=== PATIENT | male | born 1965 | race Caucasian/White ===

== ENCOUNTER 2021-09-28 15:57 | Inpatient (IN) ==
[2021-09-28] MEDS ORDERED: SODIUM CHLORIDE 0.9% 1000ML 1,000 ML IV ONE (16:10)
[2021-09-28] MEDS ORDERED: PIPERACILLIN/TAZOBACTAM 4.5 GM/120 ML BAG IV STA (16:29)
[2021-09-28] MEDS ORDERED: Patient's HEIGHT &/or WEIGHT Needed SCH ×2 (16:30)
--- NOTE | 2021-09-28 16:36 | Emergency Department Note ---
History of Present Illness General Chief complaint: Altered Mental Status Stated complaint: CLOUDY URINE, AMS, FLANK PAIN, HX OF UTI/SEPSIS Time Seen by Provider: 09/28/21 16:07 Source: patient and family ( who is at the bedside) Mode of arrival: ambulatory Limitations: no limitations History of Present Illness Maximum Pain Intensity: 6 This patient is a 56-year-old male who has a very complex medical history including metastatic colon cancer, end-stage renal disease with dialysis and nephrostomy tube on the left, comes in after having increased tiredness, his thinks has been a little more confused than normal. He does receive dialysis on Wednesday and Wednesday and has not missed any. His did not think his nephrostomy tube was draining last night so she flushed it is now draining and they gave us a sample and it looks purulent. He does not eat but he only drinks small fluids he does have a G-tube for drainage and he has a a port in his left chest where he receives TPN he has a dialysis catheter in the right chest. Denies shortness of breath or chest pain his says he has ch ronic lower extremity edema which does seem worse lately. No known fever he may have felt warm earlier. No blood in stool no recent fall. He may have had some flank pain earlier he does tend to get pain in his abdomen and and back and is on chronic fentanyl patches. He has received all of his care at [facility] he did go to [facility] briefly as well. He has not received chemotherapy for about a month. He tends to get sepsis from his urine. We did review his previous urine cultures although there were no sensitivities he does tend to get Pseudomonas and Enterococcus. Home Medications Medication Instructions Recorded Confirmed Type TPN Electrolytes See Rx Instructions .ROUTE .COMPLEX 09/28/21 09/28/21 History buspirone 15 mg tablet 15 mg PO BID 09/28/21 09/28/21 History fentanyl 100 mcg/hr transdermal 1 patch TRANSDERMAL Q72H 09/28/21 09/28/21 History patch fentanyl 25 mcg/hr transdermal 1 patch TRANSDERMAL Q72H 09/28/21 09/28/21 History patch melatonin 3 mg tablet 3 mg PO HS PRN 09/28/21 09/28/21 History menthol 0.44 %-zinc oxide 20.6 % 1 applic TOPICAL TID PRN 09/28/21 09/28/21 History topical ointment (Calmoseptine) midodrine 10 mg tablet 10 mg PO TID 09/28/21 09/28/21 History nystatin 100,000 unit/gram topical 1 applic TOPICAL BID 09/28/21 09/28/21 History powder olanzapine 5 mg tablet (Zyprexa) 5 mg PO TID PRN 09/28/21 09/28/21 History ondansetron HCl 8 mg tablet 8 mg PO TID PRN 09/28/21 09/28/21 History oxycodone 15 mg tablet 15 mg PO 6XD PRN 09/28/21 09/28/21 History pantoprazole 40 mg tablet,delayed 40 mg PO DAILYBB 09/28/21 09/28/21 History release (Protonix) rifaximin 550 mg tablet (Xifaxan) 550 mg PO BID 09/28/21 09/28/21 History silodosin 8 mg capsule 8 mg PO DAILY 09/28/21 09/28/21 History Allergies Allergy/AdvReac Type Severity Reaction Status Date / Time melon Allergy Intermediate throat and Verified 09/28/21 18:08 mouth is itchy Sulfa (Sulfonamide Allergy Intermediate Hives Verified 09/28/21 18:08 Antibiotics) Past Med/Surg History Social History Smoking Status: Never smoker Preferred Language: Argentine Feels Safe at Home: Yes Immunizations: Past medical historycolon cancer, sepsis, renal failure, dialysis denies cardiac disease. Does have diabetes Allergies - Sulfa Social history does not smoke or drink he lives near [facility] with his . 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 Review of Systems A total of 10 systems reviewed and were otherwise negative Physical Exam Vital Signs Vital Signs - 24 hr 09/28/21 15:59 09/28/21 16:38 09/28/21 16:47 Temperature 36.8 C Temperature Source Temporal Artery Scan Pulse Rate 108 H 104 H Respiratory Rate 20 25 H Blood Pressure 108/73 Blood Pressure Mean 84 Blood Pressure Position Sitting Pulse Oximetry 98 98 Oxygen Delivery Method Room Air Room Air Room Air Sepsis Recent Fever Within 48 Hours No Sepsis New/Unexplained Change in Mental Status Yes Sepsis Action Taken by Nursing No Action Required 09/28/21 17:03 09/28/21 17:42 09/28/21 18:00 Temperature Temperature Source Pulse Rate 98 H 94 H 90 Respiratory Rate 15 12 16 Blood Pressure 97/54 L 101/49 L Blood Pressure Mean 68 66 Blood Pressure Position Pulse Oximetry 94 94 Oxygen Delivery Method Room Air Sepsis Recent Fever Within 48 Hours Sepsis New/Unexplained Change in Mental Status Sepsis Action Taken by Nursing General: Chronically ill-appearing middle-age male who appears pale but in no acute distress, breathing comfortably on room air. Normal speech HEENT: Normal cephalic atraumatic. Pupils are equal round and reactive to light. Extraocular movements are intact. Oropharynx is pink with moist mucous membranes. No swelling of the mouth lips or tongue. Neck: Supple with a midline trachea. No meningeal signs or stiffness, no JVD or bruits. No Stridor. Chest: Clear to auscultation bilaterally. No wheezes or rhonchi. No increased work of breathing. He has a dialysis catheter in the right chest and a a port in the left chest which is already accessed. The skin around these insertions are not red or warm. Heart: Regular rate and rhythm without murmurs or gallops. Abdomen: Soft nontender, nondistended without rebound guarding or rigidity. Abdomen is nondistended he has a large surgical scar centrally without redness or warmth. He has a G-tube in place which has some green drainage in a bag but the incision site looks good. He has a nephrostomy tube in the left flank which has some purulent drainage but the site itself looks okay Extremities: No cyanosis clubbing. Bilateral lower extremity 1+ edema No calf tenderness or assymetry Spine/Back. Non tender to palpation. No CVA tenderness Skin: Good turgor without rashes. Neurologic exam: Cranial nerves two through 12 are intact. Motor and sensation are intact and symmetrical throughout. Course Administered Medications Buspirone HCl (Buspirone 15 Mg Tab) 15 mg PO BID GATITO Stop: 10/28/21 20:59 Last Admin: 09/28/21 22:10 Dose: 15 mg Documented by: [id number] Oxycodone HCl (Oxycodone Hcl Ir 5 Mg Tab (Immediate Release)) 15 mg PO Q4H PRN PRN Reason: Pain Stop: 10/12/21 20:21 Last Admin: 09/28/21 22:10 Dose: 15 mg Documented by: [id number] Rifaximin (Rifaximin 550 Mg Tablet) 550 mg PO BID GATITO Stop: 10/28/21 20:59 Last Admin: 09/28/21 22:10 Dose: 550 mg Documented by: [id number] Discontinued Medications Sodium Chloride (Nss 1000ml) 1,000 mls @ 999 mls/hr IV .Q1H1M ONE Stop: 09/28/21 17:10 Last Admin: 09/28/21 16:46 Dose: Not Given Documented by: [id number] Piperacillin Sod/Tazobactam Sod (Zosyn) 4.5 gm in 120 mls @ 240 mls/hr IV NOW STA Stop: 09/28/21 16:58 Last Infusion: 09/28/21 17:49 Dose: 0 mls/hr Documented by: [id number] Admin: 09/28/21 17:18 Dose: 240 mls/hr Documented by: [id number] Sodium Chloride (Nss) 250 mls @ 999 mls/hr IV .Q16M ONE Stop: 09/28/21 16:55 Last Infusion: 09/28/21 17:19 Dose: 0 mls/hr Documented by: [id number] Admin: 09/28/21 16:50 Dose: 999 mls/hr Documented by: [id number] Vancomycin HCl 2,000 mg/ (Sodium Chloride) 540 mls @ 200 mls/hr IV NOW STA Stop: 09/28/21 19:35 Last Infusion: 09/28/21 20:37 Dose: 0 mls/hr Documented by: [id number] Admin: 09/28/21 17:36 Dose: 200 mls/hr Documented by: [id number] Critical Care Time Critical Care Time: Yes Total Critical Care Time: 40 I have personally spent greater than 40 minutes of critical care time in the direct management of this patient. This includes bedside care, interpretation of diagnostic studies, and testing, discussion with consultants, patient, and family members, and other required patient management activities. This 40 minutes is in excess of all separately billable procedures. Medical Decision Making Differential Diagnosis Sepsis, pyelonephritis, cancer related complication, dialysis complication, bowel obstruction, pneumonia, COVID, electrolyte or metabolic abnormality, dehydration, fluid overload, cardiac disease Medical Records Attestation: I reviewed the patient's medical records. Home Medications Current Medication List: was personally reviewed by me Laboratory Data Result diagrams: 09/28/21 16:45 09/28/21 16:45 Lab Results 09/28/21 09/28/21 09/28/21 Range/Units 16:33 16:33 16:45 WBC 5.60 (4.8-10.8) K/uL RBC 2.81 L (4.7-6.1) M/uL Hgb 8.9 L (14.0-18.0) g/dL Hct 26.8 L (42-52) % MCV 95.4 (80-100) fL MCH 31.7 (25-34) pg MCHC 33.2 (32-36) g/dL RDW Std Deviation 55.4 H (36.4-46.3) fL RDW Coeff of Deandra 16.0 H (11.5-14.5) % Plt Count (130-400) K/uL MPV 11.4 H (7.4-10.4) fL Immature Gran % (Auto) 0.4 % Neut % (Auto) 75.3 % Lymph % (Auto) 5.2 % Charles % (Auto) 18.9 % Eos % (Auto) 0.0 % Baso % (Auto) 0.2 % Neut # (Auto) 4.22 (1.4-6.5) K/uL Lymph # (Auto) 0.29 L (1.2-3.4) K/uL Charles # (Auto) 1.06 H (0.11-0.59) K/uL Eos # (Auto) 0.00 (0-0.5) K/uL Baso # (Auto) 0.01 (0-0.2) K/uL Immature Gran # (Auto) 0.02 (0.00-0.02) K/uL Platelet Estimate Decreased L (Normal) Plt Count ,Citrate (130-400) K/uL Polychromasia 1+ PT (9.0-12.0) Seconds INR (0.9-1.1) APTT (21.0-31.0) Seconds PTT Ratio Sodium (136-145) mmol/L Potassium (3.5-5.1) mmol/L Chloride (98-107) mmol/L Carbon Dioxide (21-32) mmol/L Anion Gap (3-11) BUN (6-23) mg/dl Creatinine (0.6-1.4) mg/dl Est Cr Clr Drug Dosing ml/min Est GFR ( Amer) ml/min Est GFR (Non-Af Amer) ml/min BUN/Creatinine Ratio (10-20) Glucose (70-99(Fasting)) mg/dl Lactate (0.4-2.0) mmol/L Calcium (8.5-10.1) mg/dl Magnesium (1.7-2.4) mg/dl Total Bilirubin (0.2-1.0) mg/dl AST (13-39) U/L ALT (7-52) U/L Alkaline Phosphatase (34-104) U/L Troponin I High Sens (0-20) pg/ml Total Protein (6.0-8.3) gm/dl Albumin (3.4-5.0) gm/dl Globulin (2.5-4.0) gm/dl Albumin/Globulin Ratio (0.9-2) Procalcitonin (0-0.5) ng/ml Urine Color [place] Urine Appearance Cloudy A (Clear) Urine pH 7.0 (4.5-7.5) Ur Specific [place] 1.020 (1.000-1.030) Urine Protein 3+ H (Negative) Urine Glucose (UA) Negative (Negative) Urine Ketones Negative (Negative) Urine Blood 3+ H (Negative) Urine Nitrite Negative (Negative) Urine Bilirubin Negative (Negative) Urine Urobilinogen Negative (Negative) Ur Leukocyte Esterase 3+ H (Negative) Urine RBC >30 H (0-4) /hpf Urine WBC >30 H (0-5) /hpf Ur Epithelial Cells 5-10 H (0-5) /lpf Urine Bacteria Negative (Negative) SARS-CoV-2, RNA, NAAT NEGATIVE (NEGATIVE) 09/28/21 09/28/21 09/28/21 Range/Units 16:45 16:45 16:45 WBC (4.8-10.8) K/uL RBC (4.7-6.1) M/uL Hgb (14.0-18.0) g/dL Hct (42-52) % MCV (80-100) fL MCH (25-34) pg MCHC (32-36) g/dL RDW Std Deviation (36.4-46.3) fL RDW Coeff of Deandra (11.5-14.5) % Plt Count (130-400) K/uL MPV (7.4-10.4) fL Immature Gran % (Auto) % Neut % (Auto) % Lymph % (Auto) % Charles % (Auto) % Eos % (Auto) % Baso % (Auto) % Neut # (Auto) (1.4-6.5) K/uL Lymph # (Auto) (1.2-3.4) K/uL Charles # (Auto) (0.11-0.59) K/uL Eos # (Auto) (0-0.5) K/uL Baso # (Auto) (0-0.2) K/uL Immature Gran # (Auto) (0.00-0.02) K/uL Platelet Estimate (Normal) Plt Count ,Citrate (130-400) K/uL Polychromasia PT 15.2 H (9.0-12.0) Seconds INR 1.5 H (0.9-1.1) APTT 38.9 H (21.0-31.0) Seconds PTT Ratio 1.4 Sodium 132 L (136-145) mmol/L Potassium 4.2 (3.5-5.1) mmol/L Chloride 98 (98-107) mmol/L Carbon Dioxide 26 (21-32) mmol/L Anion Gap 8 (3-11) BUN 66 H (6-23) mg/dl Creatinine 4.97 H* (0.6-1.4) mg/dl Est Cr Clr Drug Dosing 21.8 ml/min Est GFR ( Amer) 13.8 ml/min Est GFR (Non-Af Amer) 11.9 ml/min BUN/Creatinine Ratio 13.3 (10-20) Glucose 111 H (70-99(Fasting)) mg/dl Lactate 1.4 (0.4-2.0) mmol/L Calcium 8.8 (8.5-10.1) mg/dl Magnesium 1.7 (1.7-2.4) mg/dl Total Bilirubin 2.4 H (0.2-1.0) mg/dl AST 15 (13-39) U/L ALT 13 (7-52) U/L Alkaline Phosphatase 195 H (34-104) U/L Troponin I High Sens 11.0 (0-20) pg/ml Total Protein 6.4 (6.0-8.3) gm/dl Albumin 3.0 L (3.4-5.0) gm/dl Globulin 3.4 (2.5-4.0) gm/dl Albumin/Globulin Ratio 0.9 (0.9-2) Procalcitonin (0-0.5) ng/ml Urine Color Urine Appearance (Clear) Urine pH (4.5-7.5) Ur Specific [place] (1.000-1.030) Urine Protein (Negative) Urine Glucose (UA) (Negative) Urine Ketones (Negative) Urine Blood (Negative) Urine Nitrite (Negative) Urine Bilirubin (Negative) Urine Urobilinogen (Negative) Ur Leukocyte Esterase (Negative) Urine RBC (0-4) /hpf Urine WBC (0-5) /hpf Ur Epithelial Cells (0-5) /lpf Urine Bacteria (Negative) SARS-CoV-2, RNA, NAAT (NEGATIVE) 09/28/21 09/28/21 Range/Units 16:45 18:36 WBC (4.8-10.8) K/uL RBC (4.7-6.1) M/uL Hgb (14.0-18.0) g/dL Hct (42-52) % MCV (80-100) fL MCH (25-34) pg MCHC (32-36) g/dL RDW Std Deviation (36.4-46.3) fL RDW Coeff of Deandra (11.5-14.5) % Plt Count (130-400) K/uL MPV (7.4-10.4) fL Immature Gran % (Auto) % Neut % (Auto) % Lymph % (Auto) % Charles % (Auto) % Eos % (Auto) % Baso % (Auto) % Neut # (Auto) (1.4-6.5) K/uL Lymph # (Auto) (1.2-3.4) K/uL Charles # (Auto) (0.11-0.59) K/uL Eos # (Auto) (0-0.5) K/uL Baso # (Auto) (0-0.2) K/uL Immature Gran # (Auto) (0.00-0.02) K/uL Platelet Estimate (Normal) Plt Count ,Citrate 29 L* (130-400) K/uL Polychromasia PT (9.0-12.0) Seconds INR (0.9-1.1) APTT (21.0-31.0) Seconds PTT Ratio Sodium (136-145) mmol/L Potassium (3.5-5.1) mmol/L Chloride (98-107) mmol/L Carbon Dioxide (21-32) mmol/L Anion Gap (3-11) BUN (6-23) mg/dl Creatinine (0.6-1.4) mg/dl Est Cr Clr Drug Dosing ml/min Est GFR ( Amer) ml/min Est GFR (Non-Af Amer) ml/min BUN/Creatinine Ratio (10-20) Glucose (70-99(Fasting)) mg/dl Lactate (0.4-2.0) mmol/L Calcium (8.5-10.1) mg/dl Magnesium (1.7-2.4) mg/dl Total Bilirubin (0.2-1.0) mg/dl AST (13-39) U/L ALT (7-52) U/L Alkaline Phosphatase (34-104) U/L Troponin I High Sens (0-20) pg/ml Total Protein (6.0-8.3) gm/dl Albumin (3.4-5.0) gm/dl Globulin (2.5-4.0) gm/dl Albumin/Globulin Ratio (0.9-2) Procalcitonin 2.19 H (0-0.5) ng/ml Urine Color Urine Appearance (Clear) Urine pH (4.5-7.5) Ur Specific [place] (1.000-1.030) Urine Protein (Negative) Urine Glucose (UA) (Negative) Urine Ketones (Negative) Urine Blood (Negative) Urine Nitrite (Negative) Urine Bilirubin (Negative) Urine Urobilinogen (Negative) Ur Leukocyte Esterase (Negative) Urine RBC (0-4) /hpf Urine WBC (0-5) /hpf Ur Epithelial Cells (0-5) /lpf Urine Bacteria (Negative) SARS-CoV-2, RNA, NAAT (NEGATIVE) Imaging Data Attestation: I personally reviewed and interpreted this imaging study as follows: My Impression: Chest x-rayno acute infiltrate, failure, pneumothorax seen. CT of the headno acute hemorrhage or mass-effect Radiologist's Impression: Chest X-Ray 09/28/21 16:09 XR chest 1V portable CLINICAL HISTORY: SEPSIS. COMPARISON STUDY: No previous studies for comparison. TECHNIQUE: 1 view of the chest FINDINGS: Single frontal view of the chest demonstrates the cardiomediastinal silhouette to be within normal limits. There is a decreased inspiratory effort with elevation of the hemidiaphragms and crowding of the bronchovascular markings at the lung bases and centrally. There is linear atelectasis at the right lung ba se. The lungs are clear of alveolar opacities. There is a large central for catheter in place. There is no evidence for pleural effusion. There is no evidence for vascular congestion. There is no acute osseous pathology. IMPRESSION: 1. There is a decreased inspiratory effort with right basilar atelectasis. Otherwise no acute chest disease. ACT 112: Negative or not required by law. Electronically signed by: Leon Winkler M.D. 09/28/2021 5:05 PM Abdomen/Pelvis CT 09/28/21 16:36 CT abd pelvis wo con CLINICAL HISTORY: sepsis, nephro tube, colon ca COMPARISON STUDY: No previous studies for comparison. CT DOSE: 1305.15 mGy.cm TECHNIQUE: Standard CT of the Abdomen and Pelvis was performed without IV contrast. The patient did not receive oral contrast. A dose lowering technique was utilized adhering to the principles of ALARA. FINDINGS: Lung base: There is a 1 cm noncalcified pulmonary nodule the right lung base suspicious for metastatic disease. The lung bases are otherwise clear. Abdominal cavity: There is no evidence for abdominal mass, adenopathy or ascites. Liver: The liver has a cirrhotic appearance. There is no gross liver mass.. Spleen: The spleen is homogeneous in attenuation on these limited noncontrast images. There is marked splenomegaly with evidence for splenic hilar varices. Pancreas: The pancreas is homogeneous in attenuation on these limited noncontrast images. Gall Bladder: Surgical clips are present. Adrenal glands: The adrenal glands are normal in size and attenuation on these limited noncontrast images. Kidneys: The kidneys are homogeneous in attenuation on these limited noncontrast images. There is bilateral hydronephrosis. A nephrostomy tube is present on the left. Bowel: A PEG tube is present within the stomach. There is evidence for partial colonic resection. There is moderate to marked dilatation of the small bowel loops with decompression of the colon. There is no focal transition zone and the findings most likely related to adhesions from previous surgery. There is no evidence for mass lesion. There are no inflammatory changes present. There is no evidence for free air. Bladder: There is mild distention of the bladder with no evidence for focal bladder wall thickening, calculus or diverticulum. : There is no evidence for pelvic mass or adenopathy. Vasculature: There is no evidence for focal aneurysmal dilatation of the abdominal aorta. Atherosclerotic calcification is present. Osseous structures: There is no acute osseous pathology. Degenerative changes are seen within the spine. IMPRESSION: 1. Partial colonic resection with moderate to marked dilatation of the small bowel representing bowel obstruction. This most likely related to adhesions. 2. CT findings characteristic of cirrhosis of the liver with marked splenomegaly and splenic hilar varices. 3. 1 cm nodule at the right lung base suspicious for metastatic disease. 4. Bilateral hydronephrosis with nephrostomy tube in place on the left. 5. Additional nonacute findings are delineated above. ACT 112: Negative or not required by law. Electronically signed by: Leon Winkler M.D. 09/28/2021 5:20 PM Stat radCT headno intracranial hemorrhage. No significant mass-effect or midline shift. No evidence for cortical infarct or definite intracranial mass ECG Data Attestation: I personally reviewed and interpreted this ECG as follows: Indication: + tachycardia Rate (beats per minute): 103 Rhythm: + sinus tachycardia ECG Intervals/blocks: + Normal QRS, + Normal QT and + Normal RI ECG [place]: + Normal ECG ST segments: + Normal ST segments ECG Findings: no PACs or no PVCs Comparison ECG Date: no prior available Change: the following changes noted MDM Narrative This patient comes in as described above. He has very complex medical history I talked to at length. He has never been here before so I do not have old records to easily go on. I did talk to her ED pharmacist who was able to look at some of his old cultures however they do not have sensitivity. We will start on broad-spectrum antibiotics with Zosyn and vancomycin I think his source is urine as it does look purulent. He does not have a fever here. He also has multiple tubes and lines that could potentially be infected as well or source of infection he has not missed any dialysis and is on a Wednesday schedule. His lungs are clear and do not sound fluid overloaded. His O2 sat is 98%. A full sepsis type work-up was obtained I also did a CAT scan of his abdomen without contrast he was reassessed frequently. Because of his dialysis and concern for fluid overload he was not given the 30/kg normal saline bolus initially. His blood pressure was in the 90s at 1 point so I did give him a 250 cc bolus which he tolerated well. Urinalysis does appear very consistent with infection. White count and lactic were not elevated however procalcitonin was. Chest x-ray was clear. EKG shows no ischemic changes or ectopy. Platelets were low he has no signs of active bleeding. Did order a CT of his head and it was unremarkable as well. He has no headache. He is a dialysis as patient has not missed any dialysis. His abdominal CT shows some small bowel obstruction but I think that is chronic I talked to the about this he has a G-tube in for this. I do think he needs to be admitted for IV antibiotics and further treatment and evaluation I am concerned that he is getting septic. I did consult Dr. Collazo who saw the patient in ER for these measures. The Continuous cardiac monitoring: Orders placed in EMR for continuous cardiac monitoring. Petersen interpretation the patient noted to be in normal sinus rhythm with a rate of 90 Impression & Plan Sepsis, Abdominal pain, Altered mental status, Urinary tract infection, Lab test negative for COVID-19 virus, Thrombocytopenia Discharge Plan Visit Data Chief Complaint: Altered Mental Status Stated Complaint: CLOUDY URINE, AMS, FLANK PAIN, HX OF UTI/SEPSIS ED Provider: Bg Richardson Discharge Problem: Sepsis, Abdominal pain, Altered mental status, Urinary tract infection, Lab test negative for COVID-19 virus, Thrombocytopenia Discharge Instructions Interventions: ED Discharge Assessment Last Done: 09/28/21 22:30
[2021-09-28] MEDS ORDERED: SODIUM CHLORIDE 0.9% 250 ML IV ONE (16:40)
[2021-09-28] MEDS ORDERED: VANCOMYCIN HCL 2,000 MG in SODIUM CHLORIDE 0.9% 500 ML IV STA (16:54)
[2021-09-28 17:08] LABS: Appearance Urine Cloudy (Clear); Bilirubin Urine Negative (Negative); Blood Urine 3+ (Negative); Color Urine Orange; Glucose Urine UA Negative (Negative); Ketones Urine Negative (Negative); Leukocyte Esterase Urine 3+ (Negative); Nitrite Urine Negative (Negative); Protein Urine 3+ (Negative); Urobilinogen Urine Negative (Negative)
--- NOTE | 2021-09-28 17:08 | XRay Report ---
XR chest 1V portable CLINICAL HISTORY: SEPSIS. COMPARISON STUDY: No previous studies for comparison. TECHNIQUE: 1 view of the chest FINDINGS: Single frontal view of the chest demonstrates the cardiomediastinal silhouette to be within normal li mits. There is a decreased inspiratory effort with elevation of the hemidiaphragms and crowding of th e bronchovascular markings at the lung bases and centrally. There is linear atelectasis at the right lung base. The lungs are clear of alveolar opacities. There is a large central for catheter in place. There is no evidence for pleural effusion. There is no evidence for vascular congestion. There is no acute osseous pathology. IMPRESSION: 1. There is a decreased inspiratory effort with right basilar atelectasis. Otherwise no acute chest d isease. ACT 112: Negative or not required by law. Electronically signed by: Leon Winkler M.D. 09/28/2021 5:05 PM
[2021-09-28 17:19] LABS: INR 1.5 (0.9-1.1); Partial Thromboplastin Ratio 1.4; Partial Thromboplastin Time 38.9 Seconds (21.0-31.0); Prothrombin Time 15.2 Seconds (9.0-12.0)
--- NOTE | 2021-09-28 17:22 | CT Scan Report ---
CT abd pelvis wo con CLINICAL HISTORY: sepsis, nephro tube, colon ca COMPARISON STUDY: No previous studies for comparison. CT DOSE: 1305.15 mGy.cm TECHNIQUE: Standard CT of the Abdomen and Pelvis was performed without IV contrast. The patient did not receive oral contrast. A dose lowering technique was utilized adhering to the principles of JC Rizzo. FINDINGS: Lung base: There is a 1 cm noncalcified pulmonary nodule the right lung base suspicious for metastati c disease. The lung bases are otherwise clear. Abdominal cavity: There is no evidence for abdominal mass, adenopathy or ascites. Liver: The liver has a cirrhotic appearance. There is no gross liver mass.. Spleen: The spleen is homogeneous in attenuation on these limited noncontrast images. There is marked splenomegaly with evidence for splenic hilar varices. Pancreas: The pancreas is homogeneous in attenuation on these limited noncontrast images. Gall Bladder: Surgical clips are present. Adrenal glands: The adrenal glands are normal in size and attenuation on these limited noncontrast im ages. Kidneys: The kidneys are homogeneous in attenuation on these limited noncontrast images. There is evangelina ateral hydronephrosis. A nephrostomy tube is present on the left. Bowel: A PEG tube is present within the stomach. There is evidence for partial colonic resection. The re is moderate to marked dilatation of the small bowel loops with decompression of the colon. There i s no focal transition zone and the findings most likely related to adhesions from previous surgery. T here is no evidence for mass lesion. There are no inflammatory changes present. There is no evidence for free air. Bladder: There is mild distention of the bladder with no evidence for focal bladder wall thickening, calculus or diverticulum. : There is no evidence for pelvic mass or adenopathy. Vasculature: There is no evidence for focal aneurysmal dilatation of the abdominal aorta. Atheroscler otic calcification is present. Osseous structures: There is no acute osseous pathology. Degenerative changes are seen within the spi ne. IMPRESSION: 1. Partial colonic resection with moderate to marked dilatation of the small bowel representing bowel obstruction. This most likely related to adhesions. 2. CT findings characteristic of cirrhosis of the liver with marked splenomegaly and splenic hilar va rices. 3. 1 cm nodule at the right lung base suspicious for metastatic disease. 4. Bilateral hydronephrosis with nephrostomy tube in place on the left. 5. Additional nonacute findings are delineated above. ACT 112: Negative or not required by law. Electronically signed by: Leon Winkler M.D. 09/28/2021 5:20 PM
[2021-09-28 17:25] LABS: WBC Urine >30 /hpf (0-5)
[2021-09-28 17:26] LABS: Bacteria Urine Negative (Negative); RBC Urine >30 /hpf (0-4)
[2021-09-28 17:30] LABS: Albumin Globulin Ratio 0.9 (0.9-2); BUN Creatinine Ratio 13.3 (10-20); Bilirubin,Total 2.4 mg/dl (0.2-1.0); Calcium 8.8 mg/dl (8.5-10.1); Creatinine Clr Calc Pharmacy 21.8 ml/min; Est GFR (African American) 13.8 ml/min; Est GFR (Non-African American) 11.9 ml/min; Globulin 3.4 gm/dl (2.5-4.0); Magnesium 1.7 mg/dl (1.7-2.4); Potassium 4.2 mmol/L (3.5-5.1); Total Protein 6.4 gm/dl (6.0-8.3)
[2021-09-28 17:44] LABS: Hematocrit (blood only) 26.8 % (42-52); Hemoglobin 8.9 g/dL (14.0-18.0); Mean Corpuscular Hemoglobin 31.7 pg (25-34); Mean Corpuscular Hgb Conc 33.2 g/dL (32-36); Mean Corpuscular Volume 95.4 fL (80-100); Mean Platelet Volume 11.4 fL (7.4-10.4); RDW Standard Deviation 55.4 fL (36.4-46.3); Red Blood Count 2.81 M/uL (4.7-6.1)
[2021-09-28 17:45] LABS: Basophils # (auto) 0.01 K/uL (0-0.2); Basophils % (auto) 0.2 %; Immature Granulocytes # (auto) 0.02 K/uL (0.00-0.02); Immature Granulocytes % (auto) 0.4 %; Lymphocytes # (auto) 0.29 K/uL (1.2-3.4); Lymphocytes % (auto) 5.2 %; Monocytes # (auto) 1.06 K/uL (0.11-0.59); Monocytes % (auto) 18.9 %; Neutrophils # (auto) 4.22 K/uL (1.4-6.5); Neutrophils % (auto) 75.3 %; Platelet Estimate Decreased (Normal); Polychromasia 1+
[2021-09-28] MEDS ORDERED: PHARMACY GLYCEMIC MGMT CONSULT PRN (19:44)
--- NOTE | 2021-09-28 20:01 | History & Physical Report ---
Date of Service September 28, 2021 Assessment & Plan (1) Altered mental status: (2) Urinary tract infection: (3) Sepsis: (4) Pyelonephritis: Plan: Patient presents with pain in left flank, left lower abdomen, where his nephrostomy tube is placed, however was clogged earlier today Patient was able to flush nephrostomy tube, and purulent urine was drained Patient started on IV antibiotics, vancomycin and Zosyn, will continue Urology, Dr. Frey consulted, Schmitt catheter also placed Blood cultures, urine culture obtained and pending Per patient's , patient was hospitalized at [facility] beds [facility] the [facility] from September 10, to September 16 due to same. She reports he was on IV antibiotics, and discharged on Levaquin for 7 days. We will obtain medical records. End-stage renal disease on dialysis On dialysis Wednesday, renal in [place], Dr. Lo -We will consult [facility] nephrology for dialysis while inpatient Metastatic colon cancer to bladder and likely lung Currently undergoing palliative chemotherapy at [facility] Per , surgery was planned in [place], however patient was not a candidate anymore (elevated ammonia, GI bleed) Records are not available for me to review, will ask HIM for medical records Chronic bowel obstruction -Due to above -G-tube placed -Continue TPN Thrombocytopenia Seems to be chronic, due to above Continue to monitor, and continue to monitor for any bleed Try to obtain medical records, for review as above CODE STATUS: Patient's reports that they go back and forth on it, she is inclined for DNR/DNI, patient himself is not able to answer my questions appropriately. History of Present Illness Chief Complaint: altered mental status Primary Care Provider: Bel Patterson 56-year-old male, with a complex medical history, significant for 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 (seems to be on Palliative chemotherapy, every 2 weeks, at [facility]) end-stage renal disease on dialysis, Wednesday, and Wednesday. ( renal in [place], Dr. Lo), history of left nephrostomy tube, ? Diabetes mellitus, chronic bowel obstruction with G-tube placement (placed in December in [place]) and on TPN, who presents with left lower abdominal/left flank pain and altered mental status. Patient usually follows with providers in [place], and was also evaluated in [place] (and at this time I do not have any medical records to review). Suyapa little's is present at the bedside and is able to provide more history. Patient was recently hospitalized at [facility] at the [facility] for the same. Admission was from September 10 to September 16. Per , patient had more pain in his left flank, and his left nephrostomy tube was clogged. She was able to eventually flush it and drained purulent urine. She says that similar things happened prior to his admission in [place] as well. Reports that also prior to that admission his mental status was altered due to infection. She says that he was on IV antibiotics there, believes he was on vancomycin and cefepime, and discharged home on Levaquin for 7 days, finished treatment on September 23. CT abdomen pelvis was performed in ED here, shows bowel obstruction, which is chronic per patient and . Patient's also reports that patient was considered for surgery in [place] in December, however that was then canceled as he was not a candidate anymore. Here in ED, pt was started on antibiotics, vancomycin and Zosyn. ED provider was able to review previous cultures with pharmacist, seems like patient was previously infected with Pseudomonas and Enterococcus. I was able to discuss with Dr. Frey, urology, who believes patient may have pyelonephritis, and recommends for now to place Schmitt catheter. Recommends IV antibiotics, and nephro tube exchange at some point, likely as previously scheduled. Patient's says that he usually gets his nephrostomy tube exchanged at [facility] hospital in [place], and it usually stays for 6 to 8 weeks. Patient reports that he may have felt some fever today, however he is not sure. He denies any difficulty with breathing, or chest pain. He is not able to answer all my questions, and he refers to his . Allergies Allergy/AdvReac Type Severity Reaction Status Date / Time melon Allergy Intermediate throat and Verified 09/28/21 18:08 mouth is itchy Sulfa (Sulfonamide Allergy Intermediate Hives Verified 09/28/21 18:08 Antibiotics) Home Medications Medication Instructions Recorded Confirmed Type TPN Electrolytes See Rx Instructions .ROUTE .COMPLEX 09/28/21 09/28/21 History buspirone 15 mg tablet 15 mg PO BID 09/28/21 09/28/21 History fentanyl 100 mcg/hr transdermal 1 patch TRANSDERMAL Q72H 09/28/21 09/28/21 History patch fentanyl 25 mcg/hr transdermal 1 patch TRANSDERMAL Q72H 09/28/21 09/28/21 History patch melatonin 3 mg tablet 3 mg PO HS PRN 09/28/21 09/28/21 History menthol 0.44 %-zinc oxide 20.6 % 1 applic TOPICAL TID PRN 09/28/21 09/28/21 History topical ointment (Calmoseptine) midodrine 10 mg tablet 10 mg PO TID 09/28/21 09/28/21 History nystatin 100,000 unit/gram topical 1 applic TOPICAL BID 09/28/21 09/28/21 History powder olanzapine 5 mg tablet (Zyprexa) 5 mg PO TID PRN 09/28/21 09/28/21 History ondansetron HCl 8 mg tablet 8 mg PO TID PRN 09/28/21 09/28/21 History oxycodone 15 mg tablet 15 mg PO 6XD PRN 09/28/21 09/28/21 History pantoprazole 40 mg tablet,delayed 40 mg PO DAILYBB 09/28/21 09/28/21 History release (Protonix) rifaximin 550 mg tablet (Xifaxan) 550 mg PO BID 09/28/21 09/28/21 History silodosin 8 mg capsule 8 mg PO DAILY 09/28/21 09/28/21 History Past Med/Surg History Social History Smoking Status: Never smoker Preferred Language: Sammarinese Feels Safe at Home: Yes Review of Systems Review of Systems: Unobtainable due to cognitive status Physical Exam Constitutional: WD/WN, vitals as above Eyes: PERRL, conjunctivae normal, anicteric sclerae ENMT: external ear and nose normal, oropharynx normal Neck: trachea midline, no thyromegaly Respiratory: normal respiratory effort, lungs clear to auscultation Cardiovascular: Rate/Rhythm: regular rate (1 + LE edema) Chest (Breasts): Chest: + vascular access device or port (Port for TPN on the left, and Waters for dialysis on the right) Gastrointestinal (Abdomen): Inspection/Auscultation: + abdomen distended (Tender to palpation at left lower abdomen, minimal bowel sounds) Musculoskeletal: Moves extremities Skin: no rashes, warm and dry Neurologic: PERRL, EOMI, accommodation nl, no face palsy, no dysarthria (Patient is slow to answer, and not able to answer all my questions) Results & Data Results & Data ([facility]) Vital Signs (Past 12 Hours) Vital Signs Temp Pulse Resp BP Pulse Ox 09/28/21 18:00 90 16 101/49 L 94 09/28/21 17:42 94 H 12 97/54 L 94 09/28/21 17:03 98 H 15 09/28/21 16:47 104 H 25 H 98 09/28/21 15:59 36.8 C 108 H 20 108/73 98 Laboratory Results 09/28/21 09/28/21 09/28/21 Range/Units 18:36 16:45 16:45 WBC (4.8-10.8) K/uL RBC (4.7-6.1) M/uL Hgb (14.0-18.0) g/dL Hct (42-52) % MCV (80-100) fL MCH (25-34) pg MCHC (32-36) g/dL RDW Std Deviation (36.4-46.3) fL RDW Coeff of Deandra (11.5-14.5) % Plt Count (130-400) K/uL MPV (7.4-10.4) fL Immature Gran % (Auto) % Neut % (Auto) % Lymph % (Auto) % [place] % (Auto) % Eos % (Auto) % Baso % (Auto) % Neut # (Auto) (1.4-6.5) K/uL Lymph # (Auto) (1.2-3.4) K/uL [place] # (Auto) (0.11-0.59) K/uL Eos # (Auto) (0-0.5) K/uL Baso # (Auto) (0-0.2) K/uL Immature Gran # (Auto) (0.00-0.02) K/uL Platelet Estimate (Normal) Plt Count ,Citrate 29 L* (130-400) K/uL Polychromasia PT (9.0-12.0) Seconds INR (0.9-1.1) APTT (21.0-31.0) Seconds PTT Ratio Sodium (136-145) mmol/L Potassium (3.5-5.1) mmol/L Chloride (98-107) mmol/L Carbon Dioxide (21-32) mmol/L Anion Gap (3-11) BUN (6-23) mg/dl Creatinine (0.6-1.4) mg/dl Est Cr Clr Drug Dosing ml/min Est GFR ( Amer) ml/min Est GFR (Non-Af Amer) ml/min BUN/Creatinine Ratio (10-20) Glucose (70-99(Fasting)) mg/dl Lactate 1.4 (0.4-2.0) mmol/L Calcium (8.5-10.1) mg/dl Magnesium (1.7-2.4) mg/dl Total Bilirubin (0.2-1.0) mg/dl AST (13-39) U/L ALT (7-52) U/L Alkaline Phosphatase (34-104) U/L Troponin I High Sens (0-20) pg/ml Total Protein (6.0-8.3) gm/dl Albumin (3.4-5.0) gm/dl Globulin (2.5-4.0) gm/dl Albumin/Globulin Ratio (0.9-2) Procalcitonin 2.19 H (0-0.5) ng/ml Urine Color Urine Appearance (Clear) Urine pH (4.5-7.5) Ur Specific Doss (1.000-1.030) Urine Protein (Negative) Urine Glucose (UA) (Negative) Urine Ketones (Negative) Urine Blood (Negative) Urine Nitrite (Negative) Urine Bilirubin (Negative) Urine Urobilinogen (Negative) Ur Leukocyte Esterase (Negative) Urine RBC (0-4) /hpf Urine WBC (0-5) /hpf Ur Epithelial Cells (0-5) /lpf Urine Bacteria (Negative) SARS-CoV-2, RNA, NAAT (NEGATIVE) 09/28/21 09/28/21 09/28/21 Range/Units 16:45 16:45 16:45 WBC 5.60 (4.8-10.8) K/uL RBC 2.81 L (4.7-6.1) M/uL Hgb 8.9 L (14.0-18.0) g/dL Hct 26.8 L (42-52) % MCV 95.4 (80-100) fL MCH 31.7 (25-34) pg MCHC 33.2 (32-36) g/dL RDW Std Deviation 55.4 H (36.4-46.3) fL RDW Coeff of Deandra 16.0 H (11.5-14.5) % Plt Count (130-400) K/uL MPV 11.4 H (7.4-10.4) fL Immature Gran % (Auto) 0.4 % Neut % (Auto) 75.3 % Lymph % (Auto) 5.2 % [place] % (Auto) 18.9 % Eos % (Auto) 0.0 % Baso % (Auto) 0.2 % Neut # (Auto) 4.22 (1.4-6.5) K/uL Lymph # (Auto) 0.29 L (1.2-3.4) K/uL [place] # (Auto) 1.06 H (0.11-0.59) K/uL Eos # (Auto) 0.00 (0-0.5) K/uL Baso # (Auto) 0.01 (0-0.2) K/uL Immature Gran # (Auto) 0.02 (0.00-0.02) K/uL Platelet Estimate Decreased L (Normal) Plt Count ,Citrate (130-400) K/uL Polychromasia 1+ PT 15.2 H (9.0-12.0) Seconds INR 1.5 H (0.9-1.1) APTT 38.9 H (21.0-31.0) Seconds PTT Ratio 1.4 Sodium 132 L (136-145) mmol/L Potassium 4.2 (3.5-5.1) mmol/L Chloride 98 (98-107) mmol/L Carbon Dioxide 26 (21-32) mmol/L Anion Gap 8 (3-11) BUN 66 H (6-23) mg/dl Creatinine 4.97 H* (0.6-1.4) mg/dl Est Cr Clr Drug Dosing 21.8 ml/min Est GFR ( Amer) 13.8 ml/min Est GFR (Non-Af Amer) 11.9 ml/min BUN/Creatinine Ratio 13.3 (10-20) Glucose 111 H (70-99(Fasting)) mg/dl Lactate (0.4-2.0) mmol/L Calcium 8.8 (8.5-10.1) mg/dl Magnesium 1.7 (1.7-2.4) mg/dl Total Bilirubin 2.4 H (0.2-1.0) mg/dl AST 15 (13-39) U/L ALT 13 (7-52) U/L Alkaline Phosphatase 195 H (34-104) U/L Troponin I High Sens 11.0 (0-20) pg/ml Total Protein 6.4 (6.0-8.3) gm/dl Albumin 3.0 L (3.4-5.0) gm/dl Globulin 3.4 (2.5-4.0) gm/dl Albumin/Globulin Ratio 0.9 (0.9-2) Procalcitonin (0-0.5) ng/ml Urine Color Urine Appearance (Clear) Urine pH (4.5-7.5) Ur Specific Doss (1.000-1.030) Urine Protein (Negative) Urine Glucose (UA) (Negative) Urine Ketones (Negative) Urine Blood (Negative) Urine Nitrite (Negative) Urine Bilirubin (Negative) Urine Urobilinogen (Negative) Ur Leukocyte Esterase (Negative) Urine RBC (0-4) /hpf Urine WBC (0-5) /hpf Ur Epithelial Cells (0-5) /lpf Urine Bacteria (Negative) SARS-CoV-2, RNA, NAAT (NEGATIVE) 09/28/21 09/28/21 Range/Units 16:33 16:33 WBC (4.8-10.8) K/uL RBC (4.7-6.1) M/uL Hgb (14.0-18.0) g/dL Hct (42-52) % MCV (80-100) fL MCH (25-34) pg MCHC (32-36) g/dL RDW Std Deviation (36.4-46.3) fL RDW Coeff of Deandra (11.5-14.5) % Plt Count (130-400) K/uL MPV (7.4-10.4) fL Immature Gran % (Auto) % Neut % (Auto) % Lymph % (Auto) % [place] % (Auto) % Eos % (Auto) % Baso % (Auto) % Neut # (Auto) (1.4-6.5) K/uL Lymph # (Auto) (1.2-3.4) K/uL [place] # (Auto) (0.11-0.59) K/uL Eos # (Auto) (0-0.5) K/uL Baso # (Auto) (0-0.2) K/uL Immature Gran # (Auto) (0.00-0.02) K/uL Platelet Estimate (Normal) Plt Count ,Citrate (130-400) K/uL Polychromasia PT (9.0-12.0) Seconds INR (0.9-1.1) APTT (21.0-31.0) Seconds PTT Ratio Sodium (136-145) mmol/L Potassium (3.5-5.1) mmol/L Chloride (98-107) mmol/L Carbon Dioxide (21-32) mmol/L Anion Gap (3-11) BUN (6-23) mg/dl Creatinine (0.6-1.4) mg/dl Est Cr Clr Drug Dosing ml/min Est GFR ( Amer) ml/min Est GFR (Non-Af Amer) ml/min BUN/Creatinine Ratio (10-20) Glucose (70-99(Fasting)) mg/dl Lactate (0.4-2.0) mmol/L Calcium (8.5-10.1) mg/dl Magnesium (1.7-2.4) mg/dl Total Bilirubin (0.2-1.0) mg/dl AST (13-39) U/L ALT (7-52) U/L Alkaline Phosphatase (34-104) U/L Troponin I High Sens (0-20) pg/ml Total Protein (6.0-8.3) gm/dl Albumin (3.4-5.0) gm/dl Globulin (2.5-4.0) gm/dl Albumin/Globulin Ratio (0.9-2) Procalcitonin (0-0.5) ng/ml Urine Color Grand Urine Appearance Cloudy A (Clear) Urine pH 7.0 (4.5-7.5) Ur Specific Doss 1.020 (1.000-1.030) Urine Protein 3+ H (Negative) Urine Glucose (UA) Negative (Negative) Urine Ketones Negative (Negative) Urine Blood 3+ H (Negative) Urine Nitrite Negative (Negative) Urine Bilirubin Negative (Negative) Urine Urobilinogen Negative (Negative) Ur Leukocyte Esterase 3+ H (Negative) Urine RBC >30 H (0-4) /hpf Urine WBC >30 H (0-5) /hpf Ur Epithelial Cells 5-10 H (0-5) /lpf Urine Bacteria Negative (Negative) SARS-CoV-2, RNA, NAAT NEGATIVE (NEGATIVE) Diagnostic Findings CT abdomen pelvis FINDINGS: Lung base: There is a 1 cm noncalcified pulmonary nodule the right lung base suspicious for metastatic disease. The lung bases are otherwise clear. Abdominal cavity: There is no evidence for abdominal mass, adenopathy or ascites. Liver: The liver has a cirrhotic appearance. There is no gross liver mass.. Spleen: The spleen is homogeneous in attenuation on these limited noncontrast images. There is marked splenomegaly with evidence for splenic hilar varices. Pancreas: The pancreas is homogeneous in attenuation on these limited noncontrast images. Gall Bladder: Surgical clips are present. Adrenal glands: The adrenal glands are normal in size and attenuation on these limited noncontrast images. Kidneys: The kidneys are homogeneous in attenuation on these limited noncontrast images. There is bilateral hydronephrosis. A nephrostomy tube is present on the left. Bowel: A PEG tube is present within the stomach. There is evidence for partial colonic resection. There is moderate to marked dilatation of the small bowel loops with decompression of the colon. There is no focal transition zone and the findings most likely related to adhesions from previous surgery. There is no evidence for mass lesion. There are no inflammatory changes present. There is no evidence for free air. Bladder: There is mild distention of the bladder with no evidence for focal bladder wall thickening, calculus or diverticulum. : There is no evidence for pelvic mass or adenopathy. Vasculature: There is no evidence for focal aneurysmal dilatation of the abdominal aorta. Atherosclerotic calcification is present. Osseous structures: There is no acute osseous pathology. Degenerative changes are seen within the spine. IMPRESSION: 1. Partial colonic resection with moderate to marked dilatation of the small bowel representing bowel obstruction. This most likely related to adhesions. 2. CT findings characteristic of cirrhosis of the liver with marked splenomegaly and splenic hilar varices. 3. 1 cm nodule at the right lung base suspicious for metastatic disease. 4. Bilateral hydronephrosis with nephrostomy tube in place on the left. 5. Additional nonacute findings are delineated above. Code Status & VTE Plan VTE Prophylaxis Plan VTE Prophylaxis will be ordered: Yes (1) Altered mental status Altered mental status type: unspecified Qualified Code(s): R41.82 - Altered mental status, unspecified (2) Urinary tract infection Hematuria presence: without hematuria Urinary tract infection type: site unspecified Qualified Code(s): N39.0 - Urinary tract infection, site not specified (3) Sepsis Sepsis acute organ dysfunction status: without acute organ dysfunction Sepsis type: sepsis due to unspecified organism Qualified Code(s): A41.9 - Sepsis, unspecified organism
[2021-09-28] MEDS ORDERED: MENTHOL-ZINC OXIDE 360 APPLN/120 GM TUBE EXT PRN (20:22)
[2021-09-28] MEDS ORDERED: MELATONIN 3 MG TAB PO PRN (20:22)
[2021-09-28] MEDS ORDERED: TPN/PPN CONSULT PHARMACY PRN (21:07)
--- NOTE | 2021-09-28 21:26 | Urology Consultation ---
Date of Consultation September 28, 2021 Assessment & Plan (1) Altered mental status: (2) Urinary tract infection: (3) Sepsis: (4) Pyelonephritis: Patient has extremely complicated history very complicated medical and surgical history was reviewed and summarized above. Limited due to the extreme complexity of his advanced malignancy. Patient's was able to fill in a number of the questions however still some further documentation may be helpful in finalizing long-term plan. At this point would recommend utilizing some sort of drainage of the bladder. Patient is extremely hesitant due to issues with previous biopsies and resections of bladder and need for continuous bladder irrigation to tolerate a Schmitt catheter. After some discussion patient was amendable to trying a straight catheter. Did discuss that the distended bladder with likely stagnant urine could contribute significantly to the infection risk and may be causing the hydronephrosis that is now noted on the right. Patient's nephrostomy tube is currently functioning well. It is set to be changed towards the end of this month. We will likely be able to maintain that. Patient will be undergoing broad-spectrum antibiotics. We will need to monitor the right ureter as this may also be obstructed due to the malignancy. Would need to consider possible bilateral nephrostomy tube placement if that obstruction does start to occur. We will for start with drainage of the bladder to see if this will improve. Patient will be likely to monitor closely with possibly critical management due to sepsis with hypotension. Will plan to continue to monitor as well. May need intermittent catheters for drainage of bladder however difficult to determine how much urine the patient does produce a day. Is likely going to continue with hemodialysis while here and patient and family think that it is going to be comp leted tomorrow. We will continue to observe. We will hold off on major intervention at this time and allow adequate drainage of the bladder to see if this will help with improvement and continue drainage with the nephrostomy tube on the left side. All imaging was reviewed interpreted by myself. Did discuss extensively with family. Had discussed earlier in the day extensively with the hospitalist team in order to coordinate care and ensure that available resources will be able to handle the patient's issues especially with the nephrostomy tube. If the nephrostomy tube does start to fail or become obstructed or is unable to be flushed or develops any major issue or displacement may need to consider transfer for interventional radiology management. At this point however it does appear to be functioning well with drainage of a cloudy urine and on imaging appears to be in good position. History of Present Illness History of Present Illness New consultation for patient with UTI/Pyelo, discomfort, and ill feelings. Patient has extremely complicated history. 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 Patient has had obstruction of bowel. Has nephrostomy tube on the left side due to obstruction due to local invasion within the bladder. Has had multiple interventions in the [place] area with [place] [facility] out of [facility]. Has had to have bladder irrigations. Patient had obstruction of the neph tube in the last day. With some gentle flushing by his this was able open and a large amount of purulent appearing material drained. Subsequently this has been draining considerably better. Patient had developed significant altered mental status. Has chronic pain related issues due to malignancy history. Patient has not noticed a major change in his chronic pain related issues and has chronic abdominal and flank pain at baseline. Has some discomfort with the nephrostomy tube with flank pain and radiating into groin and back in waves comes and goes. Can be severe at times. Discussed and reviewed patient's family history for any history of issues, infections, and disease. Also, discussed patient's medical/surgery history especially related to any history of urinary issues or stone disease. Reviewed extensively with patient and . Patient is a somewhat poor historian due to the acute illness. Patient had CT scan which was reviewed interpreted by myself. Patient has massive dilation of the small bowel. Has a gastric tube in place which is per the used for drainage as patient does like to drink water still but is mainly getting nutrition through TPN. Neither patient nor family were aware of the small bowel distention. He does not have bowel movements and neither democrat are completely aware of exactly how his GI system is currently configured due to the significant complexity around his malignancy. On imaging patient has a dilated bladder with mass appearing on the left side of bladder likely the local invasion from the GI cancer. Patient has bilateral hydronephrosis with obstruction of the left and possible reflux into the right due to distention of bladder. Per since he has been on dialysis he only create scant urine daily but frequently feels that he needs to void but only small amounts through the day. Patient was seen in the ER and is undergoing admission with the medicine team for observation with broad spectrum IV antibiotics. Allergies Allergy/AdvReac Type Severity Reaction Status Date / Time melon Allergy Intermediate throat and Verified 09/28/21 18:08 mouth is itchy Sulfa (Sulfonamide Allergy Intermediate Hives Verified 09/28/21 18:08 Antibiotics) Home Medications Medication Instructions Recorded Confirmed Type TPN Electrolytes See Rx Instructions .ROUTE .COMPLEX 09/28/21 09/28/21 History buspirone 15 mg tablet 15 mg PO BID 09/28/21 09/28/21 History fentanyl 100 mcg/hr transdermal 1 patch TRANSDERMAL Q72H 09/28/21 09/28/21 History patch fentanyl 25 mcg/hr transdermal 1 patch TRANSDERMAL Q72H 09/28/21 09/28/21 History patch melatonin 3 mg tablet 3 mg PO HS PRN 09/28/21 09/28/21 History menthol 0.44 %-zinc oxide 20.6 % 1 applic TOPICAL TID PRN 09/28/21 09/28/21 History topical ointment (Calmoseptine) midodrine 10 mg tablet 10 mg PO TID 09/28/21 09/28/21 History nystatin 100,000 unit/gram topical 1 applic TOPICAL BID 09/28/21 09/28/21 History powder olanzapine 5 mg tablet (Zyprexa) 5 mg PO TID PRN 09/28/21 09/28/21 History ondansetron HCl 8 mg tablet 8 mg PO TID PRN 09/28/21 09/28/21 History oxycodone 15 mg tablet 15 mg PO 6XD PRN 09/28/21 09/28/21 History pantoprazole 40 mg tablet,delayed 40 mg PO DAILYBB 09/28/21 09/28/21 History release (Protonix) rifaximin 550 mg tablet (Xifaxan) 550 mg PO BID 09/28/21 09/28/21 History silodosin 8 mg capsule 8 mg PO DAILY 09/28/21 09/28/21 History Patient History Social History Smoking Status: Never smoker Preferred Language: Japanese Feels Safe at Home: Yes Review of Systems Review of Systems: All systems reviewed & are unremarkable except as noted in HPI & below Physical Exam Physical Exam: General: Alert and oriented x 3 in no acute distress. Patient is well nourished and well kept. HEENT: Normocephalic Atraumatic. Inspection normal. Cranial Nerves 2-12 Grossly intact. Nares are clear. Neck is supple. Normal inspection of face. Normal inspection of neck. Neurologic: No deficits on inspection. Baseline for motor function and sensory. Psychologic: Normal affect. Respiratory: Nonlabored. No use of accessory muscles. No tachypnea or dyspnea. Cardiovascular: No tachycardia Skin: [place] and Dry. No rashes or visible lesions. Extremities: Moving without issues. No motor deficits on inspection Lymphatics: No edema Abdomen: Soft Non-distended. No acites. No rebound or guarding. Results & Data ([facility]) Vital Signs (Past 12 Hours) Vital Signs Temp Pulse Pulse Resp BP BP Pulse Ox 09/28/21 21:00 90 12 113/56 L 96 09/28/21 18:00 90 16 101/49 L 94 09/28/21 17:42 94 H 12 97/54 L 94 09/28/21 17:03 98 H 15 09/28/21 16:47 104 H 25 H 98 09/28/21 15:59 36.8 C 108 H 20 108/73 98 PG Care Time/CCT Total # of Minutes Spent Total Time Spent with Patient: Total time spent is greater than 50% in coordination of care (as documented) at patient's floor/unit and/or counseling patient: Coding Level of Care Code 14257 Inpt Consult Level 5 Diagnoses Altered mental status R41.82 Altered mental status type: unspecified Urinary tract infection N39.0 Hematuria presence: without hematuria Urinary tract infection type: site unspecified Sepsis A41.9 Sepsis acute organ dysfunction status: without acute organ dysfunction Sepsis type: sepsis due to unspecified organism Pyelonephritis N12 (1) Altered mental status Altered mental status type: unspecified Qualified Code(s): R41.82 - Altered mental status, unspecified (2) Urinary tract infection Hematuria presence: without hematuria Urinary tract infection type: site unspecified Qualified Code(s): N39.0 - Urinary tract infection, site not specified (3) Sepsis Sepsis acute organ dysfunction status: without acute organ dysfunction Sepsis type: sepsis due to unspecified organism Qualified Code(s): A41.9 - Sepsis, unspecified organism
[2021-09-28] MEDS ORDERED: CARBOHYDRATES FOR HYPOGLYCEMIA PO PRN (21:45)
[2021-09-28] MEDS ORDERED: GLUCOSE 10 TABS/TUBE PO PRN (21:45)
[2021-09-28] MEDS ORDERED: DEXTROSE 50% 50 ML SYRINGE IV PRN (21:45)
[2021-09-28] MEDS ORDERED: GLUCAGON FOR INJ 1 MG VIAL IM PRN (21:45)
[2021-09-28] MEDS ORDERED: GLUCOSE 40% GEL 15 GM TUBE PO PRN (21:45)
[2021-09-28] MEDS: rifAXIMin 550 MG TABLET PO SCH (22:10)
[2021-09-28] MEDS: busPIRone 15 MG TAB PO SCH (22:10)
[2021-09-28] MEDS: oxyCODONE HCL IR 5 MG TAB (IMMEDIATE RELEASE) PO PRN (22:10)
[2021-09-28] MEDS ORDERED: VANCOMYCIN CONSULT ACTIVE PRN (22:48)
[2021-09-28] MEDS: NYSTATIN POWDER 15GM BTL EXT SCH (23:51)
[2021-09-29] MEDS: INSULIN ASPART PER UNIT SC SCH ×4 (00:05→17:41)
[2021-09-29] MEDS: PIPERACILLIN/TAZOBACTAM 3.375 GM in DEXTROSE 5% 100 ML IV SCH ×2 (02:11→14:57)
[2021-09-29 05:30] LABS: Hematocrit (blood only) 21.9 % (42-52); Hemoglobin 7.2 g/dL (14.0-18.0); Mean Corpuscular Hgb Conc 32.9 g/dL (32-36); Mean Corpuscular Volume 94.4 fL (80-100); RDW Coefficient of Variation 16.2 % (11.5-14.5); RDW Standard Deviation 55.8 fL (36.4-46.3); Red Blood Count 2.32 M/uL (4.7-6.1); White Blood Count 2.59 K/uL (4.8-10.8)
[2021-09-29 05:32] LABS: Mean Platelet Volume 10.2 fL (7.4-10.4); Platelet Count 36 K/uL (130-400)
[2021-09-29 05:54] LABS: BUN Creatinine Ratio 12.9 (10-20); Creatinine Clr Calc Pharmacy 17.5 ml/min; Est GFR (African American) 12.2 ml/min; Est GFR (Non-African American) 10.5 ml/min; Magnesium 1.6 mg/dl (1.7-2.4); Phosphorus 1.9 mg/dl (2.5-4.9); Potassium 4.2 mmol/L (3.5-5.1)
[2021-09-29] MEDS: MIDODRINE HCL 10 MG TAB PO SCH ×3 (06:07→16:47)
[2021-09-29] MEDS: PANTOprazole 40 MG TAB PO SCH (06:07)
[2021-09-29] MEDS ORDERED: MAGNESIUM SULFATE / D5W 1 GM/100 ML BAG IV ONE (07:15)
--- NOTE | 2021-09-29 07:26 | CT Scan Report ---
CT head/brain wo con CLINICAL HISTORY: altered loc Technique: Contiguous axial CT images of the head were acquired from the base of the skull to the sydni calixto without intravenous contrast administration. Images were viewed in brain, subdural and bone [facility] . Automated dose lowering techniques and/or adjustment according to patient size were utilized for this exam. Comparison: None available at the time of this dictation. Findings: The ventricles, basal cisterns, and cerebral sulci are normal. There is no acute intracranial hemorrh age or evidence of acute territorial infarction. Neither mass effect, shift of the midline structures , nor abnormal extra-axial fluid collections are shown. Imaged portions of the paranasal sinuses and mastoid air cells are clear. The orbits appear normal. There are no acute fractures of the calvaria or scalp swelling. Impression: No acute intracranial hemorrhage, no evidence of acute territorial infarction or other acute intracra nial disease process. ACT 112: Negative or not required by law. Electronically signed by: Lev White M.D. 09/29/2021 7:24 AM
[2021-09-29] MEDS ORDERED: SODIUM CHLORIDE 0.9% 1000ML 1,000 ML IV PRN (07:40)
[2021-09-29 07:42] LABS: Estimated Average Glucose 111 mg/dl; Hemoglobin A1C 5.5 % (4.5-5.6)
--- NOTE | 2021-09-29 11:35 | Hospitalist Progress Note ---
Date of Service September 29, 2021 Assessment & Plan (1) Altered mental status: (2) Urinary tract infection: (3) Sepsis: (4) Pyelonephritis: Plan: Patient presents with pain in left flank, left lower abdomen, where his nephrostomy tube is placed, however was clogged just prior to admission Patient was able to flush nephrostomy tube, and purulent urine was drained Patient started on IV antibiotics, vancomycin and Zosyn, will continue Urology, Dr. Frey consulted, Recommend Schmitt catheter, which Was not done and instead patient agreed to straight cath Blood cultures, urine culture obtained and pending Per patient's , patient was hospitalized at [facility] from September 10, to September 16 due to same. She reports he was on IV antibiotics, and discharged on Levaquin for 7 days. We will obtain medical records. End-stage renal disease on dialysis On dialysis Wednesday, [facility] in [place], Dr. Wally Silver nephrology consulted for dialysis while inpatient Metastatic colon cancer to bladder and likely lung Currently undergoing palliative chemotherapy at [facility] Per , surgery was planned in [place], however patient was not a candidate anymore (elevated ammonia, GI bleed) Records are not available for me to review, will ask HIM for medical records Chronic bowel obstruction -Due to above -G-tube placed -Continue TPN Thrombocytopenia Seems to be chronic, due to above Continue to monitor, and continue to monitor for any bleed Try to obtain medical records, for review as above CODE STATUS: Patient's reports that they go back and forth on it, she is inclined for DNR/DNI, patient himself is not able to answer my questions appropriately. Reviewed records from palliative medicine from [place], which st ated that patient was made DNR/DNI after discussion with , will confirm this further. Admission and Anticipated Discharge Date Admission Date: September 28, 2021 Subjective Patient seen in follow-up of sepsis, UTI/pyonephritis, in the setting of metastatic colon cancer, ESRD on dialysis Patient seems to be doing better today, he is much more awake, and answering more questions Patient's is at the bedside Patient feels very weak, however doing better since last night Afebrile, no chest pain, continues to have abdominal discomfort Review of Systems Review of Systems: All systems reviewed & are unremarkable except as noted in Subjective Physical Exam Physical Exam: Constitutional:L Chronically ill-ap pearing male, slig htly jaundiced, in no acute distress Eyes: PERRL, EOMI, ENMT: external ear and n ose normal, oropha rynx normal Neck: supple Respiratory: normal respiratory effort, lungs mayda ar to auscultation Cardiovascular:L Rate/Rhythm: regul ar rate (1 + LE ed meghann) Chest (Breasts): Chest: + vascular access device or p ort (Port for TPN on the left, and H ickman for dialysi s on the right) Gastrointestinal ( Abdomen): Inspection/Auscult ation: + abdomen d istended (Tender t o palpation at lef t lower abdomen, m inimal bowel sound s) + G tube, L fla nk + L nephrostomy tube Musculoskeletal: Moves extremities Skin: no rashes, warm an d dry Neurologic: PERRL, EOMI, no fa ce palsy, no dysar thria (Patient is slow to answer, an d not able to answ er all my question s appropriately) Results & Data Results & Data ([facility]) Vital Signs (Past 12 Hours) Vital Signs Temp Pulse Pulse Pulse Resp BP BP 09/29/21 11:15 86 95/55 L 09/29/21 11:00 78 93/44 L 09/29/21 10:54 84 09/29/21 10:45 80 95/54 L 09/29/21 10:30 76 89/42 L 09/29/21 10:15 75 87/49 L 09/29/21 10:00 77 89/46 L 09/29/21 09:45 36.7 C 78 09/29/21 07:52 36.6 C 85 19 96/55 L 09/29/21 04:12 37.5 C 88 18 126/74 Pulse Ox 09/29/21 11:15 09/29/21 11:00 09/29/21 10:54 09/29/21 10:45 09/29/21 10:30 09/29/21 10:15 09/29/21 10:00 09/29/21 09:45 09/29/21 07:52 95 09/29/21 04:12 95 Laboratory Results 09/29/21 09/29/21 09/29/21 Range/Units 05:44 05:15 05:15 WBC (4.8-10.8) K/uL RBC (4.7-6.1) M/uL Hgb (14.0-18.0) g/dL Hct (42-52) % MCV (80-100) fL MCH (25-34) pg MCHC (32-36) g/dL RDW Std Deviation (36.4-46.3) fL RDW Coeff of De[place] (11.5-14.5) % Plt Count (130-400) K/uL MPV (7.4-10.4) fL Immature Gran % (Auto) % Neut % (Auto) % Lymph % (Auto) % [place] % (Auto) % Eos % (Auto) % Baso % (Auto) % Neut # (Auto) (1.4-6.5) K/uL Lymph # (Auto) (1.2-3.4) K/uL [place] # (Auto) (0.11-0.59) K/uL Eos # (Auto) (0-0.5) K/uL Baso # (Auto) (0-0.2) K/uL Immature Gran # (Auto) (0.00-0.02) K/uL Platelet Estimate (Normal) Plt Count ,Citrate (130-400) K/uL Polychromasia PT (9.0-12.0) Seconds INR (0.9-1.1) APTT (21.0-31.0) Seconds PTT Ratio Sodium (136-145) mmol/L Potassium (3.5-5.1) mmol/L Chloride (98-107) mmol/L Carbon Dioxide (21-32) mmol/L Anion Gap (3-11) BUN (6-23) mg/dl Creatinine (0.6-1.4) mg/dl Est Cr Clr Drug Dosing ml/min Est GFR ( Amer) ml/min Est GFR (Non-Af Amer) ml/min BUN/Creatinine Ratio (10-20) Glucose (70-99(Fasting)) mg/dl POC Glucose 87 (70-99) mg/dl Estimat Average Glucose mg/dl Hemoglobin A1c (4.5-5.6) % Lactate (0.4-2.0) mmol/L Calcium (8.5-10.1) mg/dl Phosphorus (2.5-4.9) mg/dl Magnesium (1.7-2.4) mg/dl Total Bilirubin (0.2-1.0) mg/dl AST (13-39) U/L ALT (7-52) U/L Alkaline Phosphatase (34-104) U/L Troponin I High Sens (0-20) pg/ml Total Protein (6.0-8.3) gm/dl Albumin (3.4-5.0) gm/dl Globulin (2.5-4.0) gm/dl Albumin/Globulin Ratio (0.9-2) Procalcitonin (0-0.5) ng/ml Urine Color Urine Appearance (Clear) Urine pH (4.5-7.5) Ur Specific [place] (1.000-1.030) Urine Protein (Negative) Urine Glucose (UA) (Negative) Urine Ketones (Negative) Urine Blood (Negative) Urine Nitrite (Negative) Urine Bilirubin (Negative) Urine Urobilinogen (Negative) Ur Leukocyte Esterase (Negative) Urine RBC (0-4) /hpf Urine WBC (0-5) /hpf Ur Epithelial Cells (0-5) /lpf Urine Bacteria (Negative) Random Vancomycin 19.0 (10-20) mcg/ml SARS-CoV-2, RNA, NAAT (NEGATIVE) Blood Type A Positive Antibody Screen NEGATIVE 09/29/21 09/29/21 09/29/21 Range/Units 05:15 05:15 05:15 WBC 2.59 L (4.8-10.8) K/uL RBC 2.32 L (4.7-6.1) M/uL Hgb 7.2 L (14.0-18.0) g/dL Hct 21.9 L (42-52) % MCV 94.4 (80-100) fL MCH 31.0 (25-34) pg MCHC 32.9 (32-36) g/dL RDW Std Deviation 55.8 H (36.4-46.3) fL RDW Coeff of [place] 16.2 H (11.5-14.5) % Plt Count 36 L (130-400) K/uL MPV 10.2 (7.4-10.4) fL Immature Gran % (Auto) % Neut % (Auto) % Lymph % (Auto) % [place] % (Auto) % Eos % (Auto) % Baso % (Auto) % Neut # (Auto) (1.4-6.5) K/uL Lymph # (Auto) (1.2-3.4) K/uL [place] # (Auto) (0.11-0.59) K/uL Eos # (Auto) (0-0.5) K/uL Baso # (Auto) (0-0.2) K/uL Immature Gran # (Auto) (0.00-0.02) K/uL Platelet Estimate (Normal) Plt Count ,Citrate (130-400) K/uL Polychromasia PT (9.0-12.0) Seconds INR (0.9-1.1) APTT (21.0-31.0) Seconds PTT Ratio Sodium 131 L (136-145) mmol/L Potassium 4.2 (3.5-5.1) mmol/L Chloride 99 (98-107) mmol/L Carbon Dioxide 26 (21-32) mmol/L Anion Gap 6 (3-11) BUN 71 H (6-23) mg/dl Creatinine 5.51 H* D (0.6-1.4) mg/dl Est Cr Clr Drug Dosing 17.5 ml/min Est GFR ( Amer) 12.2 ml/min Est GFR (Non-Af Amer) 10.5 ml/min BUN/Creatinine Ratio 12.9 (10-20) Glucose 81 (70-99(Fasting)) mg/dl POC Glucose (70-99) mg/dl Estimat Average Glucose 111 mg/dl Hemoglobin A1c 5.5 (4.5-5.6) % Lactate (0.4-2.0) mmol/L Calcium 8.0 L (8.5-10.1) mg/dl Phosphorus 1.9 L (2.5-4.9) mg/dl Magnesium 1.6 L (1.7-2.4) mg/dl Total Bilirubin (0.2-1.0) mg/dl AST (13-39) U/L ALT (7-52) U/L Alkaline Phosphatase (34-104) U/L Troponin I High Sens (0-20) pg/ml Total Protein (6.0-8.3) gm/dl Albumin (3.4-5.0) gm/dl Globulin (2.5-4.0) gm/dl Albumin/Globulin Ratio (0.9-2) Procalcitonin (0-0.5) ng/ml Urine Color Urine Appearance (Clear) Urine pH (4.5-7.5) Ur Specific [place] (1.000-1.030) Urine Protein (Negative) Urine Glucose (UA) (Negative) Urine Ketones (Negative) Urine Blood (Negative) Urine Nitrite (Negative) Urine Bilirubin (Negative) Urine Urobilinogen (Negative) Ur Leukocyte Esterase (Negative) Urine RBC (0-4) /hpf Urine WBC (0-5) /hpf Ur Epithelial Cells (0-5) /lpf Urine Bacteria (Negative) Random Vancomycin (10-20) mcg/ml SARS-CoV-2, RNA, NAAT (NEGATIVE) Blood Type Antibody Screen 09/28/21 09/28/21 09/28/21 Range/Units 23:26 21:40 18:36 WBC (4.8-10.8) K/uL RBC (4.7-6.1) M/uL Hgb (14.0-18.0) g/dL Hct (42-52) % MCV (80-100) fL MCH (25-34) pg MCHC (32-36) g/dL RDW Std Deviation (36.4-46.3) fL RDW Coeff of Deandra (11.5-14.5) % Plt Count (130-400) K/uL MPV (7.4-10.4) fL Immature Gran % (Auto) % Neut % (Auto) % Lymph % (Auto) % [place] % (Auto) % Eos % (Auto) % Baso % (Auto) % Neut # (Auto) (1.4-6.5) K/uL Lymph # (Auto) (1.2-3.4) K/uL [place] # (Auto) (0.11-0.59) K/uL Eos # (Auto) (0-0.5) K/uL Baso # (Auto) (0-0.2) K/uL Immature Gran # (Auto) (0.00-0.02) K/uL Platelet Estimate (Normal) Plt Count ,Citrate 29 L* (130-400) K/uL Polychromasia PT (9.0-12.0) Seconds INR (0.9-1.1) APTT (21.0-31.0) Seconds PTT Ratio Sodium (136-145) mmol/L Potassium (3.5-5.1) mmol/L Chloride (98-107) mmol/L Carbon Dioxide (21-32) mmol/L Anion Gap (3-11) BUN (6-23) mg/dl Creatinine (0.6-1.4) mg/dl Est Cr Clr Drug Dosing ml/min Est GFR ( Amer) ml/min Est GFR (Non-Af Amer) ml/min BUN/Creatinine Ratio (10-20) Glucose (70-99(Fasting)) mg/dl POC Glucose 84 89 (70-99) mg/dl Estimat Average Glucose mg/dl Hemoglobin A1c (4.5-5.6) % Lactate (0.4-2.0) mmol/L Calcium (8.5-10.1) mg/dl Phosphorus (2.5-4.9) mg/dl Magnesium (1.7-2.4) mg/dl Total Bilirubin (0.2-1.0) mg/dl AST (13-39) U/L ALT (7-52) U/L Alkaline Phosphatase (34-104) U/L Troponin I High Sens (0-20) pg/ml Total Protein (6.0-8.3) gm/dl Albumin (3.4-5.0) gm/dl Globulin (2.5-4.0) gm/dl Albumin/Globulin Ratio (0.9-2) Procalcitonin (0-0.5) ng/ml Urine Color Urine Appearance (Clear) Urine pH (4.5-7.5) Ur Specific [place] (1.000-1.030) Urine Protein (Negative) Urine Glucose (UA) (Negative) Urine Ketones (Negative) Urine Blood (Negative) Urine Nitrite (Negative) Urine Bilirubin (Negative) Urine Urobilinogen (Negative) Ur Leukocyte Esterase (Negative) Urine RBC (0-4) /hpf Urine WBC (0-5) /hpf Ur Epithelial Cells (0-5) /lpf Urine Bacteria (Negative) Random Vancomycin (10-20) mcg/ml SARS-CoV-2, RNA, NAAT (NEGATIVE) Blood Type Antibody Screen 09/28/21 09/28/21 09/28/21 Range/Units 16:45 16:45 16:45 WBC (4.8-10.8) K/uL RBC (4.7-6.1) M/uL Hgb (14.0-18.0) g/dL Hct (42-52) % MCV (80-100) fL MCH (25-34) pg MCHC (32-36) g/dL RDW Std Deviation (36.4-46.3) fL RDW Coeff of Deandra (11.5-14.5) % Plt Count (130-400) K/uL MPV (7.4-10.4) fL Immature Gran % (Auto) % Neut % (Auto) % Lymph % (Auto) % [place] % (Auto) % Eos % (Auto) % Baso % (Auto) % Neut # (Auto) (1.4-6.5) K/uL Lymph # (Auto) (1.2-3.4) K/uL [place] # (Auto) (0.11-0.59) K/uL Eos # (Auto) (0-0.5) K/uL Baso # (Auto) (0-0.2) K/uL Immature Gran # (Auto) (0.00-0.02) K/uL Platelet Estimate (Normal) Plt Count ,Citrate (130-400) K/uL Polychromasia PT (9.0-12.0) Seconds INR (0.9-1.1) APTT (21.0-31.0) Seconds PTT Ratio Sodium 132 L (136-145) mmol/L Potassium 4.2 (3.5-5.1) mmol/L Chloride 98 (98-107) mmol/L Carbon Dioxide 26 (21-32) mmol/L Anion Gap 8 (3-11) BUN 66 H (6-23) mg/dl Creatinine 4.97 H* (0.6-1.4) mg/dl Est Cr Clr Drug Dosing 21.8 ml/min Est GFR ( Amer) 13.8 ml/min Est GFR (Non-Af Amer) 11.9 ml/min BUN/Creatinine Ratio 13.3 (10-20) Glucose 111 H (70-99(Fasting)) mg/dl POC Glucose (70-99) mg/dl Estimat Average Glucose mg/dl Hemoglobin A1c (4.5-5.6) % Lactate 1.4 (0.4-2.0) mmol/L Calcium 8.8 (8.5-10.1) mg/dl Phosphorus (2.5-4.9) mg/dl Magnesium 1.7 (1.7-2.4) mg/dl Total Bilirubin 2.4 H (0.2-1.0) mg/dl AST 15 (13-39) U/L ALT 13 (7-52) U/L Alkaline Phosphatase 195 H (34-104) U/L Troponin I High Sens 11.0 (0-20) pg/ml Total Protein 6.4 (6.0-8.3) gm/dl Albumin 3.0 L (3.4-5.0) gm/dl Globulin 3.4 (2.5-4.0) gm/dl Albumin/Globulin Ratio 0.9 (0.9-2) Procalcitonin 2.19 H (0-0.5) ng/ml Urine Color Urine Appearance (Clear) Urine pH (4.5-7.5) Ur Specific [place] (1.000-1.030) Urine Protein (Negative) Urine Glucose (UA) (Negative) Urine Ketones (Negative) Urine Blood (Negative) Urine Nitrite (Negative) Urine Bilirubin (Negative) Urine Urobilinogen (Negative) Ur Leukocyte Esterase (Negative) Urine RBC (0-4) /hpf Urine WBC (0-5) /hpf Ur Epithelial Cells (0-5) /lpf Urine Bacteria (Negative) Random Vancomycin (10-20) mcg/ml SARS-CoV-2, RNA, NAAT (NEGATIVE) Blood Type Antibody Screen 09/28/21 09/28/21 09/28/21 Range/Units 16:45 16:45 16:33 WBC 5.60 (4.8-10.8) K/uL RBC 2.81 L (4.7-6.1) M/uL Hgb 8.9 L (14.0-18.0) g/dL Hct 26.8 L (42-52) % MCV 95.4 (80-100) fL MCH 31.7 (25-34) pg MCHC 33.2 (32-36) g/dL RDW Std Deviation 55.4 H (36.4-46.3) fL RDW Coeff of Deandra 16.0 H (11.5-14.5) % Plt Count (130-400) K/uL MPV 11.4 H (7.4-10.4) fL Immature Gran % (Auto) 0.4 % Neut % (Auto) 75.3 % Lymph % (Auto) 5.2 % [place] % (Auto) 18.9 % Eos % (Auto) 0.0 % Baso % (Auto) 0.2 % Neut # (Auto) 4.22 (1.4-6.5) K/uL Lymph # (Auto) 0.29 L (1.2-3.4) K/uL [place] # (Auto) 1.06 H (0.11-0.59) K/uL Eos # (Auto) 0.00 (0-0.5) K/uL Baso # (Auto) 0.01 (0-0.2) K/uL Immature Gran # (Auto) 0.02 (0.00-0.02) K/uL Platelet Estimate Decreased L (Normal) Plt Count ,Citrate (130-400) K/uL Polychromasia 1+ PT 15.2 H (9.0-12.0) Seconds INR 1.5 H (0.9-1.1) APTT 38.9 H (21.0-31.0) Seconds PTT Ratio 1.4 Sodium (136-145) mmol/L Potassium (3.5-5.1) mmol/L Chloride (98-107) mmol/L Carbon Dioxide (21-32) mmol/L Anion Gap (3-11) BUN (6-23) mg/dl Creatinine (0.6-1.4) mg/dl Est Cr Clr Drug Dosing ml/min Est GFR ( Amer) ml/min Est GFR (Non-Af Amer) ml/min BUN/Creatinine Ratio (10-20) Glucose (70-99(Fasting)) mg/dl POC Glucose (70-99) mg/dl Estimat Average Glucose mg/dl Hemoglobin A1c (4.5-5.6) % Lactate (0.4-2.0) mmol/L Calcium (8.5-10.1) mg/dl Phosphorus (2.5-4.9) mg/dl Magnesium (1.7-2.4) mg/dl Total Bilirubin (0.2-1.0) mg/dl AST (13-39) U/L ALT (7-52) U/L Alkaline Phosphatase (34-104) U/L Troponin I High Sens (0-20) pg/ml Total Protein (6.0-8.3) gm/dl Albumin (3.4-5.0) gm/dl Globulin (2.5-4.0) gm/dl Albumin/Globulin Ratio (0.9-2) Procalcitonin (0-0.5) ng/ml Urine Color Urine Appearance (Clear) Urine pH (4.5-7.5) Ur Specific [place] (1.000-1.030) Urine Protein (Negative) Urine Glucose (UA) (Negative) Urine Ketones (Negative) Urine Blood (Negative) Urine Nitrite (Negative) Urine Bilirubin (Negative) Urine Urobilinogen (Negative) Ur Leukocyte Esterase (Negative) Urine RBC (0-4) /hpf Urine WBC (0-5) /hpf Ur Epithelial Cells (0-5) /lpf Urine Bacteria (Negative) Random Vancomycin (10-20) mcg/ml SARS-CoV-2, RNA, NAAT NEGATIVE (NEGATIVE) Blood Type Antibody Screen 09/28/21 Range/Units 16:33 WBC (4.8-10.8) K/uL RBC (4.7-6.1) M/uL Hgb (14.0-18.0) g/dL Hct (42-52) % MCV (80-100) fL MCH (25-34) pg MCHC (32-36) g/dL RDW Std Deviation (36.4-46.3) fL RDW Coeff of [place]andra (11.5-14.5) % Plt Count (130-400) K/uL MPV (7.4-10.4) fL Immature Gran % (Auto) % Neut % (Auto) % Lymph % (Auto) % [place] % (Auto) % Eos % (Auto) % Baso % (Auto) % Neut # (Auto) (1.4-6.5) K/uL Lymph # (Auto) (1.2-3.4) K/uL [place] # (Auto) (0.11-0.59) K/uL Eos # (Auto) (0-0.5) K/uL Baso # (Auto) (0-0.2) K/uL Immature Gran # (Auto) (0.00-0.02) K/uL Platelet Estimate (Normal) Plt Count ,Citrate (130-400) K/uL Polychromasia PT (9.0-12.0) Seconds INR (0.9-1.1) APTT (21.0-31.0) Seconds PTT Ratio Sodium (136-145) mmol/L Potassium (3.5-5.1) mmol/L Chloride (98-107) mmol/L Carbon Dioxide (21-32) mmol/L Anion Gap (3-11) BUN (6-23) mg/dl Creatinine (0.6-1.4) mg/dl Est Cr Clr Drug Dosing ml/min Est GFR ( Amer) ml/min Est GFR (Non-Af Amer) ml/min BUN/Creatinine Ratio (10-20) Glucose (70-99(Fasting)) mg/dl POC Glucose (70-99) mg/dl Estimat Average Glucose mg/dl Hemoglobin A1c (4.5-5.6) % Lactate (0.4-2.0) mmol/L Calcium (8.5-10.1) mg/dl Phosphorus (2.5-4.9) mg/dl Magnesium (1.7-2.4) mg/dl Total Bilirubin (0.2-1.0) mg/dl AST (13-39) U/L ALT (7-52) U/L Alkaline Phosphatase (34-104) U/L Troponin I High Sens (0-20) pg/ml Total Protein (6.0-8.3) gm/dl Albumin (3.4-5.0) gm/dl Globulin (2.5-4.0) gm/dl Albumin/Globulin Ratio (0.9-2) Procalcitonin (0-0.5) ng/ml Urine Color [place] Urine Appearance Cloudy A (Clear) Urine pH 7.0 (4.5-7.5) Ur Specific [place] 1.020 (1.000-1.030) Urine Protein 3+ H (Negative) Urine Glucose (UA) Negative (Negative) Urine Ketones Negative (Negative) Urine Blood 3+ H (Negative) Urine Nitrite Negative (Negative) Urine Bilirubin Negative (Negative) Urine Urobilinogen Negative (Negative) Ur Leukocyte Esterase 3+ H (Negative) Urine RBC >30 H (0-4) /hpf Urine WBC >30 H (0-5) /hpf Ur Epithelial Cells 5-10 H (0-5) /lpf Urine Bacteria Negative (Negative) Random Vancomycin (10-20) mcg/ml SARS-CoV-2, RNA, NAAT (NEGATIVE) Blood Type Antibody Screen Medications Administered Current Inpatient Medications Buspirone HCl (Buspirone 15 Mg Tab) 15 mg PO BID [facility] Stop: 10/28/21 20:59 Last Admin: 09/28/21 22:10 Dose: 15 mg Documented by: Calamine/Phenol (Menthol-Zinc Oxide 360 Appln/120 Gm Tube) 1 appln EXT TID PRN PRN Reason: skin breakdown Stop: 10/28/21 20:21 Dextrose (Dextrose 50% 50 Ml Syringe) 25 - 50 ml IV UD PRN; Protocol PRN Reason: Hypoglycemia Protocol Stop: 10/28/21 21:44 Fentanyl (Fentanyl 100 Mcg/Hr Tdsy) 100 mcg TD Q72H [facility] Stop: 10/13/21 08:59 Glucagon (Glucagon For Inj 1 Mg Vial) 1 mg IM UD PRN; Protocol PRN Reason: Hypoglycemia Protocol Stop: 10/28/21 21:44 Glucose (Glucose 40% Gel 15 Gm Tube) 15 - 30 gm PO UD PRN; Protocol PRN Reason: Hypoglycemia Protocol Stop: 10/28/21 21:44 Glucose (Glucose 10 Tabs/Tube) 4 - 8 tabs PO UD PRN; Protocol PRN Reason: Hypoglycemia Protocol Stop: 10/28/21 21:44 Dextrose (D10w) 1,000 mls @ 0 mls/hr IV .Q0M PRN PRN Reason: protocol (see label comments) Stop: 10/29/21 15:59 Piperacillin Sod/Tazobactam (Sod 3.375 gm/ Dextrose) 115 mls @ 28.75 mls/hr IV Q12H [facility]; Protocol Stop: 10/01/21 01:59 Last Infusion: 09/29/21 05:35 Dose: Infused Documented by: Sodium Chloride (Nss 1000ml) 1,000 mls @ 0 mls/hr IV .Q0M PRN PRN Reason: For Hemodialysis Use ONLY Stop: 09/29/21 13:39 Insulin Aspart (Insulin Aspart Per Unit) 0 units SC Q6 [facility] Stop: 10/29/21 00:00 Last Admin: 09/29/21 05:45 Dose: Not Given Documented by: Melatonin (Melatonin 3 Mg Tab) 3 mg PO HS PRN PRN Reason: Sleep Stop: 10/28/21 20:21 Midodrine (Midodrine Hcl 10 Mg Tab) 10 mg PO TID@0700,1200,1700 [facility] Stop: 10/29/21 06:59 Last Admin: 09/29/21 06:07 Dose: 10 mg Documented by: Miscellaneous (Fentanyl Patch Remove & Waste) 1 ea N/A Q72H [facility] Stop: 10/29/21 08:58 Miscellaneous (Check Fentanyl Patch Placement) 1 ea N/A QS [facility] Stop: 10/29/21 15:59 Miscellaneous (Carbohydrates For Hypoglycemia ) 15 - 30 gm PO UD PRN PRN Reason: Hypoglycemia Treatment Stop: 10/28/21 21:44 Miscellaneous (No Heparin In Dialysis) 1 ea N/A TODAY@0800 [facility] Stop: 09/29/21 23:59 Miscellaneous Information (Tpn/Ppn Consult Pharmacy) 1 ea N/A UD PRN PRN Reason: Consult Stop: 10/28/21 21:06 Miscellaneous Information (Pharmacy Glycemic Mgmt Consult) 1 ea N/A UD PRN PRN Reason: Consult Stop: 10/28/21 19:43 Miscellaneous Information (Vancomycin Consult Active) 0 ea N/A UD PRN PRN Reason: Consult Stop: 10/28/21 22:47 Nystatin (Nystatin Powder 15gm Btl) 1 appln EXT BID [facility] Stop: 10/28/21 20:59 Last Admin: 09/28/21 23:51 Dose: 1 appln Documented by: Ondansetron HCl (Ondansetron 4 Mg Od Tab) 8 mg PO TID PRN PRN Reason: Nausea Stop: 10/28/21 21:05 Oxycodone HCl (Oxycodone Hcl Ir 5 Mg Tab (Immediate Release)) 15 mg PO Q4H PRN PRN Reason: Pain Stop: 10/12/21 20:21 Last Admin: 09/28/21 22:10 Dose: 15 mg Documented by: Pantoprazole Sodium (Pantoprazole 40 Mg Tab) 40 mg PO DAILYBB [facility] Stop: 10/29/21 06:29 Last Admin: 09/29/21 06:07 Dose: 40 mg Documented by: Rifaximin (Rifaximin 550 Mg Tablet) 550 mg PO BID [facility] Stop: 10/28/21 20:59 Last Admin: 09/28/21 22:10 Dose: 550 mg Documented by: (1) Urinary tract infection Hematuria presence: without hematuria Urinary tract infection type: site unspecified Qualified Code(s): N39.0 - Urinary tract infection, site not specified (2) Sepsis Sepsis acute organ dysfunction status: without acute organ dysfunction Sepsis type: sepsis due to unspecified organism Qualified Code(s): A41.9 - Sepsis, unspecified organism (3) Altered mental status Altered mental status type: unspecified Qualified Code(s): R41.82 - Altered mental status, unspecified
--- NOTE | 2021-09-29 11:37 | Electrocardiogram Report ---
Test Reason : Blood Pressure : / mmHG Vent. Rate : 103 BPM Atrial Rate : 103 BPM P-R Int : 158 ms QRS Dur : 088 ms QT Int : 310 ms P-R-T Axes : 026 -16 033 degrees QTc Int : 406 ms Sinus tachycardia Incomplete right bundle branch block Abnormal ECG No previous ECGs available Confirmed by Ethan Wilson ([id number]) on 09/29/2021 11:37:31 AM Referred By: REFERRED SELF Confirmed By:Raimundo Wilson
[2021-09-29] MEDS ORDERED: SODIUM PHOSPHATE 15 MMOL in SODIUM CHLORIDE 0.9% 250 ML IV ONE (13:00)
[2021-09-29] MEDS ORDERED: THIAMINE HCL 100 MG in SYRINGE 9 ML IV ONE (14:00)
--- NOTE | 2021-09-29 14:13 | Pharmacy Report ---
Pharmacy [facility] Short Note - Date of Service September 29, 2021 - Assessment & Plan Assessment 56 year old M receiving vancomycin/Zosyn for treatment of pyelonephritis. Pertinent microbiologic data includes: urine culture growing pin-point growth. Day # 2 of antimicrobial therapy. Plan Vancomycin * Random level of 19 mcg/mL is therapeutic. * Patient is dialysis patient. He received dialysis today. * Will give vancomycin 500 mg IV x 1 after dialysis (5 mg/kg) * Goal trough level: 15 to 20 mcg/mL * Random level ordered for: 09/30/21 Pharmacy will continue to follow and will adjust dose/frequency as necessary. Thank you.
--- NOTE | 2021-09-29 14:18 | Pharmacy Report ---
Pharmacy Glycemic Short Note 2 - Date of Service September 29, 2021 - Glycemic Short BSG Results (Last 24 hours): 09/28/21 09/28/21 09/28/21 16:45 21:40 23:26 Glucose 111 H POC Glucose 89 84 09/29/21 09/29/21 05:15 05:44 Glucose 81 POC Glucose 87 OUTPATIENT ANTIDIABETIC REGIMEN: * N/A * HbA1C = 5.5% (patient is dialysis so this may not be accurate) ASSESSMENT: * Mr Hull is a 56 y/o M with a PMH of metastatic cancer on home TPN and dialysis who presents with pyelonephritis. * Currently patient's TPN is on hold due to critical phos value of 1.9. * Patient is NPO. * BSGs today are 84-87 mg/dL. Patient is receiving dialysis. * Will have correction factor of weight-based stress of 1-2. Hold Lantus due to BSGs < 140 mg/dL. PLAN FOR INPATIENT GLYCEMIC CONTROL * Basal insulin * HOLD * Bolus insulin * NovoLog per scale ACHS or Q6hrs while NPO * Goal Range: Low 120 mg/dL - High 150 mg/dL * Correction Factor: 30 mg/dL/unit * Nutritional / Prandial insulin per carb ratio of 1 unit per --- grams CHO consumed
[2021-09-29] MEDS: ONDANSETRON 4 MG OD TAB PO PRN ×2 (14:41→19:45)
[2021-09-29] MEDS: oxyCODONE HCL IR 5 MG TAB (IMMEDIATE RELEASE) PO PRN ×2 (14:44→19:45)
[2021-09-29] MEDS: NYSTATIN POWDER 15GM BTL EXT SCH ×2 (14:46→19:50)
[2021-09-29] MEDS: busPIRone 15 MG TAB PO SCH ×2 (14:46→19:49)
[2021-09-29] MEDS: rifAXIMin 550 MG TABLET PO SCH ×2 (14:46→19:49)
[2021-09-29] MEDS: fentaNYL 100 MCG/HR TDSY TD SCH (14:48)
--- NOTE | 2021-09-29 15:02 | Urology Progress Note ---
Date of Service September 29, 2021 Assessment & Plan (1) Urinary tract infection: (2) Hydronephrosis: Plan: 56yo M with metastatic colon cancer and ESRD on dialysis admitted with sepsis, UTI/pyonephritis. - Afebrile. - Labs reviewed - Wbc 2.59, Creatinine 5.51 - Had dialysis today. - Urine and blood cultures pending, on IV Zosyn and Vanco. - Left nephrostomy tube intact and draining, continue to monitor. - No acute intervention indicated at this time. - Recommend continuing bladder scan Q6H and straight cath as needed for source control given concern for infection. - Continue supportive care and antibiotics, tailor as culture data becomes available. - Continue to monitor closely. If patient fails to progress clinically or any acute changes in patient status, will need to consider transfer to tertiary center for nephrostomy tube placement/management. - Will continue to follow. Admission and Anticipated Discharge Date Admission Date: September 28, 2021 Supervising Physician Co-Signing Physician Notes I have discussed Mr. Hull's case with DARIO Garcia and agree with the above documentation. Left nephrostomy tube appears to be in good position and draining well. Bladder managed with [facility]IC Subjective Pt examined at bedside this afternoon. Awake, resting in bed on arrival. He just returned from dialysis. No fevers or chills. Denies nausea/vomiting. Denies abdominal and flank pain. Left neph tube draining with cloudy yellow urine. Review of Systems Constitutional: as per Subjective / HPI Cardiovascular: no chest pain and no dyspnea Gastrointestinal: as per Subjective / HPI Genitourinary: + as per Subjective / HPI Physical Exam Constitutional: cooperative; no acute distress Respiratory: no respiratory distress and no labored breathing Musculoskeletal: Head/Neck/Chest: normocephalic Neurologic: awake Psychiatric: Orientation: alert and oriented x 3 Genitourinary: left nephrostomy tube Results & Data ([facility]) Vital Signs (Past 12 Hours) Vital Signs Temp Pulse Pulse Pulse Resp BP BP 09/29/21 13:59 80 84/55 L 09/29/21 13:30 36.6 C 78 97/52 L 09/29/21 13:00 78 86/46 L 09/29/21 12:45 78 85/50 L 09/29/21 12:30 79 85/44 L 09/29/21 12:15 82 93/51 L 09/29/21 12:00 81 89/48 L 09/29/21 11:45 48 L 121/106 H 09/29/21 11:30 78 93/45 L 09/29/21 11:15 86 95/55 L 09/29/21 11:00 78 93/44 L 09/29/21 10:54 84 09/29/21 10:45 80 95/54 L 09/29/21 10:30 76 89/42 L 09/29/21 10:15 75 87/49 L 09/29/21 10:00 77 89/46 L 09/29/21 09:45 36.7 C 78 09/29/21 07:52 36.6 C 85 19 96/55 L 09/29/21 04:12 37.5 C 88 18 126/74 Pulse Ox 09/29/21 13:59 09/29/21 13:30 09/29/21 13:00 09/29/21 12:45 09/29/21 12:30 09/29/21 12:15 09/29/21 12:00 09/29/21 11:45 09/29/21 11:30 09/29/21 11:15 09/29/21 11:00 09/29/21 10:54 09/29/21 10:45 09/29/21 10:30 09/29/21 10:15 09/29/21 10:00 09/29/21 09:45 09/29/21 07:52 95 09/29/21 04:12 95 PG Care Time/CCT Total # of Minutes Spent Total Time Spent with Patient: Total time spent is greater than 50% in coordination of care (as documented) at patient's floor/unit and/or counseling patient: Coding Level of Care Code 59257 Subseq Hosp Care Lvl 2 Diagnoses Urinary tract infection N39.0 Hematuria presence: without hematuria Urinary tract infection type: site unspecified Hydronephrosis N13.30 (1) Urinary tract infection Hematuria presence: without hematuria Urinary tract infection type: site unspecified Qualified Code(s): N39.0 - Urinary tract infection, site not specified
[2021-09-29] MEDS: CHECK fentaNYL PATCH PLACEMENT SCH (15:31)
[2021-09-29] MEDS ORDERED: DEXTROSE 10% 1,000 ML IV PRN (16:00)
[2021-09-29] MEDS ORDERED: VANCOMYCIN HCL 500 MG in DEXTROSE 5% 100 ML IV ONE (17:00)
[2021-09-29] MEDS: fentaNYL 25 MCG/HR TDSY TD SCH (18:11)
--- NOTE | 2021-09-29 18:59 | Nephrology Consultation ---
Date of Consultation September 29, 2021 Assessment & Plan (1) ESRD (end stage renal disease) on dialysis: gentle HD today for clearance only; no fluid removed d/t relative hypotension tolerated tx w/o issue; next tx on 10/01 or as clinical needs dictate >time antibiotics w/ HD as indicated (2) Recurrent urinary tract infection: on vanco, zosyn; L nephrostomy tube now functional (3) Altered mental status: monitor for reversible processes History of Present Illness Reason for Consultation: esrd on HD Requesting Physician: Dr Collazo Attending Physician: Coy Collazo MD History of Present Illness 56 y/o M whom I'm asked to see for dialysis needs was admitted yesterday from home w/ altered mental status in the setting of ESRD and L pyelonephritis with colon cancer metastatic reportedly to bladder on palliative CTX. Patient's care based mostly in [place] and some in [place]. PMH as above and also includes ESRD on MWF HD (Dr Lo [facility]), L nephrostomy tube, chronic bowel obstruction s/p G tube placement but also on TPN. He was recently admitted to [facility] 09/10- for L pyelonephritis and confusion; he completed abtx for that infection on 09/23/21 per H&P. When I saw and evaluated the pt this AM he was difficult to arouse though appeared comfortable and could not give any history. Urology is following; no acute intervention indicated currently; will need q6h bladder scan and prn str cath to continue; for now L nephrostomy tube is functional. Allergies Allergy/AdvReac Type Severity Reaction Status Date / Time melon Allergy Intermediate throat and Verified 09/28/21 18:08 mouth is itchy Sulfa (Sulfonamide Allergy Intermediate Hives Verified 09/28/21 18:08 Antibiotics) Home Medications Medication Instructions Recorded Confirmed Type TPN Electrolytes See Rx Instructions .ROUTE .COMPLEX 09/28/21 09/28/21 History buspirone 15 mg tablet 15 mg PO BID 09/28/21 09/28/21 History fentanyl 100 mcg/hr transdermal 1 patch TRANSDERMAL Q72H 09/28/21 09/28/21 History patch fentanyl 25 mcg/hr transdermal 1 patch TRANSDERMAL Q72H 09/28/21 09/28/21 History patch melatonin 3 mg tablet 3 mg PO HS PRN 09/28/21 09/28/21 History menthol 0.44 %-zinc oxide 20.6 % 1 applic TOPICAL TID PRN 09/28/21 09/28/21 History topical ointment (Calmoseptine) midodrine 10 mg tablet 10 mg PO TID 09/28/21 09/28/21 History nystatin 100,000 unit/gram topical 1 applic TOPICAL BID 09/28/21 09/28/21 History powder olanzapine 5 mg tablet (Zyprexa) 5 mg PO TID PRN 09/28/21 09/28/21 History ondansetron HCl 8 mg tablet 8 mg PO TID PRN 09/28/21 09/28/21 History oxycodone 15 mg tablet 15 mg PO 6XD PRN 09/28/21 09/28/21 History pantoprazole 40 mg tablet,delayed 40 mg PO DAILYBB 09/28/21 09/28/21 History release (Protonix) rifaximin 550 mg tablet (Xifaxan) 550 mg PO BID 09/28/21 09/28/21 History silodosin 8 mg capsule 8 mg PO DAILY 09/28/21 09/28/21 History Patient History Medical History ESRD (end stage renal disease) on dialysis Recurrent urinary tract infection Social History Smoking Status: Never smoker Hx Alcohol Use: No Hx Substance Use: No Preferred Language: Thai Communication Ability: Effective Beliefs That Will Affect Care: None Current Living Situation: Family Feels Safe at Home: Yes Assistive Devices: Walker Review of Systems Review of Systems: Unobtainable due to reduced consciousness Physical Exam Constitutional: well developed and well nourished lying on L side in - position Eyes: eyes tightly shut ENMT: Ears: no external ear abnormality Nose: no external nose abnormality Mouth: + dry oral mucous membranes Neck: no nuchal rigidity Respiratory: normal respiratory effort Auscultation: + diminished lung sounds Cardiovascular: Rate/Rhythm: regular rate and regular rhythm Extremities: no edema Gastrointestinal (Abdomen): Inspection/Auscultation: normal bowel sounds Percussion/Palpation: abdomen soft; abdomen nontender Musculoskeletal: Extremities: strength 5/5 throughout Skin: no rashes, warm and dry Neurologic: cruz, no tremor; aphasic; some myoclonic jerks occastionally Genitourinary: L nephorostomy tube Results & Data ([facility]) Vital Signs (Past 12 Hours) Vital Signs Temp Pulse Pulse Pulse Resp BP BP 09/29/21 15:51 83 09/29/21 15:44 37.1 C 92 H 18 90/57 L 09/29/21 13:59 80 84/55 L 09/29/21 13:30 36.6 C 78 97/52 L 09/29/21 13:00 78 86/46 L 09/29/21 12:45 78 85/50 L 09/29/21 12:30 79 85/44 L 09/29/21 12:15 82 93/51 L 09/29/21 12:00 81 89/48 L 09/29/21 11:45 48 L 121/106 H 09/29/21 11:30 78 93/45 L 09/29/21 11:15 86 95/55 L 09/29/21 11:00 78 93/44 L 09/29/21 10:54 84 09/29/21 10:45 80 95/54 L 09/29/21 10:30 76 89/42 L 09/29/21 10:15 75 87/49 L 09/29/21 10:00 77 89/46 L 09/29/21 09:45 36.7 C 78 09/29/21 07:52 36.6 C 85 19 96/55 L Pulse Ox 09/29/21 15:51 09/29/21 15:44 98 09/29/21 13:59 09/29/21 13:30 09/29/21 13:00 09/29/21 12:45 09/29/21 12:30 09/29/21 12:15 09/29/21 12:00 09/29/21 11:45 09/29/21 11:30 09/29/21 11:15 09/29/21 11:00 09/29/21 10:54 09/29/21 10:45 09/29/21 10:30 09/29/21 10:15 09/29/21 10:00 09/29/21 09:45 09/29/21 07:52 95 Laboratory Results 09/29/21 05:15 06/13/22 05:15 (1) Altered mental status Altered mental status type: unspecified Qualified Code(s): R41.82 - Altered mental status, unspecified
[2021-09-30] MEDS: CHECK fentaNYL PATCH PLACEMENT SCH ×6 (00:14→16:46)
[2021-09-30] MEDS: INSULIN ASPART PER UNIT SC SCH ×4 (00:15→18:32)
[2021-09-30] MEDS ORDERED: SODIUM CHLORIDE 0.9% 250 ML IV SCH (00:30)
[2021-09-30] MEDS: PIPERACILLIN/TAZOBACTAM 3.375 GM in DEXTROSE 5% 100 ML IV SCH ×2 (01:42→13:05)
[2021-09-30] MEDS: ONDANSETRON 4 MG OD TAB PO PRN ×2 (04:05→14:57)
[2021-09-30] MEDS: oxyCODONE HCL IR 5 MG TAB (IMMEDIATE RELEASE) PO PRN ×2 (04:06→14:56)
[2021-09-30] MEDS: PANTOprazole 40 MG TAB PO SCH (06:00)
[2021-09-30] MEDS: MIDODRINE HCL 10 MG TAB PO SCH ×3 (06:01→17:10)
[2021-09-30 06:21] LABS: Hemoglobin 6.2 g/dL (14.0-18.0); Mean Corpuscular Hemoglobin 30.4 pg (25-34); Mean Corpuscular Hgb Conc 32.6 g/dL (32-36); Mean Corpuscular Volume 93.1 fL (80-100); Mean Platelet Volume 10.4 fL (7.4-10.4); Platelet Count 35 K/uL (130-400); RDW Coefficient of Variation 16.2 % (11.5-14.5); RDW Standard Deviation 55.8 fL (36.4-46.3); Red Blood Count 2.04 M/uL (4.7-6.1); White Blood Count 1.03 K/uL (4.8-10.8)
[2021-09-30 06:44] LABS: Calcium 7.5 mg/dl (8.5-10.1); Creatinine Clr Calc Pharmacy 26.5 ml/min; Est GFR (African American) 20.1 ml/min; Est GFR (Non-African American) 17.4 ml/min; Magnesium 1.7 mg/dl (1.7-2.4); Phosphorus 2.7 mg/dl (2.5-4.9); Potassium 3.4 mmol/L (3.5-5.1)
[2021-09-30] MEDS: busPIRone 15 MG TAB PO SCH ×2 (07:50→20:24)
[2021-09-30] MEDS: rifAXIMin 550 MG TABLET PO SCH ×2 (07:50→20:25)
[2021-09-30] MEDS ORDERED: SODIUM CHLORIDE 0.9% 250 ML IV PRN (07:51)
[2021-09-30] MEDS: NYSTATIN POWDER 15GM BTL EXT SCH ×2 (07:51→20:26)
--- NOTE | 2021-09-30 08:37 | Urology Progress Note ---
Date of Service September 30, 2021 Assessment & Plan (1) Recurrent urinary tract infection: (2) ESRD (end stage renal disease) on dialysis: Plan: ESRDHD, left nephrostomy tube Initially with question of pyelonephritis Currently hemodynamically stable Cultures failed to identify pathogen Subjectively improved No intervention from a Please call if changes during the remainder of his hospitalization Admission and Anticipated Discharge Date Admission Date: September 28, 2021 Subjective Subjectively doing okay Denies left or right flank pain Urine output from the nephrostomy tube is stable Low urine output overallafebrile Blood pressures remain slightly low, but relatively stable He does not have any subjective complaints today Physical Exam Physical Exam: Scant, clear urine in the nephrostomy Results & Data ([facility]) Vital Signs (Past 12 Hours) Vital Signs Temp Pulse Pulse Resp BP BP Pulse Ox 09/30/21 07:33 36.8 C 70 18 89/48 L 97 09/30/21 07:15 68 09/30/21 05:22 77 09/30/21 03:31 36.7 C 75 14 94/56 L 98 09/29/21 22:35 36.5 C 74 20 77/38 L 88/47 L 97 PG Care Time/CCT Total # of Minutes Spent Total Time Spent with Patient: Total time spent is greater than 50% in coordination of care (as documented) at patient's floor/unit and/or counseling patient: Coding Level of Care Code 31498 Subseq Hosp Care Lvl 2 Diagnoses Recurrent urinary tract infection N39.0 ESRD (end stage renal disease) on dialysis N18.6; Z99.2
--- NOTE | 2021-09-30 10:45 | Nephrology Progress Note ---
Date of Service September 30, 2021 Assessment & Plan (1) ESRD (end stage renal disease) on dialysis: Plan: had HD yesterday for clearance only; no fluid removed d/t relative hypotension which appears today to be worse tolerated tx w/o issue; next tx on 10/01 or as clinical needs dictate >time antibiotics w/ HD as indicated -consider low rate of IVF given large amount of losses via gastric drainage such as NS at 50 ml/hr (2) Recurrent urinary tract infection: Plan: on vanco, zosyn; L nephrostomy tube now functional > to far no evidence of active UTI at this time (3) Altered mental status: Plan: monitor for reversible processes; improved today (4) Acute on chronic anemia: Plan: getting 1 unit pRBC; not a candidate for erythropoietin stim agents d/t his cancer dxs -daily hgb and transfuse prn Admission and Anticipated Discharge Date Admission Date: September 28, 2021 Subjective hgb dropping today; all cxs remain negative; urology signed off, more alert today; his cc is fatigue Review of Systems Review of Systems: All systems reviewed & are unremarkable except as noted in Subjective Physical Exam Constitutional: well developed and + frail appearing; no acute distress Eyes: eomi ENMT: Ears: no external ear abnormality Nose: no external nose abnormality Mouth: + dry oral mucous membranes Neck: no nuchal rigidity Respiratory: normal respiratory effort Auscultation: + diminished lung sounds Cardiovascular: Rate/Rhythm: regular rate and regular rhythm Extremities: no edema Gastrointestinal (Abdomen): Inspection/Auscultation: normal bowel sounds Percussion/Palpation: abdomen soft; abdomen nontender GI drain w/ brown liquid output Musculoskeletal: Extremities: + abnormal strength Skin: no rashes, warm and dry Neurologic: cruz, fluent speech Results & Data ([facility]) Vital Signs (Past 12 Hours) Vital Signs Temp Pulse Pulse Resp BP BP Pulse Ox 09/30/21 09:35 36.6 C 68 16 87/43 L 100 09/30/21 09:34 36.6 C 66 87/47 L 96 09/30/21 09:19 36.6 C 94 H 16 89/51 L 94 09/30/21 07:33 36.8 C 70 18 89/48 L 97 09/30/21 07:15 68 09/30/21 05:22 77 09/30/21 03:31 36.7 C 75 14 94/56 L 98 Laboratory Results 09/30/21 05:50 09/30/21 05:50 (1) Altered mental status Altered mental status type: unspecified Qualified Code(s): R41.82 - Altered mental status, unspecified
--- NOTE | 2021-09-30 11:29 | Pharmacy Report ---
Pharmacy [facility] Short Note - Date of Service September 30, 2021 - Assessment & Plan Assessment 56 year old M receiving vancomycin for treatment of UTI. Pertinent microbiologic data includes: N/A. Day # 3 of antimicrobial therapy. Plan Vancomycin * Random level today was 14.4 mcg/mL this morning. Patient received dialysis today. * Vancomycin 500 mg IV x 1 * Random level ordered for: 10/01/21 Pharmacy will continue to follow and will adjust dose/frequency as necessary. Thank you.
--- NOTE | 2021-09-30 11:33 | Pharmacy Report ---
Pharmacy PN Initial Consult - Date of Service September 30, 2021 - Scope Pharmacy has been consulted to manage parenteral nutrition orders and order appropriate labs. As part of the Nutrition Support Team guidelines, pharmacy will work in conjunction with dietary when determining the patients caloric needs. - Subjective The patient is a 56 year old M admitted on 09/28/21 19:31 for SEPSIS, URINARY INFECTION. Patient is to receive parenteral nutrition for CHRONIC indication. Pertinent PMH: dialysis- MWF - Objective Height: 6 ft 3 in Weight: 98.2 kg Diet: NPO Intake & Output (Last 24Hrs): Intake & Output 09/28/21 09/29/21 09/30/21 10/01/21 06:59 06:59 06:59 06:59 Intake Total 1025 / 1025 1185 / 1185 0 / 0 Output Total 2250 / 2250 3920 / 3920 Balance -1225 / -1225 -2735 / -2735 0 / 0 Weight 98.1 kg 98.2 kg Laboratory Data (Last 24 Hrs):: 09/30/21 05:50 Sodium 136 Potassium 3.4 L Chloride 101 Carbon Dioxide 28 BUN 40 H D Creatinine 3.63 H D Glucose 74 Calcium 7.5 L Phosphorus 2.7 Magnesium 1.7 Nutrition Assessment:: Please refer to the Notes section of the EMR for the most recent director of hotel operations note. - Plan For day 1 of PN administration, the following will be ordered: Macronutrients Amino acids 120 grams/day Dextrose 210 grams/day Lipids 60 grams/day Micronutrients Combined electrolytes -- mL - contains 35 mEq Na, 20 meq K, 4.5 mEq Ca, 5 mEq Mg, 35 mEq Cl, 29.5 mEq acetate per 20 mL Sodium phosphate 12 MMol Sodium chloride -- mEq Sodium acetate 200 mEq Potassium phosphate -- mMol Potassium chloride 60 mEq Potassium acetate -- mEq Magnesium sulfate 8.12 mEq Calcium gluconate 10 mEq Multivitamins 10 mL Trace Elements 10 mL Additional additives: Total volume 1670 mL to be infused over 12 hrs will provide 1670 kcal/day Labs to be ordered per PN order protocol Pharmacy will follow and adjust parenteral nutrition orders on a daily basis. Thank you.
[2021-09-30] MEDS ORDERED: VANCOMYCIN HCL 500 MG in DEXTROSE 5% 100 ML IV ONE (12:00)
[2021-09-30] MEDS: ALBUMIN 25% 100 mL 25 GM/100 ML VIAL IV SCH (17:10)
--- NOTE | 2021-09-30 19:43 | Hospitalist Progress Note ---
Date of Service September 30, 2021 Assessment & Plan (1) Altered mental status: (2) Urinary tract infection: (3) Sepsis: (4) Pyelonephritis: Plan: Patient presents with pain in left flank, left lower abdomen, where his nephrostomy tube is placed, however was clogged just prior to admission Patient's was able to flush nephrostomy tube, and purulent urine was drained Patient started on IV antibiotics, vancomycin and Zosyn, will continue Urology, Dr. Frey consulted, Recommend Schmitt catheter, which Was not done and instead patient agreed to straight cath Blood cultures, urine culture obtained and pending Per patient's , patient was hospitalized at [facility] from September 10, to September 16 due to same. She reports he was on IV antibiotics, Reviewed records - Patient was treated with vancomycin and cefepime,and discharged on Levaquin for 7 days. End-stage renal disease on dialysis On dialysis Wednesday, [facility] [place] Metastatic colon cancer to bladder and likely lung Status post right hemicolectomy in 2017 Currently undergoing palliative chemotherapy at [facility], w/ Dr. Feliciano Reviewed records, last chemotherapy On 09/04/21 - w/ Irinotectan/Leucovirin - September 04, 2021 - any further treatment is on hold for now (Until medically stable, cleared from infection) Per , surgery was planned in [place], however patient was not a candidate anymore (elevated ammonia, GI bleed) Chronic bowel obstruction -Due to above -G-tube placed for venting -Continue TPN Pancytopenia -Likely secondary to chemotherapy, current cancer, cirrhosis, sepsis Neutropenic precautions ordered Thrombocytopenia Seems to be chronic, due to above Continue to monitor, and continue to monitor for any bleed Hgb 6.2 - Blood consent obtained, 1 unit of PRBC ordered CODE STATUS: Patient's reports that they go back and forth on it, she is inclined for DNR/DNI, patient himself is not able to answer my questions appropriately. Reviewed records from palliative medicine from [place] (Dr. Tad Valentin), which stated that patient was made DNR/DNI after discussion with , will confirm this further. Admission and Anticipated Discharge Date Admission Date: September 28, 2021 Subjective Patient seen in follow-up of sepsis, UTI/pyonephritis, in the setting of metastatic colon cancer, ESRD on dialysis Hemoglobin 6.2 today, blood consent obtained from the patient, 1 unit of PRBC ordered Patient Looks more tired today. He is able to answer simple questions appropriately. Afebrile, no chest pain, continues to have abdominal discomfort, However seems improved from pain standpoint. Obtained medical records from [facility], and reviewed. Review of Systems Review of Systems: All systems reviewed & are unremarkable except as noted in Subjective Physical Exam Physical Exam: Constitutional:L Chronically ill-ap pearing male, slig htly jaundiced, in no acute distress Eyes: PERRL, EOMI, ENMT: external ear and n ose normal, oropha rynx normal Neck: supple Respiratory: normal respiratory effort, lungs mayda ar to auscultation Cardiovascular:L Rate/Rhythm: regul ar rate (1 + LE ed meghann) Chest (Breasts): Chest: + vascular access device or p ort (Port for TPN on the left, and H ickman for dialysi s on the right) Gastrointestinal ( Abdomen): Inspection/Auscult ation: + abdomen d istended (Tender t o palpation at lef t lower abdomen, m inimal bowel sound s) + G tube, L fla nk + L nephrostomy tube Musculoskeletal: Moves extremities Skin: no rashes, warm an d dry Neurologic: PERRL, EOMI, no fa ce palsy, no dysar thria (Patient is slow to answer, an d not able to answ er all my question s appropriately) Results & Data Results & Data ([facility]) Vital Signs (Past 12 Hours) Vital Signs Temp Pulse Pulse Resp BP BP Pulse Ox 09/30/21 18:45 36.5 C 71 17 93/56 L 100 09/30/21 16:44 58 L 09/30/21 15:41 36.5 C 65 18 93/55 L 99 09/30/21 11:17 36.7 C 64 19 95/53 L 99 09/30/21 09:50 36.8 C 66 16 98/52 L 99 09/30/21 09:35 36.6 C 68 16 87/43 L 100 09/30/21 09:34 36.6 C 66 87/47 L 96 09/30/21 09:19 36.6 C 94 H 16 89/51 L 94 Laboratory Results 09/30/21 09/30/21 09/30/21 Range/Units 18:43 18:17 18:16 WBC (4.8-10.8) K/uL RBC (4.7-6.1) M/uL Hgb (14.0-18.0) g/dL Hct (42-52) % MCV (80-100) fL MCH (25-34) pg MCHC (32-36) g/dL RDW Std Deviation (36.4-46.3) fL RDW Coeff of Deandra (11.5-14.5) % Plt Count (130-400) K/uL MPV (7.4-10.4) fL Sodium (136-145) mmol/L Potassium (3.5-5.1) mmol/L Chloride (98-107) mmol/L Carbon Dioxide (21-32) mmol/L Anion Gap (3-11) BUN (6-23) mg/dl Creatinine (0.6-1.4) mg/dl Est Cr Clr Drug Dosing ml/min Est GFR ( Amer) ml/min Est GFR (Non-Af Amer) ml/min BUN/Creatinine Ratio (10-20) Glucose (70-99(Fasting)) mg/dl POC Glucose 96 64 L* 62 L* (70-99) mg/dl Calcium (8.5-10.1) mg/dl Phosphorus (2.5-4.9) mg/dl Magnesium (1.7-2.4) mg/dl Random Vancomycin (10-20) mcg/ml Blood Type Blood Type Recheck Antibody Screen Crossmatch 09/30/21 09/30/21 09/30/21 Range/Units 11:35 05:56 05:50 WBC (4.8-10.8) K/uL RBC (4.7-6.1) M/uL Hgb (14.0-18.0) g/dL Hct (42-52) % MCV (80-100) fL MCH (25-34) pg MCHC (32-36) g/dL RDW Std Deviation (36.4-46.3) fL RDW Coeff of Deandra (11.5-14.5) % Plt Count (130-400) K/uL MPV (7.4-10.4) fL Sodium (136-145) mmol/L Potassium (3.5-5.1) mmol/L Chloride (98-107) mmol/L Carbon Dioxide (21-32) mmol/L Anion Gap (3-11) BUN (6-23) mg/dl Creatinine (0.6-1.4) mg/dl Est Cr Clr Drug Dosing ml/min Est GFR ( Amer) ml/min Est GFR (Non-Af Amer) ml/min BUN/Creatinine Ratio (10-20) Glucose (70-99(Fasting)) mg/dl POC Glucose 80 77 (70-99) mg/dl Calcium (8.5-10.1) mg/dl Phosphorus (2.5-4.9) mg/dl Magnesium (1.7-2.4) mg/dl Random Vancomycin (10-20) mcg/ml Blood Type Blood Type Recheck A Positive Antibody Screen Crossmatch 09/30/21 09/30/21 09/30/21 Range/Units 05:50 05:50 05:50 WBC 1.03 L (4.8-10.8) K/uL RBC 2.04 L (4.7-6.1) M/uL Hgb 6.2 L* (14.0-18.0) g/dL Hct 19.0 L* (42-52) % MCV 93.1 (80-100) fL MCH 30.4 (25-34) pg MCHC 32.6 (32-36) g/dL RDW Std Deviation 55.8 H (36.4-46.3) fL RDW Coeff of Deandra 16.2 H (11.5-14.5) % Plt Count 35 L (130-400) K/uL MPV 10.4 (7.4-10.4) fL Sodium 136 (136-145) mmol/L Potassium 3.4 L (3.5-5.1) mmol/L Chloride 101 (98-107) mmol/L Carbon Dioxide 28 (21-32) mmol/L Anion Gap 7 (3-11) BUN 40 H D (6-23) mg/dl Creatinine 3.63 H D (0.6-1.4) mg/dl Est Cr Clr Drug Dosing 26.5 ml/min Est GFR ( Amer) 20.1 ml/min Est GFR (Non-Af Amer) 17.4 ml/min BUN/Creatinine Ratio 11.0 (10-20) Glucose 74 (70-99(Fasting)) mg/dl POC Glucose (70-99) mg/dl Calcium 7.5 L (8.5-10.1) mg/dl Phosphorus 2.7 (2.5-4.9) mg/dl Magnesium 1.7 (1.7-2.4) mg/dl Random Vancomycin 14.4 (10-20) mcg/ml Blood Type Blood Type Recheck Antibody Screen Crossmatch 09/30/21 09/29/21 Range/Units 00:10 05:15 WBC (4.8-10.8) K/uL RBC (4.7-6.1) M/uL Hgb (14.0-18.0) g/dL Hct (42-52) % MCV (80-100) fL MCH (25-34) pg MCHC (32-36) g/dL RDW Std Deviation (36.4-46.3) fL RDW Coeff of Deandra (11.5-14.5) % Plt Count (130-400) K/uL MPV (7.4-10.4) fL Sodium (136-145) mmol/L Potassium (3.5-5.1) mmol/L Chloride (98-107) mmol/L Carbon Dioxide (21-32) mmol/L Anion Gap (3-11) BUN (6-23) mg/dl Creatinine (0.6-1.4) mg/dl Est Cr Clr Drug Dosing ml/min Est GFR ( Amer) ml/min Est GFR (Non-Af Amer) ml/min BUN/Creatinine Ratio (10-20) Glucose (70-99(Fasting)) mg/dl POC Glucose 76 (70-99) mg/dl Calcium (8.5-10.1) mg/dl Phosphorus (2.5-4.9) mg/dl Magnesium (1.7-2.4) mg/dl Random Vancomycin (10-20) mcg/ml Blood Type A Positive Blood Type Recheck Antibody Screen NEGATIVE Crossmatch See Detail Medications Administered Current Inpatient Medications Buspirone HCl (Buspirone 15 Mg Tab) 15 mg PO BID [facility] Stop: 10/28/21 20:59 Last Admin: 09/30/21 07:50 Dose: 15 mg Documented by: Calamine/Phenol (Menthol-Zinc Oxide 360 Appln/120 Gm Tube) 1 appln EXT TID PRN PRN Reason: skin breakdown Stop: 10/28/21 20:21 Dextrose (Dextrose 50% 50 Ml Syringe) 25 - 50 ml IV UD PRN; Protocol PRN Reason: Hypoglycemia Protocol Stop: 10/28/21 21:44 Last Admin: 09/30/21 18:24 Dose: 25 ml Documented by: Fentanyl (Fentanyl 100 Mcg/Hr Tdsy) 100 mcg TD Q72H [place] Stop: 10/13/21 08:59 Last Admin: 09/29/21 14:48 Dose: 100 mcg Documented by: Fentanyl (Fentanyl 25 Mcg/Hr Tdsy) 25 mcg TD Q72H [facility] Stop: 10/13/21 17:29 Last Admin: 09/29/21 18:11 Dose: 25 mcg Documented by: Glucagon (Glucagon For Inj 1 Mg Vial) 1 mg IM UD PRN; Protocol PRN Reason: Hypoglycemia Protocol Stop: 10/28/21 21:44 Glucose (Glucose 40% Gel 15 Gm Tube) 15 - 30 gm PO UD PRN; Protocol PRN Reason: Hypoglycemia Protocol Stop: 10/28/21 21:44 Glucose (Glucose 10 Tabs/Tube) 4 - 8 tabs PO UD PRN; Protocol PRN Reason: Hypoglycemia Protocol Stop: 10/28/21 21:44 Dextrose (D10w) 1,000 mls @ 0 mls/hr IV .Q0M PRN PRN Reason: protocol (see label comments) Stop: 10/29/21 15:59 Piperacillin Sod/Tazobactam (Sod 3.375 gm/ Dextrose) 115 mls @ 28.75 mls/hr IV Q12H [facility]; Protocol Stop: 10/01/21 01:59 Last Infusion: 09/30/21 17:15 Dose: Infused Documented by: Amino Acids/Dextrose 1,670 ml/ (Nutrition (Parenteral)) 1,670 mls @ 85 mls/hr IV TODAY@2000 [facility]; Protocol Stop: 10/01/21 15:39 Fat Emulsion-[place] Oil/Soybean Oil (Clinolipid 20% Iv Fat Emulsion) 100 mls @ 40 mls/hr IV .Q2H30M [place] Stop: 10/01/21 04:29 Albumin Human (Albumin 25% 100 Ml) 25 gm in 100 mls @ 50 mls/hr IV Q24H [facility] Stop: 10/03/21 15:44 Last Admin: 09/30/21 17:10 Dose: 50 mls/hr Documented by: Insulin Aspart (Insulin Aspart Per Unit) 0 units SC Q6 [facility] Stop: 10/29/21 00:00 Last Admin: 09/30/21 18:32 Dose: Not Given Documented by: Melatonin (Melatonin 3 Mg Tab) 3 mg PO HS PRN PRN Reason: Sleep Stop: 10/28/21 20:21 Midodrine (Midodrine Hcl 10 Mg Tab) 10 mg PO TID@0700,1200,1700 [facility] Stop: 10/29/21 06:59 Last Admin: 09/30/21 17:10 Dose: 10 mg Documented by: Miscellaneous (Fentanyl Patch Remove & Waste) 1 ea N/A Q72H [facility] Stop: 10/29/21 08:58 Last Admin: 09/29/21 15:30 Dose: 1 ea Documented by: Miscellaneous (Check Fentanyl Patch Placement) 1 ea N/A QS [facility] Stop: 10/29/21 15:59 Last Admin: 09/30/21 16:46 Dose: 1 ea Documented by: Miscellaneous (Carbohydrates For Hypoglycemia ) 15 - 30 gm PO UD PRN PRN Reason: Hypoglycemia Treatment Stop: 10/28/21 21:44 Miscellaneous (Fentanyl Patch Remove & Waste) 1 ea N/A Q3D [facility] Stop: 10/29/21 17:29 Last Admin: 09/29/21 17:41 Dose: Not Given Documented by: Miscellaneous (Check Fentanyl Patch Placement) 1 ea N/A QS [facility] Stop: 10/30/21 00:00 Last Admin: 09/30/21 16:46 Dose: 1 ea Documented by: Miscellaneous (Pending Order) 1 ea N/A DAILY@2100 [facility] Stop: 10/30/21 20:59 Miscellaneous (Pending Order) 1 ea N/A DAILY@0700 [facility] Stop: 10/31/21 06:59 Miscellaneous Information (Tpn/Ppn Consult Pharmacy) 1 ea N/A UD PRN PRN Reason: Consult Stop: 10/28/21 21:06 Miscellaneous Information (Pharmacy Glycemic Mgmt Consult) 1 ea N/A UD PRN PRN Reason: Consult Stop: 10/28/21 19:43 Miscellaneous Information (Vancomycin Consult Active) 0 ea N/A UD PRN PRN Reason: Consult Stop: 10/28/21 22:47 Nystatin (Nystatin Powder 15gm Btl) 1 appln EXT BID [facility] Stop: 10/28/21 20:59 Last Admin: 09/30/21 07:51 Dose: 1 appln Documented by: Ondansetron HCl (Ondansetron 4 Mg Od Tab) 8 mg PO TID PRN PRN Reason: Nausea Stop: 10/28/21 21:05 Last Admin: 09/30/21 14:57 Dose: 8 mg Documented by: Oxycodone HCl (Oxycodone Hcl Ir 5 Mg Tab (Immediate Release)) 15 mg PO Q4H PRN PRN Reason: Pain Stop: 10/12/21 20:21 Last Admin: 09/30/21 14:56 Dose: 15 mg Documented by: Pantoprazole Sodium (Pantoprazole 40 Mg Tab) 40 mg PO DAILYBB [facility] Stop: 10/29/21 06:29 Last Admin: 09/30/21 06:00 Dose: 40 mg Documented by: Rifaximin (Rifaximin 550 Mg Tablet) 550 mg PO BID [facility] Stop: 10/28/21 20:59 Last Admin: 09/30/21 07:50 Dose: 550 mg Documented by: (1) Urinary tract infection Hematuria presence: without hematuria Urinary tract infection type: site unspecified Qualified Code(s): N39.0 - Urinary tract infection, site not specified (2) Sepsis Sepsis acute organ dysfunction status: without acute organ dysfunction Sepsis type: sepsis due to unspecified organism Qualified Code(s): A41.9 - Sepsis, unspecified organism (3) Altered mental status Altered mental status type: unspecified Qualified Code(s): R41.82 - Altered mental status, unspecified
[2021-09-30] MEDS ORDERED: CENTRAL TPN IV SCH (20:00)
[2021-09-30] MEDS ORDERED: AMINO ACID 8% IV SCH (20:00)
[2021-09-30] MEDS ORDERED: [UNRECOGNIZED DRUG - OTHER] IV SCH (20:00)
[2021-09-30] MEDS: CLINOLIPID 20% IV FAT EMULSION 100 ML IV SCH ×2 (20:00→22:52)
[2021-10-01] MEDS: CHECK fentaNYL PATCH PLACEMENT SCH ×6 (00:35→16:58)
[2021-10-01] MEDS: INSULIN ASPART PER UNIT SC SCH ×4 (00:36→18:38)
[2021-10-01] MEDS: CLINOLIPID 20% IV FAT EMULSION 100 ML IV SCH ×2 (01:29→21:50)
[2021-10-01] MEDS: ONDANSETRON 4 MG OD TAB PO PRN ×2 (01:46→10:48)
[2021-10-01] MEDS: oxyCODONE HCL IR 5 MG TAB (IMMEDIATE RELEASE) PO PRN ×2 (01:47→10:48)
[2021-10-01] MEDS: MIDODRINE HCL 10 MG TAB PO SCH ×3 (06:11→16:59)
[2021-10-01] MEDS: PANTOprazole 40 MG TAB PO SCH (06:11)
[2021-10-01] MEDS: busPIRone 15 MG TAB PO SCH ×2 (08:09→21:56)
[2021-10-01] MEDS: NYSTATIN POWDER 15GM BTL EXT SCH ×2 (08:09→20:55)
[2021-10-01] MEDS: rifAXIMin 550 MG TABLET PO SCH ×2 (08:09→21:57)
[2021-10-01 08:47] LABS: Calcium 8.2 mg/dl (8.5-10.1); Creatinine Clr Calc Pharmacy 21.6 ml/min; Est GFR (African American) 15.7 ml/min; Est GFR (Non-African American) 13.6 ml/min; Magnesium 1.8 mg/dl (1.7-2.4); Phosphorus 2.3 mg/dl (2.5-4.9); Potassium 3.6 mmol/L (3.5-5.1)
[2021-10-01] MEDS ORDERED: PIPERACILLIN/TAZOBACTAM 3.375 GM in DEXTROSE 5% 100 ML IV ONE (10:00)
--- NOTE | 2021-10-01 12:09 | Pharmacy Report ---
Pharmacy Glycemic Short Note 2 - Date of Service October 01, 2021 - Glycemic Short BSG Results (Last 24 hours): 09/30/21 09/30/21 09/30/21 18:16 18:17 18:43 Glucose POC Glucose 62 L* 64 L* 96 09/30/21 10/01/21 10/01/21 23:38 05:32 08:04 Glucose 143 H POC Glucose 123 H 154 H 10/01/21 11:39 Glucose POC Glucose 162 H OUTPATIENT ANTIDIABETIC REGIMEN: * N/A * HbA1C = 5.5% (patient is dialysis so this may not be accurate) ASSESSMENT: 10/01/21 * Patient's BSGs yesterday were 77-80-64/62-123 mg/dL. Patient received NO INSULIN since admission. Hypoglycemic event likely due to missed TPN the prior day. * BSGs since TPN resumed yesterday evening are 154-162 mg/dL which are appropriate. * Continue current CF. No basal until BSGs consistently > 180 mg/dL BACKGROUND * Mr Hull is a 56 y/o M with a PMH of metastatic cancer on home TPN and dialysis who presents with pyelonephritis. * Currently patient's TPN is on hold due to critical phos value of 1.9. * Patient is NPO. * BSGs today are 84-87 mg/dL. Patient is receiving dialysis. * Will have correction factor of weight-based stress of 1-2. Hold Lantus due to BSGs < 140 mg/dL. PLAN FOR INPATIENT GLYCEMIC CONTROL * Basal insulin * HOLD * Bolus insulin * NovoLog per scale ACHS or Q6hrs while NPO * Goal Range: Low 120 mg/dL - High 150 mg/dL * Correction Factor: 30 mg/dL/unit * Nutritional / Prandial insulin per carb ratio of 1 unit per --- grams CHO consumed
[2021-10-01 13:33] LABS: Hematocrit (blood only) 22.6 % (42-52); Hemoglobin 7.6 g/dL (14.0-18.0); Mean Corpuscular Hemoglobin 31.1 pg (25-34); Mean Corpuscular Hgb Conc 33.6 g/dL (32-36); Mean Corpuscular Volume 92.6 fL (80-100); RDW Coefficient of Variation 16.3 % (11.5-14.5); RDW Standard Deviation 55.7 fL (36.4-46.3); Red Blood Count 2.44 M/uL (4.7-6.1); White Blood Count 1.68 K/uL (4.8-10.8)
[2021-10-01 13:48] LABS: Platelet Count 43 K/uL (130-400)
--- NOTE | 2021-10-01 15:43 | Hospitalist Progress Note ---
Date of Service October 01, 2021 Assessment & Plan (1) Altered mental status: Plan: Metabolic/septic encephalopathy (2) Urinary tract infection: (3) Sepsis: (4) Pyelonephritis: Plan: Patient presents with pain in left flank, left lower abdomen, where his nephrostomy tube is placed, however was clogged just prior to admission Patient's was able to flush nephrostomy tube, and purulent urine was drained Patient started on IV antibiotics, vancomycin and Zosyn, will continue Urology, Dr. Frey consulted, Recommend Schmitt catheter, which Was not done and instead patient agreed to straight cath Blood cultures, urine culture obtained Per patient's , patient was hospitalized at [facility] from September 10, to September 16 due to same. She reports he was on IV antibiotics, Reviewed records - Patient was treated with vancomycin and cefepime,and discharged on Levaquin for 7 days. Current urine culture positive for Pseudomonas aeruginosa, Resistant to Levaquin Reviewed medical records from previous admission at [facility],Seems that urine culture there was also positive for Pseudomonas resistant to Levaquin (pt was also treated there w/ cefepime, as above) We will switch current antibiotics to cefepime Continue to closely monitor, and make sure that patient also uses straight cath for infection drainage Discussed with , that patient may need to be discharged on IV cefepime, as there is currently no p.o. option available (Pseudomonas Resistant to Levaquin and ciprofloxacin. Also given his recurrent bowel obstruction,G-tube placement,P.o. antibiotic absorption questionable) End-stage renal disease on dialysis On dialysis Wednesday, [facility] in [place], Dr. Lo -Suzy nephrology consulted for dialysis while inpatient Metastatic colon cancer to bladder and likely lung Status post right hemicolectomy in 2017 Currently undergoing palliative chemotherapy at [facility], w/ Dr. Feliciano Reviewed records, last chemotherapy On 09/04/21 - w/ Irinotectan/Leucovirin - September 04, 2021 - any further treatment is on hold for now (Until medically stable, cleared from infection) Per , surgery was planned in [place], however patient was not a candidate anymore (elevated ammonia, GI bleed) Chronic bowel obstruction -Due to above -G-tube placed for venting -Continue TPN Pancytopenia -Likely secondary to chemotherapy, current cancer, cirrhosis, sepsis Neutropenic precautions ordered Thrombocytopenia Seems to be chronic, due to above Continue to monitor, and continue to monitor for any bleed Hgb 6.2 - Blood consent obtained, s/p 1 unit of PRBC (09/30) Transfuse PRBC, for goal hemoglobin above 7 CODE STATUS: Reviewed records from palliative medicine from [place] (Dr. Tad Valentin), which stated that patient was made DNR/DNI. Discussed this with patient's , and confirmed the status. Admission and Anticipated Discharge Date Admission Date: September 28, 2021 Subjective Patient seen in follow-up of sepsis, UTI/pyonephritis, in the setting of metastatic colon cancer, ESRD on dialysis Obtained medical records from [facility], and reviewed. Hemoglobin 6.2 yesterday, blood consent obtained from the patient, 1 unit of PRBC ordered Urine culture positive for Pseudomonas aeruginosa - antibiotic switched to cefepime Afebrile, no chest pain, continues to have abdominal discomfort, However seems improved from pain standpoint. Discussed need for straight cath or Schmitt catheter placement to help with right hydronephrosis, patient hesitant. Discussed CODE STATUS again with , and her previous conversation with palliative medicine, confirms DNR/DNI. Also discussed with that patient may need to be discharged on IV cefepime as Pseudomonas is resistant to oral antibiotic options. Review of Systems Review of Systems: All systems reviewed & are unremarkable except as noted in Subjective Physical Exam Physical Exam: Constitutional:L Chronically ill-ap pearing male, slig htly jaundiced, in no acute distress Eyes: PERRL, EOMI, ENMT: external ear and n ose normal, oropha rynx normal Neck: supple Respiratory: normal respiratory effort, lungs mayda ar to auscultation Cardiovascular:L Rate/Rhythm: regul ar rate (1 + LE ed meghann) Chest (Breasts): Chest: + vascular access device or p ort (Port for TPN on the left, and H ickman for dialysi s on the right) Gastrointestinal ( Abdomen): Inspection/Auscult ation: + abdomen d istended (Tender t o palpation at lef t lower abdomen, m inimal bowel sound s) + G tube, + L n ephrostomy tube Musculoskeletal: Moves extremities Skin: no rashes, warm an d dry Neurologic: PERRL, EOMI, no fa ce palsy, no dysar thria (Patient is slow to answer, an d not able to answ er all my question s appropriately) Results & Data Results & Data ([facility]) Vital Signs (Past 12 Hours) Vital Signs Temp Pulse Resp BP Pulse Ox 10/01/21 15:31 36.7 C 73 18 109/68 100 10/01/21 11:42 37.0 C 75 18 99/64 L 99 10/01/21 07:44 36.8 C 80 18 98/65 L 96 Laboratory Results 10/01/21 10/01/21 10/01/21 Range/Units 13:12 11:39 08:04 WBC 1.68 L (4.8-10.8) K/uL RBC 2.44 L (4.7-6.1) M/uL Hgb 7.6 L (14.0-18.0) g/dL Hct 22.6 L (42-52) % MCV 92.6 (80-100) fL MCH 31.1 (25-34) pg MCHC 33.6 (32-36) g/dL RDW Std Deviation 55.7 H (36.4-46.3) fL RDW Coeff of Deandra 16.3 H (11.5-14.5) % Plt Count 43 L (130-400) K/uL MPV 11.0 H (7.4-10.4) fL Sodium 135 L (136-145) mmol/L Potassium 3.6 (3.5-5.1) mmol/L Chloride 99 (98-107) mmol/L Carbon Dioxide 30 (21-32) mmol/L Anion Gap 6 (3-11) BUN 58 H (6-23) mg/dl Creatinine 4.45 H D (0.6-1.4) mg/dl Est Cr Clr Drug Dosing 21.6 ml/min Est GFR ( Amer) 15.7 ml/min Est GFR (Non-Af Amer) 13.6 ml/min BUN/Creatinine Ratio 13.0 (10-20) Glucose 143 H (70-99(Fasting)) mg/dl POC Glucose 162 H (70-99) mg/dl Calcium 8.2 L (8.5-10.1) mg/dl Phosphorus 2.3 L (2.5-4.9) mg/dl Magnesium 1.8 (1.7-2.4) mg/dl 10/01/21 09/30/21 09/30/21 Range/Units 05:32 23:38 18:43 WBC (4.8-10.8) K/uL RBC (4.7-6.1) M/uL Hgb (14.0-18.0) g/dL Hct (42-52) % MCV (80-100) fL MCH (25-34) pg MCHC (32-36) g/dL RDW Std Deviation (36.4-46.3) fL RDW Coeff of Deandra (11.5-14.5) % Plt Count (130-400) K/uL MPV (7.4-10.4) fL Sodium (136-145) mmol/L Potassium (3.5-5.1) mmol/L Chloride (98-107) mmol/L Carbon Dioxide (21-32) mmol/L Anion Gap (3-11) BUN (6-23) mg/dl Creatinine (0.6-1.4) mg/dl Est Cr Clr Drug Dosing ml/min Est GFR ( Amer) ml/min Est GFR (Non-Af Amer) ml/min BUN/Creatinine Ratio (10-20) Glucose (70-99(Fasting)) mg/dl POC Glucose 154 H 123 H 96 (70-99) mg/dl Calcium (8.5-10.1) mg/dl Phosphorus (2.5-4.9) mg/dl Magnesium (1.7-2.4) mg/dl 09/30/21 09/30/21 Range/Units 18:17 18:16 WBC (4.8-10.8) K/uL RBC (4.7-6.1) M/uL Hgb (14.0-18.0) g/dL Hct (42-52) % MCV (80-100) fL MCH (25-34) pg MCHC (32-36) g/dL RDW Std Deviation (36.4-46.3) fL RDW Coeff of Deandra (11.5-14.5) % Plt Count (130-400) K/uL MPV (7.4-10.4) fL Sodium (136-145) mmol/L Potassium (3.5-5.1) mmol/L Chloride (98-107) mmol/L Carbon Dioxide (21-32) mmol/L Anion Gap (3-11) BUN (6-23) mg/dl Creatinine (0.6-1.4) mg/dl Est Cr Clr Drug Dosing ml/min Est GFR ( Amer) ml/min Est GFR (Non-Af Amer) ml/min BUN/Creatinine Ratio (10-20) Glucose (70-99(Fasting)) mg/dl POC Glucose 64 L* 62 L* (70-99) mg/dl Calcium (8.5-10.1) mg/dl Phosphorus (2.5-4.9) mg/dl Magnesium (1.7-2.4) mg/dl Medications Administered Current Inpatient Medications Buspirone HCl (Buspirone 15 Mg Tab) 15 mg PO BID GATITO Stop: 10/28/21 20:59 Last Admin: 10/01/21 08:09 Dose: 15 mg Documented by: Calamine/Phenol (Menthol-Zinc Oxide 360 Appln/120 Gm Tube) 1 appln EXT TID PRN PRN Reason: skin breakdown Stop: 10/28/21 20:21 Dextrose (Dextrose 50% 50 Ml Syringe) 25 - 50 ml IV UD PRN; Protocol PRN Reason: Hypoglycemia Protocol Stop: 10/28/21 21:44 Last Admin: 09/30/21 18:24 Dose: 25 ml Documented by: Fentanyl (Fentanyl 100 Mcg/Hr Tdsy) 100 mcg TD Q72H GAT[place] Stop: 10/13/21 08:59 Last Admin: 09/29/21 14:48 Dose: 100 mcg Documented by: Fentanyl (Fentanyl 25 Mcg/Hr Tdsy) 25 mcg TD Q72H [place] Stop: 10/13/21 17:29 Last Admin: 09/29/21 18:11 Dose: 25 mcg Documented by: Glucagon (Glucagon For Inj 1 Mg Vial) 1 mg IM UD PRN; Protocol PRN Reason: Hypoglycemia Protocol Stop: 10/28/21 21:44 Glucose (Glucose 40% Gel 15 Gm Tube) 15 - 30 gm PO UD PRN; Protocol PRN Reason: Hypoglycemia Protocol Stop: 10/28/21 21:44 Glucose (Glucose 10 Tabs/Tube) 4 - 8 tabs PO UD PRN; Protocol PRN Reason: Hypoglycemia Protocol Stop: 10/28/21 21:44 Dextrose (D10w) 1,000 mls @ 0 mls/hr IV .Q0M PRN PRN Reason: protocol (see label comments) Stop: 10/29/21 15:59 Albumin Human (Albumin 25% 100 Ml) 25 gm in 100 mls @ 50 mls/hr IV Q24H [facility] Stop: 10/03/21 15:44 Last Infusion: 09/30/21 20:34 Dose: Infused Documented by: Amino Acids/Dextrose 1,670 ml/ (Nutrition (Parenteral)) 1,670 mls @ 85 mls/hr IV TODAY@2000 GATITO; Protocol Stop: 10/02/21 15:39 Fat Emulsion-Galva Oil/Soybean Oil (Clinolipid 20% Iv Fat Emulsion) 100 mls @ 40 mls/hr IV .Q2H30M [facility] Stop: 10/02/21 03:29 Cefepime HCl 2,000 mg/ Syringe 20 mls @ 5 mls/min IV MoWeFr@1600 [facility] Stop: 10/11/21 15:59 Insulin Aspart (Insulin Aspart Per Unit) 0 units SC Q6 [facility] Stop: 10/29/21 00:00 Last Admin: 10/01/21 12:23 Dose: 1 units Documented by: Melatonin (Melatonin 3 Mg Tab) 3 mg PO HS PRN PRN Reason: Sleep Stop: 10/28/21 20:21 Midodrine (Midodrine Hcl 10 Mg Tab) 10 mg PO TID@0700,1200,1700 [facility] Stop: 10/29/21 06:59 Last Admin: 10/01/21 12:23 Dose: 10 mg Documented by: Miscellaneous (Fentanyl Patch Remove & Waste) 1 ea N/A Q72H [facility] Stop: 10/29/21 08:58 Last Admin: 09/29/21 15:30 Dose: 1 ea Documented by: Miscellaneous (Check Fentanyl Patch Placement) 1 ea N/A QS [facility] Stop: 10/29/21 15:59 Last Admin: 10/01/21 08:08 Dose: 1 ea Documented by: Miscellaneous (Carbohydrates For Hypoglycemia ) 15 - 30 gm PO UD PRN PRN Reason: Hypoglycemia Treatment Stop: 10/28/21 21:44 Miscellaneous (Fentanyl Patch Remove & Waste) 1 ea N/A Q3D [facility] Stop: 10/29/21 17:29 Last Admin: 09/29/21 17:41 Dose: Not Given Documented by: Miscellaneous (Check Fentanyl Patch Placement) 1 ea N/A QS [facility] Stop: 10/30/21 00:00 Last Admin: 10/01/21 08:09 Dose: 1 ea Documented by: Miscellaneous (Pending Order) 1 ea N/A DAILY@2100 [facility] Stop: 10/30/21 20:59 Last Admin: 09/30/21 22:00 Dose: 1 ea Documented by: Miscellaneous (Pending Order) 1 ea N/A DAILY@0700 [facility] Stop: 10/31/21 06:59 Last Admin: 10/01/21 06:16 Dose: 1 ea Documented by: Miscellaneous Information (Tpn/Ppn Consult Pharmacy) 1 ea N/A UD PRN PRN Reason: Consult Stop: 10/28/21 21:06 Miscellaneous Information (Pharmacy Glycemic Mgmt Consult) 1 ea N/A UD PRN PRN Reason: Consult Stop: 10/28/21 19:43 Nystatin (Nystatin Powder 15gm Btl) 1 appln EXT BID [facility] Stop: 10/28/21 20:59 Last Admin: 10/01/21 08:09 Dose: 1 appln Documented by: Ondansetron HCl (Ondansetron 4 Mg Od Tab) 8 mg PO TID PRN PRN Reason: Nausea Stop: 10/28/21 21:05 Last Admin: 10/01/21 10:48 Dose: 8 mg Documented by: Oxycodone HCl (Oxycodone Hcl Ir 5 Mg Tab (Immediate Release)) 15 mg PO Q4H PRN PRN Reason: Pain Stop: 10/12/21 20:21 Last Admin: 10/01/21 10:48 Dose: 15 mg Documented by: Pantoprazole Sodium (Pantoprazole 40 Mg Tab) 40 mg PO DAILYBB [facility] Stop: 10/29/21 06:29 Last Admin: 10/01/21 06:11 Dose: 40 mg Documented by: Rifaximin (Rifaximin 550 Mg Tablet) 550 mg PO BID [facility] Stop: 10/28/21 20:59 Last Admin: 10/01/21 08:09 Dose: 550 mg Documented by: (1) Urinary tract infection Hematuria presence: without hematuria Urinary tract infection type: site unspecified Qualified Code(s): N39.0 - Urinary tract infection, site not specified (2) Sepsis Sepsis acute organ dysfunction status: without acute organ dysfunction Sepsis type: sepsis due to unspecified organism Qualified Code(s): A41.9 - Sepsis, unspecified organism (3) Altered mental status Altered mental status type: unspecified Qualified Code(s): R41.82 - Altered mental status, unspecified
[2021-10-01] MEDS ORDERED: CEFEPIME 2,000 MG in SYRINGE 0 ML IV SCH (16:00)
--- NOTE | 2021-10-01 16:42 | Nephrology Progress Note ---
Date of Service October 01, 2021 Assessment & Plan (1) ESRD (end stage renal disease) on dialysis: Plan: had HD 09/29 for clearance only; no fluid removed d/t relative hypotension which appears today to be worse tolerated tx w/o issue; next tx on 10/02 or as clinical needs dictate >time antibiotics w/ HD as indicated -may need to consider low rate of IVF given large amount of losses via gastric drainage such as NS at 50 ml/hr (2) Recurrent urinary tract infection: Plan: on vanco, zosyn; L nephrostomy tube now functional > to far no evidence of active UTI at this time (3) Altered mental status: Plan: monitor for reversible processes; improved today (4) Acute on chronic anemia: Plan: getting 1 unit pRBC; not a candidate for erythropoietin stim agents d/t his cancer dxs -daily hgb and transfuse prn Admission and Anticipated Discharge Date Admission Date: September 28, 2021 Subjective no interval events; at bedside; c/o poor sleep/gen fatigue; L > R edema; recurrentgross hematuria; no flank pain or n/v Review of Systems Review of Systems: All systems reviewed & are unremarkable except as noted in Subjective Physical Exam Constitutional: well developed and + frail appearing; no acute distress ENMT: Ears: no external ear abnormality Nose: no external nose abnormality Mouth: + dry oral mucous membranes Neck: no nuchal rigidity Respiratory: normal respiratory effort Auscultation: + diminished lung sounds Cardiovascular: Rate/Rhythm: regular rate and regular rhythm Extremities: no edema Gastrointestinal (Abdomen): Inspection/Auscultation: abdomen normal to inspection (with gastic tube) and normal bowel sounds Percussion/Palpation: abdomen soft; abdomen nontender Musculoskeletal: Extremities: + abnormal strength Skin: no rashes, warm and dry Results & Data ([facility]) Vital Signs (Past 12 Hours) Vital Signs Temp Pulse Resp BP Pulse Ox 10/01/21 15:31 36.7 C 73 18 109/68 100 10/01/21 11:42 37.0 C 75 18 99/64 L 99 10/01/21 07:44 36.8 C 80 18 98/65 L 96 (1) Altered mental status Altered mental status type: unspecified Qualified Code(s): R41.82 - Altered mental status, unspecified
[2021-10-01] MEDS: ALBUMIN 25% 100 mL 25 GM/100 ML VIAL IV SCH (16:53)
[2021-10-01] MEDS ORDERED: PROMETHAZINE HCL 12.5 MG in SODIUM CHLORIDE 0.9% 50 ML IV ONE (19:30)
[2021-10-01] MEDS ORDERED: AMINO ACID 8% IV SCH (20:00)
[2021-10-01] MEDS ORDERED: CENTRAL TPN IV SCH (20:00)
[2021-10-01] MEDS ORDERED: [UNRECOGNIZED DRUG - OTHER] IV SCH (20:00)
[2021-10-02] MEDS: INSULIN ASPART PER UNIT SC SCH ×4 (00:13→17:23)
[2021-10-02] MEDS: CHECK fentaNYL PATCH PLACEMENT SCH ×6 (00:13→16:33)
[2021-10-02] MEDS: CLINOLIPID 20% IV FAT EMULSION 100 ML IV SCH ×4 (00:13→22:03)
[2021-10-02] MEDS: oxyCODONE HCL IR 5 MG TAB (IMMEDIATE RELEASE) PO PRN ×3 (00:42→16:37)
[2021-10-02] MEDS: ONDANSETRON 4 MG OD TAB PO PRN ×3 (00:43→16:37)
[2021-10-02 06:39] LABS: Hematocrit (blood only) 22.3 % (42-52); Hemoglobin 7.5 g/dL (14.0-18.0); Mean Corpuscular Hemoglobin 31.3 pg (25-34); Mean Corpuscular Hgb Conc 33.6 g/dL (32-36); Mean Corpuscular Volume 92.9 fL (80-100); RDW Coefficient of Variation 15.9 % (11.5-14.5); RDW Standard Deviation 54.4 fL (36.4-46.3); White Blood Count 1.51 K/uL (4.8-10.8)
[2021-10-02 06:49] LABS: Mean Platelet Volume 11.1 fL (7.4-10.4); Platelet Count 36 K/uL (130-400)
[2021-10-02 06:56] LABS: BUN Creatinine Ratio 15.7 (10-20); Calcium 8.5 mg/dl (8.5-10.1); Creatinine Clr Calc Pharmacy 19.6 ml/min; Est GFR (African American) 13.9 ml/min; Magnesium 1.8 mg/dl (1.7-2.4); Phosphorus 3.1 mg/dl (2.5-4.9); Potassium 3.9 mmol/L (3.5-5.1)
[2021-10-02] MEDS ORDERED: SODIUM CHLORIDE 0.9% 1000ML 1,000 ML IV PRN (07:43)
[2021-10-02] MEDS: rifAXIMin 550 MG TABLET PO SCH ×2 (08:51→20:34)
[2021-10-02] MEDS: PANTOprazole 40 MG TAB PO SCH (08:51)
[2021-10-02] MEDS: MIDODRINE HCL 10 MG TAB PO SCH ×3 (08:51→17:09)
[2021-10-02] MEDS: busPIRone 15 MG TAB PO SCH ×2 (08:52→20:34)
[2021-10-02] MEDS: NYSTATIN POWDER 15GM BTL EXT SCH ×2 (08:55→20:36)
[2021-10-02] MEDS: fentaNYL 100 MCG/HR TDSY TD SCH (08:57)
--- NOTE | 2021-10-02 09:44 | Nephrology Progress Note ---
Date of Service October 02, 2021 Assessment & Plan (1) ESRD (end stage renal disease) on dialysis: Plan: had HD 09/29 for clearance only; no fluid removed d/t relative hypotension which is ongoing tolerated tx w/o issue >for HD today >> again no fluid removal d/t hypotension >time antibiotics w/ HD as indicated -may need to consider low rate of IVF given large amount of losses via gastric drainage such as NS at 50 ml/hr (2) Recurrent urinary tract infection: Plan: on vanco, zosyn; L nephrostomy tube now functional > to far no evidence of active UTI at this time (3) Altered mental status: Plan: monitor for reversible processes; improved today/remains resolved (4) Acute on chronic anemia: Plan: had 1 unit pRBC; not a candidate for erythropoietin stim agents d/t his cancer dxs -daily hgb and transfuse prn (5) Hypotension: Plan: pt new to our system; SBP in [facility] late August admission reviewed and generally SBP 100-110s >low threshold for TTE or w/u of adrenal insufficiency or other to explain worsened BP status/ ongoing hypotension Admission and Anticipated Discharge Date Admission Date: September 28, 2021 Subjective arthur placement attempted this am w/o success and pt anxious about repeat placement attempt planned for this afternoon; ongoing gross hematuria. worried he can't tolerte 3hr dialysis today. no sob, no n/v, no uncontrolled pain now though endorses dysuria Review of Systems Review of Systems: All systems reviewed & are unremarkable except as noted in Subjective Physical Exam Constitutional: well developed and + frail appearing; no acute distress ENMT: Ears: no external ear abnormality Nose: no external nose abnormality Mouth: + dry oral mucous membranes Neck: no nuchal rigidity Respiratory: normal respiratory effort Auscultation: + diminished lung sounds Cardiovascular: Rate/Rhythm: regular rate and regular rhythm Extremities: + edema (trace BL ankle) Gastrointestinal (Abdomen): Inspection/Auscultation: abdomen normal to inspection (with gastic tube) and normal bowel sounds Percussion/Palpation: abdomen soft; abdomen nontender Musculoskeletal: Extremities: + abnormal strength Skin: no rashes, warm and dry Neurologic: cruz, fluent speech, no tremor Psychiatric: Orientation: oriented x 3 Speech: normal rate/rhythm/volume of speech Affect: + anxious affect and + flat affect Insight: good insight Judgement: good judgement Results & Data ([facility]) Vital Signs (Past 12 Hours) Vital Signs Temp Pulse Pulse Resp BP Pulse Ox 10/02/21 08:13 36.7 C 78 18 98/61 L 96 10/02/21 03:40 36.7 C 82 18 103/68 98 10/02/21 02:17 66 10/01/21 23:33 37.1 C 67 12 105/68 96 Laboratory Results 10/02/21 06:17 10/02/21 06:17 (1) Altered mental status Altered mental status type: unspecified Qualified Code(s): R41.82 - Altered mental status, unspecified
[2021-10-02] MEDS: ALBUMIN 25% 100 mL 25 GM/100 ML VIAL IV SCH (16:32)
[2021-10-02] MEDS ORDERED: CEFEPIME 500 MG in SYRINGE 0 ML IV SCH (17:00)
[2021-10-02] MEDS: fentaNYL 25 MCG/HR TDSY TD SCH (17:11)
--- NOTE | 2021-10-02 17:33 | Hospitalist Progress Note ---
Date of Service October 02, 2021 Assessment & Plan (1) Altered mental status: (2) Urinary tract infection: (3) Sepsis: (4) Pyelonephritis: Plan: Patient presents with pain in left flank, left lower abdomen, where his nephrostomy tube is placed, however was clogged just prior to admission Patient was recently hospitalized at [facility] from September 10, to September 16 due to same, was treated with iv vancomycin and cefepime,and discharged on Levaquin for 7 days to which it was resistant to. After discharge, patient's was able to flush nephrostomy tube, and purulent urine was drained and presented to our ED Patient started on IV antibiotics, vancomycin and Zosyn Seen by urology, Dr. Frey consulted- placed on arthur but now out- uro recommended bladder scan and straight cath prn CT A/P 09/28 1. Partial colonic resection with moderate to marked dilatation of the small bowel representing bowel obstruction. This most likely related to adhesions. 2. CT findings characteristic of cirrhosis of the liver with marked splenomegaly and splenic hilar varices. 3. 1 cm nodule at the right lung base suspicious for metastatic disease. 4. Bilateral hydronephrosis with nephrostomy tube in place on the left. 5. Additional nonacute findings are delineated above. CT head 09/28- no acute abnormality Complicated UTI/ - Urine clx 09/28 with pseudomonas resistant to FQ but sensitive to zosyn, cefepime; blood clx negative - Initially on vanc/zosyn->cefepime 10/01 D4/7; Will need iv ABx at discharge - Makes little urine- now arthur out- continue bladder scan straight cath protocol per urology - He might need to learn to do straight cath if unable to void and has urinary retention - Left nephrostomy now functional End-stage renal disease on HD MWF - Had HD today, also tomorrow per patient as he is planning for discharge on wednesday Metastatic colon cancer to bladder and likely lung - Status post right hemicolectomy in 2017 - Currently undergoing palliative chemotherapy at [facility], w/ Dr. Feliciano -Reviewed records, last chemotherapy On 09/04/21 - w/ Irinotectan/Leucovirin - September 04, 2021 - any further treatment is on hold for now (Until medically stable, cleared from infection) - Per , surgery was planned in [place], however patient was not a candidate anymore (elevated ammonia, GI bleed) Chronic bowel obstruction -Due to above -G-tube placed for venting -Continue TPN Pancytopenia -Likely secondary to chemotherapy, current cancer, cirrhosis -continue neutropenic precautions ordered - overall stable Anemia of chronic disease (ESRD, malignancy)- S/p 1 U PRBC on 09/30 for Hb 6.2, currently 7.5 Hypotension- BP low normal side but asymptomatic, on albumin and midodrine. states his BP has been low for a while now. TTE pending. Not in sepsis DVT ppx- chemoprophylaxis C/I due to anemia, thrombocytopenia Dispo- on iv cefepime, will need IV ABx at discharge. HD tomorrow per patient. Admission and Anticipated Discharge Date Admission Date: September 28, 2021 Subjective Seen and examined at bedside in presence of . Feels tired. States he did not pull his arthur but it came out. I spoke to them about urology recommendation about straight cath prn but he is scared because of the pain with catheterization and requesting for pain medicine prior to that. He would like to get discharged by wednesday morning so he can attend his granddaughter's first 1 year birthday alliance party. Physical Exam Physical Exam: General: Frail appearing, sitting in bed, not in acute distress, on room air TPN running HEENT: EOMI, CHARLES, MMM Chest: Clear breath sounds bilaterally, no wheezes or crackles CVS: Regular rate and rhythm, normal heart sounds, no murmur Abdomen: Soft, non tender, G tube in place, left nephrostomy tube, BS + Neuro: Awake, alert, oriented, conversing well, non focal Extremities: trace edema Results & Data Results & Data ([facility]) Vital Signs (Past 12 Hours) Vital Signs Temp Pulse Pulse Pulse Pulse Resp BP 10/02/21 15:51 36.9 C 70 19 10/02/21 13:17 36.5 C 85 73 10/02/21 13:00 70 94/60 L 10/02/21 12:40 70 112/71 10/02/21 12:20 67 92/58 L 10/02/21 12:00 77 107/71 10/02/21 11:40 61 109/84 10/02/21 11:20 70 105/61 10/02/21 11:00 66 107/60 10/02/21 10:36 36.5 C 74 10/02/21 08:13 36.7 C 78 18 BP Pulse Ox 10/02/21 15:51 90/55 L 97 10/02/21 13:17 107/58 L 10/02/21 13:00 10/02/21 12:40 10/02/21 12:20 10/02/21 12:00 10/02/21 11:40 10/02/21 11:20 10/02/21 11:00 10/02/21 10:36 10/02/21 08:13 98/61 L 96 Laboratory Results Short CBC 10/02/21 Range/Units 06:17 WBC 1.51 L (4.8-10.8) K/uL Hgb 7.5 L (14.0-18.0) g/dL Hct 22.3 L (42-52) % Plt Count 36 L (130-400) K/uL BMP 10/02/21 06:17 Sodium 135 L Potassium 3.9 Chloride 96 L Carbon Dioxide 31 BUN 77 H Creatinine 4.92 H* D Glucose 144 H Calcium 8.5 Medications Administered Current Inpatient Medications Buspirone HCl (Buspirone 15 Mg Tab) 15 mg PO BID [facility] Stop: 10/28/21 20:59 Last Admin: 10/02/21 08:52 Dose: 15 mg Documented by: Calamine/Phenol (Menthol-Zinc Oxide 360 Appln/120 Gm Tube) 1 appln EXT TID PRN PRN Reason: skin breakdown Stop: 10/28/21 20:21 Dextrose (Dextrose 50% 50 Ml Syringe) 25 - 50 ml IV UD PRN; Protocol PRN Reason: Hypoglycemia Protocol Stop: 10/28/21 21:44 Last Admin: 09/30/21 18:24 Dose: 25 ml Documented by: Fentanyl (Fentanyl 100 Mcg/Hr Tdsy) 100 mcg TD Q72H [facility] Stop: 10/13/21 08:59 Last Admin: 10/02/21 08:57 Dose: 100 mcg Documented by: Fentanyl (Fentanyl 25 Mcg/Hr Tdsy) 25 mcg TD Q72H [facility] Stop: 10/13/21 17:29 Last Admin: 10/02/21 17:11 Dose: 25 mcg Documented by: Glucagon (Glucagon For Inj 1 Mg Vial) 1 mg IM UD PRN; Protocol PRN Reason: Hypoglycemia Protocol Stop: 10/28/21 21:44 Glucose (Glucose 40% Gel 15 Gm Tube) 15 - 30 gm PO UD PRN; Protocol PRN Reason: Hypoglycemia Protocol Stop: 10/28/21 21:44 Glucose (Glucose 10 Tabs/Tube) 4 - 8 tabs PO UD PRN; Protocol PRN Reason: Hypoglycemia Protocol Stop: 10/28/21 21:44 Dextrose (D10w) 1,000 mls @ 0 mls/hr IV .Q0M PRN PRN Reason: protocol (see label comments) Stop: 10/29/21 15:59 Albumin Human (Albumin 25% 100 Ml) 25 gm in 100 mls @ 50 mls/hr IV Q24H [facility] Stop: 10/03/21 15:44 Last Infusion: 10/02/21 17:14 Dose: Infused Documented by: Amino Acids/Dextrose 1,670 ml/ (Nutrition (Parenteral)) 1,670 mls @ 85 mls/hr IV TODAY@2000 [facility]; Protocol Stop: 10/03/21 08:00 Fat Emulsion-[place] Oil/Soybean Oil (Clinolipid 20% Iv Fat Emulsion) 100 mls @ 40 mls/hr IV .Q2H30M [facility] Stop: 10/03/21 03:29 Cefepime HCl 500 mg/ Syringe 5.65 mls @ 5.5 mls/min IV Q24H [facility]; Protocol Stop: 10/11/21 16:59 Last Admin: 10/02/21 17:08 Dose: 5.5 mls/min Documented by: Insulin Aspart (Insulin Aspart Per Unit) 0 units SC Q6 [facility] Stop: 10/29/21 00:00 Last Admin: 10/02/21 17:23 Dose: Not Given Documented by: Melatonin (Melatonin 3 Mg Tab) 3 mg PO HS PRN PRN Reason: Sleep Stop: 10/28/21 20:21 Midodrine (Midodrine Hcl 10 Mg Tab) 10 mg PO TID@0700,1200,1700 [facility] Stop: 10/29/21 06:59 Last Admin: 10/02/21 17:09 Dose: 10 mg Documented by: Miscellaneous (Fentanyl Patch Remove & Waste) 1 ea N/A Q72H [facility] Stop: 10/29/21 08:58 Last Admin: 10/02/21 08:55 Dose: 1 ea Documented by: Miscellaneous (Check Fentanyl Patch Placement) 1 ea N/A QS [facility] Stop: 10/29/21 15:59 Last Admin: 10/02/21 16:33 Dose: 1 ea Documented by: Miscellaneous (Carbohydrates For Hypoglycemia ) 15 - 30 gm PO UD PRN PRN Reason: Hypoglycemia Treatment Stop: 10/28/21 21:44 Miscellaneous (Fentanyl Patch Remove & Waste) 1 ea N/A Q3D [facility] Stop: 10/29/21 17:29 Last Admin: 10/02/21 17:09 Dose: 1 ea Documented by: Miscellaneous (Check Fentanyl Patch Placement) 1 ea N/A QS [facility] Stop: 10/30/21 00:00 Last Admin: 10/02/21 16:33 Dose: 1 ea Documented by: Miscellaneous (Pending Order) 1 ea N/A DAILY@2100 [facility] Stop: 10/30/21 20:59 Last Admin: 10/01/21 21:55 Dose: 1 ea Documented by: Miscellaneous (Pending Order) 1 ea N/A DAILY@0700 [facility] Stop: 10/31/21 06:59 Last Admin: 10/02/21 08:54 Dose: 1 ea Documented by: Miscellaneous (Stop Order - Tpn) 1 ea N/A DAILY@0800 [facility] Stop: 11/02/21 07:59 Miscellaneous Information (Tpn/Ppn Consult Pharmacy) 1 ea N/A UD PRN PRN Reason: Consult Stop: 10/28/21 21:06 Miscellaneous Information (Pharmacy Glycemic Mgmt Consult) 1 ea N/A UD PRN PRN Reason: Consult Stop: 10/28/21 19:43 Morphine Sulfate (Morphine Sulfate 2 Mg/Ml Carp) 1 mg IV Q4 PRN PRN Reason: severe pain not control w po o Stop: 10/16/21 17:26 Nystatin (Nystatin Powder 15gm Btl) 1 appln EXT BID [facility] Stop: 10/28/21 20:59 Last Admin: 10/02/21 08:55 Dose: 1 appln Documented by: Ondansetron HCl (Ondansetron 4 Mg Od Tab) 8 mg PO TID PRN PRN Reason: Nausea Stop: 10/28/21 21:05 Last Admin: 10/02/21 16:37 Dose: 8 mg Documented by: Oxycodone HCl (Oxycodone Hcl Ir 5 Mg Tab (Immediate Release)) 15 mg PO Q4H PRN PRN Reason: Pain Stop: 10/12/21 20:21 Last Admin: 10/02/21 16:37 Dose: 15 mg Documented by: Pantoprazole Sodium (Pantoprazole 40 Mg Tab) 40 mg PO DAILYBB [facility] Stop: 10/29/21 06:29 Last Admin: 10/02/21 08:51 Dose: 40 mg Documented by: Rifaximin (Rifaximin 550 Mg Tablet) 550 mg PO BID [facility] Stop: 10/28/21 20:59 Last Admin: 10/02/21 08:51 Dose: 550 mg Documented by: (1) Altered mental status Altered mental status type: unspecified Qualified Code(s): R41.82 - Altered mental status, unspecified (2) Urinary tract infection Hematuria presence: without hematuria Urinary tract infection type: site unspecified Qualified Code(s): N39.0 - Urinary tract infection, site not specified (3) Sepsis Sepsis acute organ dysfunction status: without acute organ dysfunction Sepsis type: sepsis due to unspecified organism Qualified Code(s): A41.9 - Sepsis, unspecified organism
[2021-10-02] MEDS: PROMETHAZINE HCL 12.5 MG in SODIUM CHLORIDE 0.9% 50 ML IV PRN (19:48)
[2021-10-02] MEDS ORDERED: [UNRECOGNIZED DRUG - OTHER] IV SCH (20:00)
[2021-10-02] MEDS ORDERED: CENTRAL TPN IV SCH (20:00)
[2021-10-02] MEDS ORDERED: AMINO ACID 8% IV SCH (20:00)
[2021-10-02] MEDS: MoRPHine SULFATE 2 MG/ML CARP IV PRN (22:02)
[2021-10-03] MEDS: INSULIN ASPART PER UNIT SC SCH ×4 (00:19→17:55)
[2021-10-03] MEDS: CHECK fentaNYL PATCH PLACEMENT SCH ×6 (00:20→16:27)
[2021-10-03] MEDS: CLINOLIPID 20% IV FAT EMULSION 100 ML IV SCH ×3 (00:49→22:32)
[2021-10-03] MEDS: MoRPHine SULFATE 2 MG/ML CARP IV STA ×2 (03:17→03:46)
[2021-10-03] MEDS: MoRPHine SULFATE 2 MG/ML CARP IV PRN (03:22)
[2021-10-03] MEDS: PANTOprazole 40 MG TAB PO SCH (05:35)
[2021-10-03] MEDS: MIDODRINE HCL 10 MG TAB PO SCH ×3 (05:35→16:27)
[2021-10-03] MEDS: oxyCODONE HCL IR 5 MG TAB (IMMEDIATE RELEASE) PO PRN ×2 (05:35→10:48)
[2021-10-03] MEDS ORDERED: SODIUM CHLORIDE 0.9% 1000ML 1,000 ML IV PRN (07:35)
[2021-10-03 08:03] LABS: BUN Creatinine Ratio 15.5 (10-20); Calcium 8.3 mg/dl (8.5-10.1); Creatinine Clr Calc Pharmacy 24.1 ml/min; Est GFR (Non-African American) 15.5 ml/min; Magnesium 1.9 mg/dl (1.7-2.4); Phosphorus 2.7 mg/dl (2.5-4.9); Potassium 3.8 mmol/L (3.5-5.1)
[2021-10-03] MEDS: rifAXIMin 550 MG TABLET PO SCH ×2 (08:07→20:59)
[2021-10-03] MEDS: busPIRone 15 MG TAB PO SCH ×2 (08:07→20:59)
[2021-10-03] MEDS: [UNRECOGNIZED DRUG - REMARK] SCH (08:08)
[2021-10-03] MEDS: NYSTATIN POWDER 15GM BTL EXT SCH ×2 (08:08→21:00)
[2021-10-03] MEDS: ONDANSETRON 4 MG OD TAB PO PRN (10:48)
--- NOTE | 2021-10-03 11:03 | Nephrology Progress Note ---
Date of Service October 03, 2021 Assessment & Plan (1) ESRD (end stage renal disease) on dialysis: Plan: had HD 09/29 for clearance only; no fluid removed d/t relative hypotension which is ongoing tolerated tx w/o issue >for HD today >> again no fluid removal d/t hypotension >time antibiotics w/ HD as indicated -may need to consider low rate of IVF given large amount of losses via gastric drainage such as NS at 50 ml/hr (2) Recurrent urinary tract infection: Plan: on vanco, zosyn; L nephrostomy tube now functional ; also w/ arthur; on cefepime post HD (3) Altered mental status: Plan: monitor for reversible processes; worsened again today (4) Acute on chronic anemia: Plan: had 1 unit pRBC; not a candidate for erythropoietin stim agents d/t his cancer dxs -daily hgb and transfuse prn (5) Hypotension: Plan: pt new to our system; SBP in [facility] late August admission reviewed and generally SBP 100-110s. TTE unrevealing for cause >low threshold for repeating blood cxs (at risk for fungemia/bacteremia) or ? for w/u of adrenal insufficiency or other to explain worsened BP status/ ongoing hypotension; will d/w hospitalist Admission and Anticipated Discharge Date Admission Date: September 28, 2021 Subjective had TTE this am; exhausted and can hardly participate in ROS when I saw him this AM; did HD today but he had to come off early 1 hr and w/ signficant N Review of Systems Review of Systems: All systems reviewed & are unremarkable except as noted in Subjective Physical Exam Constitutional: well developed, + frail appearing and + lethargic; no acute distress ENMT: Ears: no external ear abnormality Nose: no external nose abnormality Mouth: + dry oral mucous membranes Neck: no nuchal rigidity Respiratory: normal respiratory effort Auscultation: + diminished lung sounds Cardiovascular: Rate/Rhythm: regular rate and regular rhythm Extremities: + edema (trace BL ankle) Gastrointestinal (Abdomen): Inspection/Auscultation: abdomen normal to inspection (with gastic tube) and normal bowel sounds Percussion/Palpation: abdomen soft; abdomen nontender Musculoskeletal: Extremities: + abnormal strength Skin: no rashes, warm and dry Neurologic: stuporous/lethargic; roused with effort; answers 2-3 simple questions Genitourinary: arthur w/ magali blood Results & Data ([facility]) Vital Signs (Past 12 Hours) Vital Signs Temp Pulse Pulse Resp BP Pulse Ox 10/03/21 08:21 36.9 C 72 19 104/64 100 10/03/21 03:38 36.6 C 77 20 115/70 95 10/02/21 23:31 77 Laboratory Results 10/02/21 06:17 10/03/21 06:54 (1) Altered mental status Altered mental status type: unspecified Qualified Code(s): R41.82 - Altered mental status, unspecified
[2021-10-03] MEDS ORDERED: PHENAZOPYRIDINE HCL 200 MG TAB PO SCH (14:00)
[2021-10-03] MEDS ORDERED: CEFEPIME 1,000 MG in SYRINGE 0 ML IV SCH (17:00)
[2021-10-03] MEDS ORDERED: CEFEPIME 2,000 MG in SYRINGE 0 ML IV SCH (17:00)
[2021-10-03] MEDS ORDERED: SODIUM CHLORIDE 0.9% 1000ML 500 ML IV ONE (17:02)
--- NOTE | 2021-10-03 18:34 | Hospitalist Progress Note ---
Date of Service October 03, 2021 Assessment & Plan (1) Altered mental status: (2) Urinary tract infection: (3) Sepsis: (4) Pyelonephritis: Plan: Patient presents with pain in left flank, left lower abdomen, where his nephrostomy tube is placed, however was clogged just prior to admission Patient was recently hospitalized at [facility] from September 10, to September 16 due to same, was treated with iv vancomycin and cefepime,and discharged on Levaquin for 7 days to which it was resistant to. After discharge, patient's was able to flush nephrostomy tube, and purulent urine was drained and presented to our ED Patient started on IV antibiotics, vancomycin and Zosyn Seen by urology, Dr. Frey consulted Arthur was replaced yesterday for urinary retention but he did not want straight cath in. CT A/P 09/28 1. Partial colonic resection with moderate to marked dilatation of the small bowel representing bowel obstruction. This most likely related to adhesions. 2. CT findings characteristic of cirrhosis of the liver with marked splenomegaly and splenic hilar varices. 3. 1 cm nodule at the right lung base suspicious for metastatic disease. 4. Bilateral hydronephrosis with nephrostomy tube in place on the left. 5. Additional nonacute findings are delineated above. CT head 09/28- no acute abnormality Complicated UTI/ - Urine clx 09/28 with pseudomonas resistant to FQ but sensitive to zosyn, cefepime; blood clx negative - Initially on vanc/zosyn->cefepime 10/01 D5/7- discussed with pharmacy and CM. His OP dialysis would not give his antibiotic there- he has home nurse who will give him his last dose of iv cefepime 2 gm after the dialysis on Wednesday. Pharmacy agrees. He has port in place. Acute urinary retention - Placed back on arthur last night- continue until seen by uro as OP for possible voiding trial - Left nephrostomy now functional Hypotension- BP low normal side but asymptomatic, on albumin and midodrine. Echo unremarkable. Concern for volume depletion and given 500 cc NSS bolus as per nephro recommendation after which BP improved to 113/66. Less concern for sepsis at this point as afebrile, clinically stable and he has been on empiric cefepime for UTI. Will check cortisol am for completeness. End-stage renal disease on HD MWF - Had HD today, next would be Wednesday Metastatic colon cancer to bladder and likely lung - Status post right hemicolectomy in 2017 - Currently undergoing palliative chemotherapy at [facility], w/ Dr. Feliciano -Reviewed records, last chemotherapy On 09/04/21 - w/ Irinotectan/Leucovirin - September 04, 2021 - any further treatment is on hold for now (Until medically stable, cleared from infection) - Per , surgery was planned in [place], however patient was not a candidate anymore (elevated ammonia, GI bleed) Chronic bowel obstruction -Due to above -G-tube placed for venting -Continue TPN Pancytopenia -Likely secondary to chemotherapy, current cancer, cirrhosis -continue neutropenic precautions ordered - overall stable Anemia of chronic disease (ESRD, malignancy)- S/p 1 U PRBC on 09/30 for Hb 6.2, currently 7.5 DVT ppx- chemoprophylaxis C/I due to anemia, thrombocytopenia Dispo- on iv cefepime, plan to discharge tomorrow. Script for cefepime and TPN provided to CM. Admission and Anticipated Discharge Date Admission Date: September 28, 2021 Subjective He feels okay. Complains of burning at the arthur site. He was hoping to get it out today but explained in detail why it needs to stay in. He was hoping to go home today but then stated that they do not have TPN for tonight and hence needs to stay. No fever, chills, nausea, vomiting, chest pain. He is really hoping to get discharged tomorrow for his granddaughter's birthday libertarian. Recommended precautions as he is neutropenic. Physical Exam Physical Exam: General: Frail appearing, sitting in bed, not in acute distress, on room air TPN running HEENT: EOMI, CHARLES, MMM Chest: Clear breath sounds bilaterally, no wheezes or crackles CVS: Regular rate and rhythm, normal heart sounds, no murmur Abdomen: Soft, non tender, G tube in place, left nephrostomy tube, BS + Neuro: Awake, alert, oriented, conversing well, non focal Extremities: trace edema Arthur in place Results & Data Results & Data ([facility]) Vital Signs (Past 12 Hours) Vital Signs Temp Pulse Pulse Pulse Resp BP BP 10/03/21 18:23 113/66 10/03/21 16:43 36.3 C L 77 20 92/61 L 10/03/21 15:30 77 108/56 L 10/03/21 15:00 73 113/69 10/03/21 14:30 77 94/73 L 10/03/21 14:00 73 111/70 10/03/21 13:47 36.8 C 74 10/03/21 11:42 36.8 C 76 18 102/58 L 10/03/21 08:21 36.9 C 72 19 104/64 Pulse Ox 10/03/21 18:23 10/03/21 16:43 98 10/03/21 15:30 10/03/21 15:00 10/03/21 14:30 10/03/21 14:00 10/03/21 13:47 10/03/21 11:42 99 10/03/21 08:21 100 Laboratory Results BMP 10/03/21 06:54 Sodium 137 Potassium 3.8 Chloride 100 Carbon Dioxide 31 BUN 62 H Creatinine 3.99 H D Glucose 151 H Calcium 8.3 L Medications Administered Current Inpatient Medications Buspirone HCl (Buspirone 15 Mg Tab) 15 mg PO BID [facility] OF [facility] Stop: 10/28/21 20:59 Last Admin: 10/03/21 08:07 Dose: 15 mg Documented by: Calamine/Phenol (Menthol-Zinc Oxide 360 Appln/120 Gm Tube) 1 appln EXT TID PRN PRN Reason: skin breakdown Stop: 10/28/21 20:21 Dextrose (Dextrose 50% 50 Ml Syringe) 25 - 50 ml IV UD PRN; Protocol PRN Reason: Hypoglycemia Protocol Stop: 10/28/21 21:44 Last Admin: 09/30/21 18:24 Dose: 25 ml Documented by: Fentanyl (Fentanyl 100 Mcg/Hr Tdsy) 100 mcg TD Q72H [facility] Stop: 10/13/21 08:59 Last Admin: 10/02/21 08:57 Dose: 100 mcg Documented by: Fentanyl (Fentanyl 25 Mcg/Hr Tdsy) 25 mcg TD Q72H [facility] Stop: 10/13/21 17:29 Last Admin: 10/02/21 17:11 Dose: 25 mcg Documented by: Glucagon (Glucagon For Inj 1 Mg Vial) 1 mg IM UD PRN; Protocol PRN Reason: Hypoglycemia Protocol Stop: 10/28/21 21:44 Glucose (Glucose 40% Gel 15 Gm Tube) 15 - 30 gm PO UD PRN; Protocol PRN Reason: Hypoglycemia Protocol Stop: 10/28/21 21:44 Glucose (Glucose 10 Tabs/Tube) 4 - 8 tabs PO UD PRN; Protocol PRN Reason: Hypoglycemia Protocol Stop: 10/28/21 21:44 Dextrose (D10w) 1,000 mls @ 0 mls/hr IV .Q0M PRN PRN Reason: protocol (see label comments) Stop: 10/29/21 15:59 Promethazine HCl 12.5 mg/ (Sodium Chloride) 50.5 mls @ 202 mls/hr IV Q6H PRN PRN Reason: Nausea And Vomiting Stop: 11/01/21 19:16 Last Infusion: 10/03/21 14:59 Dose: Infused Documented by: Cefepime HCl 2,000 mg/ Syringe 20 mls @ 5 mls/min IV MoWeFr@1700 [facility]; Protocol Stop: 10/06/21 23:59 Last Admin: 10/03/21 16:27 Dose: 5 mls/min Documented by: Amino Acids/Dextrose 1,670 ml/ (Nutrition (Parenteral)) 1,670 mls @ 85 mls/hr IV TODAY@2000 [facility]; Protocol Stop: 10/04/21 08:00 Fat Emulsion-[place] Oil/Soybean Oil (Clinolipid 20% Iv Fat Emulsion) 100 mls @ 40 mls/hr IV .Q2H30M [facility] Stop: 10/04/21 03:29 Insulin Aspart (Insulin Aspart Per Unit) 0 units SC Q6 [facility] Stop: 10/29/21 00:00 Last Admin: 10/03/21 17:55 Dose: Not Given Documented by: Melatonin (Melatonin 3 Mg Tab) 3 mg PO HS PRN PRN Reason: Sleep Stop: 10/28/21 20:21 Midodrine (Midodrine Hcl 10 Mg Tab) 10 mg PO TID@0700,1200,1700 [facility] Stop: 10/29/21 06:59 Last Admin: 10/03/21 16:27 Dose: 10 mg Documented by: Miscellaneous (Fentanyl Patch Remove & Waste) 1 ea N/A Q72H [facility] Stop: 10/29/21 08:58 Last Admin: 10/02/21 08:55 Dose: 1 ea Documented by: Miscellaneous (Check Fentanyl Patch Placement) 1 ea N/A QS ON [facility] Stop: 10/29/21 15:59 Last Admin: 10/03/21 16:27 Dose: 1 ea Documented by: Miscellaneous (Carbohydrates For Hypoglycemia ) 15 - 30 gm PO UD PRN PRN Reason: Hypoglycemia Treatment Stop: 10/28/21 21:44 Miscellaneous (Fentanyl Patch Remove & Waste) 1 ea N/A Q3D [facility] Stop: 10/29/21 17:29 Last Admin: 10/02/21 17:09 Dose: 1 ea Documented by: Miscellaneous (Check Fentanyl Patch Placement) 1 ea N/A QS [facility] Stop: 10/30/21 00:00 Last Admin: 10/03/21 16:27 Dose: 1 ea Documented by: Miscellaneous (Pending Order) 1 ea N/A DAILY@2100 [facility] Stop: 10/30/21 20:59 Last Admin: 10/02/21 20:36 Dose: 1 ea Documented by: Miscellaneous (Pending Order) 1 ea N/A DAILY@0700 [facility] Stop: 10/31/21 06:59 Last Admin: 10/03/21 08:08 Dose: 1 ea Documented by: Miscellaneous (Stop Order - Tpn) 1 ea N/A DAILY@0800 [facility] Stop: 11/02/21 07:59 Last Admin: 10/03/21 08:08 Dose: 1 ea Documented by: Miscellaneous Information (Tpn/Ppn Consult Pharmacy) 1 ea N/A UD PRN PRN Reason: Consult Stop: 10/28/21 21:06 Miscellaneous Information (Pharmacy Glycemic Mgmt Consult) 1 ea N/A UD PRN PRN Reason: Consult Stop: 10/28/21 19:43 Morphine Sulfate (Morphine Sulfate 2 Mg/Ml Carp) 1 mg IV Q4 PRN PRN Reason: severe pain not control w po o Stop: 10/16/21 17:26 Last Admin: 10/03/21 03:22 Dose: 1 mg Documented by: Nystatin (Nystatin Powder 15gm Btl) 1 appln EXT BID [facility] Stop: 10/28/21 20:59 Last Admin: 10/03/21 08:08 Dose: 1 appln Documented by: Ondansetron HCl (Ondansetron 4 Mg Od Tab) 8 mg PO TID PRN PRN Reason: Nausea Stop: 10/28/21 21:05 Last Admin: 10/03/21 10:48 Dose: 8 mg Documented by: Oxycodone HCl (Oxycodone Hcl Ir 5 Mg Tab (Immediate Release)) 15 mg PO Q4H PRN PRN Reason: Pain Stop: 10/12/21 20:21 Last Admin: 10/03/21 10:48 Dose: 15 mg Documented by: Pantoprazole Sodium (Pantoprazole 40 Mg Tab) 40 mg PO DAILYBB ON [facility] Stop: 10/29/21 06:29 Last Admin: 10/03/21 05:35 Dose: 40 mg Documented by: Rifaximin (Rifaximin 550 Mg Tablet) 550 mg PO BID ON [facility] Stop: 10/28/21 20:59 Last Admin: 10/03/21 08:07 Dose: 550 mg Documented by: (1) Altered mental status Altered mental status type: unspecified Qualified Code(s): R41.82 - Altered mental status, unspecified (2) Urinary tract infection Hematuria presence: without hematuria Urinary tract infection type: site unspecified Qualified Code(s): N39.0 - Urinary tract infection, site not specified (3) Sepsis Sepsis acute organ dysfunction status: without acute organ dysfunction Sepsis type: sepsis due to unspecified organism Qualified Code(s): A41.9 - Sepsis, unspecified organism
[2021-10-03] MEDS ORDERED: [UNRECOGNIZED DRUG - OTHER] IV SCH (20:00)
[2021-10-03] MEDS ORDERED: AMINO ACID 8% IV SCH (20:00)
[2021-10-03] MEDS ORDERED: CENTRAL TPN IV SCH (20:00)
[2021-10-03] MEDS: PROMETHAZINE HCL 12.5 MG in SODIUM CHLORIDE 0.9% 50 ML IV PRN (20:57)
[2021-10-03] MEDS ORDERED: LORazepam 0.5 MG TAB PO PRN (21:15)
[2021-10-04] MEDS: INSULIN ASPART PER UNIT SC SCH ×3 (00:34→11:41)
[2021-10-04] MEDS: CHECK fentaNYL PATCH PLACEMENT SCH ×4 (00:37→07:39)
[2021-10-04] MEDS: CLINOLIPID 20% IV FAT EMULSION 100 ML IV SCH (01:07)
[2021-10-04] MEDS: PANTOprazole 40 MG TAB PO SCH (06:10)
[2021-10-04] MEDS: MIDODRINE HCL 10 MG TAB PO SCH (07:38)
[2021-10-04] MEDS: NYSTATIN POWDER 15GM BTL EXT SCH (07:39)
[2021-10-04] MEDS: busPIRone 15 MG TAB PO SCH (07:39)
[2021-10-04] MEDS: [UNRECOGNIZED DRUG - REMARK] SCH (07:39)
[2021-10-04] MEDS: rifAXIMin 550 MG TABLET PO SCH (07:39)
[2021-10-04 08:35] LABS: Eosinophils # (auto) 0.01 K/uL (0-0.5); Eosinophils % (auto) 0.7 %; Hematocrit (blood only) 21.5 % (42-52); Hemoglobin 6.9 g/dL (14.0-18.0); Immature Granulocytes # (auto) 0.01 K/uL (0.00-0.02); Immature Granulocytes % (auto) 0.7 %; Lymphocytes # (auto) 0.23 K/uL (1.2-3.4); Lymphocytes % (auto) 16.2 %; Mean Corpuscular Hemoglobin 30.7 pg (25-34); Mean Corpuscular Hgb Conc 32.1 g/dL (32-36); Mean Corpuscular Volume 95.6 fL (80-100); Mean Platelet Volume 11.4 fL (7.4-10.4); Monocytes % (auto) 14.1 %; Neutrophils # (auto) 0.97 K/uL (1.4-6.5); Neutrophils % (auto) 68.3 %; Platelet Count 38 K/uL (130-400); RDW Coefficient of Variation 15.5 % (11.5-14.5); RDW Standard Deviation 53.8 fL (36.4-46.3); Red Blood Count 2.25 M/uL (4.7-6.1); White Blood Count 1.42 K/uL (4.8-10.8)
[2021-10-04 08:40] LABS: BUN Creatinine Ratio 15.5 (10-20); Calcium 8.5 mg/dl (8.5-10.1); Creatinine Clr Calc Pharmacy 31.3 ml/min; Est GFR (African American) 22.1 ml/min; Est GFR (Non-African American) 19.1 ml/min; Magnesium 1.8 mg/dl (1.7-2.4); Phosphorus 1.8 mg/dl (2.5-4.9); Potassium 3.8 mmol/L (3.5-5.1)
[2021-10-04] MEDS ORDERED: SODIUM CHLORIDE 0.9% 250 ML IV PRN (08:45)
[2021-10-04] MEDS ORDERED: SODIUM PHOSPHATE 3 MMOL/1 ML INFUSION IV ONE (08:49)
[2021-10-04] MEDS ORDERED: SODIUM PHOSPHATE 21 MMOL in SODIUM CHLORIDE 0.9% 500 ML IV ONE (09:30)
[2021-10-04] MEDS: oxyCODONE HCL IR 5 MG TAB (IMMEDIATE RELEASE) PO PRN (09:42)
[2021-10-04] MEDS: MoRPHine SULFATE 2 MG/ML CARP IV PRN (10:58)
[2021-10-04] MEDS: ONDANSETRON 4 MG OD TAB PO PRN (12:38)
--- NOTE | 2021-10-04 17:50 | Discharge Summary ---
Date of Service October 04, 2021 Admission HPI Per Admitting Provider 56-year-old male, with a complex medical history, significant for 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 (seems to be on Palliative chemotherapy, every 2 weeks, at [facility]) end-stage renal disease on dialysis, Wednesday, and Wednesday. (US renal in [place], Dr. Lo), history of left nephrostomy tube, ? Diabetes mellitus, chronic bowel obstruction with G-tube placement (placed in December in [place]) and on TPN, who presents with left lower abdominal/left flank pain and altered mental status. Patient usually follows with providers in [place], and was also evaluated in [place] (and at this time I do not have any medical records to review). Patient's is present at the bedside and is able to provide more history. Patient was recently hospitalized at [facility] for the same. Admission was from September 10 to September 16. Per , patient had more pain in his left flank, and his left nephrostomy tube was clogged. She was able to eventually flush it and drained purulent urine. She says that similar things happened prior to his admission in [place] as well. Reports that also prior to that admission his mental status was altered due to infection. She says that he was on IV antibiotics there, believes he was on vancomycin and cefepime, and discharged home on Levaquin for 7 days, finished treatment on September 23. CT abdomen pelvis was performed in ED here, shows bowel obstruction, which is chronic per patient and . Patient's also reports that patient was considered for surgery in [place] in December, however that was then canceled as he was not a candidate anymore. Here in ED, pt was started on antibiotics, vancomycin and Zosyn. ED provider was able to review previous cultures with pharmacist, seems like patient was previously infected with Pseudomonas and Enterococcus. I was able to discuss with Dr. Frey, urology, who believes patient may have pyelonephritis, and recommends for now to place Arthur catheter. Recommends IV antibiotics, and nephro tube exchange at some point, likely as previously scheduled. Patient's says that he usually gets his nephrostomy tube exchanged at [facility] in [place], and it usually stays for 6 to 8 weeks. Patient reports that he may have felt some fever today, however he is not sure. He denies any difficulty with breathing, or chest pain. He is not able to answer all my questions, and he refers to his . Admission Exam Per Admitting Provider Constitutional: WD/WN, vitals as above Eyes: PERRL, conjunctivae normal, anicteric sclerae ENMT: external ear and nose normal, oropharynx normal Neck: trachea midline, no thyromegaly Respiratory: normal respiratory effort, lungs clear to auscultation Cardiovascular: Rate/Rhythm: regular rate (1 + LE edema) Chest (Breasts): Chest: + vascular access device or port (Port for TPN on the left, and Waters for dialysis on the right) Gastrointestinal (Abdomen): Inspection/Auscultation: + abdomen distended (Tender to palpation at left lower abdomen, minimal bowel sounds) Musculoskeletal: Moves extremities Skin: no rashes, warm and dry Neurologic: PERRL, EOMI, accommodation nl, no face palsy, no dysarthria (Patient is slow to answer, and not able to answer all my questions) Principal Diagnosis Complicated UTI due to Pseudomonas, ESRD on HD, 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 and likely lung, acute urinary retention Discharge Exam General: Frail appearing, lying in bed, not in acute distress, on room air HEENT: EOMI, CHARLES, MMM Chest: Clear breath sounds bilaterally, no wheezes or crackles CVS: Regular rate and rhythm, normal heart sounds, no murmur Abdomen: Soft, non tender, G tube in place, left nephrostomy tube, BS + Neuro: Awake, alert, oriented, conversing well, non focal Extremities: trace edema Arthur in place Discharge Data Allergies Allergy/AdvReac Type Severity Reaction Status Date / Time melon Allergy Intermediate throat and Verified 09/28/21 18:08 mouth is itchy Sulfa (Sulfonamide Allergy Intermediate Hives Verified 09/28/21 18:08 Antibiotics) Consultations 09/28/21 18:22 ED Decision to Admit Stat 09/28/21 19:46 Consult Nephrology Routine 09/28/21 19:47 Consult Urology Routine 09/28/21 20:19 Consult Health Information Management Stat 10/02/21 10:42 Consult Urology Routine Ordered Studies 09/28/21 16:36 CT abd pelvis wo con Stat 09/28/21 19:40 CT head/brain wo con Urgent Laboratory Results WBC 1.42 K/uL (4.8-10.8) L 10/04/21 07:59 RBC 2.25 M/uL (4.7-6.1) L 10/04/21 07:59 Hgb 6.9 g/dL (14.0-18.0) L* 10/04/21 07:59 Hct 21.5 % (42-52) L 10/04/21 07:59 MCV 95.6 fL (80-100) 10/04/21 07:59 MCH 30.7 pg (25-34) 10/04/21 07:59 MCHC 32.1 g/dL (32-36) 10/04/21 07:59 RDW Std Deviation 53.8 fL (36.4-46.3) H 10/04/21 07:59 RDW Coeff of Deandra 15.5 % (11.5-14.5) H 10/04/21 07:59 Plt Count 38 K/uL (130-400) L 10/04/21 07:59 MPV 11.4 fL (7.4-10.4) H 10/04/21 07:59 Immature Gran % (Auto) 0.7 % 10/04/21 07:59 Neut % (Auto) 68.3 % 10/04/21 07:59 Lymph % (Auto) 16.2 % 10/04/21 07:59 Johnston % (Auto) 14.1 % 10/04/21 07:59 Eos % (Auto) 0.7 % 10/04/21 07:59 Baso % (Auto) 0.0 % 10/04/21 07:59 Neut # (Auto) 0.97 K/uL (1.4-6.5) L* 10/04/21 07:59 Lymph # (Auto) 0.23 K/uL (1.2-3.4) L 10/04/21 07:59 Johnston # (Auto) 0.20 K/uL (0.11-0.59) 10/04/21 07:59 Eos # (Auto) 0.01 K/uL (0-0.5) 10/04/21 07:59 Baso # (Auto) 0.00 K/uL (0-0.2) 10/04/21 07:59 Immature Gran # (Auto) 0.01 K/uL (0.00-0.02) 10/04/21 07:59 Platelet Estimate Decreased (Normal) L 09/28/21 16:45 Plt Count ,Citrate 29 K/uL (130-400) L* 09/28/21 18:36 Polychromasia 1+ 09/28/21 16:45 PT 15.2 Seconds (9.0-12.0) H 09/28/21 16:45 INR 1.5 (0.9-1.1) H 09/28/21 16:45 APTT 38.9 Seconds (21.0-31.0) H 09/28/21 16:45 PTT Ratio 1.4 09/28/21 16:45 Sodium 139 mmol/L (136-145) 10/04/21 07:59 Potassium 3.8 mmol/L (3.5-5.1) 10/04/21 07:59 Chloride 101 mmol/L (98-107) 10/04/21 07:59 Carbon Dioxide 35 mmol/L (21-32) H 10/04/21 07:59 Anion Gap 3 (3-11) 10/04/21 07:59 BUN 52 mg/dl (6-23) H 10/04/21 07:59 Creatinine 3.36 mg/dl (0.6-1.4) H D 10/04/21 07:59 Est Cr Clr Drug Dosing 31.3 ml/min 10/04/21 07:59 Est GFR ( Amer) 22.1 ml/min 10/04/21 07:59 Est GFR (Non-Af Amer) 19.1 ml/min 10/04/21 07:59 BUN/Creatinine Ratio 15.5 (10-20) 10/04/21 07:59 Glucose 121 mg/dl (70-99(Fasting)) H 10/04/21 07:59 POC Glucose 110 mg/dl (70-99) H 10/04/21 11:33 Estimat Average Glucose 111 mg/dl 09/29/21 05:15 Hemoglobin A1c 5.5 % (4.5-5.6) 09/29/21 05:15 Lactate 1.4 mmol/L (0.4-2.0) 09/28/21 16:45 Calcium 8.5 mg/dl (8.5-10.1) 10/04/21 07:59 Phosphorus 1.8 mg/dl (2.5-4.9) L 10/04/21 07:59 Magnesium 1.8 mg/dl (1.7-2.4) 10/04/21 07:59 Total Bilirubin 2.4 mg/dl (0.2-1.0) H 09/28/21 16:45 AST 15 U/L (13-39) 09/28/21 16:45 ALT 13 U/L (7-52) 09/28/21 16:45 Alkaline Phosphatase 195 U/L (34-104) H 09/28/21 16:45 Troponin I High Sens 11.0 pg/ml (0-20) 09/28/21 16:45 Total Protein 6.4 gm/dl (6.0-8.3) 09/28/21 16:45 Albumin 3.0 gm/dl (3.4-5.0) L 09/28/21 16:45 Globulin 3.4 gm/dl (2.5-4.0) 09/28/21 16:45 Albumin/Globulin Ratio 0.9 (0.9-2) 09/28/21 16:45 Triglycerides 130 mg/dl (0-150) 10/03/21 06:54 Procalcitonin 2.19 ng/ml (0-0.5) H 09/28/21 16:45 Cortisol AM Sample 10.92 mcg/dl (6.2-22.6) 10/04/21 07:59 Urine Color [place] 09/28/21 16:33 Urine Appearance Cloudy (Clear) A 09/28/21 16:33 Urine pH 7.0 (4.5-7.5) 09/28/21 16:33 Ur Specific [place] 1.020 (1.000-1.030) 09/28/21 16:33 Urine Protein 3+ (Negative) H 09/28/21 16:33 Urine Glucose (UA) Negative (Negative) 09/28/21 16:33 Urine Ketones Negative (Negative) 09/28/21 16:33 Urine Blood 3+ (Negative) H 09/28/21 16:33 Urine Nitrite Negative (Negative) 09/28/21 16:33 Urine Bilirubin Negative (Negative) 09/28/21 16:33 Urine Urobilinogen Negative (Negative) 09/28/21 16:33 Ur Leukocyte Esterase 3+ (Negative) H 09/28/21 16:33 Urine RBC >30 /hpf (0-4) H 09/28/21 16:33 Urine WBC >30 /hpf (0-5) H 09/28/21 16:33 Ur Epithelial Cells 5-10 /lpf (0-5) H 09/28/21 16:33 Urine Bacteria Negative (Negative) 09/28/21 16:33 Random Vancomycin 14.4 mcg/ml (10-20) 09/30/21 05:50 SARS-CoV-2, RNA, NAAT NEGATIVE (NEGATIVE) 09/28/21 16:33 Blood Type A Positive 10/04/21 09:06 Blood Type Recheck A Positive 09/30/21 05:50 Antibody Screen NEGATIVE 10/04/21 09:06 Crossmatch See Detail 10/04/21 09:06 Impressions Chest X-Ray 09/28/21 16:09 XR chest 1V portable CLINICAL HISTORY: SEPSIS. COMPARISON STUDY: No previous studies for comparison. TECHNIQUE: 1 view of the chest FINDINGS: Single frontal view of the chest demonstrates the cardiomediastinal silhouette to be within normal limits. There is a decreased inspiratory effort with elevation of the hemidiaphragms and crowding of the bronchovascular markings at the lung bases and centrally. There is linear atelectasis at the right lung base. The lungs are clear of alveolar opacities. There is a large central for catheter in place. There is no evidence for pleural effusion. There is no evidence for vascular congestion. There is no acute osseous pathology. IMPRESSION: 1. There is a decreased inspiratory effort with right basilar atelectasis. Otherwise no acute chest disease. ACT 112: Negative or not required by law. Electronically signed by: Leon Winkler M.D. 09/28/2021 5:05 PM Abdomen/Pelvis CT 09/28/21 16:36 CT abd pelvis wo con CLINICAL HISTORY: sepsis, nephro tube, colon ca COMPARISON STUDY: No previous studies for comparison. CT DOSE: 1305.15 mGy.cm TECHNIQUE: Standard CT of the Abdomen and Pelvis was performed without IV contrast. The patient did not receive oral contrast. A dose lowering technique was utilized adhering to the principles of ALARA. FINDINGS: Lung base: There is a 1 cm noncalcified pulmonary nodule the right lung base suspicious for metastatic disease. The lung bases are otherwise clear. Abdominal cavity: There is no evidence for abdominal mass, adenopathy or as cites. Liver: The liver has a cirrhotic appearance. There is no gross liver mass.. Spleen: The spleen is homogeneous in attenuation on these limited noncontrast images. There is marked splenomegaly with evidence for splenic hilar varices. Pancreas: The pancreas is homogeneous in attenuation on these limited noncontrast images. Gall Bladder: Surgical clips are present. Adrenal glands: The adrenal glands are normal in size and attenuation on these limited noncontrast images. Kidneys: The kidneys are homogeneous in attenuation on these limited noncontrast images. There is bilateral hydronephrosis. A nephrostomy tube is present on the left. Bowel: A PEG tube is present within the stomach. There is evidence for partial colonic resection. There is moderate to marked dilatation of the small bowel loops with decompression of the colon. There is no focal transition zone and the findings most likely related to adhesions from previous surgery. There is no evidence for mass lesion. There are no inflammatory changes present. There is no evidence for free air. Bladder: There is mild distention of the bladder with no evidence for focal bladder wall thickening, calculus or diverticulum. : There is no evidence for pelvic mass or adenopathy. Vasculature: There is no evidence for focal aneurysmal dilatation of the abdominal aorta. Atherosclerotic calcification is present. Osseous structures: There is no acute osseous pathology. Degenerative changes are seen within the spine. IMPRESSION: 1. Partial colonic resection with moderate to marked dilatation of the small bowel representing bowel obstruction. This most likely related to adhesions. 2. CT findings characteristic of cirrhosis of the liver with marked splenomegaly and splenic hilar varices. 3. 1 cm nodule at the right lung base suspicious for metastatic disease. 4. Bilateral hydronephrosis with nephrostomy tube in place on the left. 5. Additional nonacute findings are delineated above. ACT 112: Negative or not required by law. Electronically signed by: Leon Winkler M.D. 09/28/2021 5:[address] 09/28/21 19:40 CT head/brain wo con CLINICAL HISTORY: altered loc Technique: Contiguous axial CT images of the head were acquired from the base of the skull to the vertex without intravenous contrast administration. Images were viewed in brain, subdural and bone windows. Automated dose lowering techniques and/or adjustment according to patient size were utilized for this exam. Comparison: None available at the time of this dictation. Findings: The ventricles, basal cisterns, and cerebral sulci are normal. There is no acute intracranial hemorrhage or evidence of acute territorial infarction. Neither mass effect, shift of the midline structures, nor abnormal extra-axial fluid collections are shown. Imaged portions of the paranasal sinuses and mastoid air cells are clear. The orbits appear normal. There are no acute fractures of the calvaria or scalp swelling. Impression: No acute intracranial hemorrhage, no evidence of acute territorial infarction or other acute intracranial disease process. ACT 112: Negative or not required by law. Electronically signed by: Lev White M.D. 09/29/2021 7:24 AM Hospital Course (1) Altered mental status: (2) Urinary tract infection: (3) Sepsis: (4) Pyelonephritis: Patient presents with pain in left flank, left lower abdomen, where his nephrostomy tube is placed, however was clogged just prior to admission Patient was recently hospitalized at [facility] from September 10, to September 16 due to same, was treated with iv vancomycin and cefepime,and discharged on Levaquin for 7 days to which it was resistant to. After discharge, patient's was able to flush nephrostomy tube, and purulent urine was drained and presented to our ED Patient started on IV antibiotics, vancomycin and Zosyn Seen by urology, Dr. Frey consulted and I personally discussed with urology. Arthur was replaced for urinary retention and is being discharge on same with OP urology follow up- also taught by RN on how to flush the arthur in case of clots and blockage CT A/P 09/28 1. Partial colonic resection with moderate to marked dilatation of the small bowel representing bowel obstruction. This most likely related to adhesions. 2. CT findings characteristic of cirrhosis of the liver with marked splenomegaly and splenic hilar varices. 3. 1 cm nodule at the right lung base suspicious for metastatic disease. 4. Bilateral hydronephrosis with nephrostomy tube in place on the left. 5. Additional nonacute findings are delineated above. CT head 09/28- no acute abnormality Complicated UTI - Urine clx 09/28 with pseudomonas resistant to FQ but sensitive to zosyn, cefepime; blood clx negative - Initially on vanc/zosyn->cefepime 10/01 D6, last dose after his dialysis on Wednesday. He has port in place. Acute urinary retention - Placed back on arthur requiring intermittent flushes- continue until seen by uro as OP for possible voiding trial - Left nephrostomy now functional Hypotension- BP improved after fluid challenge, suspect volume depletion. BP low normal side but asymptomatic, on albumin and midodrine. Echo unremarkable. Cortisol normal. Low concern for sepsis at this point as afebrile, clinically stable and he has been on empiric cefepime for UTI. End-stage renal disease on HD MWF - Had HD yesterday, next would be Wednesday Metastatic colon cancer to bladder and likely lung - Status post right hemicolectomy in 2017 - Currently undergoing palliative chemotherapy at [facility], w/ Dr. Feliciano -Reviewed records, last chemotherapy On 09/04/21 - w/ Irinotectan/Leucovirin - September 04, 2021 - any further treatment is on hold for now (Until medically stable, cleared from infection) - Per , surgery was planned in [place], however patient was not a candidate anymore (elevated ammonia, GI bleed) Chronic bowel obstruction -Due to above -G-tube placed for venting -Continue TPN Pancytopenia -Likely secondary to chemotherapy, current cancer, cirrhosis - recommended neutropenic precautions - overall stable Anemia of chronic disease (ESRD, malignancy)- S/p 2 U PRBC on 09/30 and again today for Hb <7. He is anxious to get discharged. His granddaughter's first birthday democrat is today and he did not want to miss it at any cost. Recommended neutropenic precautions. Home Health Attestation I certify that this patient is under my care and that I, or a physicians patient assistant working with me, had a face to-face encounter that meets the home health [id number] encounter requirements with this patient. The encounter with the patient was in whole, or in part, for the following medical condition, which is the primary reason for home health care (list medical condition): Sepsis I certify that, based on my findings, the following services are medically necessary home health services: My clinical findings support the need for the above services because: Skilled Nsg Assessment Further, I certify that my clinical findings support that this patient is homebound (i.e. absences from home require considerable and taxing effort and are for medical reasons or [facility] services or infrequently or of short duration when for other reasons) because: Transportation Assistance/Unable to Leave Home Unassisted Certification for Home Health Services: Based on the above findings, I certify that this patient is confined to the home and needs intermittent long term care, physical therapy and/or speech therapy or continues to need occupational therapy. The patient is under my care, and I have initiated the establishment of the plan of care. This patient will be followed by a physician who will periodically review the plan of care. Total Time Total Time Spent Total Time Spent (In Minutes): 45 Discharge Plan Discharge Items Patient Disposition: Home - Self-Care Reason For Visit: SEPSIS, URINARY INFECTION Discharge Diagnosis: Complicated UTI, metastatic colon cancer Activity: Resume your previous activity Non-emergency contact: Primary Care Provider Call non-emergency contact if: you have any medication questions, your symptoms worsen, your pain is not controlled and you have a fever Follow-up/Referrals: Bel Patterson D.O. [Primary Care Provider] - 10/09/21 11:15 am (This is a telemedicine video appointment. Please follow the instructions provided on you "MY [facility]" dilip. ) Diet: Dialysis Renal Addtl Attending Provider Instructions: You have low white count and immunosuppressed. Recommend taking precautions around people to avoid catching infection. Continue your TPN Continue your dialysis as scheduled- Wednesday. You will need 1 more dose of IV antibiotic cefepime after the dialysis on Wednesday. Your home nurse will give that to you Follow up with the urology doctor for the arthur management Pending Studies at Discharge: No Stand-Alone Forms: My [facility] langtaojin, Smoking Cessation Medications and DC Order Prescriptions: Continued fentanyl 100 mcg/hr Patch 72 Hour 1 patch TRANSDERMAL Q72H RF: 0 fentanyl 25 mcg/hr Patch 72 Hour 1 patch TRANSDERMAL Q72H RF: 0 buspirone 15 mg Tablet 15 mg PO BID RF: 0 ondansetron HCl 8 mg Tablet 8 mg PO TID PRN (Reason: Nausea) RF: 0 silodosin 8 mg Capsule 8 mg PO DAILY RF: 0 menthol-zinc oxide [Calmoseptine] 0.44-20.6 % Ointment 1 applic TOPICAL TID PRN (Reason: breakdown) RF: 0 olanzapine [Zyprexa] 5 mg Tablet 5 mg PO TID PRN (Reason: Nausea) RF: 0 melatonin 3 mg Tablet 3 mg PO HS PRN (Reason: Sleep) RF: 0 pantoprazole [Protonix] 40 mg Tablet,Delayed Release (Dr/Ec) 40 mg PO DAILYBB RF: 0 midodrine 10 mg Tablet 10 mg PO TID RF: 0 Xifaxan 550 mg Tablet 550 mg PO BID RF: 0 oxycodone 15 mg Tablet 15 mg PO 6XD PRN (Reason: Pain) RF: 0 nystatin 100,000 unit/gram Powder 1 applic TOPICAL BID RF: 0 TPN Electrolytes See Rx Instructions .ROUTE .COMPLEX RF: 0 Discharge Orders: Discharge Order (Routine); Ordered 10/04/21 Ordered By: Casper Saini/Other Patient Handouts: Immunocompromised Patients Dc Admission Data Admit Date/Time: 09/28/21 19:31 Attending Provider: Casper Mccurdy Admit Provider: Coy Collazo Primary Care Provider: Bel Patterson Other Providers: Coy Collazo ; Malinda Blake ; Matthew Frey ; [facility],Home Healthcare Other Interventions: Discharge Summary Assessment (RN) Last Done: 10/04/21 12:05
== END 2021-10-04 13:30 | disposition home health service (06) | DRG 871 ==
LOC: EDUNIT# 15:57 → ED 15:57 → 2S 19:31 → SUATTDRO 19:31 → 2S 22:30

== ENCOUNTER 2021-10-10 18:41 | Inpatient (IN) ==
[2021-10-10] MEDS ORDERED: SODIUM CHLORIDE 0.9% 1000ML 500 ML IV ONE ×3 (19:06→20:48)
--- NOTE | 2021-10-10 19:30 | Emergency Department Note ---
Impression & Plan Recurrent urinary tract infection, Hypotension, Abdominal pain, Thrombocytopenia, SBO (small bowel obstruction) ED Provider Note NAME: DARINEL SARAVIA AGE: 56 SEX: M : 1965 ARRIVES VIA: Walk-In INFORMANT: Patient, ED PROVIDER(S): Bridger Bustamante DO CHIEF COMPLAINT: Febrile illness HPI: The patient is a 56-year-old male who presented to the emergency department for an evaluation of febrile illness. The patient has a history of end-stage renal disease. He has a nephrostomy tube in the left and he has a Schmitt ca theter. He also has a gastric tube and a drain for his liver. He was at dialysis today. According to his significant other he was confused. He also had a low-grade fever and tachycardia. It was advised to him to go to the emergency department for an evaluation of the symptoms. The patient states he did not take any Tylenol today. He states he has been compliant with his outpatient medications. He states the urine in his Schmitt bag has been bloody in the Schmitt and his nephrostomy tube bag appears cloudy compared to baseline. He has nausea but no vomiting. He denies having any headache. He has had no recent trauma. He denies having any diarrhea but has noticed some abdominal pain. ROS: See above HPI for pertinent positives & negatives. A total of 10 systems reviewed and were otherwise negative. PAST MEDICAL HISTORY: See Below PAST SURGICAL HISTORY: See Below FAMILY HISTORY: See Below SOCIAL HISTORY: See Below HOME MEDICATIONS: See Below ALLERGIES: See Below VITALS: See Below PHYSICAL EXAMINATION: GENERAL: The patient is awake and answers questions appropriately. He is slow to answer questions. EYES: The conjunctivae are clear. The pupils are round and reactive. EARS, NOSE, MOUTH AND THROAT: The nose is without any evidence of any deformity. Mucous membranes are dry. NECK: The neck is nontender and supple. RESPIRATORY: Normal respiratory effort is noted there is no evidence of wheezing rhonchi or rales CARDIOVASCULAR: Tachycardic and regular heart sounds are noted auscultation. There is no definite murmur. GASTROINTESTINAL: The abdomen is soft and mildly distended. There is no specific guarding or rigidity. Gastric tube was noted in the abdomen. BACK: No CVA tenderness was noted. Nephrostomy tube was noted in the left flank. MUSCULOSKELETAL/EXTREMITIES: There is no evidence of gross deformity full range of motion is noted in the hips and shoulders. SKIN: Skin was warm and dry. Pedal edema was noted bilaterally. There was a dialysis catheter in the right chest wall. NEUROLOGIC: Patient is awake and oriented to person place and time. Strength is symmetric but diminished. MEDICAL DECISION MAKING: The patient is a 56-year-old male with multiple medical problems including renal failure requiring dialysis who presented to the emergency department at the request of his dialysis nurse for an evaluation of febrile illness. The patient was hypotensive. He did have a full round of dialysis today. He was treated with IV fluids in the emergency department. He was also treated with IV antibiotics for presumed urinary tract infection noted on urinalysis. I discussed patient's laboratory and radiographic studies with him and his significant other. Given his findings I [facility] to evaluate the patient in the emergency department for further management and disposition. The patient was not aggressively hydrated given his history of renal failure. Chest x-ray was clear so he was given 2 L without any compromise in his respiratory status with improvement of his blood pressure. Triage Nursing notes reviewed. Prior medical records reviewed Vital Signs: reviewed and remarkable for hypotension. Differential diagnosis: Viral syndrome, otitis, pharyngitis, pneumonia, influenza, meningitis, urinary tract infection, sepsis, bacteremia, as well as other pathologies. ER treatment provided: See below Diagnostics interpreted by me: ECG: EKG was obtained in the emergency department. My interpretation is sinus tachycardia 104 bpm. Poor R wave progression was noted. There was no acute ST segment abnormalities noted. There were no PVCs. This was compared to a tracing from September 28, 2021. No changes were noted. Cardiac Monitoring: An order was placed for continuous cardiac monitoring. The monitor shows a rate of 83 bpm with sinus rhythm. Laboratory studies: As stated above and show below. Imaging studies: See below Consultation(s): I discussed this case with Dr. العراقي who [facility] They have agreed to evaluate the patient in the emergency department. Past Med/Surg History Medical History Cirrhosis Colon cancer Diabetes mellitus type 2 in obese ESRD (end stage renal disease) on dialysis Recurrent urinary tract infection Small bowel obstruction Surgical History S/P hernia repair Status post right hemicolectomy Family History Brother Cancer Grandmother (Paternal) Cancer Social History Smoking Status: Never smoker Hx Alcohol Use: No Hx Substance Use: No Preferred Language: Maori Communication Ability: Effective Beliefs That Will Affect Care: None Current Living Situation: Family Feels Safe at Home: Yes Assistive Devices: Walker Allergies Allergies Allergy/AdvReac Type Severity Reaction Status Date / Time melon Allergy Intermediate throat and Verified 09/28/21 18:08 mouth is itchy Sulfa (Sulfonamide Allergy Intermediate Hives Verified 09/28/21 18:08 Antibiotics) Home Meds Home Medications Medication Instructions Recorded Confirmed TPN Electrolytes See Rx Instructions .ROUTE .COMPLEX 09/28/21 09/28/21 buspirone 15 mg tablet 15 mg PO BID 09/28/21 09/28/21 fentanyl 100 mcg/hr transdermal 1 patch TRANSDERMAL Q72H 09/28/21 09/28/21 patch fentanyl 25 mcg/hr transdermal 1 patch TRANSDERMAL Q72H 09/28/21 09/28/21 patch melatonin 3 mg tablet 3 mg PO HS PRN 09/28/21 09/28/21 menthol 0.44 %-zinc oxide 20.6 % 1 applic TOPICAL TID PRN 09/28/21 09/28/21 topical ointment (Calmoseptine) midodrine 10 mg tablet 10 mg PO TID 09/28/21 09/28/21 nystatin 100,000 unit/gram topical 1 applic TOPICAL BID 09/28/21 09/28/21 powder olanzapine 5 mg tablet (Zyprexa) 5 mg PO TID PRN 09/28/21 09/28/21 ondansetron HCl 8 mg tablet 8 mg PO TID PRN 09/28/21 09/28/21 oxycodone 15 mg tablet 15 mg PO 6XD PRN 09/28/21 09/28/21 pantoprazole 40 mg tablet,delayed 40 mg PO DAILYBB 09/28/21 09/28/21 release (Protonix) rifaximin 550 mg tablet (Xifaxan) 550 mg PO BID 09/28/21 09/28/21 silodosin 8 mg capsule 8 mg PO DAILY 09/28/21 09/28/21 Results & Data (ED) Vital Signs Vital Signs - 24 hr 10/10/21 18:43 10/10/21 19:44 10/10/21 20:07 Temperature 37 C Temperature Source Temporal Artery Scan Pulse Rate 108 H Pulse Rate [Apical] 92 H 88 Pulse Rhythm [Apical] Regular Regular Pulse Strength [Apical] Normal Normal Respiratory Rate 18 13 16 Respiratory Effort / Characteristics Non-Labored Spontaneous Non-Labored Spontaneous Respiratory Depth Normal Normal Respiratory Pattern Blood Pressure 101/63 Blood Pressure [Left Arm] 92/54 L 92/51 L Blood Pressure Mean 75 Blood Pressure Mean [Left Arm] 66 64 Blood Pressure Position Sitting Blood Pressure Position [Left Arm] Sitting Sitting Pulse Oximetry 94 97 97 Oxygen Delivery Method Room Air Room Air Room Air Sepsis Recent Fever Within 48 Hours No Sepsis New/Unexplained Change in Mental Status No Sepsis Action Taken by Nursing No Action Required 10/10/21 20:30 10/10/21 20:40 10/10/21 21:12 Temperature 37.4 C Temperature Source Oral Pulse Rate Pulse Rate [Apical] 84 82 Pulse Rhythm [Apical] Regular Regular Pulse Strength [Apical] Normal Normal Respiratory Rate 15 16 Respiratory Effort / Characteristics Non-Labored Spontaneous Non-Labored Spontaneous Non-Labored Spontaneous Respiratory Depth Normal Normal Respiratory Pattern Blood Pressure Blood Pressure [Left Arm] 94/51 L 87/58 L Blood Pressure Mean Blood Pressure Mean [Left Arm] 65 67 Blood Pressure Position Blood Pressure Position [Left Arm] Sitting Sitting Pulse Oximetry 98 95 Oxygen Delivery Method Room Air Room Air Sepsis Recent Fever Within 48 Hours Sepsis New/Unexplained Change in Mental Status Sepsis Action Taken by Nursing 10/10/21 21:38 10/10/21 22:09 10/10/21 22:18 Temperature Temperature Source Pulse Rate Pulse Rate [Apical] 83 Pulse Rhythm [Apical] Regular Pulse Strength [Apical] Normal Respiratory Rate 16 16 16 Respiratory Effort / Characteristics Non-Labored Spontaneous Non-Labored Spontaneous Non-Labored Spontaneous Respiratory Depth Normal Respiratory Pattern Regular Blood Pressure Blood Pressure [Left Arm] 99/62 L Blood Pressure Mean Blood Pressure Mean [Left Arm] 74 Blood Pressure Position Blood Pressure Position [Left Arm] Sitting Pulse Oximetry 95 95 Oxygen Delivery Method Room Air Nasal Cannula Sepsis Recent Fever Within 48 Hours Sepsis New/Unexplained Change in Mental Status Sepsis Action Taken by [facility] Medications Current Medication List: was personally reviewed by me Laboratory Data Attestation: I reviewed the patient's lab results. Result diagrams: 10/10/21 19:30 10/10/21 19:30 Lab Results 10/10/21 10/10/21 10/10/21 Range/Units 19:30 19:30 19:30 WBC 7.43 (4.8-10.8) K/uL RBC 3.43 L (4.7-6.1) M/uL Hgb 10.4 L (14.0-18.0) g/dL Hct 31.9 L (42-52) % MCV 93.0 (80-100) fL MCH 30.3 (25-34) pg MCHC 32.6 (32-36) g/dL RDW Std Deviation 52.1 H (36.4-46.3) fL RDW Coeff of Deandra 15.4 H (11.5-14.5) % Plt Count 78 L (130-400) K/uL MPV 10.9 H (7.4-10.4) fL Immature Gran % (Auto) 0.1 % Neut % (Auto) 87.8 % Lymph % (Auto) 4.2 % [place] % (Auto) 7.7 % Eos % (Auto) 0.1 % Baso % (Auto) 0.1 % Neut # (Auto) 6.52 H (1.4-6.5) K/uL Lymph # (Auto) 0.31 L (1.2-3.4) K/uL [place] # (Auto) 0.57 (0.11-0.59) K/uL Eos # (Auto) 0.01 (0-0.5) K/uL Baso # (Auto) 0.01 (0-0.2) K/uL Immature Gran # (Auto) 0.01 (0.00-0.02) K/uL PT 13.6 H (9.0-12.0) Seconds INR 1.3 H (0.9-1.1) APTT 36.2 H (21.0-31.0) Seconds PTT Ratio 1.3 Sodium 136 (136-145) mmol/L Potassium 4.0 (3.5-5.1) mmol/L Chloride 102 (98-107) mmol/L Carbon Dioxide 27 (21-32) mmol/L Anion Gap 7 (3-11) BUN 34 H (6-23) mg/dl Creatinine 2.51 H (0.6-1.4) mg/dl Est Cr Clr Drug Dosing 38.3 ml/min Est GFR ( Amer) 31.5 ml/min Est GFR (Non-Af Amer) 27.1 ml/min BUN/Creatinine Ratio 13.5 (10-20) Glucose 107 H (70-99(Fasting)) mg/dl Lactate (0.4-2.0) mmol/L Calcium 8.7 (8.5-10.1) mg/dl Magnesium 1.8 (1.7-2.4) mg/dl Total Bilirubin 1.6 H (0.2-1.0) mg/dl AST 49 H (13-39) U/L ALT 31 (7-52) U/L Alkaline Phosphatase 243 H (34-104) U/L Troponin I High Sens 9.8 (0-20) pg/ml Total Protein 6.4 (6.0-8.3) gm/dl Albumin 3.1 L (3.4-5.0) gm/dl Globulin 3.3 (2.5-4.0) gm/dl Albumin/Globulin Ratio 0.9 (0.9-2) Procalcitonin (0-0.5) ng/ml Urine Color Urine Appearance (Clear) Urine pH (4.5-7.5) Ur Specific [place] (1.000-1.030) Urine Protein (Negative) Urine Glucose (UA) (Negative) Urine Ketones (Negative) Urine Blood (Negative) Urine Nitrite (Negative) Urine Bilirubin (Negative) Urine Urobilinogen (Negative) Ur Leukocyte Esterase (Negative) Urine WBC (Auto) (0-5) /hpf Urine RBC (Auto) (0-4) /hpf U Hyaline Cast (Auto) (0-5) /lpf U Epithel Cells (Auto) (0-5) /lpf Urine Bacteria (Auto) (Negative) Urine Yeast SARS-CoV-2, RNA, NAAT (NEGATIVE) 10/10/21 10/10/21 10/10/21 Range/Units 19:30 19:30 19:30 WBC (4.8-10.8) K/uL RBC (4.7-6.1) M/uL Hgb (14.0-18.0) g/dL Hct (42-52) % MCV (80-100) fL MCH (25-34) pg MCHC (32-36) g/dL RDW Std Deviation (36.4-46.3) fL RDW Coeff of Deandra (11.5-14.5) % Plt Count (130-400) K/uL MPV (7.4-10.4) fL Immature Gran % (Auto) % Neut % (Auto) % Lymph % (Auto) % [place] % (Auto) % Eos % (Auto) % Baso % (Auto) % Neut # (Auto) (1.4-6.5) K/uL Lymph # (Auto) (1.2-3.4) K/uL [place] # (Auto) (0.11-0.59) K/uL Eos # (Auto) (0-0.5) K/uL Baso # (Auto) (0-0.2) K/uL Immature Gran # (Auto) (0.00-0.02) K/uL PT (9.0-12.0) Seconds INR (0.9-1.1) APTT (21.0-31.0) Seconds PTT Ratio Sodium (136-145) mmol/L Potassium (3.5-5.1) mmol/L Chloride (98-107) mmol/L Carbon Dioxide (21-32) mmol/L Anion Gap (3-11) BUN (6-23) mg/dl Creatinine (0.6-1.4) mg/dl Est Cr Clr Drug Dosing ml/min Est GFR ( Amer) ml/min Est GFR (Non-Af Amer) ml/min BUN/Creatinine Ratio (10-20) Glucose (70-99(Fasting)) mg/dl Lactate 2.0 (0.4-2.0) mmol/L Calcium (8.5-10.1) mg/dl Magnesium (1.7-2.4) mg/dl Total Bilirubin (0.2-1.0) mg/dl AST (13-39) U/L ALT (7-52) U/L Alkaline Phosphatase (34-104) U/L Troponin I High Sens (0-20) pg/ml Total Protein (6.0-8.3) gm/dl Albumin (3.4-5.0) gm/dl Globulin (2.5-4.0) gm/dl Albumin/Globulin Ratio (0.9-2) Procalcitonin 1.28 H (0-0.5) ng/ml Urine Color Dark Yellow Urine Appearance Turbid A (Clear) Urine pH 7.5 (4.5-7.5) Ur Specific [place] 1.013 (1.000-1.030) Urine Protein 2+ H (Negative) Urine Glucose (UA) Negative (Negative) Urine Ketones Negative (Negative) Urine Blood 3+ H (Negative) Urine Nitrite Negative (Negative) Urine Bilirubin Negative (Negative) Urine Urobilinogen Negative (Negative) Ur Leukocyte Esterase 3+ H (Negative) Urine WBC (Auto) >30 H (0-5) /hpf Urine RBC (Auto) 5-10 H (0-4) /hpf U Hyaline Cast (Auto) 5-10 H (0-5) /lpf U Epithel Cells (Auto) 10-20 H (0-5) /lpf Urine Bacteria (Auto) 1+ H (Negative) Urine Yeast Not Reportable SARS-CoV-2, RNA, NAAT (NEGATIVE) 10/10/21 10/10/21 Range/Units 19:35 19:37 WBC (4.8-10.8) K/uL RBC (4.7-6.1) M/uL Hgb (14.0-18.0) g/dL Hct (42-52) % MCV (80-100) fL MCH (25-34) pg MCHC (32-36) g/dL RDW Std Deviation (36.4-46.3) fL RDW Coeff of Deandra (11.5-14.5) % Plt Count (130-400) K/uL MPV (7.4-10.4) fL Immature Gran % (Auto) % Neut % (Auto) % Lymph % (Auto) % [place] % (Auto) % Eos % (Auto) % Baso % (Auto) % Neut # (Auto) (1.4-6.5) K/uL Lymph # (Auto) (1.2-3.4) K/uL [place] # (Auto) (0.11-0.59) K/uL Eos # (Auto) (0-0.5) K/uL Baso # (Auto) (0-0.2) K/uL Immature Gran # (Auto) (0.00-0.02) K/uL PT (9.0-12.0) Seconds INR (0.9-1.1) APTT (21.0-31.0) Seconds PTT Ratio Sodium (136-145) mmol/L Potassium (3.5-5.1) mmol/L Chloride (98-107) mmol/L Carbon Dioxide (21-32) mmol/L Anion Gap (3-11) BUN (6-23) mg/dl Creatinine (0.6-1.4) mg/dl Est Cr Clr Drug Dosing ml/min Est GFR ( Amer) ml/min Est GFR (Non-Af Amer) ml/min BUN/Creatinine Ratio (10-20) Glucose (70-99(Fasting)) mg/dl Lactate (0.4-2.0) mmol/L Calcium (8.5-10.1) mg/dl Magnesium (1.7-2.4) mg/dl Total Bilirubin (0.2-1.0) mg/dl AST (13-39) U/L ALT (7-52) U/L Alkaline Phosphatase (34-104) U/L Troponin I High Sens (0-20) pg/ml Total Protein (6.0-8.3) gm/dl Albumin (3.4-5.0) gm/dl Globulin (2.5-4.0) gm/dl Albumin/Globulin Ratio (0.9-2) Procalcitonin (0-0.5) ng/ml Urine Color Red Urine Appearance Cloudy A (Clear) Urine pH 8.0 H (4.5-7.5) Ur Specific [place] 1.011 (1.000-1.030) Urine Protein 4+ H (Negative) Urine Glucose (UA) Negative (Negative) Urine Ketones Negative (Negative) Urine Blood 3+ H (Negative) Urine Nitrite Negative (Negative) Urine Bilirubin Negative (Negative) Urine Urobilinogen Negative (Negative) Ur Leukocyte Esterase 2+ H (Negative) Urine WBC (Auto) >30 H (0-5) /hpf Urine RBC (Auto) >30 H (0-4) /hpf U Hyaline Cast (Auto) 0 (0-5) /lpf U Epithel Cells (Auto) 10-20 H (0-5) /lpf Urine Bacteria (Auto) Negative (Negative) Urine Yeast Not Reportable SARS-CoV-2, RNA, NAAT NEGATIVE (NEGATIVE) Administered Medications Discontinued Medications Sodium Chloride (Nss 1000ml) 500 mls @ 999 mls/hr IV .Q31M ONE Stop: 10/10/21 19:36 Last Infusion: 10/10/21 20:07 Dose: 0 mls/hr Documented by: [id number] Admin: 10/10/21 19:36 Dose: 999 mls/hr Documented by: [id number] Sodium Chloride (Nss 1000ml) 500 mls @ 999 mls/hr IV .Q31M ONE Stop: 10/10/21 20:36 Last Infusion: 10/10/21 20:41 Dose: 0 mls/hr Documented by: [id number] Admin: 10/10/21 20:07 Dose: 999 mls/hr Documented by: [id number] Piperacillin Sod/Tazobactam Sod (Zosyn) 4.5 gm in 120 mls @ 240 mls/hr IV NOW ONE Stop: 10/10/21 21:17 Last Infusion: 10/10/21 21:57 Dose: 0 mls/hr Documented by: [id number] Admin: 10/10/21 21:11 Dose: 240 mls/hr Documented by: [id number] Sodium Chloride (Nss 1000ml) 500 mls @ 999 mls/hr IV .Q31M ONE Stop: 10/10/21 21:18 Last Infusion: 10/10/21 21:37 Dose: 0 mls/hr Documented by: [id number] Admin: 10/10/21 21:07 Dose: 999 mls/hr Documented by: [id number] Sodium Chloride (Nss) 500 mls @ 999 mls/hr IV .Q31M ONE Stop: 10/10/21 22:03 Last Infusion: 10/10/21 22:10 Dose: 0 mls/hr Documented by: [id number] Admin: 10/10/21 21:40 Dose: 999 mls/hr Documented by: [id number] Imaging Data Radiologist's Impression: Abdomen/Pelvis CT 10/10/21 19:06 CT abd pelvis wo con CLINICAL HISTORY: fever TECHNIQUE: Helical axial images of the abdomen and pelvis were obtained. Automated dose lowering techniques and/or adjustment according to patient size were utilized for this exam. This exam was performed without intravenous contrast. CT DOSE: 1299.98 mGy.cm COMPARISON: Comparison is made to CT abdomen pelvis 09/28/2021 FINDINGS: Lower chest: Numerous groundglass opacities are seen in the right lower lung. Stable 1 cm nodule in the right lower lobe. Liver: Nodular contour of the liver is seen compatible with cirrhosis. Gallbladder and biliary tree: Post lumpectomy clips are seen in the right upper quadrant. There is a cystic density in the gallbladder fossa which may represent gallbladder remnant. No intra- or extrahepatic biliary ductal dilation. Pancreas: Fatty replacement of the pancreas is seen. Spleen: Splenomegaly is noted, the spleen measures 18 cm in length. Adrenals: Unremarkable. Kidneys and ureters: A left nephrostomy tube is seen. There is bilateral hydroureter without evidence of obstructing stone. Bladder: Schmitt catheter is seen. Reproductive organs: Unremarkable. Bowel: Redemonstration of extensive small bowel dilation, increased from prior exam. Loops measure up to 7.4 cm in diameter. Transition points are seen in the right lower quadrant proximally and distally. A gastrostomy tube is seen. Postsurgical changes are seen in the colon. Lymph nodes Retroperitoneal: Unremarkable. Mesenteric: Unremarkable. Pelvic: Unremarkable. Peritoneum: There is suggestion of vascular swirling and a small amount of fat stranding in the right lower quadrant. Vessels: Unremarkable. Abdominal wall: Soft tissue nodules are seen in the anterior abdominal wall for example a 20 mm nodule in the abdominal musculature as well as subcutaneous nodule measuring 35 mm adjacent to the surgical site. Bones: Pars defects are seen at L5-S1 with associated grade 1 anterolisthesis. There are multilevel degenerative changes in the spine. IMPRESSION: 1. Interval minimal increase in previously noted small bowel obstruction. According to the patient, this is a chronic obstruction, likely secondary to adhesions. Again noted are transition points in the right lower quadrant. No definite evidence of wall ischemia is seen by CT. 2. Patient is status post right hemicolectomy for colon cancer. There are a few soft tissue nodules in the abdominal wall and adjacent to the surgical site which are nonspecific but may represent metastatic disease. 3. Airspace opacities in the right lung base are new from prior exam and may reflect infectious/inflammatory process. 4. Stable 1 cm right lower lobe pulmonary nodule may represent metastatic disease. 5. Cirrhosis and splenomegaly. 6. Additional findings as above. ACT 112: Negative or not required by law. Electronically signed by: Lev White M.D. 10/10/2021 9:24 PM Chest X-Ray 10/10/21 19:06 XR chest 1V portable CLINICAL HISTORY: SEPSIS TECHNIQUE: Single frontal radiograph of the chest was obtained. Comparison: Comparison is made to chest radiograph 09/28/2021 FINDINGS: Right dual lumen catheter is unchanged in position. The cardiomediastinal silhouette is normal. Radiodensities are seen in the right lung base compatible with atelectasis. No evidence of pleural effusion or pneumothorax. IMPRESSION: No acute chest disease. ACT 112: Negative or not required by law. Electronically signed by: Lev White M.D. 10/10/2021 8:[address] 10/10/21 19:06 CT head/brain wo con CLINICAL HISTORY: ams Technique: Contiguous axial CT images of the head were acquired from the base of the skull to the vertex without intravenous contrast administration. Images were viewed in brain, subdural and bone windows. Automated dose lowering techniques and/or adjustment according to patient size were utilized for this exam. Comparison: Comparison is made to the head 09/28/2021 Findings: The ventricles, basal cisterns, and cerebral sulci are normal. There is no acute intracranial hemorrhage or evidence of acute territorial infarction. Neither m ass effect, shift of the midline structures, nor abnormal extra-axial fluid collections are shown. Imaged portions of the paranasal sinuses and mastoid air cells are clear. The orbits appear normal. There are no acute fractures of the calvaria or scalp swelling. Impression: No acute intracranial hemorrhage, no evidence of acute territorial infarction or other acute intracranial disease process. ACT 112: Negative or not required by law. Electronically signed by: Lev White M.D. 10/10/2021 8:59 PM Discharge Plan Visit Data Chief Complaint: Illness Stated Complaint: ABNORMAL HEART PALPITATIONS, FEVER ED Provider: Bridger Bustamante Discharge Problem: Recurrent urinary tract infection, Hypotension, Abdominal pain, Thrombocytopenia, SBO (small bowel obstruction) Patient Disposition: Being Evaluated by Hospitalist Forms Stand Alone Forms: [place] Prescriptions Prescriptions: No Action fentanyl 100 mcg/hr Patch 72 Hour 1 patch TRANSDERMAL Q72H RF: 0 fentanyl 25 mcg/hr Patch 72 Hour 1 patch TRANSDERMAL Q72H RF: 0 buspirone 15 mg Tablet 15 mg PO BID RF: 0 ondansetron HCl 8 mg Tablet 8 mg PO TID PRN (Reason: Nausea) RF: 0 silodosin 8 mg Capsule 8 mg PO DAILY RF: 0 menthol-zinc oxide [Calmoseptine] 0.44-20.6 % Ointment 1 applic TOPICAL TID PRN (Reason: breakdown) RF: 0 olanzapine [Zyprexa] 5 mg Tablet 5 mg PO TID PRN (Reason: Nausea) RF: 0 melatonin 3 mg Tablet 3 mg PO HS PRN (Reason: Sleep) RF: 0 pantoprazole [Protonix] 40 mg Tablet,Delayed Release (Dr/Ec) 40 mg PO DAILYBB RF: 0 midodrine 10 mg Tablet 10 mg PO TID RF: 0 Xifaxan 550 mg Tablet 550 mg PO BID RF: 0 oxycodone 15 mg Tablet 15 mg PO 6XD PRN (Reason: Pain) RF: 0 nystatin 100,000 unit/gram Powder 1 applic TOPICAL BID RF: 0 TPN Electrolytes See Rx Instructions .ROUTE .COMPLEX RF: 0 Referrals Referrals: Bel Patterson D.O. [Primary Care Provider] -
[2021-10-10 20:04] LABS: Hematocrit (blood only) 31.9 % (42-52); Hemoglobin 10.4 g/dL (14.0-18.0); Mean Corpuscular Hemoglobin 30.3 pg (25-34); Mean Corpuscular Hgb Conc 32.6 g/dL (32-36); RDW Coefficient of Variation 15.4 % (11.5-14.5); RDW Standard Deviation 52.1 fL (36.4-46.3); Red Blood Count 3.43 M/uL (4.7-6.1); White Blood Count 7.43 K/uL (4.8-10.8)
--- NOTE | 2021-10-10 20:06 | XRay Report ---
XR chest 1V portable CLINICAL HISTORY: SEPSIS TECHNIQUE: Single frontal radiograph of the chest was obtained. Comparison: Comparison is made to chest radiograph 09/28/2021 FINDINGS: Right dual lumen catheter is unchanged in position. The cardiomediastinal silhouette is normal. Radio densities are seen in the right lung base compatible with atelectasis. No evidence of pleural effusio n or pneumothorax. IMPRESSION: No acute chest disease. ACT 112: Negative or not required by law. Electronically signed by: Lev White M.D. 10/10/2021 8:04 PM
[2021-10-10 20:07] LABS: INR 1.3 (0.9-1.1); Partial Thromboplastin Ratio 1.3; Partial Thromboplastin Time 36.2 Seconds (21.0-31.0); Prothrombin Time 13.6 Seconds (9.0-12.0)
[2021-10-10 20:25] LABS: Albumin Globulin Ratio 0.9 (0.9-2); Albumin Level 3.1 gm/dl (3.4-5.0); BUN Creatinine Ratio 13.5 (10-20); Bilirubin,Total 1.6 mg/dl (0.2-1.0); Calcium 8.7 mg/dl (8.5-10.1); Creatinine Clr Calc Pharmacy 38.3 ml/min; Est GFR (African American) 31.5 ml/min; Est GFR (Non-African American) 27.1 ml/min; Globulin 3.3 gm/dl (2.5-4.0); Magnesium 1.8 mg/dl (1.7-2.4); Total Protein 6.4 gm/dl (6.0-8.3)
[2021-10-10 20:28] LABS: Appearance Urine Cloudy (Clear); Color Urine Red
[2021-10-10 20:29] LABS: Mean Platelet Volume 10.9 fL (7.4-10.4); Platelet Count 78 K/uL (130-400)
[2021-10-10 20:30] LABS: Basophils # (auto) 0.01 K/uL (0-0.2); Basophils % (auto) 0.1 %; Eosinophils # (auto) 0.01 K/uL (0-0.5); Eosinophils % (auto) 0.1 %; Immature Granulocytes # (auto) 0.01 K/uL (0.00-0.02); Immature Granulocytes % (auto) 0.1 %; Lymphocytes # (auto) 0.31 K/uL (1.2-3.4); Lymphocytes % (auto) 4.2 %; Monocytes # (auto) 0.57 K/uL (0.11-0.59); Monocytes % (auto) 7.7 %; Neutrophils # (auto) 6.52 K/uL (1.4-6.5); Neutrophils % (auto) 87.8 %; Troponin I High Sensitivity 9.8 pg/ml (0-20)
[2021-10-10 20:32] LABS: Appearance Urine Turbid (Clear); Bacteria Urine Automated 1+ (Negative); Bilirubin Urine Negative (Negative); Blood Urine 3+ (Negative); Color Urine Dark Yellow; Glucose Urine UA Negative (Negative); Ketones Urine Negative (Negative); Leukocyte Esterase Urine 3+ (Negative); Nitrite Urine Negative (Negative); Specific Gravity Urine 1.013 (1.000-1.030); Urobilinogen Urine Negative (Negative); WBC Urine Automated >30 /hpf (0-5); pH Urine 7.5 (4.5-7.5)
[2021-10-10 20:35] LABS: Bacteria Urine Automated Negative (Negative); Bilirubin Urine Negative (Negative); Blood Urine 3+ (Negative); Glucose Urine UA Negative (Negative); Ketones Urine Negative (Negative); Leukocyte Esterase Urine 2+ (Negative); Nitrite Urine Negative (Negative); Specific Gravity Urine 1.011 (1.000-1.030); Urobilinogen Urine Negative (Negative); WBC Urine Automated >30 /hpf (0-5)
[2021-10-10 20:37] LABS: Protein Urine 2+ (Negative)
[2021-10-10 20:40] LABS: Protein Urine 4+ (Negative)
[2021-10-10] MEDS ORDERED: PIPERACILLIN/TAZOBACTAM 4.5 GM/120 ML BAG IV ONE (20:48)
--- NOTE | 2021-10-10 21:00 | CT Scan Report ---
CT head/brain wo con CLINICAL HISTORY: ams Technique: Contiguous axial CT images of the head were acquired from the base of the skull to the sydni calixto without intravenous contrast administration. Images were viewed in brain, subdural and bone [facility]. Automated dose lowering techniques and/or adjustment according to patient size were utilized for this exam. Comparison: Comparison is made to the head 09/28/2021 Findings: The ventricles, basal cisterns, and cerebral sulci are normal. There is no acute intracranial hemorrh age or evidence of acute territorial infarction. Neither mass effect, shift of the midline structures , nor abnormal extra-axial fluid collections are shown. Imaged portions of the paranasal sinuses and mastoid air cells are clear. The orbits appear normal. There are no acute fractures of the calvaria or scalp swelling. Impression: No acute intracranial hemorrhage, no evidence of acute territorial infarction or other acute intracra nial disease process. ACT 112: Negative or not required by law. Electronically signed by: Lev White M.D. 10/10/2021 8:59 PM
[2021-10-10 21:03] LABS: Cast Urine Automated 0 /lpf (0-5); RBC Urine Automated >30 /hpf (0-4)
--- NOTE | 2021-10-10 21:25 | CT Scan Report ---
CT abd pelvis wo con CLINICAL HISTORY: fever TECHNIQUE: Helical axial images of the abdomen and pelvis were obtained. Automated dose lowering tech niques and/or adjustment according to patient size were utilized for this exam. This exam was perfor med without intravenous contrast. CT DOSE: 1299.98 mGy.cm COMPARISON: Comparison is made to CT abdomen pelvis 09/28/2021 FINDINGS: Lower chest: Numerous groundglass opacities are seen in the right lower lung. Stable 1 cm nodule in the right lower lobe. Liver: Nodular contour of the liver is seen compatible with cirrhosis. Gallbladder and biliary tree: Post lumpectomy clips are seen in the right upper quadrant. There is a cystic density in the gallbladder fossa which may represent gallbladder remnant. No intra- or extrahe patic biliary ductal dilation. Pancreas: Fatty replacement of the pancreas is seen. Spleen: Splenomegaly is noted, the spleen measures 18 cm in length. Adrenals: Unremarkable. Kidneys and ureters: A left nephrostomy tube is seen. There is bilateral hydroureter without evidence of obstructing stone. Bladder: Schmitt catheter is seen. Reproductive organs: Unremarkable. Bowel: Redemonstration of extensive small bowel dilation, increased from prior exam. Loops measure up to 7.4 cm in diameter. Transition points are seen in the right lower quadrant proximally and distal ly. A gastrostomy tube is seen. Postsurgical changes are seen in the colon. Lymph nodes Retroperitoneal: Unremarkable. Mesenteric: Unremarkable. Pelvic: Unremarkable. Peritoneum: There is suggestion of vascular swirling and a small amount of fat stranding in the right lower quadrant. Vessels: Unremarkable. Abdominal wall: Soft tissue nodules are seen in the anterior abdominal wall for example a 20 mm nodul e in the abdominal musculature as well as subcutaneous nodule measuring 35 mm adjacent to the surgica l site. Bones: Pars defects are seen at L5-S1 with associated grade 1 anterolisthesis. There are multilevel d egenerative changes in the spine. IMPRESSION: 1. Interval minimal increase in previously noted small bowel obstruction. According to the patient, this is a chronic obstruction, likely secondary to adhesions. Again noted are transition points in th e right lower quadrant. No definite evidence of wall ischemia is seen by CT. 2. Patient is status post right hemicolectomy for colon cancer. There are a few soft tissue nodules in the abdominal wall and adjacent to the surgical site which are nonspecific but may represent metas tatic disease. 3. Airspace opacities in the right lung base are new from prior exam and may reflect infectious/infl ammatory process. 4. Stable 1 cm right lower lobe pulmonary nodule may represent metastatic disease. 5. Cirrhosis and splenomegaly. 6. Additional findings as above. ACT 112: Negative or not required by law. Electronically signed by: Lev White M.D. 10/10/2021 9:24 PM
[2021-10-10] MEDS ORDERED: SODIUM CHLORIDE 0.9% 500 ML IV ONE (21:33)
[2021-10-10] MEDS ORDERED: MIDODRINE HCL 10 MG TAB PO STA (22:43)
--- NOTE | 2021-10-11 00:05 | History & Physical Report ---
Date of Service October 11, 2021 Assessment & Plan (1) Abdominal pain: Plan: Multifactorial : SBO, chronic bowel obstruction with G-tube placement on TPN, hx metastatic colon cancer status post surgery ongoing chemotherapy, chronic cancer pain on fentanyl patch Complicated UTI, hx bilateral hydronephrosis status post nephrostomy tube placement, possible sepsis DM2 diet-controlled, well-controlled as of recent hemoglobin A1c of 5.21 September 2021 chronic hypotension on midodrine cirrhosis, no overt decompensation pancytopenia secondary to chemotherapy/cirrhosis past alcohol abuse. Medical telemetry given borderline BP Bowel rest Surgery consult Re: SBO Bowel regimen CS, Cefepime Nephrology consult Re: Dialysis management ISS BG goal 1 10-1 40 Consider Palliative care consultation discuss goals of care if patient/ agreeable given recurrent admissions and progression of illness. DVT prophylaxis with SCDs Re: Thrombocytopenia DNR Text document was generated using [employer] voice recognition software. It may contain grammatical or spelling errors. Kindly contact undersigned for clarification of any documentation item in question. History of Present Illness Chief Complaint: Fever, Weakness, abdominal pain, vomiting Primary Care Provider: Bel Patterson History obtained from patient, family, and records. Medical history significant for metastatic colon cancer status post surgery ongoing chemotherapy, bilateral hydronephrosis status post nephrostomy tube placement, ESRD on HD, chronic cancer pain on fentanyl patch, DM2 diet- controlled, chronic bowel obstruction with G-tube placement on TPN, chronic hypotension on midodrine, cirrhosis, pancytopenia (baseline hemoglobin of 7 ), past alcohol abuse. Last confinement September 28-2021 for sepsis secondary to complicated UTI (Pseudomonas) status post antibiotic Rx. Patient not really feeling well upon discharge home. Poor appetite. Yesterday, patient noted achy right-sided abdominal pain with nausea emesis, constipation symptoms Patient noted to be somewhat confused, febrile and tachycardic at dialysis session today. Patient denies headache, chest pain, SOB. ER evaluation recommended by dialysis nurse. Patient received Zosyn at the ER for UTI. 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 Allergies Allergy/AdvReac Type Severity Reaction Status Date / Time melon Allergy Intermediate throat and Verified 09/28/21 18:08 mouth is itchy Sulfa (Sulfonamide Allergy Intermediate Hives Verified 09/28/21 18:08 Antibiotics) Home Medications Medication Instructions Recorded Confirmed Type TPN Electrolytes See Rx Instructions .ROUTE .COMPLEX 09/28/21 09/28/21 History buspirone 15 mg tablet 15 mg PO BID 09/28/21 09/28/21 History fentanyl 100 mcg/hr transdermal 1 patch TRANSDERMAL Q72H 09/28/21 09/28/21 History patch fentanyl 25 mcg/hr transdermal 1 patch TRANSDERMAL Q72H 09/28/21 09/28/21 History patch melatonin 3 mg tablet 3 mg PO HS PRN 09/28/21 09/28/21 History menthol 0.44 %-zinc oxide 20.6 % 1 applic TOPICAL TID PRN 09/28/21 09/28/21 His tory topical ointment (Calmoseptine) midodrine 10 mg tablet 10 mg PO TID 09/28/21 09/28/21 History nystatin 100,000 unit/gram topical 1 applic TOPICAL BID 09/28/21 09/28/21 History powder olanzapine 5 mg tablet (Zyprexa) 5 mg PO TID PRN 09/28/21 09/28/21 History ondansetron HCl 8 mg tablet 8 mg PO TID PRN 09/28/21 09/28/21 History oxycodone 15 mg tablet 15 mg PO 6XD PRN 09/28/21 09/28/21 History pantoprazole 40 mg tablet,delayed 40 mg PO DAILYBB 09/28/21 09/28/21 History release (Protonix) rifaximin 550 mg tablet (Xifaxan) 550 mg PO BID 09/28/21 09/28/21 History silodosin 8 mg capsule 8 mg PO DAILY 09/28/21 09/28/21 History Past Med/Surg History Medical History Cirrhosis Colon cancer Diabetes mellitus type 2 in obese ESRD (end stage renal disease) on dialysis Recurrent urinary tract infection Small bowel obstruction Surgical History S/P hernia repair Status post right hemicolectomy Family History Brother Cancer Grandmother (Paternal) Cancer Social History Smoking Status: Never smoker Do You Dip or Chew Tobacco: Yes; Hx Alcohol Use: No Hx Substance Use: No Preferred Language: Hebrew Communication Ability: Effective Finance Manager Required: No Beliefs That Will Affect Care: None Current Living Situation: Spouse Current Living Situation Comment: Spouse and son Other Information That Helps Us Care for You: No Feels Safe at Home: Yes Safety Concerns: Feels Safe At This Time Assistive Devices: Glasses and Walker Review of Systems Review of Systems: As per HPI, all other systems reviewed and negative Physical Exam Physical Exam: GENERAL: Comfortable, pleasant, slightly anxious, no respiratory distress SKIN: Pallor, warm HEENT: Alopecia, pale palpebral conjunctivae, no ptosis, dry buccal mucosa NECK : Supple, no tenderness CHEST : CTA, no tenderness HEART : RRR, no obvious murmurs ABDOMEN: Some distention, minimal right-sided abdominal tenderness EXTREMITIES : Minimal LE swelling, no LE tenderness, no other conspicuous deformities noted NEUROLOGIC : Coherent, no facial asymmetry, no other gross focality Results & Data Results & Data ([facility]) Vital Signs (Past 12 Hours) Vital Signs Temp Pulse Pulse Resp BP BP Pulse Ox 10/10/21 23:26 82 16 115/68 96 10/10/21 22:18 16 10/10/21 22:09 83 16 99/62 L 95 10/10/21 21:38 16 95 10/10/21 21:12 37.4 C 82 16 87/58 L 95 10/10/21 20:40 84 15 94/51 L 98 10/10/21 20:07 88 16 92/51 L 97 10/10/21 19:44 92 H 13 92/54 L 97 10/10/21 18:43 37 C 108 H 18 101/63 94 Laboratory Results Laboratory Results WBC 7.43 K/uL (4.8-10.8) 10/10/21 19:30 RBC 3.43 M/uL (4.7-6.1) L 10/10/21 19:30 Hgb 10.4 g/dL (14.0-18.0) L 10/10/21 19:30 Hct 31.9 % (42-52) L 10/10/21 19:30 MCV 93.0 fL (80-100) 10/10/21 19: MCH 30.3 pg (25-34) 10/10/21 19: MCHC 32.6 g/dL (32-36) 10/10/21 19: RDW Std Deviation 52.1 fL (36.4-46.3) H 10/10/21: RDW Coeff of Deandra 15.4 % (11.5-14.5) H 10/10/21 19: Plt Count 78 K/uL (130-400) L 10/10/21: MPV 10.9 fL (7.4-10.4) H 10/10/21: Immature Gran % (Auto) 0.1 % 10/10/21: Neut % (Auto) 87.8 % 10/10/21: Lymph % (Auto) 4.2 % 10/10/21: [place] % (Auto) 7.7 % 10/10/21: Eos % (Auto) 0.1 % 10/10/21: Baso % (Auto) 0.1 % 10/10/21:30 Neut # (Auto) 6.52 K/uL (1.4-6.5) H 10/10/21: Lymph # (Auto) 0.31 K/uL (1.2-3.4) L 10/10/21:30 [place] # (Auto) 0.57 K/uL (0.11-0.59) 10/10/21: Eos # (Auto) 0.01 K/uL (0-0.5) 10/10/21: Baso # (Auto) 0.01 K/uL (0-0.2) 10/10/21: Immature Gran # (Auto) 0.01 K/uL (0.00-0.02) 10/10/21 19: PT 13.6 Seconds (9.0-12.0) H 10/10/21 19:30 INR 1.3 (0.9-1.1) H 10/10/21 19:30 APTT 36.2 Seconds (21.0-31.0) H 10/10/21 19:30 PTT Ratio 1.3 10/10/21 19:30 Sodium 136 mmol/L (136-145) 10/10/21 19:30 Potassium 4.0 mmol/L (3.5-5.1) 10/10/21 19:30 Chloride 102 mmol/L (98-107) 10/10/21 19:30 Carbon Dioxide 27 mmol/L (21-32) 10/10/21 19:30 Anion Gap 7 (3-11) 10/10/21 19:30 BUN 34 mg/dl (6-23) H 10/10/21 19:30 Creatinine 2.51 mg/dl (0.6-1.4) H 10/10/21 19:30 Est Cr Clr Drug Dosing 38.3 ml/min 10/10/21 19:30 Est GFR ( Amer) 31.5 ml/min 10/10/21 19:30 Est GFR (Non-Af Amer) 27.1 ml/min 10/10/21 19:30 BUN/Creatinine Ratio 13.5 (10-20) 10/10/21 19:30 Glucose 107 mg/dl (70-99(Fasting)) H 10/10/21 19:30 Lactate 2.0 mmol/L (0.4-2.0) 10/10/21 19:30 Calcium 8.7 mg/dl (8.5-10.1) 10/10/21 19:30 Magnesium 1.8 mg/dl (1.7-2.4) 10/10/21 19:30 Total Bilirubin 1.6 mg/dl (0.2-1.0) H 10/10/21 19:30 AST 49 U/L (13-39) H 10/10/21 19:30 ALT 31 U/L (7-52) 10/10/21 19:30 Alkaline Phosphatase 243 U/L (34-104) H 10/10/21 19:30 Troponin I High Sens 9.8 pg/ml (0-20) 10/10/21 19:30 Total Protein 6.4 gm/dl (6.0-8.3) 10/10/21 19:30 Albumin 3.1 gm/dl (3.4-5.0) L 10/10/21 19:30 Globulin 3.3 gm/dl (2.5-4.0) 10/10/21 19:30 Albumin/Globulin Ratio 0.9 (0.9-2) 10/10/21 19:30 Procalcitonin 1.28 ng/ml (0-0.5) H 10/10/21 19:30 Urine Color Red 10/10/21 19:35 Urine Appearance Cloudy (Clear) A 10/10/21 19:35 Urine pH 8.0 (4.5-7.5) H 10/10/21 19:35 Ur Specific [place] 1.011 (1.000-1.030) 10/10/21 19:35 Urine Protein 4+ (Negative) H 10/10/21 19:35 Urine Glucose (UA) Negative (Negative) 10/10/21 19:35 Urine Ketones Negative (Negative) 10/10/21 19:35 Urine Blood 3+ (Negative) H 10/10/21 19:35 Urine Nitrite Negative (Negative) 10/10/21 19:35 Urine Bilirubin Negative (Negative) 10/10/21 19:35 Urine Urobilinogen Negative (Negative) 10/10/21 19:35 Ur Leukocyte Esterase 2+ (Negative) H 10/10/21 19:35 Urine WBC (Auto) >30 /hpf (0-5) H 10/10/21 19:35 Urine RBC (Auto) >30 /hpf (0-4) H 10/10/21 19:35 U Hyaline Cast (Auto) 0 /lpf (0-5) 10/10/21 19:35 U Epithel Cells (Auto) 10-20 /lpf (0-5) H 10/10/21 19:35 Urine Bacteria (Auto) Negative (Negative) 10/10/21 19:35 Urine Yeast Not Reportable 10/10/21 19:35 SARS-CoV-2, RNA, NAAT NEGATIVE (NEGATIVE) 10/10/21 19:37 Impressions Abdomen/Pelvis CT 10/10/21 19:06 CT abd pelvis wo con CLINICAL HISTORY: fever TECHNIQUE: Helical axial images of the abdomen and pelvis were obtained. Automated dose lowering techniques and/or adjustment according to patient size were utilized for this exam. This exam was performed without intravenous contrast. CT DOSE: 1299.98 mGy.cm COMPARISON: Comparison is made to CT abdomen pelvis 09/28/2021 FINDINGS: Lower chest: Numerous groundglass opacities are seen in the right lower lung. Stable 1 cm nodule in the right lower lobe. Liver: Nodular contour of the liver is seen compatible with cirrhosis. Gallbladder and biliary tree: Post lumpectomy clips are seen in the right upper quadrant. There is a cystic density in the gallbladder fossa which may represent gallbladder remnant. No intra- or extrahepatic biliary ductal dilation. Pancreas: Fatty replacement of the pancreas is seen. Spleen: Splenomegaly is noted, the spleen measures 18 cm in length. Adrenals: Unremarkable. Kidneys and ureters: A left nephrostomy tube is seen. There is bilateral hydroureter without evidence of obstructing stone. Bladder: Schmitt catheter is seen. Reproductive organs: Unremarkable. Bowel: Redemonstration of extensive small bowel dilation, increased from prior exam. Loops measure up to 7.4 cm in diameter. Transition points are seen in the right lower quadrant proximally and distally. A gastrostomy tube is seen. Postsurgical changes are seen in the colon. Lymph nodes Retroperitoneal: Unremarkable. Mesenteric: Unremarkable. Pelvic: Unremarkable. Peritoneum: There is suggestion of vascular swirling and a small amount of fat stranding in the right lower quadrant. Vessels: Unremarkable. Abdominal wall: Soft tissue nodules are seen in the anterior abdominal wall for example a 20 mm nodule in the abdominal musculature as well as subcutaneous nodule measuring 35 mm adjacent to the surgical site. Bones: Pars defects are seen at L5-S1 with associated grade 1 anterolisthesis. There are multilevel degenerative changes in the spine. IMPRESSION: 1. Interval minimal increase in previously noted small bowel obstruction. According to the patient, this is a chronic obstruction, likely secondary to adhesions. Again noted are transition points in the right lower quadrant. No definite evidence of wall ischemia is seen by CT. 2. Patient is status post right hemicolectomy for colon cancer. There are a few soft tissue nodules in the abdominal wall and adjacent to the surgical site which are nonspecific but may represent metastatic disease. 3. Airspace opacities in the right lung base are new from prior exam and may reflect infectious/inflammatory process. 4. Stable 1 cm right lower lobe pulmonary nodule may represent metastatic disease. 5. Cirrhosis and splenomegaly. 6. Additional findings as above. ACT 112: Negative or not required by law. Electronically signed by: Lev White M.D. 10/10/2021 9:24 PM Chest X-Ray 10/10/21 19:06 XR chest 1V portable CLINICAL HISTORY: SEPSIS TECHNIQUE: Single frontal radiograph of the chest was obtained. Comparison: Comparison is made to chest radiograph 09/28/2021 FINDINGS: Right dual lumen catheter is unchanged in position. The cardiomediastinal silhouette is normal. Radiodensities are seen in the right lung base compatible with atelectasis. No evidence of pleural effusion or pneumothorax. IMPRESSION: No acute chest disease. ACT 112: Negative or not required by law. Electronically signed by: Lev White M.D. 10/10/2021 8:[address] 10/10/21 19:06 CT head/brain wo con CLINICAL HISTORY: ams Technique: Contiguous axial CT images of the head were acquired from the base of the skull to the vertex without intravenous contrast administration. Images were viewed in brain, subdural and bone windows. Automated dose lowering techniques and/or adjustment according to patient size were utilized for this exam. Comparison: Comparison is made to the head 09/28/2021 Findings: The ventricles, basal cisterns, and cerebral sulci are normal. There is no acute intracranial hemorrhage or evidence of acute territorial infarction. Neither mass effect, shift of the midline structures, nor abnormal extra-axial fluid collections are shown. Imaged portions of the paranasal sinuses and mastoid air cells are clear. The orbits appear normal. There are no acute fractures of the calvaria or scalp swelling. Impression: No acute intracranial hemorrhage, no evidence of acute territorial infarction or other acute intracranial disease process. ACT 112: Negative or not required by law. Electronically signed by: Lev White M.D. 10/10/2021 8:59 PM Diagnostic Findings EKG as per my interpretation : Rate 105, sinus tachycardia, LAD, LAFB, T wave flattening inferior leads, low voltage
[2021-10-11] MEDS: ALBUMIN 25% 12.5 GM/50 ML VIAL IV SCH ×4 (00:36→17:50)
[2021-10-11] MEDS ORDERED: ACETAMINOPHEN 325 MG TAB PO PRN (02:33)
[2021-10-11] MEDS ORDERED: GLUCAGON FOR INJ 1 MG VIAL SQ PRN (02:33)
[2021-10-11] MEDS ORDERED: GLUCOSE 10 TABS/TUBE PO PRN (02:33)
[2021-10-11] MEDS ORDERED: GLUCOSE 40% GEL 15 GM TUBE PO PRN (02:33)
[2021-10-11] MEDS ORDERED: DEXTROSE 50% 50 ML SYRINGE IV PRN (02:33)
[2021-10-11] MEDS ORDERED: CARBOHYDRATES FOR HYPOGLYCEMIA PO PRN (02:33)
[2021-10-11] MEDS ORDERED: LACTULOSE SYRUP 30 GM/45 ML UDP PO STA (02:50)
[2021-10-11] MEDS ORDERED: TPN/PPN CONSULT PHARMACY PRN (02:54)
[2021-10-11] MEDS: DOCUSATE SODIUM/SENNA 50/8.6MG TAB PO SCH ×3 (03:16→20:29)
[2021-10-11] MEDS: INSULIN ASPART PER UNIT SC SCH ×5 (03:18→22:41)
[2021-10-11] MEDS: oxyCODONE HCL IR 5 MG TAB (IMMEDIATE RELEASE) PO PRN ×2 (03:38→15:47)
[2021-10-11 07:25] LABS: Hematocrit (blood only) 23.6 % (42-52); Hemoglobin 7.6 g/dL (14.0-18.0); Mean Corpuscular Hemoglobin 30.5 pg (25-34); Mean Corpuscular Hgb Conc 32.2 g/dL (32-36); Mean Corpuscular Volume 94.8 fL (80-100); RDW Coefficient of Variation 15.6 % (11.5-14.5); RDW Standard Deviation 54.1 fL (36.4-46.3); Red Blood Count 2.49 M/uL (4.7-6.1); White Blood Count 2.73 K/uL (4.8-10.8)
[2021-10-11 07:50] LABS: BUN Creatinine Ratio 13.3 (10-20); Calcium 8.4 mg/dl (8.5-10.1); Est GFR (Non-African American) 22.4 ml/min
[2021-10-11 08:00] LABS: Platelet Count 52 K/uL (130-400)
[2021-10-11 08:01] LABS: Eosinophils # (auto) 0.06 K/uL (0-0.5); Eosinophils % (auto) 2.2 %; Lymphocytes % (auto) 14.7 %; Monocytes # (auto) 0.42 K/uL (0.11-0.59); Monocytes % (auto) 15.4 %; Neutrophils # (auto) 1.85 K/uL (1.4-6.5); Neutrophils % (auto) 67.7 %; RBC Morphology Unremarkable
--- NOTE | 2021-10-11 08:16 | Surgery Consultation ---
Date of Consultation October 11, 2021 Assessment & Plan (1) SBO (small bowel obstruction): CT images and results personally viewed by me, he has dilated small bowel throughout his abdomen without signs of any ischemia Would continue to vent his G-tube to gravity and continue his TPN Keep n.p.o. He is unlikely a surgical candidate due to his end-stage renal disease, alcoholic cirrhosis and active chemotherapy I do think a palliative care consult is a reasonable option at this point We will continue to follow (2) Colon cancer: (3) ESRD (end stage renal disease) on dialysis: History of Present Illness Reason for Consultation: Small bowel obstruction Attending Physician: Coy Collazo MD History of Present Illness Is a 56-year-old male who presented to the ER overnight with complaints of mild abdominal pain and some nausea. He states the pain was generalized sharp in nature without radiation. He has a complicated surgical history with a partial colectomy for colon cancer in the past. He also has a G-tube present as well as nephrostomy tube. He is currently on chemotherapy as the colon cancer was metas tatic. He also has a history of alcoholic cirrhosis. He states that his abdominal pain is little better now than when he was admitted. He denies any nausea or vomiting at this point. He states he had a bowel movement 2 days ago. He states he is passing some flatus currently. Allergies Allergy/AdvReac Type Severity Reaction Status Date / Time melon Allergy Intermediate throat and Verified 09/28/21 18:08 mouth is itchy Sulfa (Sulfonamide Allergy Intermediate Hives Verified 09/28/21 18:08 Antibiotics) Home Medications Medication Instructions Recorded Confirmed Type TPN Electrolytes See Rx Instructions .ROUTE .COMPLEX 09/28/21 09/28/21 History buspirone 15 mg tablet 15 mg PO BID 09/28/21 09/28/21 History fentanyl 100 mcg/hr transdermal 1 patch TRANSDERMAL Q72H 09/28/21 09/28/21 History patch fentanyl 25 mcg/hr transdermal 1 patch TRANSDERMAL Q72H 09/28/21 09/28/21 History patch melatonin 3 mg tablet 3 mg PO HS PRN 09/28/21 09/28/21 History menthol 0.44 %-zinc oxide 20.6 % 1 applic TOPICAL TID PRN 09/28/21 09/28/21 History topical ointment (Calmoseptine) midodrine 10 mg tablet 10 mg PO TID 09/28/21 09/28/21 History nystatin 100,000 unit/gram topical 1 applic TOPICAL BID 09/28/21 09/28/21 History powder olanzapine 5 mg tablet (Zyprexa) 5 mg PO TID PRN 09/28/21 09/28/21 History ondansetron HCl 8 mg tablet 8 mg PO TID PRN 09/28/21 09/28/21 History oxycodone 15 mg tablet 15 mg PO 6XD PRN 09/28/21 09/28/21 History pantoprazole 40 mg tablet,delayed 40 mg PO DAILYBB 09/28/21 09/28/21 History release (Protonix) rifaximin 550 mg tablet (Xifaxan) 550 mg PO BID 09/28/21 09/28/21 History silodosin 8 mg capsule 8 mg PO DAILY 09/28/21 09/28/21 History Patient History Medical History Cirrhosis Colon cancer Diabetes mellitus type 2 in obese ESRD (end stage renal disease) on dialysis Recurrent urinary tract infection Small bowel obstruction Surgical History S/P hernia repair Status post right hemicolectomy Family History Brother Cancer Grandmother (Paternal) Cancer Social History Smoking Status: Never smoker Do You Dip or Chew Tobacco: Yes; Hx Alcohol Use: No Hx Substance Use: No Preferred Language: Wolof Communication Ability: Effective Sales Vendor Required: No Beliefs That Will Affect Care: None Current Living Situation: Spouse Current Living Situation Comment: Spouse and son Other Information That Helps Us Care for You: No Feels Safe at Home: Yes Safety Concerns: Feels Safe At This Time Assistive Devices: Glasses and Walker Review of Systems Review of Systems: All systems reviewed & are unremarkable except as noted in Subjective Physical Exam Constitutional: WD/WN, vitals as above Eyes: PERRL, conjunctivae normal, anicteric sclerae ENMT: external ear and nose normal, oropharynx normal Neck: trachea midline, no thyromegaly Respiratory: normal respiratory effort, lungs clear to auscultation Cardiovascular: RRR, no murmur, no edema Gastrointestinal (Abdomen): normal bowel sounds, soft, nontender, no h epatosplenomegaly Musculoskeletal: no cyanosis or clubbing, extremities motor strength 5/5 Skin: no rashes, warm and dry Neurologic: PERRL, EOMI, accommodation nl, no face palsy, no dysarthria Psychiatric: A+Ox3, euthymic affect Results & Data ([facility]) Vital Signs (Past 12 Hours) Vital Signs Temp Pulse Pulse Pulse Resp BP BP 10/11/21 07:29 78 10/11/21 07:28 36.3 C L 75 18 99/61 L 10/11/21 05:03 89 10/11/21 04:15 36.8 C 95 H 18 110/69 10/11/21 01:55 83 18 91/57 L 10/10/21 23:26 82 16 115/68 10/10/21 22:18 16 10/10/21 22:09 83 16 99/62 L 10/10/21 21:38 16 10/10/21 21:12 37.4 C 82 16 87/58 L 10/10/21 20:40 84 15 94/51 L Pulse Ox 10/11/21 07:29 10/11/21 07:28 99 10/11/21 05:03 10/11/21 04:15 98 10/11/21 01:55 97 10/10/21 23:26 96 10/10/21 22:18 10/10/21 22:09 95 10/10/21 21:38 95 10/10/21 21:12 95 10/10/21 20:[address] abd pelvis wo con CLINICAL HISTORY: fever TECHNIQUE: Helical axial images of the abdomen and pelvis were obtained. Automated dose lowering techniques and/or adjustment according to patient size were utilized for this exam. This exam was performed without intravenous contrast. CT DOSE: 1299.98 mGy.cm COMPARISON: Comparison is made to CT abdomen pelvis 09/28/2021 FINDINGS: Lower chest: Numerous groundglass opacities are seen in the right lower lung. Stable 1 cm nodule in the right lower lobe. Liver: Nodular contour of the liver is seen compatible with cirrhosis. Gallbladder and biliary tree: Post lumpectomy clips are seen in the right upper quadrant. There is a cystic density in the gallbladder fossa which may represent gallbladder remnant. No intra- or extrahepatic biliary ductal dilation. Pancreas: Fatty replacement of the pancreas is seen. Spleen: Splenomegaly is noted, the spleen measures 18 cm in length. Adrenals: Unremarkable. Kidneys and ureters: A left nephrostomy tube is seen. There is bilateral hydroureter without evidence of obstructing stone. Bladder: Schmitt catheter is seen. Reproductive organs: Unremarkable. Bowel: Redemonstration of extensive small bowel dilation, increased from prior exam. Loops measure up to 7.4 cm in diameter. Transition points are seen in the right lower quadrant proximally and distally. A gastrostomy tube is seen. Postsurgical changes are seen in the colon. Lymph nodes Retroperitoneal: Unremarkable. Mesenteric: Unremarkable. Pelvic: Unremarkable. Peritoneum: There is suggestion of vascular swirling and a small amount of fat stranding in the right lower quadrant. Vessels: Unremarkable. Abdominal wall: Soft tissue nodules are seen in the anterior abdominal wall for example a 20 mm nodule in the abdominal musculature as well as subcutaneous nodule measuring 35 mm adjacent to the surgical site. Bones: Pars defects are seen at L5-S1 with associated grade 1 anterolisthesis. There are multilevel degenerative changes in the spine. IMPRESSION: 1. Interval minimal increase in previously noted small bowel obstruction. According to the patient, this is a chronic obstruction, likely secondary to adhesions. Again noted are transition points in the right lower quadrant. No definite evidence of wall ischemia is seen by CT. 2. Patient is status post right hemicolectomy for colon cancer. There are a few soft tissue nodules in the abdominal wall and adjacent to the surgical site which are nonspecific but may represent metastatic disease. 3. Airspace opacities in the right lung base are new from prior exam and may reflect infectious/inflammatory process. 4. Stable 1 cm right lower lobe pulmonary nodule may represent metastatic disease. 5. Cirrhosis and splenomegaly. 6. Additional findings as above. PG Care Time/CCT Total # of Minutes Spent Total Time Spent with Patient: Total time spent is greater than 50% in coordination of care (as documented) at patient's floor/unit and/or counseling patient: Coding Level of Care Code 30087 Inpt Consult Level 5 Diagnoses SBO (small bowel obstruction) K56.609 Colon cancer C18.9 ESRD (end stage renal disease) on dialysis N18.6; Z99.2
[2021-10-11] MEDS: CEFEPIME 2,000 MG in SYRINGE 0 ML IV SCH (09:34)
[2021-10-11] MEDS: PROMETHAZINE HCL 12.5 MG in SODIUM CHLORIDE 0.9% 50 ML IV PRN ×2 (09:34→18:41)
[2021-10-11] MEDS: PANTOprazole 40 MG TAB PO SCH (09:35)
[2021-10-11] MEDS: rifAXIMin 550 MG TABLET PO SCH ×2 (09:56→20:28)
[2021-10-11] MEDS: CHECK fentaNYL PATCH PLACEMENT SCH ×3 (09:56→15:48)
[2021-10-11] MEDS: MIDODRINE HCL 10 MG TAB PO SCH ×3 (09:56→17:51)
[2021-10-11] MEDS: busPIRone 15 MG TAB PO SCH ×2 (09:56→20:29)
[2021-10-11 10:48] LABS: Magnesium 1.8 mg/dl (1.7-2.4); Phosphorus 2.6 mg/dl (2.5-4.9)
--- NOTE | 2021-10-11 15:12 | Hospitalist Progress Note ---
Date of Service October 11, 2021 Assessment & Plan (1) Abdominal pain: Plan: 56-year-old male, with history of metastatic colon cancer, chronic bowel obstruction, with G-tube placement, ESRD on dialysis, with nephrostomy tube placement, who usually follows with [facility], and who was however admitted here recently with Pseudomonas UTI. During his recent dialysis session, patient presented with some abdominal discomfort, possible fever, nausea and confusion. Therefore presented to ER. Fever not documented during his hospitalization. However patient has very complex medical history, as above. Surgical service was consulted for bowel obstruction. Metasul seems to be back to baseline. Urine culture obtained and pending given his recent UTI. Abdominal pain, nausea, confusion Multifactorial : SBO, chronic bowel obstruction with G-tube placement on TPN, hx metastatic colon cancer status post surgery on/off chemotherapy, chronic cancer pain on fentanyl patch Hx of Complicated UTI, poss. recurrent UTI, hx bilateral hydronephrosis status post nephrostomy tube placement, possible sepsis Medical telemetry given borderline BP Surgical service consulted, recommend to continue vent G-tube. Patient is not a surgical candidate given his complex medical history. Continue n.p.o., TPN Given history of complicated UTI, Pseudomonas UTI during his last admission, started on cefepime Urine culture, blood culture pending ESRD on HD Nephrology consult Re: Dialysis management Currently patient does not need dialysis DM2 diet-controlled, well-controlled as of recent hemoglobin A1c of 5.21 September 2021 ISS BG goal 110-140 chronic hypotension on midodrine cirrhosis, no overt decompensation pancytopenia secondary to chemotherapy/cirrhosis past alcohol abuse. DVT prophylaxis with SCDs Re: Thrombocytopenia Code status: DNR/DNI Admission and Anticipated Discharge Date Admission Date: October 11, 2021 Subjective Patient has history of metastatic colon cancer, chronic bowel obstruction, with G-tube, end-stage renal disease on dialysis, nephrostomy tube, who presents with abdominal pain, nausea, confusion, possible fever during his dialysis session Patient was recently here, treated for Pseudomonas UTI No fever noted in the hospital here Currently resting in bed, in no acute distress Is alert oriented answering questions appropriately, patient's is present at the bedside Continues to have some abdominal discomfort, however feels somewhat better Seen by surgical service, recommend to vent G-tube, continue n.p.o. status Seen by nephrology, no need for dialysis at this time Review of Systems Review of Systems: All systems reviewed & are unremarkable except as noted in Subjective Physical Exam Physical Exam: GENERAL: WD/WN M in NAD HEENT: NC/AT. Alopecia, pale palpebral conjunctivae NECK : Supple CHEST : CTAB HEART : RRR, no obvious murmurs ABDOMEN: Some distention, minimal right-sided abdominal tenderness, G-tube placed, seems to be draining appropriately EXTREMITIES : Minimal LE swelling, moves extremities : Schmitt catheter placed, with some mild bloody drainage. Nephrostomy tube placed, drains clear yellow urine. SKIN: Pallor, warm NEUROLOGIC : Alert oriented, answering questions appropriately, no facial asymmetry, moves extremities Results & Data Results & Data ([facility]) Vital Signs (Past 12 Hours) Vital Signs Temp Pulse Pulse Resp BP BP Pulse Ox 10/11/21 14:55 36.7 C 80 20 111/67 97 10/11/21 11:12 36.7 C 76 20 101/56 L 97 10/11/21 07:29 78 10/11/21 07:28 36.3 C L 75 18 99/61 L 99 10/11/21 05:03 89 10/11/21 04:15 36.8 C 95 H 18 110/69 98 Laboratory Results 10/11/21 10/11/21 10/11/21 Range/Units Unknown 11:26 07:31 WBC (4.8-10.8) K/uL RBC (4.7-6.1) M/uL Hgb (14.0-18.0) g/dL Hct (42-52) % MCV (80-100) fL MCH (25-34) pg MCHC (32-36) g/dL RDW Std Deviation (36.4-46.3) fL RDW Coeff of Deandra (11.5-14.5) % Plt Count (130-400) K/uL MPV (7.4-10.4) fL Immature Gran % (Auto) % Neut % (Auto) % Lymph % (Auto) % [place] % (Auto) % Eos % (Auto) % Baso % (Auto) % Neut # (Auto) (1.4-6.5) K/uL Lymph # (Auto) (1.2-3.4) K/uL [place] # (Auto) (0.11-0.59) K/uL Eos # (Auto) (0-0.5) K/uL Baso # (Auto) (0-0.2) K/uL Immature Gran # (Auto) (0.00-0.02) K/uL RBC Morphology PT (9.0-12.0) Seconds INR (0.9-1.1) APTT (21.0-31.0) Seconds PTT Ratio Sodium (136-145) mmol/L Potassium (3.5-5.1) mmol/L Chloride (98-107) mmol/L Carbon Dioxide (21-32) mmol/L Anion Gap (3-11) BUN (6-23) mg/dl Creatinine (0.6-1.4) mg/dl Est Cr Clr Drug Dosing ml/min Est GFR ( Amer) ml/min Est GFR (Non-Af Amer) ml/min BUN/Creatinine Ratio (10-20) Glucose (70-99(Fasting)) mg/dl POC Glucose 86 84 (70-99) mg/dl Lactate (0.4-2.0) mmol/L Calcium (8.5-10.1) mg/dl Phosphorus (2.5-4.9) mg/dl Magnesium (1.7-2.4) mg/dl Total Bilirubin (0.2-1.0) mg/dl AST (13-39) U/L ALT (7-52) U/L Alkaline Phosphatase (34-104) U/L Troponin I High Sens (0-20) pg/ml Total Protein (6.0-8.3) gm/dl Albumin (3.4-5.0) gm/dl Globulin (2.5-4.0) gm/dl Albumin/Globulin Ratio (0.9-2) Procalcitonin (0-0.5) ng/ml TSH (0.300-4.500) uIu/ml Urine Color Urine Appearance (Clear) Urine pH (4.5-7.5) Ur Specific [place] (1.000-1.030) Urine Protein (Negative) Urine Glucose (UA) (Negative) Urine Ketones (Negative) Urine Blood (Negative) Urine Nitrite (Negative) Urine Bilirubin (Negative) Urine Urobilinogen (Negative) Ur Leukocyte Esterase (Negative) Urine WBC (Auto) (0-5) /hpf Urine RBC (Auto) (0-4) /hpf U Hyaline Cast (Auto) (0-5) /lpf U Epithel Cells (Auto) (0-5) /lpf Urine Bacteria (Auto) (Negative) Urine Yeast Nasal Screen MRSA (PCR) Negative (Negative) SARS-CoV-2, RNA, NAAT (NEGATIVE) 10/11/21 10/11/21 10/11/21 Range/Units 06:18 06:18 06:18 WBC 2.73 L (4.8-10.8) K/uL RBC 2.49 L (4.7-6.1) M/uL Hgb 7.6 L (14.0-18.0) g/dL Hct 23.6 L (42-52) % MCV 94.8 (80-100) fL MCH 30.5 (25-34) pg MCHC 32.2 (32-36) g/dL RDW Std Deviation 54.1 H (36.4-46.3) fL RDW Coeff of Deandra 15.6 H (11.5-14.5) % Plt Count 52 L (130-400) K/uL MPV 11.0 H (7.4-10.4) fL Immature Gran % (Auto) 0.0 % Neut % (Auto) 67.7 % Lymph % (Auto) 14.7 % [place] % (Auto) 15.4 % Eos % (Auto) 2.2 % Baso % (Auto) 0.0 % Neut # (Auto) 1.85 (1.4-6.5) K/uL Lymph # (Auto) 0.40 L (1.2-3.4) K/uL [place] # (Auto) 0.42 (0.11-0.59) K/uL Eos # (Auto) 0.06 (0-0.5) K/uL Baso # (Auto) 0.00 (0-0.2) K/uL Immature Gran # (Auto) 0.00 (0.00-0.02) K/uL RBC Morphology Unremarkable PT (9.0-12.0) Seconds INR (0.9-1.1) APTT (21.0-31.0) Seconds PTT Ratio Sodium 137 (136-145) mmol/L Potassium 4.0 (3.5-5.1) mmol/L Chloride 103 (98-107) mmol/L Carbon Dioxide 29 (21-32) mmol/L Anion Gap 5 (3-11) BUN 39 H (6-23) mg/dl Creatinine 2.94 H D (0.6-1.4) mg/dl Est Cr Clr Drug Dosing 36.0 ml/min Est GFR ( Amer) 26.0 ml/min Est GFR (Non-Af Amer) 22.4 ml/min BUN/Creatinine Ratio 13.3 (10-20) Glucose 81 (70-99(Fasting)) mg/dl POC Glucose (70-99) mg/dl Lactate (0.4-2.0) mmol/L Calcium 8.4 L (8.5-10.1) mg/dl Phosphorus 2.6 (2.5-4.9) mg/dl Magnesium 1.8 (1.7-2.4) mg/dl Total Bilirubin (0.2-1.0) mg/dl AST (13-39) U/L ALT (7-52) U/L Alkaline Phosphatase (34-104) U/L Troponin I High Sens (0-20) pg/ml Total Protein (6.0-8.3) gm/dl Albumin (3.4-5.0) gm/dl Globulin (2.5-4.0) gm/dl Albumin/Globulin Ratio (0.9-2) Procalcitonin (0-0.5) ng/ml TSH (0.300-4.500) uIu/ml Urine Color Urine Appearance (Clear) Urine pH (4.5-7.5) Ur Specific [place] (1.000-1.030) Urine Protein (Negative) Urine Glucose (UA) (Negative) Urine Ketones (Negative) Urine Blood (Negative) Urine Nitrite (Negative) Urine Bilirubin (Negative) Urine Urobilinogen (Negative) Ur Leukocyte Esterase (Negative) Urine WBC (Auto) (0-5) /hpf Urine RBC (Auto) (0-4) /hpf U Hyaline Cast (Auto) (0-5) /lpf U Epithel Cells (Auto) (0-5) /lpf Urine Bacteria (Auto) (Negative) Urine Yeast Nasal Screen MRSA (PCR) (Negative) SARS-CoV-2, RNA, NAAT (NEGATIVE) 10/11/21 10/10/21 10/10/21 Range/Units 03:15 19:37 19:35 WBC (4.8-10.8) K/uL RBC (4.7-6.1) M/uL Hgb (14.0-18.0) g/dL Hct (42-52) % MCV (80-100) fL MCH (25-34) pg MCHC (32-36) g/dL RDW Std Deviation (36.4-46.3) fL RDW Coeff of Deandra (11.5-14.5) % Plt Count (130-400) K/uL MPV (7.4-10.4) fL Immature Gran % (Auto) % Neut % (Auto) % Lymph % (Auto) % [place] % (Auto) % Eos % (Auto) % Baso % (Auto) % Neut # (Auto) (1.4-6.5) K/uL Lymph # (Auto) (1.2-3.4) K/uL [place] # (Auto) (0.11-0.59) K/uL Eos # (Auto) (0-0.5) K/uL Baso # (Auto) (0-0.2) K/uL Immature Gran # (Auto) (0.00-0.02) K/uL RBC Morphology PT (9.0-12.0) Seconds INR (0.9-1.1) APTT (21.0-31.0) Seconds PTT Ratio Sodium (136-145) mmol/L Potassium (3.5-5.1) mmol/L Chloride (98-107) mmol/L Carbon Dioxide (21-32) mmol/L Anion Gap (3-11) BUN (6-23) mg/dl Creatinine (0.6-1.4) mg/dl Est Cr Clr Drug Dosing ml/min Est GFR ( Amer) ml/min Est GFR (Non-Af Amer) ml/min BUN/Creatinine Ratio (10-20) Glucose (70-99(Fasting)) mg/dl POC Glucose 80 (70-99) mg/dl Lactate (0.4-2.0) mmol/L Calcium (8.5-10.1) mg/dl Phosphorus (2.5-4.9) mg/dl Magnesium (1.7-2.4) mg/dl Total Bilirubin (0.2-1.0) mg/dl AST (13-39) U/L ALT (7-52) U/L Alkaline Phosphatase (34-104) U/L Troponin I High Sens (0-20) pg/ml Total Protein (6.0-8.3) gm/dl Albumin (3.4-5.0) gm/dl Globulin (2.5-4.0) gm/dl Albumin/Globulin Ratio (0.9-2) Procalcitonin (0-0.5) ng/ml TSH (0.300-4.500) uIu/ml Urine Color Red Urine Appearance Cloudy A (Clear) Urine pH 8.0 H (4.5-7.5) Ur Specific [place] 1.011 (1.000-1.030) Urine Protein 4+ H (Negative) Urine Glucose (UA) Negative (Negative) Urine Ketones Negative (Negative) Urine Blood 3+ H (Negative) Urine Nitrite Negative (Negative) Urine Bilirubin Negative (Negative) Urine Urobilinogen Negative (Negative) Ur Leukocyte Esterase 2+ H (Negative) Urine WBC (Auto) >30 H (0-5) /hpf Urine RBC (Auto) >30 H (0-4) /hpf U Hyaline Cast (Auto) 0 (0-5) /lpf U Epithel Cells (Auto) 10-20 H (0-5) /lpf Urine Bacteria (Auto) Negative (Negative) Urine Yeast Not Reportable Nasal Screen MRSA (PCR) (Negative) SARS-CoV-2, RNA, NAAT NEGATIVE (NEGATIVE) 10/10/21 10/10/21 10/10/21 Range/Units 19:30 19:30 19:30 WBC (4.8-10.8) K/uL RBC (4.7-6.1) M/uL Hgb (14.0-18.0) g/dL Hct (42-52) % MCV (80-100) fL MCH (25-34) pg MCHC (32-36) g/dL RDW Std Deviation (36.4-46.3) fL RDW Coeff of Deandra (11.5-14.5) % Plt Count (130-400) K/uL MPV (7.4-10.4) fL Immature Gran % (Auto) % Neut % (Auto) % Lymph % (Auto) % [place] % (Auto) % Eos % (Auto) % Baso % (Auto) % Neut # (Auto) (1.4-6.5) K/uL Lymph # (Auto) (1.2-3.4) K/uL [place] # (Auto) (0.11-0.59) K/uL Eos # (Auto) (0-0.5) K/uL Baso # (Auto) (0-0.2) K/uL Immature Gran # (Auto) (0.00-0.02) K/uL RBC Morphology PT (9.0-12.0) Seconds INR (0.9-1.1) APTT (21.0-31.0) Seconds PTT Ratio Sodium (136-145) mmol/L Potassium (3.5-5.1) mmol/L Chloride (98-107) mmol/L Carbon Dioxide (21-32) mmol/L Anion Gap (3-11) BUN (6-23) mg/dl Creatinine (0.6-1.4) mg/dl Est Cr Clr Drug Dosing ml/min Est GFR ( Amer) ml/min Est GFR (Non-Af Amer) ml/min BUN/Creatinine Ratio (10-20) Glucose (70-99(Fasting)) mg/dl POC Glucose (70-99) mg/dl Lactate (0.4-2.0) mmol/L Calcium (8.5-10.1) mg/dl Phosphorus (2.5-4.9) mg/dl Magnesium (1.7-2.4) mg/dl Total Bilirubin (0.2-1.0) mg/dl AST (13-39) U/L ALT (7-52) U/L Alkaline Phosphatase (34-104) U/L Troponin I High Sens (0-20) pg/ml Total Protein (6.0-8.3) gm/dl Albumin (3.4-5.0) gm/dl Globulin (2.5-4.0) gm/dl Albumin/Globulin Ratio (0.9-2) Procalcitonin 1.28 H (0-0.5) ng/ml TSH 3.021 (0.300-4.500) uIu/ml Urine Color Dark Yellow Urine Appearance Turbid A (Clear) Urine pH 7.5 (4.5-7.5) Ur Specific [place] 1.013 (1.000-1.030) Urine Protein 2+ H (Negative) Urine Glucose (UA) Negative (Negative) Urine Ketones Negative (Negative) Urine Blood 3+ H (Negative) Urine Nitrite Negative (Negative) Urine Bilirubin Negative (Negative) Urine Urobilinogen Negative (Negative) Ur Leukocyte Esterase 3+ H (Negative) Urine WBC (Auto) >30 H (0-5) /hpf Urine RBC (Auto) 5-10 H (0-4) /hpf U Hyaline Cast (Auto) 5-10 H (0-5) /lpf U Epithel Cells (Auto) 10-20 H (0-5) /lpf Urine Bacteria (Auto) 1+ H (Negative) Urine Yeast Not Reportable Nasal Screen MRSA (PCR) (Negative) SARS-CoV-2, RNA, NAAT (NEGATIVE) 10/10/21 10/10/21 10/10/21 Range/Units 19:30 19:30 19:30 WBC (4.8-10.8) K/uL RBC (4.7-6.1) M/uL Hgb (14.0-18.0) g/dL Hct (42-52) % MCV (80-100) fL MCH (25-34) pg MCHC (32-36) g/dL RDW Std Deviation (36.4-46.3) fL RDW Coeff of Deandra (11.5-14.5) % Plt Count (130-400) K/uL MPV (7.4-10.4) fL Immature Gran % (Auto) % Neut % (Auto) % Lymph % (Auto) % [place] % (Auto) % Eos % (Auto) % Baso % (Auto) % Neut # (Auto) (1.4-6.5) K/uL Lymph # (Auto) (1.2-3.4) K/uL [place] # (Auto) (0.11-0.59) K/uL Eos # (Auto) (0-0.5) K/uL Baso # (Auto) (0-0.2) K/uL Immature Gran # (Auto) (0.00-0.02) K/uL RBC Morphology PT 13.6 H (9.0-12.0) Seconds INR 1.3 H (0.9-1.1) APTT 36.2 H (21.0-31.0) Seconds PTT Ratio 1.3 Sodium 136 (136-145) mmol/L Potassium 4.0 (3.5-5.1) mmol/L Chloride 102 (98-107) mmol/L Carbon Dioxide 27 (21-32) mmol/L Anion Gap 7 (3-11) BUN 34 H (6-23) mg/dl Creatinine 2.51 H (0.6-1.4) mg/dl Est Cr Clr Drug Dosing 38.3 ml/min Est GFR ( Amer) 31.5 ml/min Est GFR (Non-Af Amer) 27.1 ml/min BUN/Creatinine Ratio 13.5 (10-20) Glucose 107 H (70-99(Fasting)) mg/dl POC Glucose (70-99) mg/dl Lactate 2.0 (0.4-2.0) mmol/L Calcium 8.7 (8.5-10.1) mg/dl Phosphorus (2.5-4.9) mg/dl Magnesium 1.8 (1.7-2.4) mg/dl Total Bilirubin 1.6 H (0.2-1.0) mg/dl AST 49 H (13-39) U/L ALT 31 (7-52) U/L Alkaline Phosphatase 243 H (34-104) U/L Troponin I High Sens 9.8 (0-20) pg/ml Total Protein 6.4 (6.0-8.3) gm/dl Albumin 3.1 L (3.4-5.0) gm/dl Globulin 3.3 (2.5-4.0) gm/dl Albumin/Globulin Ratio 0.9 (0.9-2) Procalcitonin (0-0.5) ng/ml TSH (0.300-4.500) uIu/ml Urine Color Urine Appearance (Clear) Urine pH (4.5-7.5) Ur Specific [place] (1.000-1.030) Urine Protein (Negative) Urine Glucose (UA) (Negative) Urine Ketones (Negative) Urine Blood (Negative) Urine Nitrite (Negative) Urine Bilirubin (Negative) Urine Urobilinogen (Negative) Ur Leukocyte Esterase (Negative) Urine WBC (Auto) (0-5) /hpf Urine RBC (Auto) (0-4) /hpf U Hyaline Cast (Auto) (0-5) /lpf U Epithel Cells (Auto) (0-5) /lpf Urine Bacteria (Auto) (Negative) Urine Yeast Nasal Screen MRSA (PCR) (Negative) SARS-CoV-2, RNA, NAAT (NEGATIVE) 10/10/21 Range/Units 19:30 WBC 7.43 (4.8-10.8) K/uL RBC 3.43 L (4.7-6.1) M/uL Hgb 10.4 L (14.0-18.0) g/dL Hct 31.9 L (42-52) % MCV 93.0 (80-100) fL MCH 30.3 (25-34) pg MCHC 32.6 (32-36) g/dL RDW Std Deviation 52.1 H (36.4-46.3) fL RDW Coeff of Deandra 15.4 H (11.5-14.5) % Plt Count 78 L (130-400) K/uL MPV 10.9 H (7.4-10.4) fL Immature Gran % (Auto) 0.1 % Neut % (Auto) 87.8 % Lymph % (Auto) 4.2 % [place] % (Auto) 7.7 % Eos % (Auto) 0.1 % Baso % (Auto) 0.1 % Neut # (Auto) 6.52 H (1.4-6.5) K/uL Lymph # (Auto) 0.31 L (1.2-3.4) K/uL [place] # (Auto) 0.57 (0.11-0.59) K/uL Eos # (Auto) 0.01 (0-0.5) K/uL Baso # (Auto) 0.01 (0-0.2) K/uL Immature Gran # (Auto) 0.01 (0.00-0.02) K/uL RBC Morphology PT (9.0-12.0) Seconds INR (0.9-1.1) APTT (21.0-31.0) Seconds PTT Ratio Sodium (136-145) mmol/L Potassium (3.5-5.1) mmol/L Chloride (98-107) mmol/L Carbon Dioxide (21-32) mmol/L Anion Gap (3-11) BUN (6-23) mg/dl Creatinine (0.6-1.4) mg/dl Est Cr Clr Drug Dosing ml/min Est GFR ( Amer) ml/min Est GFR (Non-Af Amer) ml/min BUN/Creatinine Ratio (10-20) Glucose (70-99(Fasting)) mg/dl POC Glucose (70-99) mg/dl Lactate (0.4-2.0) mmol/L Calcium (8.5-10.1) mg/dl Phosphorus (2.5-4.9) mg/dl Magnesium (1.7-2.4) mg/dl Total Bilirubin (0.2-1.0) mg/dl AST (13-39) U/L ALT (7-52) U/L Alkaline Phosphatase (34-104) U/L Troponin I High Sens (0-20) pg/ml Total Protein (6.0-8.3) gm/dl Albumin (3.4-5.0) gm/dl Globulin (2.5-4.0) gm/dl Albumin/Globulin Ratio (0.9-2) Procalcitonin (0-0.5) ng/ml TSH (0.300-4.500) uIu/ml Urine Color Urine Appearance (Clear) Urine pH (4.5-7.5) Ur Specific [place] (1.000-1.030) Urine Protein (Negative) Urine Glucose (UA) (Negative) Urine Ketones (Negative) Urine Blood (Negative) Urine Nitrite (Negative) Urine Bilirubin (Negative) Urine Urobilinogen (Negative) Ur Leukocyte Esterase (Negative) Urine WBC (Auto) (0-5) /hpf Urine RBC (Auto) (0-4) /hpf U Hyaline Cast (Auto) (0-5) /lpf U Epithel Cells (Auto) (0-5) /lpf Urine Bacteria (Auto) (Negative) Urine Yeast Nasal Screen MRSA (PCR) (Negative) SARS-CoV-2, RNA, NAAT (NEGATIVE)
[2021-10-11] MEDS: ONDANSETRON INJ 2 MG/ML 2 ML VIAL IV PRN (15:44)
--- NOTE | 2021-10-11 15:57 | Nephrology Consultation ---
Date of Consultation October 11, 2021 Assessment & Plan (1) ESRD (end stage renal disease) on dialysis: Patient is on HD MWF. Last outpt HD was Wednesday. Electrolytes are stable and no signs of volume overload. No need for HD today. -Next HD likely Wednesday (2) SBO (small bowel obstruction): Patient is NPO. Okay to give fluids but avoid volume overload. No UF on Wednesday History of Present Illness Reason for Consultation: ESRD and SBO Requesting Physician: Coy Collazo MD Attending Physician: Coy Collazo MD History of Present Illness This is a 56yoM with ESRD on HD MWF who was admitted with abdominal pain found to have SBO. he is being seen for dialysis support. Medical history significant for metastatic colon cancer status post surgery ongoing chemotherapy, bilateral hydronephrosis status post nephrostomy tube placement, ESRD on HD, chronic cancer pain on fentanyl patch, DM2 diet-controlled, chronic bowel obstruction with G-tube placement on TPN, chronic hypotension on midodrine, cirrhosis, pancytopenia, past alcohol abuse. Recent admission September 28-2021 for sepsis secondary to complicated UTI (Pseudomonas) status post antibiotic Rx. He still c/o abdominal pain but less than when he came. he is NPO. Surgery recommending conservative management. he had his HD outpt on Wednesday but needed 500ml saline bolus due to tachycardia. Allergies Allergy/AdvReac Type Severity Reaction Status Date / Time melon Allergy Intermediate throat and Verified 09/28/21 18:08 mouth is itchy Sulfa (Sulfonamide Allergy Intermediate Hives Verified 09/28/21 18:08 Antibiotics) Home Medications Medication Instructions Recorded Confirmed Type TPN Electrolytes See Rx Instructions .ROUTE .COMPLEX 09/28/21 09/28/21 History buspirone 15 mg tablet 15 mg PO BID 09/28/21 09/28/21 History fentanyl 100 mcg/hr transdermal 1 patch TRANSDERMAL Q72H 09/28/21 09/28/21 History patch fentanyl 25 mcg/hr transdermal 1 patch TRANSDERMAL Q72H 09/28/21 09/28/21 History patch melatonin 3 mg tablet 3 mg PO HS PRN 09/28/21 09/28/21 History menthol 0.44 %-zinc oxide 20.6 % 1 applic TOPICAL TID PRN 09/28/21 09/28/21 History topical ointment (Calmoseptine) midodrine 10 mg tablet 10 mg PO TID 09/28/21 09/28/21 History nystatin 100,000 unit/gram topical 1 applic TOPICAL BID 09/28/21 09/28/21 History powder olanzapine 5 mg tablet (Zyprexa) 5 mg PO TID PRN 09/28/21 09/28/21 History ondansetron HCl 8 mg tablet 8 mg PO TID PRN 09/28/21 09/28/21 History oxycodone 15 mg tablet 15 mg PO 6XD PRN 09/28/21 09/28/21 History pantoprazole 40 mg tablet,delayed 40 mg PO DAILYBB 09/28/21 09/28/21 History release (Protonix) rifaximin 550 mg tablet (Xifaxan) 550 mg PO BID 09/28/21 09/28/21 History silodosin 8 mg capsule 8 mg PO DAILY 09/28/21 09/28/21 History Patient History Medical History Cirrhosis Colon cancer Diabetes mellitus type 2 in obese ESRD (end stage renal disease) on dialysis Recurrent urinary tract infection Small bowel obstruction Surgical History S/P hernia repair Status post right hemicolectomy Family History Brother Cancer Grandmother (Paternal) Cancer Social History Smoking Status: Never smoker Do You Dip or Chew Tobacco: Yes; Hx Alcohol Use: No Hx Substance Use: No Preferred Language: Montene[place]in Communication Ability: Effective Financial Reporting Manager Required: No Beliefs That Will Affect Care: None Current Living Situation: Spouse Current Living Situation Comment: Spouse and son Other Information That Helps Us Care for You: No Feels Safe at Home: Yes Safety Concerns: Feels Safe At This Time Assistive Devices: Glasses and Walker Review of Systems Review of Systems: All other systems were reviewed and negative except as noted in HPI Physical Exam Physical Exam: General exam: Appears comfortable, no acute distress HEENT: Pupils are equal and reactive to light Neck: No JVD, neck is supple trachea is midline Respiratory system: Clear breath sounds bilaterally. Gastrointestinal: Abdomen is soft, non distended, non tender, bowel sounds are present CVS: Regular rate and rhythm. No murmurs, rubs or gallops Musculoskeletal: No joint or muscle tenderness Extremities: Non tender, no edema, peripheral pulses are present Neuro: Oriented, no tremors, no focal neurological deficits Skin: No rashes Results & Data ([facility]) Vital Signs (Past 12 Hours) Vital Signs Temp Pulse Pulse Resp BP BP Pulse Ox 10/11/21 14:55 36.7 C 80 20 111/67 97 10/11/21 11:12 36.7 C 76 20 101/56 L 97 10/11/21 07:29 78 10/11/21 07:28 36.3 C L 75 18 99/61 L 99 10/11/21 05:03 89 10/11/21 04:15 36.8 C 95 H 18 110/69 98 Laboratory Results 10/11/21 06:18 10/10/21 10/10/21 10/11/21 19:30 19:30 06:18 WBC 7.43 2.73 L RBC 3.43 L 2.49 L MCV 93.0 94.8 MCH 30.3 30.5 MCHC 32.6 32.2 RDW Std Deviation 52.1 H 54.1 H RDW Coeff of Deandra 15.4 H 15.6 H Plt Count 78 L 52 L MPV 10.9 H 11.0 H Phosphorus Albumin 3.1 L 10/11/21 06:18 WBC RBC MCV MCH MCHC RDW Std Deviation RDW Coeff of Deandra Plt Count MPV Phosphorus 2.6 Albumin
[2021-10-11] MEDS ORDERED: AMINO ACID 8% IV SCH (20:00)
[2021-10-11] MEDS ORDERED: [UNRECOGNIZED DRUG - OTHER] IV SCH (20:00)
[2021-10-11] MEDS ORDERED: CLINOLIPID 20% IV SCH (20:00)
[2021-10-11] MEDS ORDERED: CENTRAL TPN IV SCH (20:00)
[2021-10-11] MEDS ORDERED: FAT EMULSION IV SCH (20:00)
[2021-10-11] MEDS: TPN RATE CHANGE SCH (22:43)
[2021-10-12] MEDS: CHECK fentaNYL PATCH PLACEMENT SCH ×8 (00:35→23:33)
[2021-10-12] MEDS: INSULIN ASPART PER UNIT SC SCH ×4 (00:35→18:18)
[2021-10-12] MEDS: oxyCODONE HCL IR 5 MG TAB (IMMEDIATE RELEASE) PO PRN ×4 (00:58→22:07)
[2021-10-12] MEDS: ONDANSETRON INJ 2 MG/ML 2 ML VIAL IV PRN ×3 (01:57→21:44)
[2021-10-12] MEDS: ALBUMIN 25% 12.5 GM/50 ML VIAL IV SCH ×4 (02:01→17:38)
[2021-10-12] MEDS: STOP CLINOLIPID SCH (02:19)
[2021-10-12 05:45] LABS: Hematocrit (blood only) 24.7 % (42-52); Mean Corpuscular Hgb Conc 32.4 g/dL (32-36); Mean Corpuscular Volume 95.7 fL (80-100); RDW Coefficient of Variation 14.9 % (11.5-14.5); RDW Standard Deviation 52.4 fL (36.4-46.3); Red Blood Count 2.58 M/uL (4.7-6.1); White Blood Count 2.02 K/uL (4.8-10.8)
[2021-10-12 05:59] LABS: Creatinine Clr Calc Pharmacy 26.4 ml/min; Est GFR (African American) 17.9 ml/min; Est GFR (Non-African American) 15.4 ml/min; Magnesium 1.8 mg/dl (1.7-2.4); Phosphorus 2.4 mg/dl (2.5-4.9); Potassium 3.8 mmol/L (3.5-5.1)
[2021-10-12 06:09] LABS: Mean Platelet Volume 10.8 fL (7.4-10.4); Platelet Count 64 K/uL (130-400); Platelet Estimate Decreased (Normal)
[2021-10-12] MEDS: PANTOprazole 40 MG TAB PO SCH (06:11)
[2021-10-12] MEDS: TPN RATE CHANGE SCH ×2 (07:02→23:32)
[2021-10-12] MEDS: MIDODRINE HCL 10 MG TAB PO SCH ×3 (08:57→16:50)
[2021-10-12] MEDS: rifAXIMin 550 MG TABLET PO SCH ×2 (08:58→22:00)
[2021-10-12] MEDS: busPIRone 15 MG TAB PO SCH ×2 (08:58→22:00)
[2021-10-12] MEDS: DOCUSATE SODIUM/SENNA 50/8.6MG TAB PO SCH ×2 (08:58→21:59)
--- NOTE | 2021-10-12 09:01 | Surgery Progress Note ---
Date of Service October 12, 2021 Assessment & Plan (1) SBO (small bowel obstruction): Plan: Would continue to vent his G-tube to gravity and continue his TPN He does not eat any solid food at baseline as an outpatient, I am okay with giving him water and keeping the G-tube to gravity He is not a surgical candidate due to his metastatic colon cancer, end-stage renal disease, alcoholic cirrhosis and active chemotherapy Agree with pursuing palliative care consult for goals of care discussion Surgery will sign off at this time, please call with any questions or concerns (2) Colon cancer: (3) ESRD (end stage renal disease) on dialysis: Admission and Anticipated Discharge Date Admission Date: October 11, 2021 Subjective Patient seen and examined. Less abdominal pain. No nausea or vomiting. No flatus or BM. Afebrile. Review of Systems Constitutional: no fever and no chills Physical Exam Constitutional: WD/WN, vitals as above Gastrointestinal (Abdomen): Inspection/Auscultation: abdomen not distended Soft, minimal tenderness generalized G-tube in place draining bilious fluid Results & Data ([facility]) Vital Signs (Past 12 Hours) Vital Signs Temp Pulse Pulse Resp BP BP Pulse Ox 10/12/21 07:51 37.3 C 82 18 116/70 98 10/12/21 07:25 84 10/12/21 03:01 37.1 C 87 20 124/69 97 10/12/21 00:36 36.9 C 82 20 112/62 94 10/11/21 22:20 76 10/11/21 22:16 36.8 C 80 18 111/67 94 PG Care Time/CCT Total # of Minutes Spent Total Time Spent with Patient: Total time spent is greater than 50% in coordination of care (as documented) at patient's floor/unit and/or counseling patient: Coding Level of Care Code 08598 Subseq Hosp Care Lvl 1 Diagnoses SBO (small bowel obstruction) K56.609 Colon cancer C18.9 ESRD (end stage renal disease) on dialysis N18.6; Z99.2
[2021-10-12] MEDS: CEFEPIME 2,000 MG in SYRINGE 0 ML IV SCH (09:06)
--- NOTE | 2021-10-12 09:17 | Hospitalist Progress Note ---
Date of Service October 12, 2021 Assessment & Plan (1) Abdominal pain: Plan: 56 yo M, with history of metastatic colon cancer, chronic bowel obstruction, with G-tube placement, ESRD on dialysis, with nephrostomy tube placement, who usually follows with [facility], and who was however admitted here recently with Pseudomonas UTI. During his recent dialysis session, patient presented with some abdominal discomfort, possible fever, nausea and confusion. Therefore presented to ER. Fever not documented during his hospitalization. However patient has a very complex medical history, as above. Surgical service was consulted for bowel obstruction. Mental status seems to be back to baseline. Urine culture obtained and pending given his recent UTI. Abdominal pain, nausea, confusion Multifactorial : SBO, chronic bowel obstruction with G-tube placement on TPN, hx metastatic colon cancer status post surgery on/off chemotherapy, chronic cancer pain on fentanyl patch Hx of Complicated UTI, poss. recurrent UTI, hx bilateral hydronephrosis status post nephrostomy tube placement, possible sepsis Medical telemetry given borderline BP Surgical service consulted, recommend to continue vent G-tube. Patient is not a surgical candidate given his complex medical history. Continue n.p.o., TPN Given history of complicated UTI, Pseudomonas UTI during his last admission, started on cefepime Urine culture, blood culture pending Urine cultx positive for GNB - cont. Abx, await final cultx He is supposed to have his nephrostomy tube exchanged on at [place]. ESRD on HD Nephrology consult Re: Dialysis management Currently patient does not need dialysis DM2 diet-controlled, well-controlled as of recent hemoglobin A1c of 5.21 September 2021 ISS BG goal 110-140 chronic hypotension on midodrine cirrhosis, no overt decompensation pancytopenia secondary to chemotherapy/cirrhosis, Neutropenic precautions ordered past alcohol abuse. DVT prophylaxis with SCDs Re: Thrombocytopenia Code status: DNR/DNI Admission and Anticipated Discharge Date Admission Date: October 11, 2021 Subjective Patient has history of metastatic colon cancer, chronic bowel obstruction, with G-tube, end-stage renal disease on dialysis, nephrostomy tube, who presents with abdominal pain, nausea, confusion, possible fever during his dialysis session Patient was recently here, treated for Pseudomonas UTI No fever noted in the hospital here Currently resting in bed, in no acute distress Is alert oriented answering questions appropriately, patient's is present at the bedside Continues to have some abdominal discomfort, however feels better. He is tired. Seen by surgical service, recommend to vent G-tube, continue n.p.o. status Seen by nephrology, no need for dialysis at this time Review of Systems Review of Systems: All systems reviewed & are unremarkable except as noted in Subjective Physical Exam Physical Exam: GENERAL: WD/WN M in NAD HEENT: NC/AT. Alopecia, pale palpebral conjunctivae NECK : Supple CHEST : CTAB HEART : RRR, no obvious murmurs ABDOMEN: Soft, + distention, minimal right-sided abdominal tenderness, G-tube placed, seems to be draining appropriately EXTREMITIES : Minimal LE swelling, moves extremities : Schmitt catheter placed, with some mild bloody drainage. Nephrostomy tube placed, drains clear yellow urine. SKIN: Pallor, warm NEUROLOGIC : Alert oriented, answering questions appropriately, no facial asymmetry, moves extremities Results & Data Results & Data ([facility]) Vital Signs (Past 12 Hours) Vital Signs Temp Pulse Pulse Resp BP BP Pulse Ox 10/12/21 07:51 37.3 C 82 18 116/70 98 10/12/21 07:25 84 10/12/21 03:01 37.1 C 87 20 124/69 97 10/12/21 00:36 36.9 C 82 20 112/62 94 10/11/21 22:20 76 10/11/21 22:16 36.8 C 80 18 111/67 94 Laboratory Results 10/12/21 10/12/21 10/12/21 Range/Units 07:40 06:02 05:29 WBC (4.8-10.8) K/uL RBC (4.7-6.1) M/uL Hgb (14.0-18.0) g/dL Hct (42-52) % MCV (80-100) fL MCH (25-34) pg MCHC (32-36) g/dL RDW Std Deviation (36.4-46.3) fL RDW Coeff of Deandra (11.5-14.5) % Plt Count (130-400) K/uL MPV (7.4-10.4) fL Platelet Estimate (Normal) Sodium (136-145) mmol/L Potassium (3.5-5.1) mmol/L Chloride (98-107) mmol/L Carbon Dioxide (21-32) mmol/L Anion Gap (3-11) BUN (6-23) mg/dl Creatinine (0.6-1.4) mg/dl Est Cr Clr Drug Dosing ml/min Est GFR ( Amer) ml/min Est GFR (Non-Af Amer) ml/min BUN/Creatinine Ratio (10-20) Glucose (70-99(Fasting)) mg/dl POC Glucose 124 H 170 H (70-99) mg/dl Calcium (8.5-10.1) mg/dl Phosphorus (2.5-4.9) mg/dl Magnesium (1.7-2.4) mg/dl Ammonia 25.0 (18-72) umol/L Triglycerides (0-150) mg/dl 10/12/21 10/12/21 10/12/21 Range/Units 05:29 05:29 00:33 WBC 2.02 L (4.8-10.8) K/uL RBC 2.58 L (4.7-6.1) M/uL Hgb 8.0 L (14.0-18.0) g/dL Hct 24.7 L (42-52) % MCV 95.7 (80-100) fL MCH 31.0 (25-34) pg MCHC 32.4 (32-36) g/dL RDW Std Deviation 52.4 H (36.4-46.3) fL RDW Coeff of Deandra 14.9 H (11.5-14.5) % Plt Count 64 L (130-400) K/uL MPV 10.8 H (7.4-10.4) fL Platelet Estimate Decreased L (Normal) Sodium 137 (136-145) mmol/L Potassium 3.8 (3.5-5.1) mmol/L Chloride 102 (98-107) mmol/L Carbon Dioxide 29 (21-32) mmol/L Anion Gap 6 (3-11) BUN 56 H (6-23) mg/dl Creatinine 4.01 H D (0.6-1.4) mg/dl Est Cr Clr Drug Dosing 26.4 ml/min Est GFR ( Amer) 17.9 ml/min Est GFR (Non-Af Amer) 15.4 ml/min BUN/Creatinine Ratio 14.0 (10-20) Glucose 144 H (70-99(Fasting)) mg/dl POC Glucose 121 H (70-99) mg/dl Calcium 9.0 (8.5-10.1) mg/dl Phosphorus 2.4 L (2.5-4.9) mg/dl Magnesium 1.8 (1.7-2.4) mg/dl Ammonia (18-72) umol/L Triglycerides 146 (0-150) mg/dl 10/11/21 10/11/21 10/11/21 Range/Units 18:03 11:26 06:18 WBC (4.8-10.8) K/uL RBC (4.7-6.1) M/uL Hgb (14.0-18.0) g/dL Hct (42-52) % MCV (80-100) fL MCH (25-34) pg MCHC (32-36) g/dL RDW Std Deviation (36.4-46.3) fL RDW Coeff of Deandra (11.5-14.5) % Plt Count (130-400) K/uL MPV (7.4-10.4) fL Platelet Estimate (Normal) Sodium (136-145) mmol/L Potassium (3.5-5.1) mmol/L Chloride (98-107) mmol/L Carbon Dioxide (21-32) mmol/L Anion Gap (3-11) BUN (6-23) mg/dl Creatinine (0.6-1.4) mg/dl Est Cr Clr Drug Dosing ml/min Est GFR ( Amer) ml/min Est GFR (Non-Af Amer) ml/min BUN/Creatinine Ratio (10-20) Glucose (70-99(Fasting)) mg/dl POC Glucose 75 86 (70-99) mg/dl Calcium (8.5-10.1) mg/dl Phosphorus 2.6 (2.5-4.9) mg/dl Magnesium 1.8 (1.7-2.4) mg/dl Ammonia (18-72) umol/L Triglycerides (0-150) mg/dl Medications Administered Current Inpatient Medications Acetaminophen (Acetaminophen 325 Mg Tab) 325 mg PO Q6H PRN PRN Reason: Mild Pain Stop: 11/10/21 02:32 Buspirone HCl (Buspirone 15 Mg Tab) 15 mg PO BID [facility] Stop: 11/10/21 08:59 Last Admin: 10/12/21 08:58 Dose: 15 mg Documented by: Dextrose (Dextrose 50% 50 Ml Syringe) 25 - 50 ml IV UD PRN; Protocol PRN Reason: Hypoglycemia Protocol Stop: 11/10/21 02:32 Fentanyl (Fentanyl 100 Mcg/Hr Tdsy) 100 mcg TD Q72H [facility] Stop: 10/26/21 20:59 Fentanyl (Fentanyl 25 Mcg/Hr Tdsy) 25 mcg TD Q72H [facility] Stop: 10/26/21 20:59 Glucagon (Glucagon For Inj 1 Mg Vial) 1 mg SQ UD PRN; Protocol PRN Reason: Hypoglycemia Protocol Stop: 11/10/21 02:32 Glucose (Glucose 10 Tabs/Tube) 4 - 8 tabs PO UD PRN; Protocol PRN Reason: Hypoglycemia Protocol Stop: 11/10/21 02:32 Glucose (Glucose 40% Gel 15 Gm Tube) 15 - 30 gm PO UD PRN; Protocol PRN Reason: Hypoglycemia Protocol Stop: 11/10/21 02:32 Albumin Human (Albumin 25%) 12.5 gm in 50 mls @ 50 mls/hr IV Q6H [facility] Stop: 10/14/21 00:14 Last Admin: 10/12/21 08:00 Dose: 50 mls/hr Documented by: Cefepime HCl 2,000 mg/ Syringe 20 mls @ 5 mls/min IV Q24H [facility]; Protocol Stop: 10/21/21 08:59 Last Admin: 10/12/21 09:06 Dose: 5 mls/min Documented by: Promethazine HCl 12.5 mg/ (Sodium Chloride) 50.5 mls @ 202 mls/hr IV Q6H PRN PRN Reason: Nausea And Vomiting Stop: 11/10/21 02:32 Last Infusion: 10/11/21 19:09 Dose: Infused Documented by: Insulin Aspart (Insulin Aspart Per Unit) 0 units SC Q6 [facility] Stop: 11/11/21 00:00 Last Admin: 10/12/21 06:10 Dose: 2 units Documented by: Melatonin (Melatonin 3 Mg Tab) 3 mg PO HS PRN PRN Reason: Sleep Stop: 11/10/21 03:47 Midodrine (Midodrine Hcl 10 Mg Tab) 10 mg PO TID@0800,1200,1600 [facility] Stop: 11/10/21 07:59 Last Admin: 10/12/21 08:57 Dose: 10 mg Documented by: Miscellaneous (Carbohydrates For Hypoglycemia ) 15 - 30 gm PO UD PRN PRN Reason: Hypoglycemia Protocol Stop: 11/10/21 02:32 Miscellaneous (Silodosin 8 Mg - Order Awaiting Action) 1 ea N/A QS [facility] Stop: 11/10/21 07:59 Last Admin: 10/12/21 08:58 Dose: Not Given Documented by: Miscellaneous (Check Fentanyl Patch Placement) 1 ea N/A QS [facility] Stop: 11/10/21 07:59 Last Admin: 10/12/21 08:58 Dose: 1 ea Documented by: Miscellaneous (Fentanyl Patch Remove & Waste) 1 ea N/A Q72H [facility] Stop: 11/11/21 20:58 Miscellaneous (Check Fentanyl Patch Placement) 1 ea N/A QS [facility] Stop: 11/10/21 15:59 Last Admin: 10/12/21 08:58 Dose: 1 ea Documented by: Miscellaneous (Fentanyl Patch Remove & Waste) 1 ea N/A Q3D [facility] Stop: 11/11/21 20:58 Miscellaneous (Stop Clinolipid) 1 ea N/A Q24H [facility] Stop: 11/11/21 01:59 Last Admin: 10/12/21 02:19 Dose: 1 ea Documented by: Miscellaneous (Tpn Rate Change) 1 ea N/A DAILY@2100 [facility] Stop: 11/10/21 20:59 Last Admin: 10/11/21 22:43 Dose: 1 ea Documented by: Miscellaneous (Tpn Rate Change) 1 ea N/A DAILY@0700 [facility] Stop: 11/11/21 06:59 Last Admin: 10/12/21 07:02 Dose: 1 ea Documented by: Miscellaneous Information (Tpn/Ppn Consult Pharmacy) 1 ea N/A UD PRN PRN Reason: Consult Stop: 11/10/21 02:53 Ondansetron HCl (Ondansetron Inj 2 Mg/Ml 2 Ml Vial) 4 mg IV Q4H PRN PRN Reason: Nausea Stop: 11/10/21 15:08 Last Admin: 10/12/21 09:04 Dose: 4 mg Documented by: Oxycodone HCl (Oxycodone Hcl Ir 5 Mg Tab (Immediate Release)) 5 - 10 mg PO QID PRN PRN Reason: Pain Stop: 10/25/21 02:32 Last Admin: 10/12/21 09:04 Dose: 10 mg Documented by: Pantoprazole Sodium (Pantoprazole 40 Mg Tab) 40 mg PO DAILYBB [facility] Stop: 11/10/21 06:29 Last Admin: 10/12/21 06:11 Dose: 40 mg Documented by: Rifaximin (Rifaximin 550 Mg Tablet) 550 mg PO BID [facility] Stop: 11/10/21 08:59 Last Admin: 10/12/21 08:58 Dose: 550 mg Documented by: Senna/Docusate Sodium (Docusate Sodium/Senna 50/8.6mg Tab) 1 tab PO BID [facility] Stop: 11/10/21 02:32 Last Admin: 10/12/21 08:58 Dose: 1 tab Documented by:
--- NOTE | 2021-10-12 11:24 | Nephrology Progress Note ---
Date of Service October 12, 2021 Assessment & Plan (1) ESRD (end stage renal disease) on dialysis: Plan: Patient is on HD MWF. Last outpt HD was Wednesday. Electrolytes are stable and no signs of volume overload. No need for HD today. -Next HD likely Wednesday (2) SBO (small bowel obstruction): Plan: Continues conservative management per primary team once again. Okay to give fluids but avoid volume overload. No UF on Wednesday Admission and Anticipated Discharge Date Admission Date: October 11, 2021 Subjective Seen for ESRD. No nausea or vomiting today. No shortness of breath. N ephrostomy bag on the left side is draining well Review of Systems Review of Systems: All other systems were reviewed and negative except as noted in HPI Physical Exam Physical Exam: General exam: Appears comfortable, no acute distress HEENT: Pupils are equal and reactive to light Neck: No JVD, neck is supple trachea is midline Respiratory system: Clear breath sounds bilaterally. Gastrointestinal: Abdomen is soft, non distended, non tender, bowel sounds are present. PEG tube in in the stomach, nephrostomy tube in the back CVS: Regular rate and rhythm. No murmurs, rubs or gallops Musculoskeletal: No joint or muscle tenderness Extremities: Non tender, no edema, peripheral pulses are present Neuro: Oriented, no tremors, no focal neurological deficits Skin: No rashes Results & Data ([facility]) Vital Signs (Past 12 Hours) Vital Signs Temp Pulse Pulse Resp BP BP Pulse Ox 10/12/21 07:51 37.3 C 82 18 116/70 98 10/12/21 07:25 84 10/12/21 03:01 37.1 C 87 20 124/69 97 10/12/21 00:36 36.9 C 82 20 112/62 94 Laboratory Results 10/12/21 05:29 10/12/21 10/12/21 05:29 05:29 WBC 2.02 L RBC 2.58 L MCV 95.7 MCH 31.0 MCHC 32.4 RDW Std Deviation 52.4 H RDW Coeff of Deandra 14.9 H Plt Count 64 L MPV 10.8 H Phosphorus 2.4 L
--- NOTE | 2021-10-12 18:18 | Electrocardiogram Report ---
Test Reason : Blood Pressure : / mmHG Vent. Rate : 104 BPM Atrial Rate : 104 BPM P-R Int : 140 ms QRS Dur : 086 ms QT Int : 336 ms P-R-T Axes : 034 -28 038 degrees QTc Int : 441 ms Poor data quality, interpretation may be adversely affected Sinus tachycardia Anterior infarct (cited on or before 10-OCT-2021) Abnormal ECG When compared with ECG of 28-SEP-2021 16:33, No significant change Confirmed by Guy Faria ([id number]) on 10/12/2021 6:18:05 PM Referred By: REFERRED SELF Confirmed By:Guy Faria
[2021-10-12] MEDS ORDERED: CENTRAL TPN IV SCH (20:00)
[2021-10-12] MEDS ORDERED: AMINO ACID 8% IV SCH (20:00)
[2021-10-12] MEDS ORDERED: [UNRECOGNIZED DRUG - OTHER] IV SCH (20:00)
[2021-10-12] MEDS ORDERED: FAT EMULSION IV SCH (20:00)
[2021-10-12] MEDS ORDERED: CLINOLIPID 20% IV SCH (20:00)
[2021-10-12] MEDS: MELATONIN 3 MG TAB PO PRN (21:59)
[2021-10-12] MEDS: SILODOSIN 8 MG PO SCH (22:01)
[2021-10-12] MEDS: fentaNYL 100 MCG/HR TDSY TD SCH (22:06)
[2021-10-12] MEDS: fentaNYL 25 MCG/HR TDSY TD SCH (22:07)
[2021-10-13] MEDS: INSULIN ASPART PER UNIT SC SCH ×4 (00:29→17:49)
[2021-10-13] MEDS: ALBUMIN 25% 12.5 GM/50 ML VIAL IV SCH (00:32)
[2021-10-13] MEDS: MIDODRINE HCL 10 MG TAB PO SCH ×3 (02:24→16:25)
[2021-10-13] MEDS: STOP CLINOLIPID SCH (03:41)
--- NOTE | 2021-10-13 05:04 | Communication Note ---
Date of Service: October 13, 2021 Patient requesting for usual Oxy IR dose (15 mg every 4 hours as needed) and updated buspirone dose (30 mg twice daily) from outpatient provider. Medications ordered with hold parameters for sedation confusion.
[2021-10-13] MEDS ORDERED: oxyCODONE HCL IR 5 MG TAB (IMMEDIATE RELEASE) ONE (05:34)
[2021-10-13] MEDS: oxyCODONE HCL IR 5 MG TAB (IMMEDIATE RELEASE) PO PRN ×2 (05:35→17:48)
[2021-10-13] MEDS: busPIRone 15 MG TAB PO SCH ×2 (06:23→20:23)
[2021-10-13] MEDS: PANTOprazole 40 MG TAB PO SCH (06:29)
[2021-10-13] MEDS ORDERED: SODIUM CHLORIDE 0.9% 1000ML 1,000 ML IV PRN (07:00)
[2021-10-13] MEDS ORDERED: HEPARIN SOD (PORCINE) 1000 UNIT/ML IV ONE (07:00)
[2021-10-13] MEDS: TPN RATE CHANGE SCH ×2 (07:35→22:21)
[2021-10-13] MEDS: ONDANSETRON INJ 2 MG/ML 2 ML VIAL IV PRN ×2 (08:32→15:35)
[2021-10-13] MEDS: DOCUSATE SODIUM/SENNA 50/8.6MG TAB PO SCH ×2 (08:33→20:24)
[2021-10-13] MEDS: rifAXIMin 550 MG TABLET PO SCH (08:33)
[2021-10-13] MEDS: CHECK fentaNYL PATCH PLACEMENT SCH ×6 (08:33→23:40)
[2021-10-13 08:36] LABS: Hematocrit (blood only) 19.1 % (42-52); Hemoglobin 6.3 g/dL (14.0-18.0); Mean Corpuscular Hemoglobin 30.9 pg (25-34); Mean Corpuscular Volume 93.6 fL (80-100); Mean Platelet Volume 11.5 fL (7.4-10.4); Platelet Count 38 K/uL (130-400); RDW Coefficient of Variation 14.9 % (11.5-14.5); Red Blood Count 2.04 M/uL (4.7-6.1)
[2021-10-13] MEDS: CEFEPIME 2,000 MG in SYRINGE 0 ML IV SCH (08:36)
[2021-10-13] MEDS ORDERED: SODIUM CHLORIDE 0.9% 250 ML IV PRN (08:40)
[2021-10-13 08:48] LABS: Potassium 3.9 mmol/L (3.5-5.1)
[2021-10-13 08:49] LABS: BUN Creatinine Ratio 14.6 (10-20); Calcium 8.6 mg/dl (8.5-10.1); Creatinine Clr Calc Pharmacy 20.4 ml/min; Est GFR (Non-African American) 11.2 ml/min; Magnesium 1.8 mg/dl (1.7-2.4); Phosphorus 3.4 mg/dl (2.5-4.9)
--- NOTE | 2021-10-13 09:52 | Hospitalist Progress Note ---
Date of Service October 13, 2021 Assessment & Plan (1) Abdominal pain: Plan: 56 yo M, with history of metastatic colon cancer, chronic bowel obstruction, with G-tube placement, ESRD on dialysis, with nephrostomy tube placement, who usually follows with [facility], and who was however admitted here recently with Pseudomonas UTI. During his recent dialysis session, patient presented with some abdominal discomfort, possible fever, nausea and confusion. Therefore presented to ER. Fever not documented during his hospitalization. However patient has a very complex medical history, as above. Surgical service was consulted for bowel obstruction. Mental status seems to be back to baseline. Urine culture obtained and pending given his recent UTI. Abdominal pain, nausea, confusion Multifactorial : SBO, chronic bowel obstruction with G-tube placement on TPN, hx metastatic colon cancer status post surgery on/off chemotherapy, chronic cancer pain on fentanyl patch Hx of Complicated UTI, poss. recurrent UTI, hx bilateral hydronephrosis status post nephrostomy tube placement, possible sepsis Medical telemetry given borderline BP Surgical service consulted, recommend to continue vent G-tube. Patient is not a surgical candidate given his complex medical history. Continue n.p.o., TPN Given history of complicated UTI, Pseudomonas UTI during his last admission, started on cefepime Urine culture, blood culture pending Urine cultx positive for GNB - cont. Abx, await final cultx He is supposed to have his nephrostomy tube exchanged on at [place]. ESRD on HD Nephrology consult Re: Dialysis management Currently patient does not need dialysis DM2 diet-controlled, well-controlled as of recent hemoglobin A1c of 5.21 September 2021 ISS BG goal 110-140 chronic hypotension on midodrine cirrhosis, no overt decompensation pancytopenia secondary to chemotherapy/cirrhosis, Neutropenic precautions ordered 10/13 Hgb 6.3 - blood consent obtained, 1 unit of pRBC ordered past alcohol abuse. DVT prophylaxis with SCDs Re: Thrombocytopenia Code status: DNR/DNI Admission and Anticipated Discharge Date Admission Date: October 11, 2021 Subjective Patient has history of metastatic colon cancer, chronic bowel obstruction, with G-tube, end-stage renal disease on dialysis, nephrostomy tube, who presents with abdominal pain, nausea, confusion, possible fever during his dialysis session Patient was recently here, treated for Pseudomonas UTI No fever noted in the hospital here Currently resting in bed, in no acute distress Is alert oriented answering questions appropriately. Continues to have some abdominal discomfort, however feels better. He is tired. Current Hgb 6.3 - blood consent obtained - 1 unit of pRBC ordered Seen by surgical service, recommend to vent G-tube, continue n.p.o. status Seen by nephrology, no need for dialysis at this time Review of Systems Review of Systems: All systems reviewed & are unremarkable except as noted in Subjective Physical Exam Physical Exam: GENERAL: WD/WN M in NAD HEENT: NC/AT. Alopecia, pale palpebral conjunctivae NECK : Supple CHEST : CTAB HEART : RRR, no obvious murmurs ABDOMEN: Soft, + distention, minimal right-sided abdominal tenderness, G-tube placed, seems to be draining appropriately EXTREMITIES : Minimal LE swelling, moves extremities : Schmitt catheter placed, with some mild bloody drainage. Nephrostomy tube placed, drains clear yellow urine. SKIN: Pallor, warm NEUROLOGIC : Alert oriented, answering questions appropriately, no facial asymmetry, moves extremities Results & Data Results & Data ([facility]) Vital Signs (Past 12 Hours) Vital Signs Temp Pulse Resp BP Pulse Ox 10/13/21 07:46 36.7 C 67 16 94/55 L 98 10/13/21 02:10 36.8 C 72 18 88/52 L 96 Laboratory Results 10/13/21 10/13/21 10/13/21 Range/Units 08:45 07:40 07:40 WBC 1.00 L (4.8-10.8) K/uL RBC 2.04 L (4.7-6.1) M/uL Hgb 6.3 L* (14.0-18.0) g/dL Hct 19.1 L* (42-52) % MCV 93.6 (80-100) fL MCH 30.9 (25-34) pg MCHC 33.0 (32-36) g/dL RDW Std Deviation 51.0 H (36.4-46.3) fL RDW Coeff of Deandra 14.9 H (11.5-14.5) % Plt Count 38 L (130-400) K/uL MPV 11.5 H (7.4-10.4) fL Sodium 137 (136-145) mmol/L Potassium 3.9 (3.5-5.1) mmol/L Chloride 98 (98-107) mmol/L Carbon Dioxide 32 (21-32) mmol/L Anion Gap 7 (3-11) BUN 76 H D (6-23) mg/dl Creatinine 5.21 H* D (0.6-1.4) mg/dl Est Cr Clr Drug Dosing 20.4 ml/min Est GFR ( Amer) 13.0 ml/min Est GFR (Non-Af Amer) 11.2 ml/min BUN/Creatinine Ratio 14.6 (10-20) Glucose 131 H (70-99(Fasting)) mg/dl POC Glucose (70-99) mg/dl Calcium 8.6 (8.5-10.1) mg/dl Phosphorus 3.4 D (2.5-4.9) mg/dl Magnesium 1.8 (1.7-2.4) mg/dl Triglycerides 107 (0-150) mg/dl Blood Type Pending Antibody Screen Pending Crossmatch See Detail 10/13/21 10/12/21 10/12/21 Range/Units 06:25 23:57 18:17 WBC (4.8-10.8) K/uL RBC (4.7-6.1) M/uL Hgb (14.0-18.0) g/dL Hct (42-52) % MCV (80-100) fL MCH (25-34) pg MCHC (32-36) g/dL RDW Std Deviation (36.4-46.3) fL RDW Coeff of Deandra (11.5-14.5) % Plt Count (130-400) K/uL MPV (7.4-10.4) fL Sodium (136-145) mmol/L Potassium (3.5-5.1) mmol/L Chloride (98-107) mmol/L Carbon Dioxide (21-32) mmol/L Anion Gap (3-11) BUN (6-23) mg/dl Creatinine (0.6-1.4) mg/dl Est Cr Clr Drug Dosing ml/min Est GFR ( Amer) ml/min Est GFR (Non-Af Amer) ml/min BUN/Creatinine Ratio (10-20) Glucose (70-99(Fasting)) mg/dl POC Glucose 146 H 136 H 96 (70-99) mg/dl Calcium (8.5-10.1) mg/dl Phosphorus (2.5-4.9) mg/dl Magnesium (1.7-2.4) mg/dl Triglycerides (0-150) mg/dl Blood Type Antibody Screen Crossmatch 10/12/21 Range/Units 11:31 WBC (4.8-10.8) K/uL RBC (4.7-6.1) M/uL Hgb (14.0-18.0) g/dL Hct (42-52) % MCV (80-100) fL MCH (25-34) pg MCHC (32-36) g/dL RDW Std Deviation (36.4-46.3) fL RDW Coeff of Deandra (11.5-14.5) % Plt Count (130-400) K/uL MPV (7.4-10.4) fL Sodium (136-145) mmol/L Potassium (3.5-5.1) mmol/L Chloride (98-107) mmol/L Carbon Dioxide (21-32) mmol/L Anion Gap (3-11) BUN (6-23) mg/dl Creatinine (0.6-1.4) mg/dl Est Cr Clr Drug Dosing ml/min Est GFR ( Amer) ml/min Est GFR (Non-Af Amer) ml/min BUN/Creatinine Ratio (10-20) Glucose (70-99(Fasting)) mg/dl POC Glucose 110 H (70-99) mg/dl Calcium (8.5-10.1) mg/dl Phosphorus (2.5-4.9) mg/dl Magnesium (1.7-2.4) mg/dl Triglycerides (0-150) mg/dl Blood Type Antibody Screen Crossmatch Medications Administered Current Inpatient Medications Acetaminophen (Acetaminophen 325 Mg Tab) 325 mg PO Q6H PRN PRN Reason: Mild Pain Stop: 11/10/21 02:32 Last Admin: 10/13/21 03:39 Dose: 325 mg Documented by: Buspirone HCl (Buspirone 15 Mg Tab) 30 mg PO BID [facility] Stop: 11/12/21 05:14 Last Admin: 10/13/21 06:23 Dose: 30 mg Documented by: Dextrose (Dextrose 50% 50 Ml Syringe) 25 - 50 ml IV UD PRN; Protocol PRN Reason: Hypoglycemia Protocol Stop: 11/10/21 02:32 Fentanyl (Fentanyl 100 Mcg/Hr Tdsy) 100 mcg TD Q72H [facility] Stop: 10/26/21 20:59 Last Admin: 10/12/21 22:06 Dose: 100 mcg Documented by: Fentanyl (Fentanyl 25 Mcg/Hr Tdsy) 25 mcg TD Q72H [facility] Stop: 10/26/21 20:59 Last Admin: 10/12/21 22:07 Dose: 25 mcg Documented by: Glucagon (Glucagon For Inj 1 Mg Vial) 1 mg SQ UD PRN; Protocol PRN Reason: Hypoglycemia Protocol Stop: 11/10/21 02:32 Glucose (Glucose 10 Tabs/Tube) 4 - 8 tabs PO UD PRN; Protocol PRN Reason: Hypoglycemia Protocol Stop: 11/10/21 02:32 Glucose (Glucose 40% Gel 15 Gm Tube) 15 - 30 gm PO UD PRN; Protocol PRN Reason: Hypoglycemia Protocol Stop: 11/10/21 02:32 Cefepime HCl 2,000 mg/ Syringe 20 mls @ 5 mls/min IV Q24H [facility]; Protocol Stop: 10/21/21 08:59 Last Admin: 10/13/21 08:36 Dose: 5 mls/min Documented by: Promethazine HCl 12.5 mg/ (Sodium Chloride) 50.5 mls @ 202 mls/hr IV Q6H PRN PRN Reason: Nausea And Vomiting Stop: 11/10/21 02:32 Last Infusion: 10/11/21 19:09 Dose: Infused Documented by: Sodium Chloride (Nss 1000ml) 1,000 mls @ 0 mls/hr IV .Q0M PRN PRN Reason: For Hemodialysis Use ONLY Stop: 10/13/21 12:59 Sodium Chloride (Nss) 250 mls @ 15 mls/hr IV .[id number] PRN PRN Reason: For Transfusion Stop: 10/13/21 18:42 Insulin Aspart (Insulin Aspart Per Unit) 0 units SC Q6 [facility] Stop: 11/11/21 00:00 Last Admin: 10/13/21 06:27 Dose: Not Given Documented by: Melatonin (Melatonin 3 Mg Tab) 3 mg PO HS PRN PRN Reason: Sleep Stop: 11/10/21 03:47 Last Admin: 10/12/21 21:59 Dose: 3 mg Documented by: Midodrine (Midodrine Hcl 10 Mg Tab) 10 mg PO TID@0800,1200,1600 [facility] Stop: 11/12/21 02:19 Last Admin: 10/13/21 02:24 Dose: 10 mg Documented by: Terecellaneous (Carbohydrates For Hypoglycemia ) 15 - 30 gm PO UD PRN PRN Reason: Hypoglycemia Protocol Stop: 11/10/21 02:32 Miscellaneous (Check Fentanyl Patch Placement) 1 ea N/A QS [facility] Stop: 11/10/21 07:59 Last Admin: 10/13/21 08:33 Dose: 1 ea Documented by: Irvinganeous (Fentanyl Patch Remove & Waste) 1 ea N/A Q72H [facility] Stop: 11/11/21 20:58 Last Admin: 10/12/21 21:56 Dose: 1 ea Documented by: Jatinder (Check Fentanyl Patch Placement) 1 ea N/A QS [facility] Stop: 11/10/21 15:59 Last Admin: 10/13/21 08:33 Dose: 1 ea Documented by: Irvinganeous (Fentanyl Patch Remove & Waste) 1 ea N/A Q3D [facility] Stop: 11/11/21 20:58 Last Admin: 10/12/21 21:59 Dose: 1 ea Documented by: Irvinganeous (Stop Clinolipid) 1 ea N/A Q24H [facility] Stop: 11/11/21 01:59 Last Admin: 10/13/21 03:41 Dose: 1 ea Documented by: Jatinder (Tpn Rate Change) 1 ea N/A DAILY@2100 [facility] Stop: 11/10/21 20:59 Last Admin: 10/12/21 23:32 Dose: 1 ea Documented by: Jatinder (Tpn Rate Change) 1 ea N/A DAILY@0700 [facility] Stop: 11/11/21 06:59 Last Admin: 10/13/21 07:35 Dose: 1 ea Documented by: Miscellaneous Information (Tpn/Ppn Consult Pharmacy) 1 ea N/A UD PRN PRN Reason: Consult Stop: 11/10/21 02:53 Ondansetron HCl (Ondansetron Inj 2 Mg/Ml 2 Ml Vial) 4 mg IV Q4H PRN PRN Reason: Nausea Stop: 11/10/21 15:08 Last Admin: 10/13/21 08:32 Dose: 4 mg Documented by: Oxycodone HCl (Oxycodone Hcl Ir 5 Mg Tab (Immediate Release)) 15 mg PO Q4H PRN PRN Reason: Pain Stop: 10/27/21 05:02 Last Admin: 10/13/21 05:35 Dose: 15 mg Documented by: Pantoprazole Sodium (Pantoprazole 40 Mg Tab) 40 mg PO DAILYBB [facility] Stop: 11/10/21 06:29 Last Admin: 10/13/21 06:29 Dose: 40 mg Documented by: Rifaximin (Rifaximin 550 Mg Tablet) 550 mg PO BID [facility] Stop: 11/10/21 08:59 Last Admin: 10/13/21 08:33 Dose: 550 mg Documented by: Senna/Docusate Sodium (Docusate Sodium/Senna 50/8.6mg Tab) 1 tab PO BID [facility] Stop: 11/10/21 02:32 Last Admin: 10/13/21 08:33 Dose: 1 tab Documented by: Silodosin (Pt's Own Med: Silodosin 8mg) 1 ea PO HS [facility] Stop: 11/11/21 20:59 Last Admin: 10/12/21 22:01 Dose: 1 ea Documented by:
--- NOTE | 2021-10-13 10:17 | Nephrology Progress Note ---
Date of Service October 13, 2021 Assessment & Plan (1) ESRD (end stage renal disease) on dialysis: Plan: Patient is on HD MWF. Last outpt HD was Wednesday. Electrolytes are stable and no signs of volume overload. No need for HD today. -Patient will be dialyzed today for 3 hours. (2) SBO (small bowel obstruction): Plan: Continues conservative management per primary team once again. Okay to give fluids but avoid volume overload. No UF on Wednesday Admission and Anticipated Discharge Date Admission Date: October 11, 2021 Subjective Seen for ESRD. No shortness of breath. He has a high output from gastric tube. No leg swelling Review of Systems Review of Systems: All other systems were reviewed and negative except as noted in HPI Physical Exam Physical Exam: General exam: Appears comfortable, no acute distress HEENT: Pupils are equal and reactive to light Neck: No JVD, neck is supple trachea is midline Respiratory system: Clear breath sounds bilaterally. Gastrointestinal: Abdomen is soft, non distended, non tender, bowel sounds are present. PEG tube in in the stomach, nephrostomy tube in the back CVS: Regular rate and rhythm. No murmurs, rubs or gallops Musculoskeletal: No joint or muscle tenderness Extremities: Non tender, no edema, peripheral pulses are present Neuro: Oriented, no tremors, no focal neurological deficits Skin: No rashes Results & Data ([facility]) Vital Signs (Past 12 Hours) Vital Signs Temp Pulse Resp BP Pulse Ox 10/13/21 07:46 36.7 C 67 16 94/55 L 98 10/13/21 02:10 36.8 C 72 18 88/52 L 96 Laboratory Results 10/13/21 07:40 10/13/21 10/13/21 07:40 07:40 WBC 1.00 L RBC 2.04 L MCV 93.6 MCH 30.9 MCHC 33.0 RDW Std Deviation 51.0 H RDW Coeff of Deandra 14.9 H Plt Count 38 L MPV 11.5 H Phosphorus 3.4 D
[2021-10-13] MEDS: OLANZAPINE 2.5 MG TAB PO PRN (16:25)
[2021-10-13 16:57] LABS: Hematocrit (blood only) 23.9 % (42-52); Hemoglobin 8.1 g/dL (14.0-18.0)
[2021-10-13] MEDS ORDERED: MAGNESIUM SULFATE / D5W 1 GM/100 ML BAG IV ONE (18:14)
[2021-10-13] MEDS ORDERED: CLINOLIPID 20% IV SCH (20:00)
[2021-10-13] MEDS ORDERED: [UNRECOGNIZED DRUG - OTHER] IV SCH (20:00)
[2021-10-13] MEDS ORDERED: CENTRAL TPN IV SCH (20:00)
[2021-10-13] MEDS ORDERED: FAT EMULSION IV SCH (20:00)
[2021-10-13] MEDS ORDERED: AMINO ACID 8% IV SCH (20:00)
[2021-10-13] MEDS: SILODOSIN 8 MG PO SCH (20:24)
[2021-10-13] MEDS: HEPARIN SOD (PORCINE) 1000 UNIT/ML IV SCH ×2 (20:25→21:20)
[2021-10-13] MEDS: ALBUMIN 25% 100 mL 25 GM/100 ML VIAL IV SCH (21:19)
--- NOTE | 2021-10-13 21:31 | XRay Report ---
KUB CLINICAL HISTORY: Bowel obstruction. FINDINGS: 4 AP supine abdominal radiographs are correlated with abdominal CT dated 10/10/2021. A gastr ostomy tube is in place A left-sided percutaneous nephrostomy tube is unchanged in position. Cholecys tectomy clips are seen in the right upper quadrant and there are numerous surgical clips and suture m aterial seen throughout the right abdomen. There is a persistent small bowel obstruction. No evidence of intraperitoneal free air is seen on these supine views. Vascular calcifications are noted in the pelvis. The skeletal structures are osteopenic and appear intact. IMPRESSION: 1. Persistent small bowel obstruction. 2. Additional findings as above. Electronically signed by: Cordell Wilhelm M.D. 10/13/2021 9:30 PM
[2021-10-14] MEDS: INSULIN ASPART PER UNIT SC SCH ×5 (00:10→23:47)
[2021-10-14] MEDS: STOP CLINOLIPID SCH (03:20)
[2021-10-14] MEDS: oxyCODONE HCL IR 5 MG TAB (IMMEDIATE RELEASE) PO PRN (05:18)
[2021-10-14] MEDS: PANTOprazole 40 MG TAB PO SCH (05:30)
[2021-10-14] MEDS: ALBUMIN 25% 100 mL 25 GM/100 ML VIAL IV SCH ×2 (05:30→14:26)
[2021-10-14] MEDS: SIMETHICONE 80 MG CHEW PO PRN ×2 (05:33→20:33)
[2021-10-14] MEDS: OLANZAPINE 2.5 MG TAB PO PRN (05:33)
[2021-10-14] MEDS: ONDANSETRON INJ 2 MG/ML 2 ML VIAL IV PRN ×3 (06:43→20:35)
[2021-10-14] MEDS: TPN RATE CHANGE SCH ×2 (06:46→20:51)
[2021-10-14 07:22] LABS: Hemoglobin 8.8 g/dL (14.0-18.0); Mean Corpuscular Hemoglobin 31.1 pg (25-34); Mean Corpuscular Hgb Conc 33.8 g/dL (32-36); Mean Corpuscular Volume 91.9 fL (80-100); Mean Platelet Volume 11.3 fL (7.4-10.4); Platelet Count 62 K/uL (130-400); RDW Coefficient of Variation 14.9 % (11.5-14.5); RDW Standard Deviation 50.1 fL (36.4-46.3); Red Blood Count 2.83 M/uL (4.7-6.1); White Blood Count 1.73 K/uL (4.8-10.8)
[2021-10-14 07:27] LABS: BUN Creatinine Ratio 15.7 (10-20); Calcium 9.6 mg/dl (8.5-10.1); Est GFR (African American) 12.1 ml/min; Est GFR (Non-African American) 10.4 ml/min; Phosphorus 3.6 mg/dl (2.5-4.9)
[2021-10-14] MEDS: busPIRone 15 MG TAB PO SCH ×2 (07:58→20:34)
[2021-10-14] MEDS: DOCUSATE SODIUM/SENNA 50/8.6MG TAB PO SCH ×2 (07:58→20:35)
[2021-10-14] MEDS: MIDODRINE HCL 10 MG TAB PO SCH ×3 (07:58→17:01)
[2021-10-14] MEDS: CHECK fentaNYL PATCH PLACEMENT SCH ×6 (07:59→23:47)
[2021-10-14] MEDS ORDERED: HEPARIN SOD (PORCINE) 1000 UNIT/ML IV ONE (08:30)
[2021-10-14] MEDS ORDERED: SODIUM CHLORIDE 0.9% 1000ML 1,000 ML IV PRN (08:30)
--- NOTE | 2021-10-14 09:08 | Hospitalist Progress Note ---
Date of Service October 14, 2021 Assessment & Plan (1) Abdominal pain: Plan: 56 yo M, with history of metastatic colon cancer, chronic bowel obstruction, with G-tube placement, ESRD on dialysis, with nephrostomy tube placement, who usually follows with [facility], and who was however admitted here recently with Pseudomonas UTI. During his recent dialysis session, patient presented with some abdominal discomfort, possible fever, nausea and confusion. Therefore presented to ER. Fever not documented during his hospitalization. However patient has a very complex medical history, as above. Surgical service was consulted for bowel obstruction. Mental status seems to be back to baseline. Urine culture obtained given his recent UTI. Abdominal pain, nausea, confusion Multifactorial : SBO, chronic bowel obstruction with G-tube placement on TPN, hx metastatic colon cancer status post surgery on/off chemotherapy, chronic cancer pain on fentanyl patch Hx of Complicated UTI, poss. recurrent UTI, hx bilateral hydronephrosis status post nephrostomy tube placement, possible sepsis Medical telemetry given borderline BP Surgical service consulted, recommend to continue vent G-tube. Patient is not a surgical candidate given his complex medical history. Continue n.p.o., TPN Given history of complicated UTI, Pseudomonas UTI during his last admission, started on cefepime blood culture pending Urine cultx x1 - negative Urine cultx x2 positive for Pseudomonas - sensitivities different from previous cultx - cont. Abx - Cefepime PO abx may not be helpful though with pt's sbo, so may need to be DC'ed on IV abx He is supposed to have his nephrostomy tube exchanged on at [place] - may need to reschedule ESRD on HD Nephrology consult Re: Dialysis management DM2 diet-controlled, well-controlled as of recent hemoglobin A1c of 5.21 September 2021 ISS BG goal 110-140 chronic hypotension on midodrine cirrhosis, no overt decompensation pancytopenia secondary to chemotherapy/cirrhosis, Neutropenic precautions ordered 10/13 Hgb 6.3 - blood consent obtained, 1 unit of pRBC ordered 10/14 Hgb8.8, cont. to monitor H&H past alcohol abuse. DVT prophylaxis with SCDs Re: Thrombocytopenia Code status: DNR/DNI Admission and Anticipated Discharge Date Admission Date: October 11, 2021 Subjective Patient has history of metastatic colon cancer, chronic bowel obstruction, with G-tube, end-stage renal disease on dialysis, nephrostomy tube, who presents with abdominal pain, nausea, confusion, possible fever during his dialysis session Patient was recently here, treated for Pseudomonas UTI No fever noted in the hospital here Currently resting in bed, in no acute distress Is alert oriented answering questions appropriately. Continues to have some abdominal discomfort,nausea. Very tired. Yesterday, transfused 1 unit of pRBC Seen by surgical service, recommend to vent G-tube, continue n.p.o. status Seen by nephrology, for dialysis needs Palliative medicine consulted Review of Systems Review of Systems: All systems reviewed & are unremarkable except as noted in Subjective Physical Exam Physical Exam: GENERAL: WD/WN M in NAD HEENT: NC/AT. Alopecia, pale palpebral conjunctivae NECK : Supple CHEST : CTAB HEART : RRR, no obvious murmurs ABDOMEN: Soft, + distention, minimal right-sided abdominal tenderness, G-tube placed, seems to be draining appropriately EXTREMITIES : Minimal LE swelling, moves extremities : Schmitt catheter placed, with some mild bloody drainage. Nephrostomy tube placed, drains clear yellow urine. SKIN: Pallor, warm NEUROLOGIC : Alert oriented, answering questions appropriately, no facial asymmetry, moves extremities Results & Data Results & Data ([facility]) Vital Signs (Past 12 Hours) Vital Signs Temp Pulse Resp BP BP Pulse Ox 10/14/21 06:34 36.7 C 98 H 18 120/71 99 10/14/21 04:38 36.8 C 84 18 110/63 97 10/14/21 00:05 36.6 C 85 18 109/67 96 10/13/21 23:40 107/64 Laboratory Results 10/14/21 10/14/21 10/14/21 Range/Units 06:38 06:38 05:17 WBC 1.73 L (4.8-10.8) K/uL RBC 2.83 L (4.7-6.1) M/uL Hgb 8.8 L (14.0-18.0) g/dL Hct 26.0 L (42-52) % MCV 91.9 (80-100) fL MCH 31.1 (25-34) pg MCHC 33.8 (32-36) g/dL RDW Std Deviation 50.1 H (36.4-46.3) fL RDW Coeff of Deandra 14.9 H (11.5-14.5) % Plt Count 62 L D (130-400) K/uL MPV 11.3 H (7.4-10.4) fL Sodium 137 (136-145) mmol/L Potassium 4.0 (3.5-5.1) mmol/L Chloride 96 L (98-107) mmol/L Carbon Dioxide 30 (21-32) mmol/L Anion Gap 11 (3-11) BUN 87 H (6-23) mg/dl Creatinine 5.53 H* D (0.6-1.4) mg/dl Est Cr Clr Drug Dosing 19.0 ml/min Est GFR ( Amer) 12.1 ml/min Est GFR (Non-Af Amer) 10.4 ml/min BUN/Creatinine Ratio 15.7 (10-20) Glucose 167 H (70-99(Fasting)) mg/dl POC Glucose 160 H (70-99) mg/dl Calcium 9.6 (8.5-10.1) mg/dl Phosphorus 3.6 (2.5-4.9) mg/dl Magnesium 2.0 (1.7-2.4) mg/dl Blood Type Antibody Screen Crossmatch 10/13/21 10/13/21 10/13/21 Range/Units 23:39 20:36 17:46 WBC (4.8-10.8) K/uL RBC (4.7-6.1) M/uL Hgb (14.0-18.0) g/dL Hct (42-52) % MCV (80-100) fL MCH (25-34) pg MCHC (32-36) g/dL RDW Std Deviation (36.4-46.3) fL RDW Coeff of Deandra (11.5-14.5) % Plt Count (130-400) K/uL MPV (7.4-10.4) fL Sodium (136-145) mmol/L Potassium (3.5-5.1) mmol/L Chloride (98-107) mmol/L Carbon Dioxide (21-32) mmol/L Anion Gap (3-11) BUN (6-23) mg/dl Creatinine (0.6-1.4) mg/dl Est Cr Clr Drug Dosing ml/min Est GFR ( Amer) ml/min Est GFR (Non-Af Amer) ml/min BUN/Creatinine Ratio (10-20) Glucose (70-99(Fasting)) mg/dl POC Glucose 144 H 82 89 (70-99) mg/dl Calcium (8.5-10.1) mg/dl Phosphorus (2.5-4.9) mg/dl Magnesium (1.7-2.4) mg/dl Blood Type Antibody Screen Crossmatch 10/13/21 10/13/21 10/13/21 Range/Units 16:42 11:48 08:45 WBC (4.8-10.8) K/uL RBC (4.7-6.1) M/uL Hgb 8.1 L (14.0-18.0) g/dL Hct 23.9 L (42-52) % MCV (80-100) fL MCH (25-34) pg MCHC (32-36) g/dL RDW Std Deviation (36.4-46.3) fL RDW Coeff of Deandra (11.5-14.5) % Plt Count (130-400) K/uL MPV (7.4-10.4) fL Sodium (136-145) mmol/L Potassium (3.5-5.1) mmol/L Chloride (98-107) mmol/L Carbon Dioxide (21-32) mmol/L Anion Gap (3-11) BUN (6-23) mg/dl Creatinine (0.6-1.4) mg/dl Est Cr Clr Drug Dosing ml/min Est GFR ( Amer) ml/min Est GFR (Non-Af Amer) ml/min BUN/Creatinine Ratio (10-20) Glucose (70-99(Fasting)) mg/dl POC Glucose 113 H (70-99) mg/dl Calcium (8.5-10.1) mg/dl Phosphorus (2.5-4.9) mg/dl Magnesium (1.7-2.4) mg/dl Blood Type A Positive Antibody Screen NEGATIVE Crossmatch See Detail Medications Administered Current Inpatient Medications Acetaminophen (Acetaminophen 325 Mg Tab) 325 mg PO Q6H PRN PRN Reason: Mild Pain Stop: 11/10/21 02:32 Last Admin: 10/13/21 03:39 Dose: 325 mg Documented by: Buspirone HCl (Buspirone 15 Mg Tab) 30 mg PO BID [facility] Stop: 11/12/21 05:14 Last Admin: 10/14/21 07:58 Dose: 30 mg Documented by: Dextrose (Dextrose 50% 50 Ml Syringe) 25 - 50 ml IV UD PRN; Protocol PRN Reason: Hypoglycemia Protocol Stop: 11/10/21 02:32 Fentanyl (Fentanyl 100 Mcg/Hr Tdsy) 100 mcg TD Q72H [facility] Stop: 10/26/21 20:59 Last Admin: 10/12/21 22:06 Dose: 100 mcg Documented by: Fentanyl (Fentanyl 25 Mcg/Hr Tdsy) 25 mcg TD Q72H [facility] Stop: 10/26/21 20:59 Last Admin: 10/12/21 22:07 Dose: 25 mcg Documented by: Glucagon (Glucagon For Inj 1 Mg Vial) 1 mg SQ UD PRN; Protocol PRN Reason: Hypoglycemia Protocol Stop: 11/10/21 02:32 Glucose (Glucose 10 Tabs/Tube) 4 - 8 tabs PO UD PRN; Protocol PRN Reason: Hypoglycemia Protocol Stop: 11/10/21 02:32 Glucose (Glucose 40% Gel 15 Gm Tube) 15 - 30 gm PO UD PRN; Protocol PRN Reason: Hypoglycemia Protocol Stop: 11/10/21 02:32 Heparin Sodium (Porcine) (Heparin Sod (Porcine) 1000 Unit/Ml) 400 units IV Q1H [facility] Stop: 10/14/21 10:31 Promethazine HCl 12.5 mg/ (Sodium Chloride) 50.5 mls @ 202 mls/hr IV Q6H PRN PRN Reason: Nausea And Vomiting Stop: 11/10/21 02:32 Last Infusion: 10/11/21 19:09 Dose: Infused Documented by: Cefepime HCl 1,000 mg/ Syringe 11.3 mls @ 5.5 mls/min IV DAILY@1600 [facility]; Protocol Stop: 10/21/21 15:59 Albumin Human (Albumin 25% 100 Ml) 25 gm in 100 mls @ 50 mls/hr IV Q8 [facility] Stop: 10/14/21 15:59 Last Infusion: 10/14/21 07:58 Dose: Infused Documented by: Sodium Chloride (Nss 1000ml) 1,000 mls @ 0 mls/hr IV .Q0M PRN PRN Reason: For Hemodialysis Use ONLY Stop: 10/14/21 14:29 Insulin Aspart (Insulin Aspart Per Unit) 0 units SC Q6 [facility] Stop: 11/11/21 00:00 Last Admin: 10/14/21 05:19 Dose: 1 units Documented by: Melatonin (Melatonin 3 Mg Tab) 3 mg PO HS PRN PRN Reason: Sleep Stop: 11/10/21 03:47 Last Admin: 10/12/21 21:59 Dose: 3 mg Documented by: Midodrine (Midodrine Hcl 10 Mg Tab) 10 mg PO TID@0800,1200,1600 [facility] Stop: 11/12/21 02:19 Last Admin: 10/14/21 07:58 Dose: 10 mg Documented by: Miscellaneous (Carbohydrates For Hypoglycemia ) 15 - 30 gm PO UD PRN PRN Reason: Hypoglycemia Protocol Stop: 11/10/21 02:32 Miscellaneous (Check Fentanyl Patch Placement) 1 ea N/A QS [facility] Stop: 11/10/21 07:59 Last Admin: 10/14/21 07:59 Dose: 1 ea Documented by: Miscellaneous (Fentanyl Patch Remove & Waste) 1 ea N/A Q72H [facility] Stop: 11/11/21 20:58 Last Admin: 10/12/21 21:56 Dose: 1 ea Documented by: Miscellaneous (Check Fentanyl Patch Placement) 1 ea N/A QS [facility] Stop: 11/10/21 15:59 Last Admin: 10/14/21 07:59 Dose: 1 ea Documented by: Miscellaneous (Fentanyl Patch Remove & Waste) 1 ea N/A Q3D [facility] Stop: 11/11/21 20:58 Last Admin: 10/12/21 21:59 Dose: 1 ea Documented by: Miscellaneous (Stop Clinolipid) 1 ea N/A Q24H [facility] Stop: 11/11/21 01:59 Last Admin: 10/14/21 03:20 Dose: 1 ea Documented by: Miscellaneous (Tpn Rate Change) 1 ea N/A DAILY@2100 [facility] Stop: 11/10/21 20:59 Last Admin: 10/13/21 22:21 Dose: 1 ea Documented by: Miscellaneous (Tpn Rate Change) 1 ea N/A DAILY@0700 [facility] Stop: 11/11/21 06:59 Last Admin: 10/14/21 06:46 Dose: 1 ea Documented by: Miscellaneous Information (Tpn/Ppn Consult Pharmacy) 1 ea N/A UD PRN PRN Reason: Consult Stop: 11/10/21 02:53 Olanzapine (Olanzapine 2.5 Mg Tab) 2.5 mg PO TID PRN PRN Reason: nausea Stop: 11/12/21 14:25 Last Admin: 10/14/21 05:33 Dose: 2.5 mg Documented by: Ondansetron HCl (Ondansetron Inj 2 Mg/Ml 2 Ml Vial) 4 mg IV Q4H PRN PRN Reason: Nausea Stop: 11/10/21 15:08 Last Admin: 10/14/21 06:43 Dose: 4 mg Documented by: Oxycodone HCl (Oxycodone Hcl Ir 5 Mg Tab (Immediate Release)) 15 mg PO Q4H PRN PRN Reason: Pain Stop: 10/27/21 05:02 Last Admin: 10/14/21 05:18 Dose: 15 mg Documented by: Pantoprazole Sodium (Pantoprazole 40 Mg Tab) 40 mg PO DAILYBB [facility] Stop: 11/10/21 06:29 Last Admin: 10/14/21 05:30 Dose: 40 mg Documented by: Senna/Docusate Sodium (Docusate Sodium/Senna 50/8.6mg Tab) 1 tab PO BID [facility] Stop: 11/10/21 02:32 Last Admin: 10/14/21 07:58 Dose: 1 tab Documented by: Silodosin (Pt's Own Med: Silodosin 8mg) 1 ea PO HS [facility] Stop: 11/11/21 20:59 Last Admin: 10/13/21 20:24 Dose: 1 ea Documented by: Simethicone (Simethicone 80 Mg Chew) 80 mg PO Q6H PRN PRN Reason: bloating Stop: 11/12/21 18:10 Last Admin: 10/14/21 05:33 Dose: 80 mg Documented by:
--- NOTE | 2021-10-14 10:55 | Nephrology Progress Note ---
Date of Service October 14, 2021 Assessment & Plan (1) ESRD (end stage renal disease) on dialysis: Plan: Patient is on HD MWF. Last outpt HD was Wednesday. Electrolytes are stable and no signs of volume overload. Patient refused dialysis yesterday due to nausea. -Patient will be dialyzed today for 3 hours. -He will be TTS schedule this week and back to his outpatient schedule next week (2) SBO (small bowel obstruction): Plan: Continues conservative management per primary team once again. Okay to give fluids but avoid volume overload. No UF on Wednesday Admission and Anticipated Discharge Date Admission Date: October 11, 2021 Subjective Seen in follow-up for ESRD. Main complaint is ongoing nausea and weakness. No shortness of breath. Patient was seen and examined while on dialysis. Review of Systems Review of Systems: All other systems were reviewed and negative except as note d in HPI Physical Exam Physical Exam: General exam: Appears comfortable, no acute distress HEENT: Pupils are equal and reactive to light Neck: No JVD, neck is supple trachea is midline Respiratory system: Clear breath sounds bilaterally. Gastrointestinal: Abdomen is soft, non distended, non tender, bowel sounds are present. PEG tube in in the stomach, nephrostomy tube in the back CVS: Regular rate and rhythm. No murmurs, rubs or gallops Musculoskeletal: No joint or muscle tenderness Extremities: Non tender, no edema, peripheral pulses are present Neuro: Oriented, no tremors, no focal neurological deficits Skin: No rashes Results & Data ([facility]) Vital Signs (Past 12 Hours) Vital Signs Temp Pulse Resp BP BP Pulse Ox 10/14/21 06:34 36.7 C 98 H 18 120/71 99 10/14/21 04:38 36.8 C 84 18 110/63 97 10/14/21 00:05 36.6 C 85 18 109/67 96 10/13/21 23:40 107/64 Laboratory Results 10/14/21 06:38 10/14/21 10/14/21 06:38 06:38 WBC 1.73 L RBC 2.83 L MCV 91.9 MCH 31.1 MCHC 33.8 RDW Std Deviation 50.1 H RDW Coeff of Deandra 14.9 H Plt Count 62 L D MPV 11.3 H Phosphorus 3.6
[2021-10-14] MEDS: HEPARIN SOD (PORCINE) 1000 UNIT/ML IV SCH (14:27)
[2021-10-14] MEDS: CEFEPIME 1,000 MG in SYRINGE 0 ML IV SCH (16:04)
[2021-10-14] MEDS: PROMETHAZINE HCL 12.5 MG in SODIUM CHLORIDE 0.9% 50 ML IV PRN (16:10)
--- NOTE | 2021-10-14 16:14 | Palliative Care Consultation ---
Date of Consultation October 14, 2021 Assessment & Plan (1) Abdominal pain: Continue fentanyl. Uncertain how much benefit he is getting from po oxycodone with G tube. Would benefit from parenteral opioid for breakthrough, however, with lethargy and myoclonus, would not increase opioids at this time. He appears comfortable at rest. (2) Nausea: With SBO. Will order zyprexa routinely and continue prn zofran. (3) Palliative care encounter: When I talked with Rolly about how he is coping with his illness, he told me that he is "not doing very well". He was not able to elaborate on that due to lethargy. I did speak with his , Barbara, on the phone. She is at home, planning their son's high school graduation green party. She tells me that they have spoken with palliative care in the past and with hospice. They are not interested in hospice which would mean no longer continuing dialysis or TPN. While she recognizes that at some point, they will need to make that decision, she feels uncertain about when to make that call. She feels that it would be "giving up" to forgo those treatments. She tells me that when Rolly was diagnosed he had goals to see his son's basketball season and graduation, which he has done. They have also had a new granddaughter in the last year. She feels that family is the most important thing to him and being with family would define quality of life for him. We discussed concern that he is too frail to continue treatment and is likely approaching his dying time. She acknowledges this but also sees that he has good days, like yesterday. I reassured her that stopping dialysis and TPN would not mean giving up but shifting focus of care when his body is no longer able to tolerate them. She feels that they will recognize that time and wants to take things day by day at this time. Will follow. (4) SBO (small bowel obstruction): (5) Colon cancer: (6) ESRD (end stage renal disease) on dialysis: History of Present Illness Reason for Consultation: goals of care Requesting Physician: Dr. Collazo Attending Physician: oCy Collazo MD History of Present Illness 56 yo gentleman with metastatic colon cancer s/p hemicolectomy. He has had chronic bowel obstruction as well as obstructive uropathy. He currently has a nephrostomy tube and a venting G tube. He also has ESRD and is on hemodialysis. He has been receiving "low dose" (per his ) chemotherapy for palliation in the hope that it will "push the cancer back for a while". Last treatment was in August and has been on hold due to pancytopenia and multiple hospitalizations, most recently 09/28-10/04 with Pseudomonas UTI. He presented with right sided abdominal pain, nausea and constipation. He is not a surgical candidate and obstruction is being managed conservatively. He has had what he describes as constant nausea and has received multiple antiemetics. He also has chronic pain and is on fentanyl patch with prn oxycodone. At the time of my visit, he is very somnolent and arouses only briefly to answer questions, often not finishing the answer. Allergies Allergy/AdvReac Type Severity Reaction Status Date / Time melon Allergy Intermediate throat and Verified 09/28/21 18:08 mouth is itchy Sulfa (Sulfonamide Allergy Intermediate Hives Verified 09/28/21 18:08 Antibiotics) Home Medications Medication Instructions Recorded Confirmed Type TPN Electrolytes See Rx Instructions .ROUTE .COMPLEX 09/28/21 09/28/21 History buspirone 15 mg tablet 30 mg PO BID 09/28/21 09/28/21 History fentanyl 100 mcg/hr transdermal 1 patch TRANSDERMAL Q72H 09/28/21 09/28/21 History patch fentanyl 25 mcg/hr transdermal 1 patch TRANSDERMAL Q72H 09/28/21 09/28/21 History patch melatonin 3 mg tablet 3 mg PO HS PRN 09/28/21 09/28/21 History menthol 0.44 %-zinc oxide 20.6 % 1 applic TOPICAL TID PRN 09/28/21 09/28/21 History topical ointment (Calmoseptine) midodrine 10 mg tablet 10 mg PO TID 09/28/21 09/28/21 History nystatin 100,000 unit/gram topical 1 applic TOPICAL BID 09/28/21 09/28/21 Histo ry powder olanzapine 5 mg tablet (Zyprexa) 5 mg PO TID PRN 09/28/21 09/28/21 History ondansetron HCl 8 mg tablet 8 mg PO TID PRN 09/28/21 09/28/21 History oxycodone 15 mg tablet 15 mg PO 6XD PRN 09/28/21 09/28/21 History pantoprazole 40 mg tablet,delayed 40 mg PO DAILYBB 09/28/21 09/28/21 History release (Protonix) rifaximin 550 mg tablet (Xifaxan) 550 mg PO BID 09/28/21 09/28/21 History silodosin 8 mg capsule 8 mg PO DAILY 09/28/21 09/28/21 History Patient History Medical History Cirrhosis Colon cancer Diabetes mellitus type 2 in obese ESRD (end stage renal disease) on dialysis Recurrent urinary tract infection Small bowel obstruction Surgical History S/P hernia repair Status post right hemicolectomy Family History Brother Cancer Grandmother (Paternal) Cancer Social History Smoking Status: Never smoker Do You Dip or Chew Tobacco: Yes; Hx Alcohol Use: No Hx Substance Use: No Preferred Language: Greek Communication Ability: Effective Dye Tank Tender Required: No Beliefs That Will Affect Care: None marital status: Current Living Situation: Spouse Current Living Situation Comment: Spouse and son Other Information That Helps Us Care for You: No Feels Safe at Home: Yes Safety Concerns: Feels Safe At This Time Assistive Devices: Walker Assistive Devices Comment: does not use walker at baseline Review of Systems 2 Review of Systems: Unobtainable due to reduced consciousness ESAS Pain 1/3 Nausea 3/3 PPS 20% Physical Exam Constitutional: + ill appearing; no acute distress ENMT: Mouth: + dry oral mucous membranes Respiratory: normal respiratory effort; no labored breathing Gastrointestinal (Abdomen): distended, G tube draining Neurologic: lethargic, myoclonus noted Genitourinary: nephrostomy tube draining Results & Data ([facility]) Vital Signs (Past 12 Hours) Vital Signs Temp Pulse Pulse Pulse Resp BP BP 10/14/21 14:05 98.2 F 78 113/68 10/14/21 13:40 79 91/70 L 10/14/21 13:20 102 H 107/67 10/14/21 13:00 87 105/66 10/14/21 12:40 97 H 113/59 L 10/14/21 12:20 82 97/66 L 10/14/21 12:00 76 101/63 10/14/21 11:40 79 103/52 L 10/14/21 11:20 73 95/58 L 10/14/21 11:00 76 91/58 L 10/14/21 10:53 76 98/57 L 10/14/21 10:43 98.2 F 81 10/14/21 06:34 98.1 F 98 H 18 120/71 10/14/21 04:38 98.2 F 84 18 110/63 Pulse Ox 10/14/21 14:05 10/14/21 13:40 10/14/21 13:20 10/14/21 13:00 10/14/21 12:40 10/14/21 12:20 10/14/21 12:00 10/14/21 11:40 10/14/21 11:20 10/14/21 11:00 10/14/21 10:53 10/14/21 10:43 10/14/21 06:34 99 10/14/21 04:38 97 PG Care Time/CCT Total # of Minutes Spent Total Time Spent: 75 Total Time Spent with Patient: Total time spent is greater than 50% in coordination of care (as documented) at patient's floor/unit and/or counseling patient:symptom management, goals of care, family education and support Coding Level of Care Code 05427 Initial Inpt Care Lvl 3 Diagnoses Abdominal pain R10.9 Nausea R11.0 SBO (small bowel obstruction) K56.609 Colon cancer C18.9 ESRD (end stage renal disease) on dialysis N18.6; Z99.2 Palliative care encounter Z51.5
[2021-10-14] MEDS ORDERED: CENTRAL TPN IV SCH (20:00)
[2021-10-14] MEDS ORDERED: FAT EMULSION IV SCH (20:00)
[2021-10-14] MEDS ORDERED: CLINOLIPID 20% IV SCH (20:00)
[2021-10-14] MEDS ORDERED: AMINO ACID 8% IV SCH (20:00)
[2021-10-14] MEDS ORDERED: [UNRECOGNIZED DRUG - OTHER] IV SCH (20:00)
[2021-10-14] MEDS: SILODOSIN 8 MG PO SCH (20:34)
[2021-10-15] MEDS: STOP CLINOLIPID SCH (01:49)
[2021-10-15] MEDS: INSULIN ASPART PER UNIT SC SCH ×4 (05:59→23:55)
[2021-10-15] MEDS: PANTOprazole 40 MG TAB PO SCH (05:59)
[2021-10-15] MEDS: TPN RATE CHANGE SCH ×2 (06:53→22:03)
[2021-10-15] MEDS: busPIRone 15 MG TAB PO SCH ×2 (07:48→20:39)
[2021-10-15] MEDS: MIDODRINE HCL 10 MG TAB PO SCH ×3 (07:48→16:35)
[2021-10-15] MEDS: OLANZapine ZYDIS 5 MG ORALLY DIS. TAB PO SCH (07:48)
[2021-10-15] MEDS: TPN STOP ORDER SCH (07:48)
[2021-10-15] MEDS: CHECK fentaNYL PATCH PLACEMENT SCH ×4 (07:48→16:36)
[2021-10-15] MEDS: DOCUSATE SODIUM/SENNA 50/8.6MG TAB PO SCH ×2 (07:50→21:00)
[2021-10-15 09:14] LABS: Hematocrit (blood only) 27.2 % (42-52); Mean Corpuscular Hemoglobin 31.5 pg (25-34); Mean Corpuscular Hgb Conc 33.1 g/dL (32-36); Mean Corpuscular Volume 95.1 fL (80-100); RDW Coefficient of Variation 14.8 % (11.5-14.5); RDW Standard Deviation 51.5 fL (36.4-46.3); Red Blood Count 2.86 M/uL (4.7-6.1); White Blood Count 3.06 K/uL (4.8-10.8)
[2021-10-15 09:41] LABS: BUN Creatinine Ratio 16.3 (10-20); Calcium 9.4 mg/dl (8.5-10.1); Creatinine Clr Calc Pharmacy 30.3 ml/min; Est GFR (African American) 21.1 ml/min; Est GFR (Non-African American) 18.2 ml/min; Magnesium 1.8 mg/dl (1.7-2.4); Phosphorus 2.8 mg/dl (2.5-4.9); Potassium 3.6 mmol/L (3.5-5.1)
[2021-10-15 09:44] LABS: Mean Platelet Volume 11.4 fL (7.4-10.4); Platelet Count 75 K/uL (130-400)
[2021-10-15] MEDS: CEFEPIME 1,000 MG in SYRINGE 0 ML IV SCH (16:36)
--- NOTE | 2021-10-15 18:59 | Hospitalist Progress Note ---
Date of Service October 15, 2021 Assessment & Plan (1) Abdominal pain: Plan: Patient is a 56 yr male with H/O Metastatic colon cancer, chronic bowel obstruction, with G-tube placement, ESRD on dialysis, with nephrostomy tube placement, who usually follows with [facility], and who was however admitted here recently with Pseudomonas UTI. During his recent dialysis session, patient presented with some abdominal discomfort, possible fever, nausea and confusion. SBO chronic bowel obstruction with G-tube placement on TPN H/O Metastatic colon cancer S/P surgery on/off chemotherapy Chronic cancer pain on fentanyl patch --CT ABD:Interval minimal increase in previously noted small bowel obstruction. According to the patient, this is a chronic obstruction, likely secondary to adhesions. Again noted are transition points in the right lower quadrant. No definite evidence of wall ischemia is seen by CT. Patient is status post right hemicolectomy for colon cancer. There are a few soft tissue nodules in the abdominal wall and adjacent to the surgical site which are nonspecific but may represent metastatic disease. Airspace opacities in the right lung base are new from prior exam and may reflect infectious/inflammatory process. Stable 1 cm right lower lobe pulmonary nodule may represent metastatic disease. Cirrhosis and splenomegaly. -- Appreciate surgery input Not a surgical candidate Palliative care consulted Continue G-tube TPN We will repeat CT today H/O Complicated UTI H/O bilateral hydronephrosis S/P nephrostomy tube placement Possible sepsis Urine culture growing Pseudomonas Blood Cx: No growth to date Continue cefepime Patient needs Nephrostomy tube exchanged on at [place] Follow up on repeat CT Acute Metabolic Encephalopathy Likely multifactorial due to infection, meds Mental status improving --CT Head:No acute intracranial hemorrhage, no evidence of acute territorial infarction or other acute intracranial disease process. ESRD on HD Nephrology consulted Dialysis as per Nephrology DM II Diet-controlled HbA1C:5.21 September 2021 ISS Monitor BGs Chronic hypotension on midodrine Cirrhosis Pancytopenia secondary to chemotherapy/cirrhosis, Neutropenic precautions ordered S/P 1 unit Past alcohol abuse. Monitor DVT Px: SCDs Re: Thrombocytopenia Code status: DNR/DNI Admission and Anticipated Discharge Date Admission Date: October 11, 2021 Subjective Patient is seen and examined at bedside States having left heel pain Also reports nausea earlier today Offers no other complaints Review of Systems Review of Systems: All systems reviewed & are unremarkable except as noted in Subjective Physical Exam Physical Exam: Physical Exam: Vitals signs as noted above General Appearance:Moderately built and nourished, no apparent distress Head: normocephalic, Atraumatic Eyes: normal inspection, EOMI Neck: supple, Trachea midline Respiratory/Chest: Normal breath sounds, CTA, No accessory muscle use Cardiovascular: S1, S2, No murmur Abdomen/GI:Soft, Non tender,+G tube, Nephrostomy tube, Bowel sounds present Extremities/Musculoskeletal:normal inspection, mild edema Neurologic/Psych:AAOX3, grossly no focal neurological deficits Skin: normal color, warm Results & Data Results & [facility] Vital Signs (Past 12 Hours) Vital Signs Temp Pulse Resp BP Pulse Ox 10/15/21 14:57 36.5 C 93 H 18 136/90 100 10/15/21 12:00 36.9 C 84 20 105/63 95 Laboratory Results Short CBC 10/15/21 Range/Units 06:46 WBC 3.06 L (4.8-10.8) K/uL Hgb 9.0 L (14.0-18.0) g/dL Hct 27.2 L (42-52) % Plt Count 75 L (130-400) K/uL BMP 10/15/21 06:46 Sodium 142 Potassium 3.6 Chloride 102 Carbon Dioxide 31 BUN 57 H D Creatinine 3.50 H D Glucose 139 H Calcium 9.4
[2021-10-15] MEDS ORDERED: AMINO ACID 8% IV SCH (20:00)
[2021-10-15] MEDS ORDERED: CLINOLIPID 20% IV SCH (20:00)
[2021-10-15] MEDS ORDERED: FAT EMULSION IV SCH (20:00)
[2021-10-15] MEDS ORDERED: [UNRECOGNIZED DRUG - OTHER] IV SCH (20:00)
[2021-10-15] MEDS ORDERED: CENTRAL TPN IV SCH (20:00)
--- NOTE | 2021-10-15 20:29 | Nephrology Progress Note ---
Date of Service October 15, 2021 Assessment & Plan (1) ESRD (end stage renal disease) on dialysis: Plan: Patient is on HD MWF but changing to Tu / Sat. Electrolytes are stable and no signs of volume overload; massive daily losses through G tube and nephrostomy/arthur >> >>4L out yesterday from these sources. Patient refused dialysis Mon due to nausea. Had HD 10/14 x x3 hrs for 500 mL UF -plan to dialyze Wednesday d/t weekend plans but eval tomorrow -aim tentatively for M/F schedule at d/c; pt aware this may or may nto work longer term (2) SBO (small bowel obstruction): Plan: Continues conservative management per primary team once again. avoid fluid overload Admission and Anticipated Discharge Date Admission Date: October 11, 2021 Subjective no interval events. abd pain this evening on pm rounds w/ at bedside; pt denies sob, edema, chest pain; some N. wants arthur out [facility]AN[facility]. hoping to be home for family events 10/18-10/19 Review of Systems Review of Systems: All systems reviewed & are unremarkable except as noted in Subjective Physical Exam 2 Constitutional: well developed, + frail appearing and cooperative; no acute distress Eyes: EOM intact bilaterally ENMT: Ears: no external ear abnormality Nose: no external nose abnormality Mouth: + dry oral mucous membranes Neck: no nuchal rigidity Respiratory: normal respiratory effort Auscultation: + diminished lung sounds Cardiovascular: Rate/Rhythm: regular rate and regular rhythm Extremities: + edema (trace BLE) Gastrointestinal (Abdomen): Inspection/Auscultation: + abdomen distended and + hypoactive bowel sounds Percussion/Palpation: abdomen soft G tube pro truding/ feels better abd pain russell w/ adjust /support drain bag Musculoskeletal: Extremities: strength 5/5 throughout Skin: no rashes, warm and dry Neurologic: cruz, fluent speech, no tremor Psychiatric: Orientation: oriented to place Insight: + limited insight Judgement: + limited judgement relies on for decisions Genitourinary: arthur w/ gross hematuria; nephrostomy w/ nima UOP Results & Data ([facility]) Vital Signs (Past 12 Hours) Vital Signs Temp Pulse Resp BP Pulse Ox 10/15/21 14:57 36.5 C 93 H 18 136/90 100 10/15/21 12:00 36.9 C 84 20 105/63 95 Laboratory Results 10/15/21 06:46 10/15/21 06:46
[2021-10-15] MEDS: SILODOSIN 8 MG PO SCH (20:37)
[2021-10-15] MEDS: oxyCODONE HCL IR 5 MG TAB (IMMEDIATE RELEASE) PO PRN (20:37)
[2021-10-15] MEDS: fentaNYL 100 MCG/HR TDSY TD SCH (20:43)
[2021-10-15] MEDS: fentaNYL 25 MCG/HR TDSY TD SCH (20:43)
[2021-10-16] MEDS: CHECK fentaNYL PATCH PLACEMENT SCH ×6 (00:36→15:18)
[2021-10-16] MEDS: STOP CLINOLIPID SCH (02:15)
[2021-10-16 03:23] LABS: HBSAG NON-REACTIVE (NON-REACTIVE)
[2021-10-16] MEDS: oxyCODONE HCL IR 5 MG TAB (IMMEDIATE RELEASE) PO PRN ×3 (04:05→20:27)
[2021-10-16] MEDS ORDERED: HYDROmorphone INJ 0.5 MG/0.5 ML SYR IV STA (05:10)
[2021-10-16] MEDS: PANTOprazole 40 MG TAB PO SCH (06:26)
[2021-10-16] MEDS: INSULIN ASPART PER UNIT SC SCH ×3 (06:26→18:26)
[2021-10-16] MEDS: TPN RATE CHANGE SCH ×2 (07:00→21:27)
--- NOTE | 2021-10-16 08:48 | CT Scan Report ---
CT OF THE ABDOMEN AND PELVIS WITHOUT CONTRAST CLINICAL HISTORY: Small bowel obstruction. Hydroureter. Colon cancer. COMPARISON STUDY: CT of the abdomen and pelvis October 10, 2021. KUB October 13, 2021. TECHNIQUE: Axial images of the abdomen and pelvis were obtained without IV contrast. Images were revi ewed in the axial, sagittal, and coronal planes. Automated exposure control was utilized for the ivette dy. A dose lowering technique was utilized adhering to the principles of ALARA. FINDINGS: Mild airspace opacities within the right middle and right lower lobes have slightly improve d since exam of October 10, 2021. Several circumscribed right middle lobe and right lower lobe nodules a re similar to prior exams. The largest is a 1 cm right lower lobe nodule on image 15 of 556. No pneum atosis, free air or portal venous gas is present. Evaluation of the abdomen and pelvis is suboptimal on this unenhanced exam. Small amount of ascites i s unchanged. The liver is cirrhotic. No hepatic lesions are identified on unenhanced exam. A hypodens ity within the cholecystectomy bed is unchanged. Splenomegaly is again noted. Adrenal glands and panc reas are unremarkable. There is no pancreatic ductal dilatation. There is no peripancreatic infiltrat ion or fluid. There are postoperative findings consistent with a right hemicolectomy. Findings consis tent with a persistent high-grade small bowel obstruction with transition point within the mid ileum within the right mid abdomen on axial image 219 of 556 is again noted. There is soft tissue thickenin g at this level which suggests tumor recurrence. There are multiple adjacent peritoneal nodules as we ll as mildly enlarged lymph nodes. The distal small bowel is markedly decompressed. The proximal smal l bowel is markedly dilated and fluid-filled, as before. A left nephrostomy tube is in place. There i s persistent bilateral hydroureteronephrosis. Moderate right hydronephrosis is similar to prior exam. Mild left hydronephrosis has slightly improved. Schmitt balloon within the bladder is present. There i s hyperdense material within the bladder. A few abdominal wall nodules may reflect tumor implants. Th gabo are unchanged. No suspicious lesions within the visualized orbital structures. No acute fractures are identified. Gastrostomy tube is in place. IMPRESSION: 1. Findings consistent with a persistent high-grade small bowel obstruction, similar to CT of September. Transition point within the ileum within the right mid abdomen. Soft tissue nodularity at thi s site suggests tumor recurrence. Adjacent peritoneal implants. Gastrostomy tube in place. 2. Cirrhosis with splenomegaly. Small amount of ascites, unchanged. 3. Moderate right and mild left hydronephrosis. Left hydronephrosis slightly improved. Left percutane ous nephrostomy tube in place. Hyperdense material within the bladder which favors blood clot. 4. Several right middle lobe and right lower lobe nodules suggestive of metastases. Slight improvemen t in right middle lobe and right lower lobe airspace opacity which favors an infectious process. ACT 112: Negative or not required by law. Electronically signed by: Lele London M.D. 10/16/2021 8:46 AM
[2021-10-16] MEDS: SIMETHICONE 80 MG CHEW PO PRN ×2 (08:50→20:27)
[2021-10-16] MEDS: MIDODRINE HCL 10 MG TAB PO SCH ×3 (08:50→16:45)
[2021-10-16] MEDS: OLANZapine ZYDIS 5 MG ORALLY DIS. TAB PO SCH (08:50)
[2021-10-16] MEDS: busPIRone 15 MG TAB PO SCH ×3 (08:50→22:43)
[2021-10-16] MEDS: TPN STOP ORDER SCH (08:51)
[2021-10-16] MEDS: DOCUSATE SODIUM/SENNA 50/8.6MG TAB PO SCH ×3 (09:46→22:43)
[2021-10-16 09:58] LABS: Hematocrit (blood only) 26.6 % (42-52); Hemoglobin 8.8 g/dL (14.0-18.0); Mean Corpuscular Hemoglobin 30.9 pg (25-34); Mean Corpuscular Hgb Conc 33.1 g/dL (32-36); Mean Corpuscular Volume 93.3 fL (80-100); RDW Coefficient of Variation 14.9 % (11.5-14.5); RDW Standard Deviation 51.2 fL (36.4-46.3); Red Blood Count 2.85 M/uL (4.7-6.1); White Blood Count 2.56 K/uL (4.8-10.8)
[2021-10-16 09:59] LABS: Mean Platelet Volume 10.4 fL (7.4-10.4); Platelet Count 63 K/uL (130-400)
[2021-10-16 10:18] LABS: BUN Creatinine Ratio 18.8 (10-20); Calcium 9.6 mg/dl (8.5-10.1); Creatinine Clr Calc Pharmacy 27.4 ml/min; Est GFR (African American) 18.5 ml/min; Magnesium 1.7 mg/dl (1.7-2.4); Phosphorus 2.7 mg/dl (2.5-4.9); Potassium 3.7 mmol/L (3.5-5.1)
--- NOTE | 2021-10-16 12:58 | Nephrology Progress Note ---
Date of Service October 16, 2021 Assessment & Plan (1) ESRD (end stage renal disease) on dialysis: Plan: Patient is on HD MWF but changing to Wed/Wednesday, 2 days weekly. Electrolytes are stable and no signs of volume overload; massive daily losses through G tube and nephrostomy/arthur >> >>over 6.4L negative since admission from these sources adn tolerating minimal UF on HD. Patient refused dialysis Wed due to nausea. Had HD 10/14 x x3 hrs for 500 mL UF -plan to dialyze Wednesday d/t weekend plans -aim tentatively for M/F schedule at d/c; pt aware this may or may not work for him longer term (2) SBO (small bowel obstruction): Plan: Continues conservative management per primary team once again. avoid fluid overload Admission and Anticipated Discharge Date Admission Date: October 11, 2021 Subjective seen on rounds this am; struggling w/ pills; c/o N and thirst. no sob, no uncontrolled pain; worried/eager about getting home fo rfamily events this Review of Systems Review of Systems: All systems reviewed & are unremarkable except as noted in Subjective Physical Exam Constitutional: well developed, + frail appearing and cooperative; no acute distress Eyes: EOM intact bilaterally ENMT: Ears: no external ear abnormality Nose: no external nose abnormality Mouth: + dry oral mucous membranes Neck: no nuchal rigidity Respiratory: normal respiratory effort Auscultation: + diminished lung sounds Cardiovascular: Rate/Rhythm: regular rate and regular rhythm Extremities: no edema Gastrointestinal (Abdomen): Inspection/Auscultation: + abdomen distended (G tube present) and + hypoactive bowel sounds Percussion/Palpation: abdomen soft Musculoskeletal: Extremities: strength 5/5 throughout Skin: no rashes, warm and dry Psychiatric: Orientation: oriented to place Insight: + limited insight Judgement: + limited judgement Genitourinary: L nephrostomy present and arthur as well Results & Data ([facility]) Vital Signs (Past 12 Hours) Vital Signs Temp Pulse Resp BP BP Pulse Ox 10/16/21 11:54 36.5 C 88 18 119/81 99 10/16/21 06:39 37 C 86 18 114/74 95 10/16/21 02:53 36.7 C 81 18 123/77 97 Laboratory Results 10/16/21 09:48 10/16/21 09:48
[2021-10-16] MEDS: ONDANSETRON INJ 2 MG/ML 2 ML VIAL IV PRN ×2 (13:31→20:26)
[2021-10-16] MEDS: HEPARIN 100 UNIT/ML 5ML FLUSH FLUSH PRN ×3 (13:43→20:26)
--- NOTE | 2021-10-16 15:52 | Urology Consultation ---
Date of Consultation October 16, 2021 Assessment & Plan (1) Gross hematuria: (2) Hydronephrosis: (3) Urinary tract infection: 56yo M with metastatic colon cancer and ESRD admitted with SBO. Urology consulted for gross hematuria. - Plan of care reviewed with Dr. Moore, on-call urologist. - CTAP reviewed - Moderate right and mild left hydro, Left perc neph tube in place, Hyperdense material within bladder which favors blood clot. - Pt afebrile, hemodynamically stable. - Labs reviewed - Wbc 2.56, Hemoglobin 8.8, Creatinine 3.89 - On HD MWF - Urine culture from 10/10 with pseudomonas, blood cultures negative. Continues on IV Cefepime. - Schmitt catheter intact, draining with hematuria. - Left nephrostomy tube intact, draining clear yellow urine. - No plan for urological intervention. - Schmitt catheter irrigated at bedside without difficulty. No clots noted with irrigation. Urine was light red in color. Patient tolerated well. - Maintain Schmitt catheter and can gently hand irrigate as needed for clots, retention. - Discussed with patient and his that if hematuria becomes an issue or does not resolve, they can consider transfer to a tertiary center for a right-sided nephrostomy tube to completely divert the urine from the bladder. Patient/ seem interested, however they have 2 important family events that he would like to be home for this weekend. He is scheduled for a nephrostomy tube replacement next week in [place]. They will discuss with their urology team at that time. - Urology will sign-off. - Please contact us with any further questions, concerns, or changes in patient status. Supervising Physician Co-Signing Physician Notes Discussed patient with [facility]. Agree with plan. Unfortunate situation where there are limited options. Review of CT scan shows mild right hydroureteronephrosis and an appropriately positioned left nephrostomy tube. Schmitt catheter in place with possible blood clot in bladder, likely coming from history of colon cancer with invasion into bladder. Recommend flushing catheter as needed. No acute urologic intervention at this time. Would not recommend cystoscopy for clot evacuation and possible right stent placement as this would be a difficult case that I do not think would provide him any benefit. If hematuria continues to be an issue, would recommend transfer for right nephrostomy tube placement for obstruction and complete div ersion of urine from bladder. Continue antibiotics. Patient's preference is to get home as soon as possible to be with family, which I agree with. History of Present Illness Reason for Consultation: Gross hematuria Attending Physician: Brennen Schaefer MD History of Present Illness 56yoM with a PMHx including metastatic colon cancer s/p hemicolectomy, ongoing chemotherapy for palliation, bilateral hydronephrosis status post L nephrostomy tube placement, ESRD on HD, chronic cancer pain on fentanyl patch, DM2 diet- controlled, chronic bowel obstruction with G-tube placement on TPN, chronic hypotension on midodrine, cirrhosis, pancytopenia, past alcohol abuse. who was admitted with abdominal pain, nausea, constipation and found to have SBO. Recent admission September 28-2021 for sepsis secondary to complicated UTI (Pseudomonas). Urology consulted for gross hematuria. CT abdomen pelvis IMPRESSION: 1. Findings consistent with a persistent high-grade small bowel obstruction, similar to CT of October 10, 2021. Transition point within the ileum within the right mid abdomen. Soft tissue nodularity at this site suggests tumor recurrence. Adjacent peritoneal implants. Gastrostomy tube in place. 2. Cirrhosis with splenomegaly. Small amount of ascites, unchanged. 3. Moderate right and mild left hydronephrosis. Left hydronephrosis slightly improved. Left percutaneous nephrostomy tube in place. Hyperdense material within the bladder which favors blood clot. 4. Several right middle lobe and right lower lobe nodules suggestive of metastases. Slight improvement in right middle lobe and right lower lobe airspa ce opacity which favors an infectious process. Patient examined at bedside this afternoon. Awake, resting in bed on arrival. at bedside. Schmitt catheter intact, draining with hematuria. Minimal drainage noted. states that hematuria is not new. He has had intermittent hematuria with minimal output recently. The left nephrostomy tube is intact, draining clear yellow urine. Patient was scheduled to have left nephrostomy tube changed today in [place], however this has been rescheduled to next week. Patient also has a follow-up with his urologist at [facility] in 2 weeks. No additional complaints or concerns at time of exam. Family history noncontributory. Allergies Allergy/AdvReac Type Severity Reaction Status Date / Time melon Allergy Intermediate throat and Verified 09/28/21 18:08 mouth is itchy Sulfa (Sulfonamide Allergy Intermediate Hives Verified 09/28/21 18:08 Antibiotics) Home Medications Medication Instructions Recorded Confirmed Type TPN Electrolytes See Rx Instructions .ROUTE .COMPLEX 09/28/21 09/28/21 History buspirone 15 mg tablet 30 mg PO BID 09/28/21 09/28/21 History fentanyl 100 mcg/hr transdermal 1 patch TRANSDERMAL Q72H 09/28/21 09/28/21 History patch fentanyl 25 mcg/hr transdermal 1 patch TRANSDERMAL Q72H 09/28/21 09/28/21 History patch melatonin 3 mg tablet 3 mg PO HS PRN 09/28/21 09/28/21 History menthol 0.44 %-zinc oxide 20.6 % 1 applic TOPICAL TID PRN 09/28/21 09/28/21 History topical ointment (Calmoseptine) midodrine 10 mg tablet 10 mg PO TID 09/28/21 09/28/21 History nystatin 100,000 unit/gram topical 1 applic TOPICAL BID 09/28/21 09/28/21 History powder olanzapine 5 mg tablet (Zyprexa) 5 mg PO TID PRN 09/28/21 09/28/21 History ondansetron HCl 8 mg tablet 8 mg PO TID PRN 09/28/21 09/28/21 History oxycodone 15 mg tablet 15 mg PO 6XD PRN 09/28/21 09/28/21 History pantoprazole 40 mg tablet,delayed 40 mg PO DAILYBB 09/28/21 09/28/21 History release (Protonix) rifaximin 550 mg tablet (Xifaxan) 550 mg PO BID 09/28/21 09/28/21 History silodosin 8 mg capsule 8 mg PO DAILY 09/28/21 09/28/21 History Patient History Medical History Cirrhosis Colon cancer Diabetes mellitus type 2 in obese ESRD (end stage renal disease) on dialysis Recurrent urinary tract infection Small bowel obstruction Surgical History S/P hernia repair Status post right hemicolectomy Family History Brother Cancer Grandmother (Paternal) Cancer Social History Smoking Status: Never smoker Do You Dip or Chew Tobacco: Yes; Hx Alcohol Use: No Hx Substance Use: No Preferred Language: Estonian Communication Ability: Effective 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 Beliefs That Will Affect Care: None marital status: Current Living Situation: Spouse Current Living Situation Comment: Spouse and son Other Information That Helps Us Care for You: No Feels Safe at Home: Yes Safety Concerns: Feels Safe At This Time Assistive Devices: Walker Assistive Devices Comment: does not use walker at baseline Review of Systems Review of Systems: All systems reviewed & are unremarkable except as noted in HPI & below Physical Exam Constitutional: + ill appearing and + frail appearing; no acute distress Neck: normal visual inspection Respiratory: no respiratory distress and no labored breathing Gastrointestinal (Abdomen): G-tube present Musculoskeletal: Head/Neck/Chest: normocephalic Skin: Warm and dry Neurologic: moves all extremities and awake Psychiatric: Orientation: alert, oriented x 3 and cooperative Genitourinary: Schmitt intact, draining with hematuria Results & Data ([facility]) Vital Signs (Past 12 Hours) Vital Signs Temp Pulse Resp BP Pulse Ox 10/16/21 11:54 36.5 C 88 18 119/81 99 10/16/21 06:39 37 C 86 18 114/74 95 PG Care Time/CCT Total # of Minutes Spent Total Time Spent with Patient: Total time spent is greater than 50% in coordination of care (as documented) at patient's floor/unit and/or counseling patient: Coding Level of Care Code 83946 Inpt Consult Level 3 Diagnoses Gross hematuria R31.0 Hydronephrosis N13.30 Urinary tract infection N39.0 Hematuria presence: without hematuria Urinary tract infection type: site unspecified (1) Urinary tract infection Hematuria presence: without hematuria Urinary tract infection type: site unspecified Qualified Code(s): N39.0 - Urinary tract infection, site not specified
--- NOTE | 2021-10-16 16:13 | Palliative Care Progress Note ---
Date of Service October 16, 2021 Assessment & Plan (1) Nausea: Plan: Continue routine zyprexa with prn zofran (2) Abdominal pain: Plan: Continue fentanyl patch with prn oxycodone. (3) Palliative care encounter: Plan: Extensive discussion with Rolly and his at bedside. He very much wants to be home this weekend for two important family events. He asked me if he could go home with hospice care. We reviewed that hospice would not accommodate dialysis and TPN. He asked about prognosis which I worry is likely weeks to a month or so. He tells me that he just isn't ready to . Spoke with Dr. Schaefer about possibility of discharge for the weekend. He has home care at home and IV access so he would be able to do home IV antibiotics for his Pseudomonas UTI. He has an appointment with Urology in [place] coming up and appointment for nephrostomy tube replacement. Urology and surgery input pending. Admission and Anticipated Discharge Date Admission Date: October 11, 2021 Subjective More alert today. Feels that nausea is better. Had prn zofran today. None yesterday. Complains of periumbilical abdominal pain, oxycodone has been effective. Review of Systems Review of Systems: ESAS Pain 1/3 Dyspnea 0//3 Anxiety 2/3 Nausea 1/3 PPS 50% Physical Exam Constitutional: + ill appearing Respiratory: normal respiratory effort; no labored breathing Gastrointestinal (Abdomen): distended, tender, G tube draining Neurologic: Speech / Cognition: normal cognition Genitourinary: gross hematuria, nephrostomy tube Results & Data ([facility]) Vital Signs (Past 12 Hours) Vital Signs Temp Pulse Resp BP Pulse Ox 10/16/21 11:54 97.7 F 88 18 119/81 99 10/16/21 06:39 98.6 F 86 18 114/74 95 PG Care Time/CCT Total # of Minutes Spent Total Time Spent: 45 Total Time Spent with Patient: Total time spent is greater than 50% in coordination of care (as documented) at patient's floor/unit and/or counseling patient:symptom management, goals of care, hospice, coordination of care, patient and family support Coding Level of Care Code 24192 Subseq Hosp Care Lvl 3 Diagnoses Nausea R11.0 Abdominal pain R10.9 Palliative care encounter Z51.5
[2021-10-16] MEDS ORDERED: MoRPHine SULFATE 2 MG/ML CARP IV ONE (16:40)
[2021-10-16] MEDS: CEFEPIME 1,000 MG in SYRINGE 0 ML IV SCH (16:45)
--- NOTE | 2021-10-16 18:22 | Hospitalist Progress Note ---
Date of Service October 16, 2021 Assessment & Plan (1) Abdominal pain: Plan: Patient is a 56 yr male with H/O Metastatic colon cancer, chronic bowel obstruction, with G-tube placement, ESRD on dialysis, with nephrostomy tube placement, who usually follows with [facility], and who was however admitted here recently with Pseudomonas UTI. During his recent dialysis session, patient presented with some abdominal discomfort, possible fever, nausea and confusion. SBO chronic bowel obstruction with G-tube placement on TPN H/O Metastatic colon cancer S/P surgery on/off chemotherapy Chronic cancer pain on fentanyl patch --CT ABD:Interval minimal increase in previously noted small bowel obstruction. According to the patient, this is a chronic obstruction, likely secondary to adhesions. Again noted are transition points in the right lower quadrant. No definite evidence of wall ischemia is seen by CT. Patient is status post right hemicolectomy for colon cancer. There are a few soft tissue nodules in the abdominal wall and adjacent to the surgical site which are nonspecific but may represent metastatic disease. Airspace opacities in the right lung base are new from prior exam and may reflect infectious/inflammatory process. Stable 1 cm right lower lobe pulmonary nodule may represent metastatic disease. Cirrhosis and splenomegaly. -- Appreciate surgery input Not a surgical candidate Palliative care consulted Continue G-tube TPN --Repeat CT showed persistent high-grade small bowel obstruction which is similar to prior CT. Hematuria Complicated UTI H/O bilateral hydronephrosis S/P nephrostomy tube placement Possible sepsis Urine culture growing Pseudomonas Blood Cx: No growth to date Continue cefepime Patient needs Nephrostomy tube exchanged on at [place] Repeat CT showed moderate right and mild left hydronephrosis. Also showed hyperdense material within the bladder which favors blood clot. Appreciate urology input Continue flushing catheter as needed. No cystoscopy recommended for clot evacuation. May need right nephrostomy tube placement for obstruction and complete diversion of urine from bladder if hematuria continues, done at tertiary care facility. Acute Metabolic Encephalopathy Likely multifactorial due to infection, meds Mental status improving --CT Head:No acute intracranial hemorrhage, no evidence of acute territorial infarction or other acute intracranial disease process. ESRD on HD Nephrology consulted Dialysis as per Nephrology DM II Diet-controlled HbA1C:5.21 September 2021 ISS Monitor BGs Chronic hypotension on midodrine Cirrhosis Pancytopenia secondary to chemotherapy/cirrhosis, Neutropenic precautions ordered S/P 1 unit Past alcohol abuse. Monitor DVT Px: SCDs Re: Thrombocytopenia Code status: DNR/DNI Admission and Anticipated Discharge Date Admission Date: October 11, 2021 Subjective Patient is seen and examined at bedside Noted hematuria Complains of generalized abdominal pain Denies chest pain, dyspnea No other complaints Discussed with palliative care today Review of Systems Review of Systems: All systems reviewed & are unremarkable except as noted in Subjective Physical Exam Physical Exam: Physical Exam: Vitals signs as noted above General Appearance:Moderately built and nourished, no apparent distress Head: normocephalic, Atraumatic Eyes: normal inspection, EOMI Neck: supple, Trachea midline Respiratory/Chest: Normal breath sounds, CTA, No accessory muscle use Cardiovascular: S1, S2, No murmur Abdomen/GI:Soft, Non tender,+G tube, Nephrostomy tube, Bowel sounds present Extremities/Musculoskeletal:normal inspection, mild edema Neurologic/Psych:AAOX3, grossly no focal neurological deficits Skin: normal color, warm Results & Data Results & Data ([facility]) Vital Signs (Past 12 Hours) Vital Signs Temp Pulse Resp BP Pulse Ox 10/16/21 11:54 36.5 C 88 18 119/81 99 10/16/21 06:39 37 C 86 18 114/74 95 Laboratory Results Short CBC 10/16/21 Range/Units 09:48 WBC 2.56 L (4.8-10.8) K/uL Hgb 8.8 L (14.0-18.0) g/dL Hct 26.6 L (42-52) % Plt Count 63 L (130-400) K/uL BMP 10/16/21 09:48 Sodium 137 Potassium 3.7 Chloride 99 Carbon Dioxide 30 BUN 73 H Creatinine 3.89 H D Glucose 134 H Calcium 9.6
[2021-10-16] MEDS ORDERED: CLINOLIPID 20% IV SCH (20:00)
[2021-10-16] MEDS ORDERED: [UNRECOGNIZED DRUG - OTHER] IV SCH (20:00)
[2021-10-16] MEDS ORDERED: [UNRECOGNIZED DRUG - OTHER] IV SCH (20:00)
[2021-10-16] MEDS ORDERED: AMINO ACID 8% IV SCH ×2 (20:00)
[2021-10-16] MEDS ORDERED: CENTRAL TPN IV SCH ×2 (20:00)
[2021-10-16] MEDS ORDERED: FAT EMULSION IV SCH (20:00)
[2021-10-16] MEDS: SILODOSIN 8 MG PO SCH ×2 (20:29→22:44)
[2021-10-16] MEDS ORDERED: ACETAMINOPHEN 65 ML IV PRN (21:53)
[2021-10-16] MEDS ORDERED: ACETAMINOPHEN 65 ML IV ONE (22:15)
[2021-10-17] MEDS: INSULIN ASPART PER UNIT SC SCH ×5 (00:08→23:52)
[2021-10-17] MEDS: CHECK fentaNYL PATCH PLACEMENT SCH ×8 (00:28→22:22)
[2021-10-17] MEDS: STOP CLINOLIPID SCH (02:22)
[2021-10-17] MEDS: oxyCODONE HCL IR 5 MG TAB (IMMEDIATE RELEASE) PO PRN ×4 (05:05→23:53)
[2021-10-17] MEDS: ONDANSETRON INJ 2 MG/ML 2 ML VIAL IV PRN ×3 (05:05→19:43)
[2021-10-17] MEDS: PANTOprazole 40 MG TAB PO SCH (06:06)
[2021-10-17] MEDS: TPN RATE CHANGE SCH ×2 (07:12→21:40)
[2021-10-17] MEDS ORDERED: SODIUM CHLORIDE 0.9% 1000ML 1,000 ML IV PRN (07:52)
[2021-10-17] MEDS: HEPARIN 100 UNIT/ML 5ML FLUSH FLUSH PRN ×4 (08:18→17:51)
[2021-10-17] MEDS: TPN STOP ORDER SCH (08:19)
[2021-10-17] MEDS: DOCUSATE SODIUM/SENNA 50/8.6MG TAB PO SCH ×2 (08:23→21:41)
[2021-10-17] MEDS: MIDODRINE HCL 10 MG TAB PO SCH ×3 (08:23→16:26)
[2021-10-17] MEDS: busPIRone 15 MG TAB PO SCH ×2 (08:23→21:39)
[2021-10-17] MEDS: OLANZapine ZYDIS 5 MG ORALLY DIS. TAB PO SCH (08:24)
[2021-10-17 10:25] LABS: BUN Creatinine Ratio 22.4 (10-20); Calcium 9.7 mg/dl (8.5-10.1); Creatinine Clr Calc Pharmacy 26.5 ml/min; Est GFR (African American) 17.8 ml/min; Est GFR (Non-African American) 15.4 ml/min; Magnesium 1.8 mg/dl (1.7-2.4); Phosphorus 3.2 mg/dl (2.5-4.9)
[2021-10-17] MEDS ORDERED: HYDROmorphone INJ 0.5 MG/0.5 ML SYR IV STA ×2 (11:54→16:54)
--- NOTE | 2021-10-17 12:15 | Palliative Care Progress Note ---
Date of Service October 17, 2021 Assessment & Plan (1) Abdominal pain: Plan: With known chronic bowel obstruction. On fentanyl patch with prn oxycodone which has generally been effective. One time dose IV hydromorphone ordered. (2) Nausea: Plan: Continue routine zyprexa with prn zofran. (3) Palliative care encounter: Plan: His hope is to be able to attend two family events this weekend. Having dialysis today. Has appointment next week for nephrostomy tube change. He also has an appointment with urology. Home care already established for antibiotics at home to treat Pseudomonas UTI. He and his are very much aware that he is approaching his dying time. They are not comfortable stopping dialysis or TPN at this time which makes them ineligible for hospice. Admission and Anticipated Discharge Date Admission Date: October 11, 2021 Subjective Seen in dialysis. Having periumbilical abdominal pain in dialysis. Also has some mild nausea. Drowsy but arouses and answers questions. Refused some medications last night. I asked him why and he couldn't really answer that. Review of Systems Review of Systems: ESAS Pain 2/3 Dyspnea 0/3 Anxiety 0/3 Nausea 1/3 Drowsiness 1/3 PPS 40% Physical Exam Constitutional: + ill appearing ENMT: Mouth: + dry oral mucous membranes Respiratory: normal respiratory effort; no labored breathing Gastrointestinal (Abdomen): distended, high pitched bowel sounds, G tube bag full Neurologic: mild confusion Genitourinary: gross hematuria, nephrostomy bag clear urine Results & Data ([facility]) Vital Signs (Past 12 Hours) Vital Signs Temp Pulse Pulse Resp BP BP Pulse Ox 10/17/21 11:30 94 H 97/62 L 10/17/21 11:00 96 H 100/68 10/17/21 10:30 91 H 115/66 10/17/21 10:00 95 H 105/48 L 10/17/21 09:45 97.7 F 87 10/17/21 08:18 98.2 F 86 16 115/74 98 10/17/21 00:04 98.1 F 70 16 104/62 97 PG Care Time/CCT Total # of Minutes Spent Total Time Spent with Patient: Total time spent is greater than 50% in coordination of care (as documented) at patient's floor/unit and/or counseling patient: Coding Level of Care Code 47937 Subseq Hosp Care Lvl 2 Diagnoses Abdominal pain R10.9 Nausea R11.0 Palliative care encounter Z51.5
[2021-10-17] MEDS: CEFEPIME 1,000 MG in SYRINGE 0 ML IV SCH (13:13)
[2021-10-17 14:51] LABS: Hematocrit (blood only) 25.7 % (42-52); Hemoglobin 8.5 g/dL (14.0-18.0)
--- NOTE | 2021-10-17 16:37 | Hospitalist Progress Note ---
Date of Service October 17, 2021 Assessment & Plan (1) Abdominal pain: Plan: Patient is a 56 yr male with H/O Metastatic colon cancer, chronic bowel obstruction, with G-tube placement, ESRD on dialysis, with nephrostomy tube placement, [facility] and who was however admitted here recently with Pseudomonas UTI. During his recent dialysis session, patient presented with some abdominal discomfort, possible fever, nausea and confusion. SBO chronic bowel obstruction with G-tube placement on TPN H/O Metastatic colon cancer S/P surgery on/off chemotherapy Chronic cancer pain on fentanyl patch --CT ABD:Interval minimal increase in previously noted small bowel obstruction. According to the patient, this is a chronic obstruction, likely secondary to adhesions. Again noted are transition points in the right lower quadrant. No definite evidence of wall ischemia is seen by CT. Patient is status post right hemicolectomy for colon cancer. There are a few soft tissue nodules in the abdominal wall and adjacent to the surgical site which are nonspecific but may represent metastatic disease. Airspace opacities in the right lung base are new from prior exam and may reflect infectious/inflammatory process. Stable 1 cm right lower lobe pulmonary nodule may represent metastatic disease. Cirrhosis and splenomegaly. -- Appreciate surgery input Not a surgical candidate Palliative care consulted Continue G-tube TPN --Repeat CT showed persistent high-grade small bowel obstruction which is similar to prior CT. Continue current management Hematuria Complicated UTI H/O bilateral hydronephrosis S/P nephrostomy tube placement Possible sepsis Urine culture growing Pseudomonas Blood Cx: No growth to date Continue cefepime Patient needs Nephrostomy tube exchanged on at [place] Repeat CT showed moderate right and mild left hydronephrosis. Also showed hyperdense material within the bladder which favors blood clot. Appreciate urology input Continue flushing catheter as needed. No cystoscopy recommended for clot evacuation. May need right nephrostomy tube placement for obstruction and complete diversion of urine from bladder if hematuria continues, done at tertiary care facility. Continue irrigation of catheter as per Urology Hb 8.5 Today Acute Metabolic Encephalopathy Likely multifactorial due to infection, meds Mental status improving --CT Head:No acute intracranial hemorrhage, no evidence of acute territorial infarction or other acute intracranial disease process. ESRD on HD Nephrology consulted Dialysis as per Nephrology DM II Diet-controlled HbA1C:5.21 September 2021 ISS Monitor BGs Chronic hypotension on midodrine Cirrhosis Pancytopenia secondary to chemotherapy/cirrhosis, Neutropenic precautions ordered S/P 1 unit Past alcohol abuse. Monitor DVT Px: SCDs Re: Thrombocytopenia Code status: DNR/DNI Admission and Anticipated Discharge Date Admission Date: October 11, 2021 Subjective Patient is seen and examined at bedside Persistent Hematuria Had HD earlier today Refused some of the PO meds Nausea, abd pain about same as yesterday Denies chest pain, dyspnea Review of Systems Review of Systems: All systems reviewed & are unremarkable except as noted in Subjective Physical Exam Physical Exam: Physical Exam: Vitals signs as noted above General Appearance:Moderately built and nourished, no apparent distress Head: normocephalic, Atraumatic Eyes: normal inspection, EOMI Neck: supple, Trachea midline Respiratory/Chest: Normal breath sounds, CTA, No accessory muscle use Cardiovascular: S1, S2, No murmur Abdomen/GI:Soft, Non tender,+G tube, Nephrostomy tube, Bowel sounds present Extremities/Musculoskeletal:normal inspection, mild edema Neurologic/Psych:AAOX3, grossly no focal neurological deficits Skin: normal color, warm Results & Data Results & Data ([facility]) Vital Signs (Past 12 Hours) Vital Signs Temp Pulse Pulse Resp BP BP Pulse Ox 10/17/21 16:07 36.8 C 90 20 95/61 L 99 10/17/21 13:00 36.6 C 110/66 10/17/21 12:00 92 H 102/68 10/17/21 11:30 94 H 97/62 L 10/17/21 11:00 96 H 100/68 10/17/21 10:30 91 H 115/66 10/17/21 10:00 95 H 105/48 L 10/17/21 09:45 36.5 C 87 10/17/21 08:18 36.8 C 86 16 115/74 98 Laboratory Results Short CBC 10/17/21 Range/Units 14:01 Hgb 8.5 L (14.0-18.0) g/dL Hct 25.7 L (42-52) % BMP 10/17/21 09:25 Sodium 139 Potassium 4.0 Chloride 100 Carbon Dioxide 29 BUN 90 H Creatinine 4.02 H Glucose 88 Calcium 9.7
--- NOTE | 2021-10-17 17:10 | Nephrology Progress Note ---
Date of Service October 17, 2021 Assessment & Plan (1) ESRD (end stage renal disease) on dialysis: Plan: Patient is on HD MWF but I have changed him to Wed/Wednesday, 2 days weekly. Electrolytes are stable and no signs of volume overload; massive daily losses through G tube and nephrostomy/arthur >> >>over 9L negative since admission from these sources and tolerating minimal UF on HD. Patient refused dialysis Wed due to nausea. Had HD 10/14 x x3 hrs for 500 mL UF -plan to dialyze Wednesday d/t weekend plans ; he tolerated no UF on today's 10/17 tx -next HD for Wednesday or as needs dictate -aim tentatively for M/ schedule at d/c; pt aware this may or may not work for him longer term (2) SBO (small bowel obstruction): Plan: Continues conservative management per primary team once again. avoid fluid overl oad Admission and Anticipated Discharge Date Admission Date: October 11, 2021 Subjective tolerated HD today; exhausted; ongoing N Review of Systems Review of Systems: All systems reviewed & are unremarkable except as noted in Subjective Physical Exam Constitutional: well developed and + frail appearing; no acute distress Eyes: EOM intact bilaterally ENMT: Ears: no external ear abnormality Nose: no external nose abnormality Mouth: + dry oral mucous membranes Neck: no nuchal rigidity Respiratory: normal respiratory effort Auscultation: + diminished lung sounds Cardiovascular: Rate/Rhythm: regular rate and regular rhythm Extremities: no edema Gastrointestinal (Abdomen): Inspection/Auscultation: + abdomen distended (G tube present) and + hypoactive bowel sounds Percussion/Palpation: abdomen soft Musculoskeletal: Extremities: strength 5/5 throughout Skin: no rashes, warm and dry Psychiatric: Orientation: oriented to place Insight: + limited insight J udgement: + limited judgement Results & Data ([facility]) Vital Signs (Past 12 Hours) Vital Signs Temp Pulse Pulse Resp BP BP Pulse Ox 10/17/21 16:07 36.8 C 90 20 95/61 L 99 10/17/21 13:00 36.6 C 110/66 10/17/21 12:00 92 H 102/68 10/17/21 11:30 94 H 97/62 L 10/17/21 11:00 96 H 100/68 10/17/21 10:30 91 H 115/66 10/17/21 10:00 95 H 105/48 L 10/17/21 09:45 36.5 C 87 10/17/21 08:18 36.8 C 86 16 115/74 98 Laboratory Results 10/17/21 14:01 10/17/21 09:25
[2021-10-17] MEDS ORDERED: [UNRECOGNIZED DRUG - OTHER] IV SCH (20:00)
[2021-10-17] MEDS ORDERED: CLINOLIPID 20% IV SCH (20:00)
[2021-10-17] MEDS ORDERED: AMINO ACID 8% IV SCH (20:00)
[2021-10-17] MEDS ORDERED: CENTRAL TPN IV SCH (20:00)
[2021-10-17] MEDS ORDERED: FAT EMULSION IV SCH (20:00)
[2021-10-17] MEDS: SILODOSIN 8 MG PO SCH (21:40)
[2021-10-17] MEDS: MELATONIN 3 MG TAB PO PRN (21:41)
[2021-10-18] MEDS: STOP CLINOLIPID SCH (02:02)
[2021-10-18] MEDS: INSULIN ASPART PER UNIT SC SCH ×2 (06:19→12:14)
[2021-10-18] MEDS: PANTOprazole 40 MG TAB PO SCH (06:19)
[2021-10-18] MEDS: TPN RATE CHANGE SCH (06:19)
[2021-10-18] MEDS: CHECK fentaNYL PATCH PLACEMENT SCH ×2 (08:48)
[2021-10-18] MEDS: TPN STOP ORDER SCH (08:48)
[2021-10-18] MEDS: HEPARIN 100 UNIT/ML 5ML FLUSH FLUSH PRN ×2 (08:49→09:12)
[2021-10-18] MEDS: OLANZapine ZYDIS 5 MG ORALLY DIS. TAB PO SCH (08:52)
[2021-10-18] MEDS: MIDODRINE HCL 10 MG TAB PO SCH ×2 (08:52→12:20)
[2021-10-18] MEDS: oxyCODONE HCL IR 5 MG TAB (IMMEDIATE RELEASE) PO PRN ×2 (09:10→13:26)
[2021-10-18] MEDS: ONDANSETRON INJ 2 MG/ML 2 ML VIAL IV PRN (09:10)
[2021-10-18] MEDS: busPIRone 15 MG TAB PO SCH (09:14)
[2021-10-18] MEDS: DOCUSATE SODIUM/SENNA 50/8.6MG TAB PO SCH (09:14)
[2021-10-18 09:26] LABS: Hematocrit (blood only) 24.2 % (42-52); Mean Corpuscular Hemoglobin 31.3 pg (25-34); Mean Corpuscular Hgb Conc 33.1 g/dL (32-36); Mean Corpuscular Volume 94.5 fL (80-100); RDW Coefficient of Variation 14.8 % (11.5-14.5); RDW Standard Deviation 50.9 fL (36.4-46.3); Red Blood Count 2.56 M/uL (4.7-6.1); White Blood Count 1.93 K/uL (4.8-10.8)
[2021-10-18 09:34] LABS: Mean Platelet Volume 11.2 fL (7.4-10.4); Platelet Count 50 K/uL (130-400)
--- NOTE | 2021-10-18 09:56 | Nephrology Progress Note ---
Date of Service October 18, 2021 Assessment & Plan (1) ESRD (end stage renal disease) on dialysis: Plan: Patient is on HD MWF but I have changed him to Wed/Wednesday, 2 days weekly. Electrolytes are stable and no signs of volume overload; massive daily losses through G tube and nephrostomy/arthur >> >>over 9L negative since admission from these sources and tolerating minimal UF on HD. Patient refused dialysis Wed due to nausea. Had HD 10/14 x x3 hrs for 500 mL UF Patient tolerated dialysis well yesterday. He will likely be dialyzed on a Wednesday schedule. From renal standpoint patient can be discharged home. He would benefit from hospice at home. (2) SBO (small bowel obstruction): Plan: Continues conservative management per primary team once again. avoid fluid overload Admission and Anticipated Discharge Date Admission Date: October 11, 2021 Subjective Seen for ESRD. He has bloody urine in the [place]. No shortness of breath. Review of Systems Review of Systems: All other systems were reviewed and negative except as noted in HPI Physical Exam Physical Exam: General exam: Appears comfortable, no acute distress HEENT: Pupils are equal and reactive to light Neck: No JVD, neck is supple trachea is midline Respiratory system: Clear breath sounds bilaterally. Gastrointestinal: Abdomen is soft, non distended, non tender, bowel sounds are present. PEG tube in in the stomach, nephrostomy tube in the back CVS: Regular rate and rhythm. No murmurs, rubs or gallops Musculoskeletal: No joint or muscle tenderness Extremities: Non tender, no edema, peripheral pulses are present Neuro: Oriented, no tremors, no focal neurological deficits Skin: No rashes Results & Data ([facility]) Vital Signs (Past 12 Hours) Vital Signs Temp Pulse Resp BP BP Pulse Ox 10/18/21 07:54 37.1 C 95 H 20 123/74 96 10/18/21 03:15 36.5 C 87 18 117/74 98 10/17/21 22:46 36.8 C 84 18 120/72 100 Laboratory Results 10/17/21 10/18/21 09:25 08:56 WBC 1.93 L RBC 2.56 L MCV 94.5 MCH 31.3 MCHC 33.1 RDW Std Deviation 50.9 H RDW Coeff of Deandra 14.8 H Plt Count 50 L MPV 11.2 H Phosphorus 3.2
[2021-10-18 10:27] LABS: Bilirubin,Total 1.1 mg/dl (0.2-1.0); Calcium 9.1 mg/dl (8.5-10.1); Creatinine Clr Calc Pharmacy 33.2 ml/min; Est GFR (African American) 23.5 ml/min; Est GFR (Non-African American) 20.3 ml/min; Magnesium 1.9 mg/dl (1.7-2.4); Phosphorus 2.4 mg/dl (2.5-4.9); Potassium 4.1 mmol/L (3.5-5.1)
[2021-10-18] MEDS: CEFEPIME 1,000 MG in SYRINGE 0 ML IV SCH (12:14)
--- NOTE | 2021-10-18 13:06 | Hospitalist Progress Note ---
Date of Service October 18, 2021 Assessment & Plan (1) Abdominal pain: Plan: Patient is a 56 yr male with H/O Metastatic colon cancer, chronic bowel obstruction, with G-tube placement, ESRD on dialysis, with nephrostomy tube placement, who usually follows with [facility], and who was however admitted here recently with Pseudomonas UTI. During his recent dialysis session, patient presented with some abdominal discomfort, possible fever, nausea and confusion. SBO chronic bowel obstruction with G-tube placement on TPN H/O Metastatic colon cancer S/P surgery on/off chemotherapy Chronic cancer pain on fentanyl patch --CT ABD:Interval minimal increase in previously noted small bowel obstruction. According to the patient, this is a chronic obstruction, likely secondary to adhesions. Again noted are transition points in the right lower quadrant. No definite evidence of wall ischemia is seen by CT. Patient is status post right hemicolectomy for colon cancer. There are a few soft tissue nodules in the abdominal wall and adjacent to the surgical site which are nonspecific but may represent metastatic disease. Airspace opacities in the right lung base are new from prior exam and may reflect infectious/inflammatory process. Stable 1 cm right lower lobe pulmonary nodule may represent metastatic disease. Cirrhosis and splenomegaly. -- Appreciate surgery input Not a surgical candidate Palliative care consulted Continue G-tube TPN --Repeat CT showed persistent high-grade small bowel obstruction which is similar to prior CT. Patient has very poor prognosis. He understands his condition and poor outcome Patient and family prefers to be discharged home, understands the risks and consequences. Hematuria Complicated UTI H/O bilateral hydronephrosis S/P nephrostomy tube placement Possible sepsis Urine culture growing Pseudomonas Blood Cx: No growth to date Continue cefepime Patient needs Nephrostomy tube exchanged on at [place] Repeat CT showed moderate right and mild left hydronephrosis. Also showed hyp erdense material within the bladder which favors blood clot. Appreciate urology input Continue flushing catheter as needed. No cystoscopy recommended for clot evacuation. May need right nephrostomy tube placement for obstruction and complete diversion of urine from bladder if hematuria continues, done at tertiary care facility. Continue irrigation of catheter as per Urology Hb 8.0 Today Plan to continue [place] for now Needs to complete the IV cefepime course upon discharge to complete UTI treatment Needs follow up with [facility] Nephrology upon discharge for Nephrostomy tube exchange and possible right nephrostomy tube placement. Patient and family prefers to be discharged home, understands the risks and consequences and agrees with current management Acute Metabolic Encephalopathy Likely multifactorial due to infection, meds Mental status improving --CT Head:No acute intracranial hemorrhage, no evidence of acute territorial infarction or other acute intracranial disease process. ESRD on HD Nephrology consulted Dialysis as per Nephrology DM II Diet-controlled HbA1C:5.21 September 2021 ISS Monitor BGs Chronic hypotension on midodrine Cirrhosis Pancytopenia secondary to chemotherapy/cirrhosis, Neutropenic precautions ordered S/P 1 unit Past alcohol abuse. Monitor DVT Px: SCDs Re: Thrombocytopenia Code status: DNR/DNI Admission and Anticipated Discharge Date Admission Date: October 11, 2021 Subjective Patient is seen and examined at bedside Still has some hematuria Abdominal pain is about the same Discussed with Nephrology today Denies chest pain, dyspnea, dizziness Prefers to be discharged home Review of Systems Review of Systems: All systems reviewed & are unremarkable except as noted in Subjective Physical Exam Physical Exam: Physical Exam: Vitals signs as noted above General Appearance:Moderately built and nourished, no apparent distress Head: normocephalic, Atraumatic Eyes: normal inspection, EOMI Neck: supple, Trachea midline Respiratory/Chest: Normal breath sounds, CTA, No accessory muscle use Cardiovascular: S1, S2, No murmur Abdomen/GI:Soft, Non tender,+G tube, Nephrostomy tube, Bowel sounds present Extremities/Musculoskeletal:normal inspection, mild edema Neurologic/Psych:AAOX3, grossly no focal neurological deficits Skin: normal color, warm Results & Data Results & Data ([facility]) Vital Signs (Past 12 Hours) Vital Signs Temp Pulse Pulse Pulse Resp BP BP 10/18/21 11:31 37.1 C 83 88 95 H 20 123/74 117/74 10/18/21 07:54 37.1 C 95 H 20 123/74 10/18/21 03:15 36.5 C 87 18 117/74 Pulse Ox 10/18/21 11:31 96 10/18/21 07:54 96 10/18/21 03:15 98 Laboratory Results Short CBC 10/17/21 10/18/21 Range/Units 14:01 08:56 WBC 1.93 L (4.8-10.8) K/uL Hgb 8.5 L 8.0 L (14.0-18.0) g/dL Hct 25.7 L 24.2 L (42-52) % Plt Count 50 L (130-400) K/uL BMP 10/18/21 08:56 Sodium 138 Potassium 4.1 Chloride 101 Carbon Dioxide 30 BUN 67 H D Creatinine 3.19 H D Glucose 135 H Calcium 9.1 Liver Function 10/18/21 Range/Units 08:56 Total Bilirubin 1.1 H (0.2-1.0) mg/dl AST 25 (13-39) U/L ALT 17 (7-52) U/L Alkaline Phosphatase 151 H (34-104) U/L
--- NOTE | 2021-10-18 13:14 | Discharge Summary ---
Date of Service October 18, 2021 Admission HPI Per Admitting Provider History obtained from patient, family, and records. Medical history significant for metastatic colon cancer status post surgery ongoing chemotherapy, bilateral hydronephrosis status post nephrostomy tube placement, ESRD on HD, chronic cancer pain on fentanyl patch, DM2 diet- controlled, chronic bowel obstruction with G-tube placement on TPN, chronic hypotension on midodrine, cirrhosis, pancytopenia (baseline hemoglobin of 7 ), past alcohol abuse. Last confinement September 28-2021 for sepsis secondary to complicated UTI (Pseudomonas) status post antibiotic Rx. Patient not really feeling well upon discharge home. Poor appetite. Yesterday, patient noted achy right-sided abdominal pain with nausea emesis, constipation symptoms Patient noted to be somewhat confused, febrile and tachycardic at dialysis session today. Patient denies headache, chest pain, SOB. ER evaluation recommended by dialysis nurse. Patient received Zosyn at the ER for UTI. 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 Exam Per Admitting Provider Physical Exam Physical Exam: GENERAL: Comfortable, pleasant, slightly anxious, no respiratory distress SKIN: Pallor, warm HEENT: Alopecia, pale palpebral conjunctivae, no ptosis, dry buccal mucosa NECK : Supple, no tenderness CHEST : CTA, no tenderness HEART : RRR, no obvious murmurs ABDOMEN: Some distention, minimal right-sided abdominal tenderness EXTREMITIES : Minimal LE swelling, no LE tenderness, no other conspicuous deformities noted NEUROLOGIC : Coherent, no facial asymmetry, no other gross focality Principal Diagnosis Small bowel obstruction Complicated urinary tract infection Hematuria Obstructive uropathy Acute Metabolic Encephalopathy Thrombocytopenia Discharge Data Allergies Allergy/AdvReac Type Severity Reaction Status Date / Time melon Allergy Intermediate throat and Verified 09/28/21 18:08 mouth is itchy Sulfa (Sulfonamide Allergy Intermediate Hives Verified 09/28/21 18:08 Antibiotics) Consultations 10/10/21 21:33 ED Decision to Admit Stat 10/11/21 00:10 Consult Nephrology Routine 10/11/21 00:14 Consult General Surgery Routine 10/13/21 14:28 Consult Palliative Care Routine 10/16/21 14:54 Consult Urology Routine Ordered Studies 10/10/21 19:06 CT abd pelvis wo con Stat CT head/brain wo con Stat 10/15/21 18:42 CT abd pelvis wo con Routine Hospital Course (1) Abdominal pain: Patient is a 56 yr male with H/O Metastatic colon cancer, chronic bowel obstruction, with G-tube placement, ESRD on dialysis, with nephrostomy tube placement, who usually follows with [facility], and who was however admitted here recently with Pseudomonas UTI. During his recent dialysis session, patient presented with some abdominal discomfort, possible fever, nausea and confusion. SBO chronic bowel obstruction with G-tube placement on TPN H/O Metastatic colon cancer S/P surgery on/off chemotherapy Chronic cancer pain on fentanyl patch --CT ABD:Interval minimal increase in previously noted small bowel obstruction. According to the patient, this is a chronic obstruction, likely secondary to adhesions. Again noted are transition points in the right lower quadrant. No definite evidence of wall ischemia is seen by CT. Patient is status post right hemicolectomy for colon cancer. There are a few soft tissue nodules in the abdominal wall and adjacent to the surgical site which are nonspecific but may represent metastatic disease. Airspace opacities in the right lung base are new from prior exam and may reflect infectious/inflammatory process. Stable 1 cm right lower lobe pulmonary nodule may represent metastatic disease. Cirrhosis and splenomegaly. -- Appreciate surgery input Not a surgical candidate Palliative care consulted Continue G-tube TPN --Repeat CT showed persistent high-grade small bowel obstruction which is similar to prior CT. Patient has very poor prognosis. He understands his condition and poor outcome Patient and family prefers to be discharged home, understands the risks and consequences. Hematuria Complicated UTI H/O bilateral hydronephrosis S/P nephrostomy tube placement Possible sepsis Urine culture growing Pseudomonas Blood Cx: No growth to date Continue cefepime Patient needs Nephrostomy tube exchanged on at [place] Repeat CT showed moderate right and mild left hydronephrosis. Also showed hyperdense material within the bladder which favors blood clot. Appreciate urology input Continue flushing catheter as needed. No cystoscopy recommended for clot evacuation. May need right nephrostomy tube placement for obstruction and complete diversion of urine from bladder if hematuria continues, done at tertiary care facility. Continue irrigation of catheter as per Urology Hb 8.0 Today Plan to continue arthur for now Needs to complete the IV cefepime course upon discharge to complete UTI treatment Needs follow up with [facility] Nephrology upon discharge for Nephrostomy tube exchange and possible right nephrostomy tube placement. Patient and family prefers to be discharged home, understands the risks and consequences and agrees with current management Acute Metabolic Encephalopathy Likely multifactorial due to infection, meds Mental status improving --CT Head:No acute intracranial hemorrhage, no evidence of acute territorial infarction or other acute intracranial disease process. ESRD on HD Nephrology consulted Dialysis as per Nephrology DM II Diet-controlled HbA1C:5.21 September 2021 ISS Monitor BGs Chronic hypotension on midodrine Cirrhosis Pancytopenia secondary to chemotherapy/cirrhosis, Neutropenic precautions ordered S/P 1 unit Past alcohol abuse. Monitor DVT Px: SCDs Re: Thrombocytopenia Code status: DNR/DNI Total Time Total Time Spent Total Time Spent (In Minutes): 54 minutes Discharge Plan Discharge Items Patient Disposition: Home - Home Health Services Reason For Visit: LOW BP, COMP UTI Discharge Diagnosis: Small bowel obstruction Complicated urinary tract infection Hematuria Obstructive uropathy Acute Metabolic Encephalopathy Thrombocytopenia Activity: Per Instructions section Exercise/Sports: Wait until after follow-up appointment Non-emergency contact: Primary Care Provider, Surgeon and Urologist Call non-emergency contact if: you have any medication questions, your symptoms worsen, your pain is concerning for you and you have a fever Follow-up/Referrals: Bel Patterson D.OLulú [Primary Care Provider] - Dietitian Info: TPN Diet: Other - See Diet Comment Addtl Attending Provider Instructions: Follow-up with your primary care physician in 1 week. Please call fo r appointment Follow-up with your Urologist at [facility] next week as scheduled for nephrostomy tube exchange, possible right nephrostomy tube placement. Follow-up with your surgeon in 1 to 2 weeks as needed. ----Completed IV cefepime course for urinary tract infection as prescribed. Seek immediate medical attention if your symptoms reoccur or worsen Please take all medications as instructed on discharge list below. Please call if you have any questions or problems. You can reach a [facility] hospitalist on duty at [facility] 24 hours a day by calling [phone] Pending Studies at Discharge: No Stand-Alone Forms: My [facility], Smoking Cessation Medications and DC Order Prescriptions: New cefepime 100 gram recon soln 1 g IV .daily 7 Days Qty: 1 RF: 0 Continued fentanyl 100 mcg/hr Patch 72 Hour 1 patch TRANSDERMAL Q72H RF: 0 fentanyl 25 mcg/hr Patch 72 Hour 1 patch TRANSDERMAL Q72H RF: 0 buspirone 15 mg Tablet 30 mg PO BID RF: 0 ondansetron HCl 8 mg Tablet 8 mg PO TID PRN (Reason: Nausea) RF: 0 silodosin 8 mg Capsule 8 mg PO DAILY RF: 0 menthol-zinc oxide [Calmoseptine] 0.44-20.6 % Ointment 1 applic TOPICAL TID PRN (Reason: breakdown) RF: 0 olanzapine [Zyprexa] 5 mg Tablet 5 mg PO TID PRN (Reason: Nausea) RF: 0 melatonin 3 mg Tablet 3 mg PO HS PRN (Reason: Sleep) RF: 0 pantoprazole [Protonix] 40 mg Tablet,Delayed Release (Dr/Ec) 40 mg PO DAILYBB RF: 0 midodrine 10 mg Tablet 10 mg PO TID RF: 0 Xifaxan 550 mg Tablet 550 mg PO BID RF: 0 oxycodone 15 mg Tablet 15 mg PO 6XD PRN (Reason: Pain) RF: 0 nystatin 100,000 unit/gram Powder 1 applic TOPICAL BID RF: 0 TPN Electrolytes See Rx Instructions .ROUTE .COMPLEX RF: 0 Discharge Orders: Discharge Order (Routine); Ordered 10/18/21 Ordered By: Brennen Schaefer Admission Data Admit Date/Time: 10/11/21 00:07 Attending Provider: Brennen Schaefer Admit Provider: Vu Thomas Primary Care Provider: Bel Patterson Other Providers: Vu Thomas ; Yamel Segal ; Dillon Wright ; Savanna Shelby ; Chris Garcia ; Malinda Blake ; Francis Galvan ; Damon Butler ; Andi Lewis ; David Owens Jr ; Dio Bhatti ; Mono Dc ; Ana Brooks ; Teofilo Preciado ; Isaiah Sidhu ; Lizette Frazier ; [facility] ; Vadim Moore Other Interventions: Discharge Summary Assessment (RN) Last Done: 10/18/21 11:31
== END 2021-10-18 13:39 | disposition home health service (06) | DRG 871 ==
LOC: ED 18:41 → 2N 10-11 00:07 → SUATTDRO 10-11 00:07 → 2N 10-11 02:01 → 2W 10-12 14:20

== ENCOUNTER 2022-01-23 14:58 | Inpatient (IN) ==
[2022-01-23 16:35] LABS: Eosinophils # (auto) 0.04 K/uL (0-0.50); Eosinophils % (auto) 1.3 %; Hematocrit (blood only) 26.6 % (40.1-51.0); Hemoglobin 8.8 g/dl (14.0-18.0); Immature Granulocytes # (auto) 0.02 K/uL (0.00-0.02); Immature Granulocytes % (auto) 0.7 %; Lymphocytes # (auto) 0.53 K/uL (1.2-3.4); Lymphocytes % (auto) 17.8 %; Monocytes # (auto) 0.36 K/uL (0.24-0.82); Monocytes % (auto) 12.1 %; Neutrophils # (auto) 2.03 K/uL (1.4-6.5); Neutrophils % (auto) 68.1 %; Platelet Count 64 K/uL (130-400); White Blood Count 2.98 K/ul (4.8-10.8)
[2022-01-23 16:55] LABS: Alanine Aminotransferase 8 U/L (7-52); Albumin Globulin Ratio 0.9 (0.9-2); Albumin Level 2.7 gm/dl (3.4-5.0); Alkaline Phosphatase 294 U/L (34-104); Anion Gap 9 (3-11); Aspartate Aminotransferase 27 U/L (13-39); BUN Creatinine Ratio 19.1 (10-20); Bilirubin,Total 0.7 mg/dl (0.2-1.0); Blood Urea Nitrogen 68 mg/dl (6-23); Calcium 8.6 mg/dl (8.5-10.1); Carbon Dioxide 23 mmol/L (21-32); Chloride 103 mmol/L (98-107); Est GFR (African American) 20.6 ml/min; Est GFR (Non-African American) 17.8 ml/min; Glucose 109 mg/dl (70-99(Fasting)); Potassium 4.2 mmol/L (3.5-5.1); Sodium 135 mmol/L (136-145); Total Protein 5.7 gm/dl (6.0-8.3)
[2022-01-23 17:05] LABS: Mean Corpuscular Hemoglobin 30.8 pg (25.0-34.0); Mean Corpuscular Hgb Conc 33.1 g/dL (32.0-36.0); RDW Coefficient of Variation 15.1 % (11.5-14.5); RDW Standard Deviation 51.9 fL (36.4-46.3); Red Blood Count 2.86 M/uL (4.63-6.08)
--- NOTE | 2022-01-23 17:15 | Emergency Department Note ---
History of Present Illness General Chief complaint: Illness Stated complaint: UTI, HALLUCINATIONS, RASH Time Seen by Provider: 01/23/22 16:55 Source: family Mode of arrival: wheelchair Limitations: altered mental status History of Present Illness Provider complaint: ams, recent UTI Onset (ago): week(s) Maximum Pain Intensity: 9 This is a 56-year-old male presents emergency department due to concern for failure of outpatient treatment of a recent UTI as well as worsening mental status. at bedside states patient has been having hallucinations in recent days. Patient with a history of metastatic colon cancer. Patient undergoes dialysis twice a week and has bilateral percutaneous nephrostomy tubes as well as an indwelling G-tube. Patient does not take much by mouth and does get nightly TPN. Family states he began having darker drainage from one of his nephrostomy tubes the end of last week and was started on ciprofloxacin. His nephrostomy tubes were changed the beginning of the week and culture results showed he needed to have his antibiotics changed. states he started receiving ertapenem on Wednesday evening. She states over the course of the week he has not improved. He missed his usual hemodialysis today. She had not noticed any other abnormal drainage from his tubes. She states he has been more weak and lethargic. She is not noted any fevers or chills. She states she does have a faint erythematous rash noted to the abdomen also of unknown etiology. No other change in any of his medications. She states his last dose of ch emotherapy was the end of November/beginning of December. notes pt's BP is typically low. Home Medications Medication Instructions Recorded Confirmed Type TPN Electrolytes See Rx Instructions .Route .COMPLEX 09/28/21 01/23/22 History fentanyl 100 mcg/hr transdermal 1 patch transdermal Q72H 09/28/21 01/23/22 History patch fentanyl 25 mcg/hr transdermal 1 patch transdermal Q72H 09/28/21 01/23/22 History patch melatonin 3 mg tablet 3 mg PO HS PRN Sleep 09/28/21 01/23/22 History menthol 0.44 %-zinc oxide 20.6 % 1 applic topical TID PRN breakdown 09/28/21 01/23/22 History topical ointment (Calmoseptine) midodrine 10 mg tablet 10 mg PO TID 09/28/21 01/23/22 History nystatin 100,000 unit/gram topical 1 applic topical BID 09/28/21 01/23/22 History powder olanzapine 5 mg tablet (Zyprexa) 5 mg PO TID 09/28/21 01/23/22 History ondansetron HCl 8 mg tablet 8 mg PO TID PRN Nausea 09/28/21 01/23/22 History oxycodone 15 mg tablet 15 mg PO 6XD PRN Pain 09/28/21 01/23/22 History pantoprazole 40 mg tablet,delayed 40 mg PO DAILYBB 09/28/21 01/23/22 History release (Protonix) silodosin 8 mg capsule 8 mg PO HS 09/28/21 01/23/22 History buspirone 30 mg tablet 30 mg PO BID 11/21/21 01/23/22 History dronabinol 2.5 mg capsule 2.5 mg PO BID PRN Nausea 11/21/21 01/23/22 History Ertapenem Iv 1 dose IV DIRECTED 01/23/22 01/23/22 History Allergies Allergy/AdvReac Type Severity Reaction Status Date / Time melon Allergy Intermediate throat and Verified 01/23/22 21:35 mouth is itchy Sulfa (Sulfonamide Allergy Intermediate Hives Verified 01/23/22 21:35 Antibiotics) ertapenem Allergy Mild Rash Verified 01/23/22 22:22 Past Med/Surg History Medical History Cirrhosis Colon cancer Diabetes mellitus type 2 in obese ESRD (end stage renal disease) on dialysis Recurrent urinary tract infection Small bowel obstruction Surgical History S/P hernia repair Status post right hemicolectomy Family History Brother Cancer Grandmother (Paternal) Cancer Social History Smoking Status: Former smoker Second Hand Exposure: No; Do You Dip or Chew Tobacco: No; Tobacco Cessation Education Requested by Patient: No Hx Alcohol Use: Yes Alcohol type: beer Hx Substance Use: No Preferred Language: Tajik Communication Ability: Impaired 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: No Beliefs That Will Affect Care: None marital status: Current Living Situation: Family Current Living Situation Comment: Spouse and son Other Information That Helps Us Care for You: No Feels Safe at Home: Yes Safety Concerns: Feels Safe At This Time Assistive Devices: None Review of Systems A total of 10 systems reviewed and were otherwise negative All systems reviewed & are unremarkable except as noted in HPI & below Physical Exam Vital Signs Vital Signs - 24 hr 01/23/22 15:54 Temperature 36.4 C L Temperature Source Oral Pulse Rate 87 Respiratory Rate 18 Blood Pressure 99/67 L Blood Pressure Mean 77 Pulse Oximetry 97 Oxygen Delivery Method Room Air Sepsis Recent Fever Within 48 Hours No Sepsis New/Unexplained Change in Mental Status No Sepsis Action Taken by Nursing No Action Required GENERAL: alert, well appearing, well nourished, no distress, non-toxic EYE EXAM: normal conjunctiva, PERRL and EOM's grossly intact OROPHARYNX: no exudate, no erythema, lips, buccal mucosa, and tongue normal and mucous membranes are moist NECK: supple, no nuchal rigidity, no adenopathy, non-tender LUNGS: Clear to auscultation. Normal chest wall mechanics, no w/r/r HEART: no murmurs, S1 normal and S2 normal ABDOMEN: abdomen soft, non-tender, normo-active bowel sounds, no masses, no rebound or guarding. BACK: Back is symmetrical on inspection and there is no deformity, no midline tenderness, no CVA tenderness. SKIN: no rashes and no bruising UPPER EXTREMITIES: upper extremities are grossly normal. FROM, nml pulses b/l. LOWER EXTREMITIES: No pitting edema. FROM, nml pulses b/l. NEURO EXAM: Normal sensorium, cranial nerves II-XII grossly intact, normal speech, no gross weakness of arms, no gross weakness of legs. Gross sensation intact. Course Administered Medications Piperacillin Sod/Tazobactam (Sod 3.375 gm/ Dextrose) 115 mls @ 28.75 mls/hr IV Q12H PENDING SALE TO [facility]; Protocol Stop: 01/31/22 11:59 Last Infusion: 01/25/22 15:46 Dose: 0 mls/hr Documented By: Admin: 01/25/22 12:11 Dose: 28.8 mls/hr Documented By: Infusion: 01/25/22 03:22 Dose: 0 mls/hr Documented By: Admin: 01/24/22 23:26 Dose: 30 mls/hr Documented By: Infusion: 01/24/22 18:09 Dose: 0 mls/hr Documented By: Admin: 01/24/22 14:18 Dose: 28.8 mls/hr Documented By: SAMI Pantoprazole Sodium 40 mg/ (Syringe) 10 mls @ 5 mls/min IV BID GATITO Stop: 02/24/22 13:19 Last Admin: 01/25/22 14:38 Dose: 5 mls/min Documented By: SAMI Acetaminophen (Ofirmev) 65 mls @ 200 mls/hr IV Q8H PRN; Protocol PRN Reason: Pain or Fever Stop: 01/28/22 16:12 Last Infusion: 01/25/22 17:41 Dose: 0 mls/hr Documented By: Admin: 01/25/22 17:15 Dose: 200 mls/hr Documented By: SAMI Insulin Aspart (Insulin Aspart Per Unit) 0 units SC ACHS GATITO Stop: 02/23/22 00:16 Last Admin: 01/25/22 16:37 Dose: Not Given Documented By: Admin: 01/25/22 11:38 Dose: Not Given Documented By: SAMI Co-signed By: LISA Admin: 01/25/22 08:31 Dose: Not Given Documented By: SAMI Co-signed By: LISA Admin: 01/24/22 20:27 Dose: Not Given Documented By: BISI Co-signed By: NATALIE Admin: 01/24/22 16:44 Dose: Not Given Documented By: Admin: 01/24/22 12:33 Dose: Not Given Documented By: Admin: 01/24/22 09:05 Dose: Not Given Documented By: Admin: 01/24/22 01:10 Dose: Not Given Documented By: AUSTIN Co-signed By: NATALIE Melatonin (Melatonin 3 Mg Tab) 3 mg PO HS PRN PRN Reason: Sleep Stop: 02/23/22 00:16 Last Admin: 01/24/22 23:28 Dose: 3 mg Documented By: IBSI Midodrine (Midodrine Hcl 10 Mg Tab) 10 mg PO TIDM G[place]O Stop: 02/23/22 00:16 Last Admin: 01/25/22 17:17 Dose: 10 mg Documented By: Admin: 01/25/22 12:13 Dose: 10 mg Documented By: Admin: 01/25/22 08:31 Dose: 10 mg Documented By: Admin: 01/24/22 16:45 Dose: 10 mg Documented By: Admin: 01/24/22 14:21 Dose: 10 mg Documented By: Admin: 01/24/22 09:06 Dose: Not Given Documented By: Admin: 01/24/22 01:09 Dose: 10 mg Documented By: AUSTIN Tobias (Order Awaiting Action: Silodosin 8 Mg Capsule) 1 each N/A QS PENDING SALE TO [facility] Stop: 02/23/22 07:59 Last Admin: 01/25/22 16:09 Dose: 1 each Documented By: Admin: 01/25/22 08:31 Dose: Not Given Documented By: Admin: 01/24/22 23:28 Dose: Not Given Documented By: Admin: 01/24/22 16:44 Dose: Not Given Documented By: Admin: 01/24/22 09:07 Dose: Not Given Documented By: SAMI Tobias (Stop Clinolipid) 1 each N/A Q24H PENDING SALE TO [facility] Stop: 02/24/22 01:59 Last Admin: 01/25/22 02:09 Dose: 1 each Documented By: BISI Tobias (Tpn Rate Change: Pending Order) 1 each N/A DAILY@2100 PENDING SALE TO [facility] Stop: 02/23/22 20:59 Last Admin: 01/24/22 21:30 Dose: 1 each Documented By: BISI Tobias (Tpn Rate Change: Pending Order) 1 each N/A DAILY@0700 PENDING SALE TO [facility] Stop: 02/24/22 06:59 Last Admin: 01/25/22 07:06 Dose: 1 each Documented By: BISI Tobias (Tpn Stop Order) 1 each N/A DAILY@0800 PENDING SALE TO [facility] Stop: 02/24/22 07:59 Last Admin: 01/25/22 08:31 Dose: 1 each Documented By: SAMI Pantoprazole Sodium (Pantoprazole 40 Mg Tab) 40 mg PO DAILYBB PENDING SALE TO [facility] Stop: 02/23/22 06:29 Last Admin: 01/25/22 05:19 Dose: 40 mg Documented By: Admin: 01/24/22 05:44 Dose: 40 mg Documented By: AUSTIN Discontinued Medications Bisacodyl (Bisacodyl 10 Mg Supp) 10 mg [place] NOW STA Stop: 01/23/22 22:30 Last Admin: 01/23/22 23:22 Dose: Not Given Documented By: GEORGIA Fentanyl (Fentanyl 25 Mcg/Hr Tdsy) 25 mcg TD Q72H PENDING SALE TO [facility] Stop: 02/07/22 15:29 Last Admin: 01/24/22 16:39 Dose: 25 mcg Documented By: SAMI Meropenem 500 mg/ Syringe 10 mls @ 2 mls/min IV NOW STA; Protocol Stop: 01/23/22 17:20 Last Admin: 01/23/22 18:21 Dose: 2 mls/min Documented By: GEORGIA Piperacillin Sod/Tazobactam (Sod 3.375 gm/ Dextrose) 115 mls @ 230 mls/hr IV TODAY@0400 ONE; Protocol Stop: 01/24/22 04:29 Last Infusion: 01/24/22 04:51 Dose: 0 mls/hr Documented By: Admin: 01/24/22 04:08 Dose: 230 mls/hr Documented By: AUSTIN Albumin Human (Albumin 25% 100 Ml) 25 gm in 100 mls @ 50 mls/hr IV TODAY@2235 PENDING SALE TO [facility] Stop: 01/24/22 01:15 Last Infusion: 01/24/22 03:52 Dose: 0 mls/hr Documented By: Admin: 01/24/22 01:32 Dose: 50 mls/hr Documented By: AUSTIN Fat Emulsion-[place] Oil/Soybean Oil (Clinolipid 20% Iv Fat Emulsion) 250 mls @ 41.667 mls/hr IV .Q6H G[place]ITO Stop: 01/25/22 01:59 Last Infusion: 01/25/22 02:10 Dose: 0 mls/hr Documented By: Admin: 01/24/22 20:02 Dose: 41.7 mls/hr Documented By: BISI Amino Acids/Dextrose 1,655 ml/ (Nutrition (Parenteral)) 1,655 mls @ 137.917 mls/hr IV .Q12H PENDING SALE TO [facility]; Protocol Stop: 01/25/22 07:59 Last Infusion: 01/25/22 08:46 Dose: 0 mls/hr Documented By: Admin: 01/24/22 20:03 Dose: 137.9 mls/hr Documented By: BISI Sodium Phosphate 30 mmol/ (Sodium Chloride) 510 mls @ 88 mls/hr IV 0900 ONE Stop: 01/25/22 14:47 Last Infusion: 01/25/22 15:46 Dose: 0 mls/hr Documented By: Admin: 01/25/22 09:33 Dose: 88 mls/hr Documented By: SAMI Loratadine (Loratadine 10 Mg Tab) 10 mg PO NOW ONE Stop: 01/24/22 06:01 Last Admin: 01/24/22 05:44 Dose: 10 mg Documented By: AUSTIN Miscellaneous (Patient's Height &/Or Weight Needed) 1 each N/A Q2H G[place]O Stop: 02/22/22 19:59 Last Admin: 01/24/22 04:17 Dose: Not Given Documented By: Admin: 01/24/22 01:03 Dose: Not Given Documented By: Admin: 01/24/22 01:03 Dose: 1 each Documented By: AUSTIN Carranzacellaneous (Fentanyl Patch Remove & Waste) 1 each N/A Q3D G[place]O Stop: 02/23/22 15:28 Last Admin: 01/24/22 16:39 Dose: Not Given Documented By: SAMI Carranzacellaneous (Check Fentanyl Patch Placement) 1 each N/A QS PENDING SALE TO [facility] Stop: 02/23/22 15:59 Last Admin: 01/24/22 23:26 Dose: 1 each Documented By: Admin: 01/24/22 16:44 Dose: 1 each Documented By: SAMI Medical Decision Making Differential Diagnosis Differential diagnoses includes but is not limited to toxic, metabolic, infectious, traumatic, cardiac, neurologic, hematologic, psychiatric and inflammatory etiologies. Medical Records Attestation: I reviewed the patient's medical records. Home Medications Current Medication List: was personally reviewed by me Laboratory Data Attestation: I reviewed the patient's lab results. Result diagrams: 01/25/22 06:10 01/25/22 06:10 Lab Results 01/23/22 01/23/22 01/23/22 Range/Units 16:20 16:20 16:27 WBC 2.98 L (4.8-10.8) K/ul RBC 2.86 L (4.63-6.08) M/uL Hgb 8.8 L (14.0-18.0) g/dl Hct 26.6 L (40.1-51.0) % MCV 93.0 (80.0-100.0) fL MCH 30.8 (25.0-34.0) pg MCHC 33.1 (32.0-36.0) g/dL RDW Std Deviation 51.9 H (36.4-46.3) fL RDW Coeff of Deandra 15.1 H (11.5-14.5) % Plt Count 64 L (130-400) K/uL MPV 10.0 (9.4-12.4) fL Immature Gran % (Auto) 0.7 % Neut % (Auto) 68.1 % Lymph % (Auto) 17.8 % [place] % (Auto) 12.1 % Eos % (Auto) 1.3 % Baso % (Auto) 0.0 % Neut # (Auto) 2.03 (1.4-6.5) K/uL Lymph # (Auto) 0.53 L (1.2-3.4) K/uL [place] # (Auto) 0.36 (0.24-0.82) K/uL Eos # (Auto) 0.04 (0-0.50) K/uL Baso # (Auto) 0.00 (0-0.2) K/uL Immature Gran # (Auto) 0.02 (0.00-0.02) K/uL Sodium 135 L (136-145) mmol/L Potassium 4.2 (3.5-5.1) mmol/L Chloride 103 (98-107) mmol/L Carbon Dioxide 23 (21-32) mmol/L Anion Gap 9 (3-11) BUN 68 H (6-23) mg/dl Creatinine 3.56 H (0.6-1.4) mg/dl Est Cr Clr Drug Dosing Not Reportable Est GFR ( Amer) 20.6 ml/min Est GFR (Non-Af Amer) 17.8 ml/min BUN/Creatinine Ratio 19.1 (10-20) Glucose 109 H (70-99(Fasting)) mg/dl Lactate (0.4-2.0) mmol/L Calcium 8.6 (8.5-10.1) mg/dl Total Bilirubin 0.7 (0.2-1.0) mg/dl AST 27 (13-39) U/L ALT 8 (7-52) U/L Alkaline Phosphatase 294 H (34-104) U/L Ammonia (18-72) umol/L Total Protein 5.7 L (6.0-8.3) gm/dl Albumin 2.7 L (3.4-5.0) gm/dl Globulin 3.0 (2.5-4.0) gm/dl Albumin/Globulin Ratio 0.9 (0.9-2) Procalcitonin 0.91 H (0-0.5) ng/ml SARS-CoV-2 (PCR) (Negative) Influenza Type A (PCR) (Neg) Influenza Type B (PCR) (Neg) RSV (RT-PCR) (Neg) 01/23/22 01/23/22 01/23/22 Range/Units 17:54 21:05 21:19 WBC (4.8-10.8) K/ul RBC (4.63-6.08) M/uL Hgb (14.0-18.0) g/dl Hct (40.1-51.0) % MCV (80.0-100.0) fL MCH (25.0-34.0) pg MCHC (32.0-36.0) g/dL RDW Std Deviation (36.4-46.3) fL RDW Coeff of Deandra (11.5-14.5) % Plt Count (130-400) K/uL MPV (9.4-12.4) fL Immature Gran % (Auto) % Neut % (Auto) % Lymph % (Auto) % [place] % (Auto) % Eos % (Auto) % Baso % (Auto) % Neut # (Auto) (1.4-6.5) K/uL Lymph # (Auto) (1.2-3.4) K/uL [place] # (Auto) (0.24-0.82) K/uL Eos # (Auto) (0-0.50) K/uL Baso # (Auto) (0-0.2) K/uL Immature Gran # (Auto) (0.00-0.02) K/uL Sodium (136-145) mmol/L Potassium (3.5-5.1) mmol/L Chloride (98-107) mmol/L Carbon Dioxide (21-32) mmol/L Anion Gap (3-11) BUN (6-23) mg/dl Creatinine (0.6-1.4) mg/dl Est Cr Clr Drug Dosing Est GFR ( Amer) ml/min Est GFR (Non-Af Amer) ml/min BUN/Creatinine Ratio (10-20) Glucose (70-99(Fasting)) mg/dl Lactate 0.8 (0.4-2.0) mmol/L Calcium (8.5-10.1) mg/dl Total Bilirubin (0.2-1.0) mg/dl AST (13-39) U/L ALT (7-52) U/L Alkaline Phosphatase (34-104) U/L Ammonia 19.0 (18-72) umol/L Total Protein (6.0-8.3) gm/dl Albumin (3.4-5.0) gm/dl Globulin (2.5-4.0) gm/dl Albumin/Globulin Ratio (0.9-2) Procalcitonin (0-0.5) ng/ml SARS-CoV-2 (PCR) NEGATIVE (Negative) Influenza Type A (PCR) Negative (Neg) Influenza Type B (PCR) Negative (Neg) RSV (RT-PCR) Negative (Neg) Imaging Data Radiologist's Impression: CT head/brain wo con CLINICAL HISTORY: 56 years-old Male with ams. Acutely altered mental status TECHNIQUE: Multiple axial CT images of the head were obtained without contrast. A dose lowering technique was utilized adhering to the principles of ALARA. COMPARISON: Head CT 10/10/2021 FINDINGS: No acute intracranial hemorrhage, midline shift, intracranial mass, hyd rocephalus, territorial ischemia or abnormal extra-axial collection. Mild involutional changes. Senescent calcifications of the lentiform nuclei. The calvarium is intact. Prior bilateral lens repair. The paranasal sinuses, mastoid air cells, and middle ear cavities are clear. IMPRESSION: No acute intracranial abnormality. ACT 112: Negative or not required by law. The above report was generated using voice recognition software. It may contain grammatical, syntax or spelling errors. Electronically signed by: John Goodson M.D. 01/23/2022 6:36 PM ABDOMEN AND PELVIS CT WITHOUT CONTRAST CT DOSE: 2323.75 mGy.cm HISTORY: Acute bilateral flank pain in patient with bilateral percutaneous nephrostomy. recent change of perc nephrostomy tubes TECHNIQUE: Multiaxial CT images of the abdomen and pelvis were performed without contrast. A dose lowering technique was utilized adhering to the principles of ALARA. COMPARISON STUDY: 11/20/2021, 10/10/2021. FINDINGS: Right IJ Dqdvrb-[id number] catheter distal tip terminates within the right atrium. The heart is enlarged. Trace right pleural effusion. Mild left basilar atelectasis. Right basilar consolidation. There are a few nodules of the right lung base measuring up to 11 mm on image 10 series 5. No pneumatosis or pneumoperitoneum identified. The spleen measures up to approximately 20 cm in length. Evaluation of the solid abdominal organs without the use of IV contrast. Atrophic pancreas. Unremarkable adrenal glands. Surgical clips are again noted within the carlos a hepatis. Cirrhotic morphology of the liver. No hepatic mass identified. The right-sided nephrostomy tube appears to be in satisfactory positioning. No right-sided hydronephrosis. Moderate to severe left-sided hydroureteronephrosis with transverse dimension the renal pelvis measuring 3.0 cm. Findings are similar to the comparison study with mildly decreased amount of perinephric stranding. The left nephrostomy tube has been advanced, now terminating within the left renal pelvis. No renal or ureteral calculi identified. Hyperdense foci within the bladder redemonstrated suggestive of calcifications or blood products. Atherosclerosis of the aorta without aneurysm. Scattered peritoneal and anterior abdominal wall metastatic disease is redemonstrated. 4.5 cm anterior abdominal wall lesion on image 66 is stable. 2.5 cm lesion on image 73 is unchanged. High-grade small bowel obstruction with transition point within the right midabdomen at the distal ileum secondary to tumor implants. Findings appear similar from the prior study. A gastrostomy tube appears to be unchanged positioning. Nonspecific wall thickening of the distal stomach similar to prior. There are numerous soft tissue attenuating nodular foci noted within the sigmoid colon which are also likely neoplastic. Degenerative changes of the spine, pelvis and hips. Grade 1 anterolisthesis L5 on S1 with chronic bilateral L5 pars defects. IMPRESSION: 1. Right basilar consolidation suspicious for pneumonia. 2. No significant change of the high-grade small bowel obstruction with case sition point within the right midabdomen at the distal ileum secondary to metastatic implants. Similar findings were also present dating back to the September 2021 exam's. 3. Mesenteric, omental and abdominal wall tumor implants also appear generally stable. 4. Solid nodules within the right lower lobe measure up to 11 mm. 5. The bilateral nephrostomy tubes appear to be in satisfactory positioning. Moderate to severe left-sided hydroureteronephrosis is generally unchanged. 6. Cirrhosis with splenomegaly. 7. Numerous tumor implants involving the distal colon with probable additional tumor implants involving the urinary bladder. 8. Additional findings as above. ACT 112: Negative or not required by law. The above report was generated using voice recognition software. It may contain grammatical, syntax or spelling errors. Electronically signed by: John Goodson M.D. 01/23/2022 7:51 PM XR chest 1V portable HISTORY: 56 years-old Male ams . Acutely altered mental status COMPARISON: Chest radiograph 10/10/2021 TECHNIQUE: AP view of the chest FINDINGS: Cardiac silhouette is enlarged. Left subclavian Cmhbyj-c-Xuoh catheter. Right IJ dual-lumen hemodialysis catheter. Subsegmental right basilar atelectasis. No pneumothorax, pleural effusion, airspace consolidation or overt pulmonary edema. 10 mm nodule projects over the lateral right midlung which appears stable. De generative changes of the shoulders and spine. Mild right hemidiaphragmatic elevation. IMPRESSION: No acute process. ACT 112: Negative or not required by law. The above report was generated using voice recognition software. It may contain grammatical, syntax or spelling errors. Electronically signed by: John Goodson M.D. 01/23/2022 7:06 PM ECG Data Attestation: I personally reviewed and interpreted this ECG as follows: Indication: + altered mental status and + weakness Rate (beats per minute): 86 Rhythm: + normal sinus ECG Intervals/blocks: + Normal QRS and + Normal QT ECG [place]: + Left axis deviation ECG ST segments: + Nonspecific ST abnormalities MDM Narrative An order was placed for continuous cardiac monitoring. The monitor shows a rate of _78_ with _normal sinus_ rhythm. This is a 56 yo male with complicated medical hx brought in by due to concern for failing outpatient treatment of recent UTI despite changing antib iotics and changing perc nephrostomy tubes. VS stable, she reports pt with normally low BP. Patient did miss HD today due to ams and weakness. Labs with pancytopenia. Elevated Cr consistent with CKD. After discussing with ER pharmacist, patient given meropenem. Small careful IVF given due to CKD. CT revealed concurrent pna. I discussed all results with pt's at bedside. Case discussed with hospitalist for additional evaluation/treatment. Impression & Plan AMS (altered mental status), Recurrent urinary tract infection, Colon cancer, Encephalopathy, Pneumonia, CKD (chronic kidney disease) Discharge Plan Visit Data Chief Complaint: Illness Stated Complaint: UTI, HALLUCINATIONS, RASH ED Provider: Lizette Quesada Discharge Problem: AMS (altered mental status), Recurrent urinary tract infection, Colon cancer, Encephalopathy, Pneumonia, CKD (chronic kidney disease) Patient Disposition: Admitted As Inpatient Discharge Instructions Interventions: ED Discharge Assessment Last Done: 01/23/22 23:30
[2022-01-23] MEDS ORDERED: MEROPENEM 500 MG in SYRINGE 0 ML IV STA (17:16)
--- NOTE | 2022-01-23 18:38 | CT Scan Report ---
CT head/brain wo con CLINICAL HISTORY: 56 years-old Male with ams. Acutely altered mental status TECHNIQUE: Multiple axial CT images of the head were obtained without contrast. A dose lowering tech nique was utilized adhering to the principles of ALARA. COMPARISON: Head CT 10/10/2021 FINDINGS: No acute intracranial hemorrhage, midline shift, intracranial mass, hydrocephalus, territorial ischem ia or abnormal extra-axial collection. Mild involutional changes. Senescent calcifications of the min tiform nuclei. The calvarium is intact. Prior bilateral lens repair. The paranasal sinuses, mastoid air cells, and m iddle ear cavities are clear. IMPRESSION: No acute intracranial abnormality. ACT 112: Negative or not required by law. The above report was generated using voice recognition software. It may contain grammatical, syntax o r spelling errors. Electronically signed by: John Goodson M.D. 01/23/2022 6:36 PM
--- NOTE | 2022-01-23 19:08 | XRay Report ---
XR chest 1V portable HISTORY: 56 years-old Male ams . Acutely altered mental status COMPARISON: Chest radiograph 10/10/2021 TECHNIQUE: AP view of the chest FINDINGS: Cardiac silhouette is enlarged. Left subclavian Gdlyaw-g-Zmgg catheter. Right IJ dual-lumen hemodialy sis catheter. Subsegmental right basilar atelectasis. No pneumothorax, pleural effusion, airspace con solidation or overt pulmonary edema. 10 mm nodule projects over the lateral right midlung which appea rs stable. Degenerative changes of the shoulders and spine. Mild right hemidiaphragmatic elevation. IMPRESSION: No acute process. ACT 112: Negative or not required by law. The above report was generated using voice recognition software. It may contain grammatical, syntax o r spelling errors. Electronically signed by: John Goodson M.D. 01/23/2022 7:06 PM
--- NOTE | 2022-01-23 19:53 | CT Scan Report ---
ABDOMEN AND PELVIS CT WITHOUT CONTRAST CT DOSE: 2323.75 mGy.cm HISTORY: Acute bilateral flank pain in patient with bilateral percutaneous nephrostomy. recent salazar e of perc nephrostomy tubes TECHNIQUE: Multiaxial CT images of the abdomen and pelvis were performed without contrast. A dose lo wering technique was utilized adhering to the principles of ALARA. COMPARISON STUDY: 11/20/2021, 10/10/2021. FINDINGS: Right IJ Eiicks-v-Snjk catheter distal tip terminates within the right atrium. The heart is enlarged. Trace right pleural effusion. Mild left basilar atelectasis. Right basilar consolidation. There are a few nodules of the right lung base measuring up to 11 mm on image 10 series 5. No pneumat osis or pneumoperitoneum identified. The spleen measures up to approximately 20 cm in length. Evaluation of the solid abdominal organs wit hout the use of IV contrast. Atrophic pancreas. Unremarkable adrenal glands. Surgical clips are again noted within the carlos a hepatis. Cirrhotic morphology of the liver. No hepatic mass identified. The right-sided nephrostomy tube appears to be in satisfactory positioning. No right-sided hydronephr osis. Moderate to severe left-sided hydroureteronephrosis with transverse dimension the renal pelvis measuring 3.0 cm. Findings are similar to the comparison study with mildly decreased amount of perine phric stranding. The left nephrostomy tube has been advanced, now terminating within the left renal p rubio. No renal or ureteral calculi identified. Hyperdense foci within the bladder redemonstrated sug gestive of calcifications or blood products. Atherosclerosis of the aorta without aneurysm. Scattered peritoneal and anterior abdominal wall metastatic disease is redemonstrated. 4.5 cm anterio r abdominal wall lesion on image 66 is stable. 2.5 cm lesion on image 73 is unchanged. High-grade sma ll bowel obstruction with transition point within the right midabdomen at the distal ileum secondary to tumor implants. Findings appear similar from the prior study. A gastrostomy tube appears to be unc hanged positioning. Nonspecific wall thickening of the distal stomach similar to prior. There are num erous soft tissue attenuating nodular foci noted within the sigmoid colon which are also likely neopl astic. Degenerative changes of the spine, pelvis and hips. Grade 1 anterolisthesis L5 on S1 with chronic evangelina ateral L5 pars defects. IMPRESSION: 1. Right basilar consolidation suspicious for pneumonia. 2. No significant change of the high-grade small bowel obstruction with transition point within the r ight midabdomen at the distal ileum secondary to metastatic implants. Similar findings were also pres ent dating back to the September 2021 exam's. 3. Mesenteric, omental and abdominal wall tumor implants also appear generally stable. 4. Solid nodules within the right lower lobe measure up to 11 mm. 5. The bilateral nephrostomy tubes appear to be in satisfactory positioning. Moderate to severe left- sided hydroureteronephrosis is generally unchanged. 6. Cirrhosis with splenomegaly. 7. Numerous tumor implants involving the distal colon with probable additional tumor implants involvi ng the urinary bladder. 8. Additional findings as above. ACT 112: Negative or not required by law. The above report was generated using voice recognition software. It may contain grammatical, syntax o r spelling errors. Electronically signed by: John Goodson M.D. 01/23/2022 7:51 PM
[2022-01-23 22:03] LABS: Influenza A virus by PCR Negative (Neg); Influenza B virus by PCR Negative (Neg); RSV by PCR Negative (Neg); SARS CoV2 RNA(COVID-19) InHosp NEGATIVE (Negative)
--- NOTE | 2022-01-23 22:24 | History & Physical Report ---
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 Resume fentanyl patch once patient more awake/myoclonic jerks resolved. Nephrology consult Re: Dialysis management Loratadine for Ertapenem hypersensitivity, add Ertapenem to allergy list. ISS BG goal 1 10-1 40 DVT prophylaxis with SCDs Re: Thrombocytopenia DNR Patient's requesting updates for providers. Lulú Barbara Hull, contact #[phone]. Text document was generated using [employer] voice recognition software. It may contain grammatical or spelling errors. Kindly contact undersigned for clarification of any documentation item in question. History of Present Illness Chief Complaint: Confusion, hallucinations, rash Primary Care Provider: Bel Patterson History obtained from patient, family, and records. Unable to obtain history from patient secondary to lethargy/confusion. Medical history significant for metastatic colon cancer status post surgery ongoing chemotherapy, recurrent UTIs, bilateral hydronephrosis status post nephrostomy tube placement, ESRD on HD, chronic cancer pain on fentanyl patch, DM2 diet-controlled, chronic bowel obstruction with G-tube placement on TPN, chronic hypotension on midodrine, cirrhosis, pancytopenia (baseline hemoglobin of 8), past alcohol abuse. Last confinement October 2921 for abdominal pain, Pseudomonas UTI. Patient completed cefepime treatment Palliative care consulted during confinement. Patient/family hesitant to proceed with hospice as dialysis and TPN will have to be stopped as per . 2 weeks ago, patient nephrostomy bag noted to have cloudy drainage. UA requested by patient's [facility] oncologist. Patient started on Ciprofloxacin. Urine CS later grew Pseudomonas as per . Patient ciprofloxacin switched to Ertapenem as per outpatient provider recommendations 3 days ago. Progressive weakness the last few days. Patient unable to bring patient to dialysis today because of weakness. (Patient currently on twice weekly schedule, Wednesday and Wednesday as per .) Rash noted on patient's abdomen. Patient denies chest pain, SOB, unusual belly pain, headache symptoms. No overt cough symptoms as per Denies narcotic overuse. Involuntary jerks noted at home. Patient brought to the ER for evaluation. Meropenem administered at the ER. 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 Allergies Allergy/AdvReac Type Severity Reaction Status Date / Time melon Allergy Intermediate throat and Verified 01/23/22 21:35 mouth is itchy Sulfa (Sulfonamide Allergy Intermediate Hives Verified 01/23/22 21:35 Antibiotics) ertapenem Allergy Mild Rash Verified 01/23/22 22:22 Home Medications Medication Instructions Recorded Confirmed Type TPN Electrolytes See Rx Instructions .Route .COMPLEX 09/28/21 01/23/22 History fentanyl 100 mcg/hr transdermal 1 patch transdermal Q72H 09/28/21 01/23/22 History patch fentanyl 25 mcg/hr transdermal 1 patch transdermal Q72H 09/28/21 01/23/22 History patch melatonin 3 mg tablet 3 mg PO HS PRN Sleep 09/28/21 01/23/22 History menthol 0.44 %-zinc oxide 20.6 % 1 applic topical TID PRN breakdown 09/28/21 01/23/22 History topical ointment (Calmoseptine) midodrine 10 mg tablet 10 mg PO TID 09/28/21 01/23/22 History nystatin 100,000 unit/gram topical 1 applic topical BID 09/28/21 01/23/22 History powder olanzapine 5 mg tablet (Zyprexa) 5 mg PO TID 09/28/21 01/23/22 History ondansetron HCl 8 mg tablet 8 mg PO TID PRN Nausea 09/28/21 01/23/22 History oxycodone 15 mg tablet 15 mg PO 6XD PRN Pain 09/28/21 01/23/22 History pantoprazole 40 mg tablet,delayed 40 mg PO DAILYBB 09/28/21 01/23/22 History release (Protonix) silodosin 8 mg capsule 8 mg PO HS 09/28/21 01/23/22 History buspirone 30 mg tablet 30 mg PO BID 11/21/21 01/23/22 History dronabinol 2.5 mg capsule 2.5 mg PO BID PRN Nausea 11/21/21 01/23/22 History Ertapenem Iv 1 dose IV DIRECTED 01/23/22 01/23/22 History Past Med/Surg History Medical History Cirrhosis Colon cancer Diabetes mellitus type 2 in obese ESRD (end stage renal disease) on dialysis Recurrent urinary tract infection Small bowel obstruction Surgical History S/P hernia repair Status post right hemicolectomy Family History Brother Cancer Grandmother (Paternal) Cancer Social History Smoking Status: Former smoker Second Hand Exposure: No; Do You Dip or Chew Tobacco: No; Tobacco Cessation Education Requested by Patient: No Hx Alcohol Use: Yes Alcohol type: beer Hx Substance Use: No Preferred Language: Lao Communication Ability: Impaired Training Coordinator Required: No Beliefs That Will Affect Care: None marital status: Current Living Situation: Family Current Living Situation Comment: Spouse and son Other Information That Helps Us Care for You: No Feels Safe at Home: Yes Safety Concerns: Feels Safe At This Time Assistive Devices: None Review of Systems Review of Systems: Could not be reliably obtained secondary to lethargy Physical Exam Physical Exam: GENERAL: Disoriented, chronically ill , episodic myoclonic jerks no respiratory distress SKIN: Sallow , warm HEENT: Alopecia, pale palpebral conjunctivae, no ptosis, dry buccal mucosa NECK : Supple, no tenderness CHEST : CTA, no tenderness HEART : RRR, no obvious murmurs ABDOMEN: Some distention, no abdominal tenderness EXTREMITIES : Minimal LE swelling, no LE tenderness, no other conspicuous deformities noted NEUROLOGIC : Lethargic, no facial asymmetry, episodic myoclonic jerks, gait and stance not assessed Results & Data Results & Data ([facility]) Vital Signs (Past 12 Hours) Vital Signs Temp Pulse Resp BP Pulse Ox O2 Del Method 01/23/22 21:21 71 21 01/23/22 21:21 89/60 L 01/23/22 21:00 82 17 01/23/22 21:00 92/56 L 01/23/22 20:30 82 15 01/23/22 20:30 93/56 L 01/23/22 20:00 71 20 01/23/22 19:30 63 11 L 01/23/22 19:30 99/58 L 01/23/22 19:00 67 13 97 01/23/22 19:00 98/58 L 01/23/22 18:30 78 16 01/23/22 18:30 85/59 L 01/23/22 18:24 87/45 L 01/23/22 18:24 51 L 17 97 01/23/22 18:00 64 14 01/23/22 18:00 91/56 L 01/23/22 17:45 98/62 L 01/23/22 17:45 123 H 24 01/23/22 17:30 68 9 L 01/23/22 17:30 94/54 L 01/23/22 17:15 97/54 L 01/23/22 17:15 58 L 11 L 01/23/22 17:00 71 11 L 01/23/22 17:00 98/53 L 01/23/22 16:45 96/53 L 01/23/22 16:45 61 12 01/23/22 16:35 65 20 98 01/23/22 16:35 94/58 L 01/23/22 16:31 90/49 L 01/23/22 16:31 70 14 01/23/22 16:30 75 13 98 01/23/22 16:29 85 14 96 01/23/22 15:54 36.4 C L 87 18 99/67 L 97 Room Air Laboratory Results Laboratory Results WBC 2.98 K/ul (4.8-10.8) L 01/23/22 16:20 RBC 2.86 M/uL (4.63-6.08) L 01/23/22 16:20 Hgb 8.8 g/dl (14.0-18.0) L 01/23/22 16:20 Hct 26.6 % (40.1-51.0) L 01/23/22 16:20 MCV 93.0 fL (80.0-100.0) 01/23/22 16:20 MCH 30.8 pg (25.0-34.0) 01/23/22 16:20 MCHC 33.1 g/dL (32.0-36.0) 01/23/22 16:20 RDW Std Deviation 51.9 fL (36.4-46.3) H 01/23/22 16:20 RDW Coeff of Deandra 15.1 % (11.5-14.5) H 01/23/22 16:20 Plt Count 64 K/uL (130-400) L 01/23/22 16:20 MPV 10.0 fL (9.4-12.4) 01/23/22 16:20 Immature Gran % (Auto) 0.7 % 01/23/22 16:20 Neut % (Auto) 68.1 % 01/23/22 16:20 Lymph % (Auto) 17.8 % 01/23/22 16:20 Greer % (Auto) 12.1 % 01/23/22 16:20 Eos % (Auto) 1.3 % 01/23/22 16:20 Baso % (Auto) 0.0 % 01/23/22 16:20 Neut # (Auto) 2.03 K/uL (1.4-6.5) 01/23/22 16:20 Lymph # (Auto) 0.53 K/uL (1.2-3.4) L 01/23/22 16:20 Greer # (Auto) 0.36 K/uL (0.24-0.82) 01/23/22 16:20 Eos # (Auto) 0.04 K/uL (0-0.50) 01/23/22 16:20 Baso # (Auto) 0.00 K/uL (0-0.2) 01/23/22 16:20 Immature Gran # (Auto) 0.02 K/uL (0.00-0.02) 01/23/22 16:20 Sodium 135 mmol/L (136-145) L 01/23/22 16:20 Potassium 4.2 mmol/L (3.5-5.1) 01/23/22 16:20 Chloride 103 mmol/L (98-107) 01/23/22 16:20 Carbon Dioxide 23 mmol/L (21-32) 01/23/22 16:20 Anion Gap 9 (3-11) 01/23/22 16:20 BUN 68 mg/dl (6-23) H 01/23/22 16:20 Creatinine 3.56 mg/dl (0.6-1.4) H 01/23/22 16:20 Est Cr Clr Drug Dosing Not Reportable 01/23/22 16:20 Est GFR ( Amer) 20.6 ml/min 01/23/22 16:20 Est GFR (Non-Af Amer) 17.8 ml/min 01/23/22 16:20 BUN/Creatinine Ratio 19.1 (10-20) 01/23/22 16:20 Glucose 109 mg/dl (70-99(Fasting)) H 01/23/22 16:20 Lactate 0.8 mmol/L (0.4-2.0) 01/23/22 17:54 Calcium 8.6 mg/dl (8.5-10.1) 01/23/22 16:20 Total Bilirubin 0.7 mg/dl (0.2-1.0) 01/23/22 16:20 AST 27 U/L (13-39) 01/23/22 16:20 ALT 8 U/L (7-52) 01/23/22 16:20 Alkaline Phosphatase 294 U/L (34-104) H 01/23/22 16:20 Ammonia 19.0 umol/L (18-72) 01/23/22 21:19 Total Protein 5.7 gm/dl (6.0-8.3) L 01/23/22 16:20 Albumin 2.7 gm/dl (3.4-5.0) L 01/23/22 16:20 Globulin 3.0 gm/dl (2.5-4.0) 01/23/22 16:20 Albumin/Globulin Ratio 0.9 (0.9-2) 01/23/22 16:20 Procalcitonin 0.91 ng/ml (0-0.5) H 01/23/22 16:27 SARS-CoV-2 (PCR) NEGATIVE (Negative) 01/23/22 21:05 Influenza Type A (PCR) Negative (Neg) 01/23/22 21:05 Influenza Type B (PCR) Negative (Neg) 01/23/22 21:05 RSV (RT-PCR) Negative (Neg) 01/23/22 21:05 Impressions Chest X-Ray 01/23/22 17:09 XR chest 1V portable HISTORY: 56 years-old Male ams . Acutely altered mental status COMPARISON: Chest radiograph 10/10/2021 TECHNIQUE: AP view of the chest FINDINGS: Cardiac silhouette is enlarged. Left subclavian Tuiczl-x-Ldym catheter. Right IJ dual-lumen hemodialysis catheter. Subsegmental right basilar atelectasis. No pneumothorax, pleural effusion, airspace consolidation or overt pulmonary edema. 10 mm nodule projects over the lateral right midlung which appears stable. Degenerative changes of the shoulders and spine. Mild right hemidiaphragmatic elevation. IMPRESSION: No acute process. ACT 112: Negative or not required by law. The above report was generated using voice recognition software. It may contain grammatical, syntax or spelling errors. Electronically signed by: John Goodson M.D. 01/23/2022 7:[address] 01/23/22 17:09 CT head/brain wo con CLINICAL HISTORY: 56 years-old Male with ams. Acutely altered mental status TECHNIQUE: Multiple axial CT images of the head were obtained without contrast. A dose lowering technique was utilized adhering to the principles of ALARA. COMPARISON: Head CT 10/10/2021 FINDINGS: No acute intracranial hemorrhage, midline shift, intracranial mass, hydrocephalus, territorial ischemia or abnormal extra-axial collection. Mild involutional changes. Senescent calcifications of the lentiform nuclei. The calvarium is intact. Prior bilateral lens repair. The paranasal sinuses, mastoid air cells, and middle ear cavities are clear. IMPRESSION: No acute intracranial abnormality. ACT 112: Negative or not required by law. The above report was generated using voice recognition software. It may contain grammatical, syntax or spelling errors. Electronically signed by: John Goodson M.D. 01/23/2022 6:36 PM Abdomen/Pelvis CT 01/23/22 17:[address] WITHOUT CONTRAST CT DOSE: 2323.75 mGy.cm HISTORY: Acute bilateral flank pain in patient with bilateral percutaneous nephrostomy. recent change of perc nephrostomy tubes TECHNIQUE: Multiaxial CT images of the abdomen and pelvis were performed without contrast. A dose lowering technique was utilized adhering to the principles of ALARA. COMPARISON STUDY: 11/20/2021, 10/10/2021. FINDINGS: Right IJ Mptnor-r-Ffkz catheter distal tip terminates within the right atrium. The heart is enlarged. Trace right pleural effusion. Mild left basilar atelectasis. Right basilar consolidation. There are a few nodules of the right lung base measuring up to 11 mm on image 10 series 5. No pneumatosis or pneumoperitoneum identified. The spleen measures up to approximately 20 cm in length. Evaluation of the solid abdominal organs without the use of IV contrast. Atrophic pancreas. Unremarkable adrenal glands. Surgical clips are again noted within the carlos a hepatis. Cirrhotic morphology of the liver. No hepatic mass identified. The right-sided nephrostomy tube appears to be in satisfactory positioning. No right-sided hydronephrosis. Moderate to severe left-sided hydroureteronephrosis with transverse dimension the renal pelvis measuring 3.0 cm. Findings are similar to the comparison study with mildly decreased amount of perinephric stranding. The left nephrostomy tube has been advanced, now terminating within the left renal pelvis. No renal or ureteral calculi identified. Hyperdense foci within the bladder redemonstrated suggestive of calcifications or blood products. Atherosclerosis of the aorta without aneurysm. Scattered peritoneal and anterior abdominal wall metastatic disease is redemonstrated. 4.5 cm anterior abdominal wall lesion on image 66 is stable. 2.5 cm lesion on image 73 is unchanged. High-grade small bowel obstruction with transition point within the right midabdomen at the distal ileum secondary to tumor implants. Findings appear similar from the prior study. A gastrostomy tube appears to be unchanged positioning. Nonspecific wall thickening of the distal stomach similar to prior. There are numerous soft tissue attenuating nodular foci noted within the sigmoid colon which are also likely neoplastic. Degenerative changes of the spine, pelvis and hips. Grade 1 anterolisthesis L5 on S1 with chronic bilateral L5 pars defects. IMPRESSION: 1. Right basilar consolidation suspicious for pneumonia. 2. No significant change of the high-grade small bowel obstruction with transition point within the right midabdomen at the distal ileum secondary to metastatic implants. Similar findings were also present dating back to the September 2021 exam's. 3. Mesenteric, omental and abdominal wall tumor implants also appear generally stable. 4. Solid nodules within the right lower lobe measure up to 11 mm. 5. The bilateral nephrostomy tubes appear to be in satisfactory positioning. Moderate to severe left-sided hydroureteronephrosis is generally unchanged. 6. Cirrhosis with splenomegaly. 7. Numerous tumor implants involving the distal colon with probable additional tumor implants involving the urinary bladder. 8. Additional findings as above. ACT 112: Negative or not required by law. The above report was generated using voice recognition software. It may contain grammatical, syntax or spelling errors. Electronically signed by: John Goodson M.D. 01/23/2022 7:51 PM Diagnostic Findings EKG as per my interpretation : Rate 85, NSR, LAD, LAFB, T wave abnormalities inferior leads
[2022-01-23] MEDS ORDERED: bisacodyL 10 MG SUPP PR STA (22:29)
[2022-01-23] MEDS ORDERED: PROMETHAZINE HCL 6.25 MG in SODIUM CHLORIDE 0.9% 50 ML IV PRN (22:29)
[2022-01-23] MEDS ORDERED: ACETAMINOPHEN 65 ML IV PRN (22:29)
[2022-01-23] MEDS ORDERED: ALBUMIN 25% 100 mL 25 GM/100 ML VIAL IV ONE (22:35)
[2022-01-23] MEDS ORDERED: ALBUMIN 25% 100 mL 25 GM/100 ML VIAL IV SCH (22:35)
[2022-01-23 23:32] LABS: Appearance Urine Cloudy (Clear); Bacteria Urine Automated 2+ (Negative); Bilirubin Urine Negative (Negative); Blood Urine 3+ (Negative); Color Urine Dark Yellow; Epithelial Cell Urine Auto 0-5 /lpf (0-5); Glucose Urine UA Negative (Negative); Ketones Urine Negative (Negative); Leukocyte Esterase Urine 3+ (Negative); Nitrite Urine Negative (Negative); Protein Urine 2+ (Negative); RBC Urine Automated 0-4 /hpf (0-4); Specific Gravity Urine 1.011 (1.000-1.030); Urobilinogen Urine Negative (Negative); WBC Urine Automated >30 /hpf (0-5)
[2022-01-23 23:43] LABS: Cast Urine Automated 0 /lpf (0-5)
[2022-01-24] MEDS ORDERED: GLUCOSE 40% GEL 15 GM TUBE PO PRN (00:17)
[2022-01-24] MEDS ORDERED: GLUCAGON FOR INJ 1 MG VIAL SQ PRN (00:17)
[2022-01-24] MEDS ORDERED: CARBOHYDRATES FOR HYPOGLYCEMIA PO PRN (00:17)
[2022-01-24] MEDS ORDERED: GLUCOSE 10 TAB/TUBE PO PRN (00:17)
[2022-01-24] MEDS ORDERED: DEXTROSE 50% 50 ML SYRINGE IV PRN (00:17)
[2022-01-24] MEDS ORDERED: TPN/PPN CONSULT PHARMACY PRN (00:21)
[2022-01-24] MEDS: Patient's HEIGHT &/or WEIGHT Needed SCH ×3 (01:03→04:17)
[2022-01-24] MEDS: MIDODRINE HCL 10 MG TAB PO SCH ×4 (01:09→16:45)
[2022-01-24] MEDS: INSULIN ASPART PER UNIT SC SCH ×5 (01:10→20:27)
[2022-01-24] MEDS ORDERED: PIPERACILLIN/TAZOBACTAM 3.375 GM in DEXTROSE 5% 100 ML IV ONE (04:00)
[2022-01-24 04:10] LABS: Eosinophils # (auto) 0.05 K/uL (0-0.50); Eosinophils % (auto) 2.4 %; Hematocrit (blood only) 24.9 % (40.1-51.0); Hemoglobin 8.1 g/dl (14.0-18.0); Immature Granulocytes # (auto) 0.01 K/uL (0.00-0.02); Immature Granulocytes % (auto) 0.5 %; Lymphocytes # (auto) 0.38 K/uL (1.2-3.4); Lymphocytes % (auto) 18.4 %; Mean Platelet Volume 10.4 fL (9.4-12.4); Monocytes # (auto) 0.22 K/uL (0.24-0.82); Monocytes % (auto) 10.7 %; Platelet Count 51 K/uL (130-400); White Blood Count 2.06 K/ul (4.8-10.8)
[2022-01-24 04:36] LABS: Phosphorus 4.5 mg/dl (2.5-4.9)
[2022-01-24 04:37] LABS: BUN Creatinine Ratio 18.4 (10-20); Calcium 8.7 mg/dl (8.5-10.1); Creatinine Clr Calc Pharmacy 28.6 ml/min; Est GFR (African American) 19.7 ml/min
[2022-01-24 04:55] LABS: Mean Corpuscular Hemoglobin 30.6 pg (25.0-34.0); Mean Corpuscular Hgb Conc 32.5 g/dL (32.0-36.0); RBC Morphology Unremarkable; RDW Coefficient of Variation 14.9 % (11.5-14.5); Red Blood Count 2.65 M/uL (4.63-6.08)
[2022-01-24] MEDS: PANTOprazole 40 MG TAB PO SCH (05:44)
[2022-01-24] MEDS ORDERED: LORATADINE 10 MG TAB PO ONE (06:00)
--- NOTE | 2022-01-24 09:26 | Nephrology Consultation ---
Date of Consultation January 24, 2022 Assessment & Plan (1) ESRD (end stage renal disease) on dialysis: Patient with ESRD on dialysis twice a week Wednesday and Wednesday. Patient missed outpatient dialysis on Wednesday. Patient is encephalopathic. Electrolytes are stable. We will dialyze him today for 3 hours on a 3K bath. Next dialysis will be Wednesday. (2) Encephalopathy: Patient with altered mental status likely multifactorial including a troponin which can cause confusion, advanced cancer and this likely uremia. We will dialyze him today for 3 hours. We will continue to monitor mental status History of Present Illness Reason for Consultation: ESRD Requesting Physician: Brennen Schaefer MD Attending Physician: Brennen Schaefer MD History of Present Illness This is 56-year-old male with metastatic colon cancer, end-stage renal disease due to obstructive uropathy with bilateral nephrostomy tubes and on dialysis twice a week who was admitted on 01/23/2022 with altered mental status. Patient recently diagnosed with Pseudomonas UTI. He has been on ertapenem IV. Patient then developed altered mental status with Hallucinations. Patient is unable to give history. History was obtained by review of medical records and speaking with providers. Patient missed his outpatient dialysis yesterday. The nephrostomy tubes are draining and there is urine in the bag. Patient also has a G-tube and gets nightly TPN. Allergies Allergy/AdvReac Type Severity Reaction Status Date / Time melon Allergy Intermediate throat and Verified 01/23/22 21:35 mouth is itchy Sulfa (Sulfonamide Allergy Intermediate Hives Verified 01/23/22 21:35 Antibiotics) ertapenem Allergy Mild Rash Verified 01/23/22 22:22 Home Medications Medication Instructions Recorded Confirmed Type TPN Electrolytes See Rx Instructions .Route .COMPLEX 09/28/21 01/23/22 History fentanyl 100 mcg/hr transdermal 1 patch transdermal Q72H 09/28/21 01/23/22 History patch fentanyl 25 mcg/hr transdermal 1 patch transdermal Q72H 09/28/21 01/23/22 History patch melatonin 3 mg tablet 3 mg PO HS PRN Sleep 09/28/21 01/23/22 History menthol 0.44 %-zinc oxide 20.6 % 1 applic topical TID PRN breakdown 09/28/21 01/23/22 History topical ointment (Calmoseptine) midodrine 10 mg tablet 10 mg PO TID 09/28/21 01/23/22 History nystatin 100,000 unit/gram topical 1 applic topical BID 09/28/21 01/23/22 History powder olanzapine 5 mg tablet (Zyprexa) 5 mg PO TID 09/28/21 01/23/22 History ondansetron HCl 8 mg tablet 8 mg PO TID PRN Nausea 09/28/21 01/23/22 History oxycodone 15 mg tablet 15 mg PO 6XD PRN Pain 09/28/21 01/23/22 History pantoprazole 40 mg tablet,delayed 40 mg PO DAILYBB 09/28/21 01/23/22 History release (Protonix) silodosin 8 mg capsule 8 mg PO HS 09/28/21 01/23/22 History buspirone 30 mg tablet 30 mg PO BID 11/21/21 01/23/22 History dronabinol 2.5 mg capsule 2.5 mg PO BID PRN Nausea 11/21/21 01/23/22 History Ertapenem Iv 1 dose IV DIRECTED 01/23/22 01/23/22 History Patient History Medical History Cirrhosis Colon cancer Diabetes mellitus type 2 in obese ESRD (end stage renal disease) on dialysis Recurrent urinary tract infection Small bowel obstruction Surgical History S/P hernia repair Status post right hemicolectomy Family History Brother Cancer Grandmother (Paternal) Cancer Social History Smoking Status: Former smoker Second Hand Exposure: No; Do You Dip or Chew Tobacco: No; Tobacco Cessation Education Requested by Patient: No Hx Alcohol Use: Yes Alcohol type: beer Hx Substance Use: No Preferred Language: Slovenian Communication Ability: Impaired 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 Gastrointestinal: Abdomen is soft, non distended, non tender, bowel sounds are present CVS: Regular rate and rhythm. No murmurs, rubs or gallops Musculoskeletal: No joint or muscle tenderness Extremities: Non tender, no edema, peripheral pulses are present Neuro: Disoriented, Jerks Skin: No rashes Results & Data ([facility]) Vital Signs (Past 12 Hours) Vital Signs Temp Pulse Pulse Pulse Resp BP BP 01/24/22 08:14 36.9 C 86 19 100/61 01/24/22 03:10 36.6 C 89 18 01/24/22 00:19 87 01/23/22 23:00 36.6 C 85 18 01/24/22 00:17 36.6 C 85 18 01/24/22 00:17 01/23/22 23:00 61 15 01/23/22 23:00 103/56 L 01/23/22 22:30 70 16 01/23/22 22:30 98/57 L 01/23/22 22:00 69 17 01/23/22 22:00 100/57 L 01/23/22 21:30 75 18 01/23/22 21:22 83 16 01/23/22 21:22 97/54 L BP Pulse Ox Pulse Ox O2 Del Method O2 Del Method 01/24/22 08:14 96 Room Air 01/24/22 03:10 97/61 L 98 Room Air 01/24/22 00:19 01/23/22 23:00 94/59 L 99 Room Air 01/24/22 00:17 94/59 L 99 Room Air 01/24/22 00:17 99 Room Air 01/23/22 23:00 01/23/22 23:00 01/23/22 22:30 01/23/22 22:30 01/23/22 22:00 01/23/22 22:00 01/23/22 21:30 01/23/22 21:22 01/23/22 21:22 Laboratory Results 01/24/22 03:48 01/23/22 01/23/22 01/24/22 16:20 16:20 03:48 WBC 2.98 L 2.06 L RBC 2.86 L 2.65 L MCV 93.0 94.0 MCH 30.8 30.6 MCHC 33.1 32.5 RDW Std Deviation 51.9 H 52.0 H RDW Coeff of Deandra 15.1 H 14.9 H Plt Count 64 L 51 L MPV 10.0 10.4 Phosphorus Albumin 2.7 L 01/24/22 03:48 WBC RBC MCV MCH MCHC RDW Std Deviation RDW Coeff of Deandra Plt Count MPV Phosphorus 4.5 Albumin
[2022-01-24] MEDS ORDERED: SODIUM CHLORIDE 0.9% 1000ML 1,000 ML IV PRN (09:54)
--- NOTE | 2022-01-24 12:48 | Electrocardiogram Report ---
Test Reason : Blood Pressure : / mmHG Vent. Rate : 086 BPM Atrial Rate : 086 BPM P-R Int : 156 ms QRS Dur : 084 ms QT Int : 344 ms P-R-T Axes : 050 -30 020 degrees QTc Int : 411 ms Poor data quality, interpretation may be adversely affected Normal sinus rhythm Left axis deviation Anterolateral infarct (cited on or before 10-OCT-2021) Abnormal ECG When compared with ECG of 10-OCT-2021 19:15, No significant change was found Confirmed by Guy Faria ([id number]) on 01/24/2022 12:48:18 PM Referred By: REFERRED SELF Confirmed By:Guy Faria
[2022-01-24] MEDS: PIPERACILLIN/TAZOBACTAM 3.375 GM in DEXTROSE 5% 100 ML IV SCH ×2 (14:18→23:26)
--- NOTE | 2022-01-24 14:36 | Hospitalist Progress Note ---
Date of Service January 24, 2022 Assessment & Plan (1) Encephalopathy: Plan: Acute metabolic encephalopathy Likely multifactorial: Missed dialysis-uremia, secondary to infection, medications --CT head:No acute intracranial abnormality. Avoid sedative medications Continue antibiotics for infection Hemodialysis as per nephrology Consider neurology evaluation if needed Obtain EEG given history of jerking movements HCAP Complicated UTI Failed outpatient treatment (Cipro>>Ertapenem) H/O recurrent UTIs, B/L Nephrostomy tubes --CT suggestive of right basilar consolidation Normal lactate level -- Blood, urine culture pending Continue Zosyn for now End-stage renal disease Continue dialysis as per nephrology Appreciate nephrology input Had dialysis today Suspected Opioid toxicity On fentanyl patch, oxycodone as needed at home Currently held sedating medications Also held neuropsychotropic medications Plan to resume once mental status improves Chronic bowel obstruction H/O Metastatic colon cancer S/P surgery Ongoing chemotherapy G-tube placement --CT ABD:No significant change of the high-grade small bowel obstruction with transition point within the right midabdomen at the distal ileum secondary to metastatic implants. Similar findings were also present dating back to the September 2021 exam's. Mesenteric, omental and abdominal wall tumor implants also appear generally stable. Cirrhosis with splenomegaly. Numerous tumor implants involving the distal colon with probable additional tumor implants involving the urinary bladder. --Continue TPN Chronic bladder outlet obstruction H/O bilateral hydronephrosis S/P nephrostomy tube placement --CT ABD:The bilateral nephrostomy tubes appear to be in satisfactory positioning. Moderate to severe left-sided hydroureteronephrosis is generally unchanged. Follows with [facility] as outpatient DM II HbA1C:5.21 September 2021 Continue insulin per protocol Monitor BGs Chronic hypotension Continue midodrine Cirrhosis Pancytopenia secondary to chemotherapy/cirrhosis Past alcohol abuse Monitor DVT Px: SCDs Re: Thrombocytopenia Code Status DNR/DNI Admission and Anticipated Discharge Date Admission Date: January 23, 2022 Subjective Patient is seen and examined in at bedside Was having hemodialysis during my encounter Patient lethargic, unable to provide much history No apparent distress on exam Review of Systems Review of Systems: Other Physical Exam Physical Exam: Physical Exam: Vitals signs as noted above General Appearance: Chronic ill-appearing, no apparent distress, lethargic Head: normocephalic, Atraumatic Eyes: normal inspection, EOMI Neck: supple, Trachea midline Respiratory/Chest: Normal breath sounds, CTA, No accessory muscle use, +Port Cardiovascular: S1, S2, No murmur Abdomen/GI:Soft, Non tender, Bowel sounds present Extremities/Musculoskeletal:normal inspection, 2+ B/L LE edema Neurologic/Psych: Lethargic, grossly no focal deficits Skin: normal color, warm Results & Data Results & Data ([facility]) Vital Signs (Past 12 Hours) Vital Signs Temp Pulse Pulse Pulse Resp BP BP 01/24/22 13:45 37.0 C 86 01/24/22 13:59 36.8 C 77 19 01/24/22 13:15 87 111/71 01/24/22 13:00 67 89/45 L 01/24/22 12:30 89 91/62 L 01/24/22 12:00 89 99/62 L 01/24/22 11:30 81 90/54 L 01/24/22 11:00 79 93/60 L 01/24/22 10:30 84 107/59 L 01/24/22 10:19 37 C 84 01/24/22 10:20 01/24/22 08:14 36.9 C 86 19 100/61 01/24/22 03:10 36.6 C 89 18 BP Pulse Ox O2 Del Method 01/24/22 13:45 112/57 L 01/24/22 13:59 93/54 L 95 Room Air 01/24/22 13:15 01/24/22 13:00 01/24/22 12:30 01/24/22 12:00 01/24/22 11:30 01/24/22 11:00 01/24/22 10:30 01/24/22 10:19 01/24/22 10:20 Room Air 01/24/22 08:14 96 Room Air 01/24/22 03:10 97/61 L 98 Room Air Laboratory Results Short CBC 01/23/22 01/24/22 Range/Units 16:20 03:48 WBC 2.98 L 2.06 L (4.8-10.8) K/ul Hgb 8.8 L 8.1 L (14.0-18.0) g/dl Hct 26.6 L 24.9 L (40.1-51.0) % Plt Count 64 L 51 L (130-400) K/uL BMP 01/23/22 01/24/22 16:20 03:48 Sodium 135 L 136 Potassium 4.2 4.0 Chloride 103 104 Carbon Dioxide 23 22 BUN 68 H 68 H Creatinine 3.56 H 3.70 H Glucose 109 H 88 Calcium 8.6 8.7 Liver Function 01/23/22 Range/Units 16:20 Total Bilirubin 0.7 (0.2-1.0) mg/dl AST 27 (13-39) U/L ALT 8 (7-52) U/L Alkaline Phosphatase 294 H (34-104) U/L Albumin 2.7 L (3.4-5.0) gm/dl Urine 01/23/22 Range/Units 23:03 Urine Color Dark Yellow Urine Appearance Cloudy A (Clear) Urine pH 6.0 (4.5-7.5) Ur Specific [place] 1.011 (1.000-1.030) Urine Protein 2+ H (Negative) Urine Glucose (UA) Negative (Negative)
[2022-01-24] MEDS ORDERED: fentaNYL 25 MCG/HR TDSY TD SCH (15:30)
[2022-01-24] MEDS ORDERED: DEXTROSE 10% 1,000 ML IV PRN (16:00)
[2022-01-24] MEDS: CHECK fentaNYL PATCH PLACEMENT SCH ×2 (16:44→23:26)
[2022-01-24] MEDS ORDERED: [UNRECOGNIZED DRUG - OTHER] IV SCH (20:00)
[2022-01-24] MEDS ORDERED: CLINOLIPID 20% IV FAT EMULSION 250 ML IV SCH (20:00)
[2022-01-24] MEDS ORDERED: AMINO ACID 8% IV SCH (20:00)
[2022-01-24] MEDS ORDERED: CENTRAL TPN IV SCH (20:00)
[2022-01-24] MEDS: MELATONIN 3 MG TAB PO PRN (23:28)
[2022-01-25] MEDS: STOP CLINOLIPID SCH (02:09)
[2022-01-25] MEDS: PANTOprazole 40 MG TAB PO SCH (05:19)
[2022-01-25 07:25] LABS: Hematocrit (blood only) 21.8 % (40.1-51.0); Hemoglobin 6.9 g/dl (14.0-18.0); Mean Corpuscular Hemoglobin 30.3 pg (25.0-34.0); Mean Corpuscular Hgb Conc 31.7 g/dL (32.0-36.0); Mean Corpuscular Volume 95.6 fL (80.0-100.0); Mean Platelet Volume 10.6 fL (9.4-12.4); Platelet Count 48 K/uL (130-400); RDW Coefficient of Variation 14.6 % (11.5-14.5); RDW Standard Deviation 51.7 fL (36.4-46.3); Red Blood Count 2.28 M/uL (4.63-6.08); White Blood Count 1.58 K/ul (4.8-10.8)
[2022-01-25] MEDS ORDERED: SODIUM CHLORIDE 0.9% 250 ML IV PRN (07:57)
[2022-01-25 08:03] LABS: BUN Creatinine Ratio 15.7 (10-20); Calcium 8.1 mg/dl (8.5-10.1); Creatinine Clr Calc Pharmacy 39.6 ml/min; Est GFR (African American) 29.2 ml/min; Est GFR (Non-African American) 25.2 ml/min; Magnesium 1.8 mg/dl (1.7-2.4); Phosphorus 1.9 mg/dl (2.5-4.9); Potassium 3.9 mmol/L (3.5-5.1)
[2022-01-25] MEDS: INSULIN ASPART PER UNIT SC SCH ×4 (08:31→21:33)
[2022-01-25] MEDS: TPN STOP ORDER SCH (08:31)
[2022-01-25] MEDS: MIDODRINE HCL 10 MG TAB PO SCH ×3 (08:31→17:17)
[2022-01-25] MEDS ORDERED: SODIUM PHOSPHATE 3 MMOL/1 ML 5 ML VIAL IV ONE (08:41)
[2022-01-25] MEDS ORDERED: SODIUM PHOSPHATE 30 MMOL in SODIUM CHLORIDE 0.9% 500 ML IV ONE (09:00)
[2022-01-25] MEDS ORDERED: SODIUM PHOSPHATE 3 MMOL/1 ML INFUSION IV ONE (09:30)
--- NOTE | 2022-01-25 09:53 | Nephrology Progress Note ---
Date of Service January 25, 2022 Assessment & Plan (1) ESRD (end stage renal disease) on dialysis: Plan: Patient with ESRD on dialysis twice a week Wednesday and Wednesday. Patient missed outpatient dialysis on Wednesday. Electrolytes are stable. Patient had dialysis on 01/24/2022/ for 3 hours on a 3K bath. Next dialysis will be Wednesday. (2) Encephalopathy: Plan: Patient with altered mental status likely multifactorial including ertapenem which can cause confusion, advanced cancer and this likely uremia. Mental status is improving after dialysis. We will continue to monitor mental status Admission and Anticipated Discharge Date Admission Date: January 23, 2022 Subjective Seen for ESRD. Patient had dialysis yesterday. He is more awake today. He knows he is in the hospital. Review of Systems Review of Systems: Unable to obtain due to altered mental status Physical Exam Physical Exam: General exam: Appears comfortable, no acute distress HEENT: Pupils are equal and reactive to light Neck: No JVD, neck is supple trachea is midline Respiratory system: Clear breath sounds bilaterally. Gastrointestinal: Abdomen is soft, non distended, non tender, bowel sounds are present CVS: Regular rate and rhythm. No murmurs, rubs or gallops Musculoskeletal: No joint or muscle tenderness Extremities: Non tender, no edema, peripheral pulses are present Neuro: Oriented to place, sleeping Skin: No rashes Results & Data ([facility]) Vital Signs (Past 12 Hours) Vital Signs Temp Pulse Pulse Resp BP Pulse Ox O2 Del Method 01/25/22 07:34 37.1 C 88 15 88/59 L 97 Room Air 01/25/22 07:09 78 01/25/22 03:11 36.7 C 92 H 18 108/68 94 Room Air 01/24/22 22:05 77 01/24/22 23:23 36.7 C 81 18 95/60 L 98 Room Air Laboratory Results 01/25/22 06:10 01/25/22 01/25/22 06:10 06:10 WBC 1.58 L RBC 2.28 L MCV 95.6 MCH 30.3 MCHC 31.7 L RDW Std Deviation 51.7 H RDW Coeff of Deandra 14.6 H Plt Count 48 L MPV 10.6 Phosphorus 1.9 L D
[2022-01-25] MEDS: PIPERACILLIN/TAZOBACTAM 3.375 GM in DEXTROSE 5% 100 ML IV SCH (12:11)
[2022-01-25] MEDS: PANTOprazole 40 MG in SYRINGE 0 ML IV SCH ×2 (14:38→21:13)
--- NOTE | 2022-01-25 15:54 | Hospitalist Progress Note ---
Date of Service January 25, 2022 Assessment & Plan (1) Encephalopathy: Plan: Acute metabolic encephalopathy Likely multifactorial: Missed dialysis-uremia, secondary to infection, medications --CT head:No acute intracranial abnormality. Avoid sedative medications Continue antibiotics for infection Hemodialysis as per nephrology Consider neurology evaluation if needed EEG pending HCAP Complicated UTI Failed outpatient treatment (Cipro>>Ertapenem) H/O recurrent UTIs, B/L Nephrostomy tubes --CT suggestive of right basilar consolidation Normal lactate level -- Blood culture:Negative to date --Urine culture pending Continue Zosyn for now Anemia of chronic disease Pancytopenia GI bleeding Has minimal Bleeding per rectum today Transfuse 1 unit PRBC today Monitor CBC Continue IV PPI Consider GI evaluation if recurrence of bleeding End-stage renal disease Continue dialysis as per nephrology Appreciate nephrology input Suspected Opioid toxicity On fentanyl patch, oxycodone as needed at home Currently held sedating medications Also held neuropsychotropic medications Plan to resume meds once mental status improves Chronic bowel obstruction H/O Metastatic colon cancer S/P surgery Ongoing chemotherapy G-tube placement --CT ABD:No significant change of the high-grade small bowel obstruction with transition point within the right midabdomen at the distal ileum secondary to metastatic implants. Similar findings were also present dating back to the September 2021 exam's. Mesenteric, omental and abdominal wall tumor implants also appear generally stable. Cirrhosis with splenomegaly. Numerous tumor implants involving the distal colon with probable additional tumor implants involving the urinary bladder. --Continue TPN Palliative care consulted to address goals of care Chronic bladder outlet obstruction H/O bilateral hydronephrosis S/P nephrostomy tube placement --CT ABD:The bilateral nephrostomy tubes appear to be in satisfactory positioning. Moderate to severe left-sided hydroureteronephrosis is generally unchanged. Follows with [facility] as outpatient DM II HbA1C:5.21 September 2021 Continue insulin per protocol Monitor BGs Chronic hypotension Continue midodrine Cirrhosis Pancytopenia secondary to chemotherapy/cirrhosis Past alcohol abuse Monitor DVT Px: SCDs Re: Thrombocytopenia, GI bleed Code Status DNR/DNI Admission and Anticipated Discharge Date Admission Date: January 23, 2022 Subjective Patient is seen and examined in at bedside Lethargic this morning Answers to questions minimally Had small bloody bowel movement today Discussed with patient's over the phone Obtained consent for blood transfusion from patient's Plan to give 1 unit PRBC today Avoid narcotics Review of Systems Review of Systems: Other Physical Exam Physical Exam: Physical Exam: Vitals signs as noted above General Appearance: Chronic ill-appearing, no apparent distress, lethargic Head: normocephalic, Atraumatic Eyes: normal inspection, EOMI Neck: supple, Trachea midline Respiratory/Chest: Normal breath sounds, CTA, No accessory muscle use, +Port Cardiovascular: S1, S2, No murmur Abdomen/GI:Soft, + tender, Bowel sounds present Extremities/Musculoskeletal:normal inspection, 2+ B/L LE edema Neurologic/Psych: Lethargic, grossly no focal deficits Skin: normal color, warm Results & Data Results & Data ([facility]) Vital Signs (Past 12 Hours) Vital Signs Temp Pulse Pulse Resp BP BP Pulse Ox 01/25/22 14:10 36.7 C 80 20 93/50 L 94 01/25/22 13:40 36.9 C 81 94/60 L 93 01/25/22 12:39 37.3 C 79 92/54 L 95 01/25/22 12:05 36.7 C 83 18 94/59 L 96 01/25/22 11:35 37.4 C 79 18 92/53 L 96 01/25/22 11:20 36.8 C 80 82/54 L 95 01/25/22 11:02 36.8 C 88 18 94/56 L 96 01/25/22 10:28 01/25/22 07:34 37.1 C 88 15 88/59 L 97 01/25/22 07:09 78 O2 Del Method 01/25/22 14:10 01/25/22 13:40 01/25/22 12:39 01/25/22 12:05 01/25/22 11:35 01/25/22 11:20 01/25/22 11:02 01/25/22 10:28 Room Air 01/25/22 07:34 Room Air 01/25/22 07:09 Laboratory Results Short CBC 01/25/22 Range/Units 06:10 WBC 1.58 L (4.8-10.8) K/ul Hgb 6.9 L* (14.0-18.0) g/dl Hct 21.8 L (40.1-51.0) % Plt Count 48 L (130-400) K/uL BMP 01/25/22 06:10 Sodium 133 L Potassium 3.9 Chloride 103 Carbon Dioxide 28 BUN 42 H D Creatinine 2.67 H D Glucose 109 H Calcium 8.1 L
[2022-01-25 16:28] LABS: Anion Gap 4.8 (3-11)
[2022-01-25] MEDS: ACETAMINOPHEN 65 ML IV PRN (17:15)
[2022-01-25 19:46] LABS: Hematocrit (blood only) 25.9 % (40.1-51.0); Hemoglobin 8.6 g/dl (14.0-18.0)
[2022-01-25] MEDS ORDERED: AMINO ACID 8% IV SCH (20:00)
[2022-01-25] MEDS ORDERED: [UNRECOGNIZED DRUG - OTHER] IV SCH (20:00)
[2022-01-25] MEDS ORDERED: CENTRAL TPN IV SCH (20:00)
[2022-01-25] MEDS ORDERED: CLINOLIPID 20% IV FAT EMULSION 250 ML IV SCH (20:00)
[2022-01-26] MEDS: PIPERACILLIN/TAZOBACTAM 3.375 GM in DEXTROSE 5% 100 ML IV SCH ×2 (00:15→12:24)
[2022-01-26] MEDS: MELATONIN 3 MG TAB PO PRN ×2 (01:55→23:59)
[2022-01-26] MEDS: STOP CLINOLIPID SCH (02:56)
[2022-01-26] MEDS: INSULIN ASPART PER UNIT SC SCH ×4 (07:38→21:13)
[2022-01-26] MEDS: MIDODRINE HCL 10 MG TAB PO SCH ×3 (07:45→16:50)
[2022-01-26] MEDS: PANTOprazole 40 MG in SYRINGE 0 ML IV SCH ×2 (07:45→20:24)
[2022-01-26] MEDS: ACETAMINOPHEN 65 ML IV PRN ×2 (08:16→17:09)
[2022-01-26 08:48] LABS: Basophils # (auto) 0.01 K/uL (0-0.2); Basophils % (auto) 0.4 %; Eosinophils # (auto) 0.07 K/uL (0-0.50); Eosinophils % (auto) 2.5 %; Hematocrit (blood only) 28.2 % (40.1-51.0); Immature Granulocytes # (auto) 0.01 K/uL (0.00-0.02); Immature Granulocytes % (auto) 0.4 %; Lymphocytes % (auto) 14.1 %; Mean Platelet Volume 10.5 fL (9.4-12.4); Monocytes # (auto) 0.26 K/uL (0.24-0.82); Monocytes % (auto) 9.2 %; Neutrophils # (auto) 2.09 K/uL (1.4-6.5); Neutrophils % (auto) 73.4 %; Platelet Count 61 K/uL (130-400); White Blood Count 2.84 K/ul (4.8-10.8)
[2022-01-26] MEDS: TPN STOP ORDER SCH (08:53)
[2022-01-26 09:09] LABS: Mean Corpuscular Hemoglobin 30.4 pg (25.0-34.0); Mean Corpuscular Hgb Conc 31.9 g/dL (32.0-36.0); Mean Corpuscular Volume 95.3 fL (80.0-100.0); RDW Standard Deviation 52.4 fL (36.4-46.3); Red Blood Count 2.96 M/uL (4.63-6.08)
[2022-01-26 09:16] LABS: BUN Creatinine Ratio 16.4 (10-20); Calcium 8.5 mg/dl (8.5-10.1); Creatinine Clr Calc Pharmacy 30.8 ml/min; Est GFR (African American) 21.7 ml/min; Est GFR (Non-African American) 18.7 ml/min; Magnesium 1.9 mg/dl (1.7-2.4); Phosphorus 3.6 mg/dl (2.5-4.9); Potassium 4.4 mmol/L (3.5-5.1)
--- NOTE | 2022-01-26 10:16 | Nephrology Progress Note ---
Date of Service January 26, 2022 Assessment & Plan Admission and Anticipated Discharge Date Admission Date: January 23, 2022 Subjective Assessment & Plan (1) ESRD (end stage renal disease) on dialysis: Plan: Patient with ESRD on dialysis twice a week Wednesday and Wednesday as outpt. Patient missed outpatient dialysis on Wednesday. Electrolytes are stable. Patient had dialysis on 01/24/2022/ for 3 hours on a 3K bath. Next dialysis will be tomorrow. ( partly due to nursing scheduling) No e/o fluid overload and /or lytes issues today (2) Encephalopathy: Plan: Patient with altered mental status likely multifactorial including ertapenem which can cause confusion, advanced cancer and this likely uremia. Mental status is still quite confused. Subjective Seen for ESRD. Patient had dialysis Wednesday. He is still confused. Review of Systems Review of Systems: Unable to obtain due to altered mental status Physical Exam Physical Exam: General exam: Appears comfortable, no acute distress HEENT: Pupils are equal and reactive to light Neck: No JVD, neck is supple trachea is midline Respiratory system: Clear breath sounds bilaterally. Gastrointestinal: Abdomen is soft, non distended, non tender, bowel sounds are present CVS: Regular rate and rhythm. No murmurs, rubs or gallops Musculoskeletal: No joint or muscle tenderness Extremities: Non tender, no edema, peripheral pulses are present Neuro: Oriented to place, sleeping Skin: No rashes Results & Data ([facility]) Vital Signs (Past 12 Hours) Vital Signs Temp Pulse Pulse Resp BP BP Pulse Ox 01/26/22 07:35 79 01/26/22 07:28 37.2 C 78 18 111/71 99 01/26/22 04:08 37.0 C 75 18 107/64 95 01/26/22 00:00 01/26/22 00:00 01/25/22 23:30 37.0 C 74 20 97/58 L 97 Pulse Ox O2 Del Method O2 Del Method 01/26/22 07:35 01/26/22 07:28 Room Air 01/26/22 04:08 Room Air 01/26/22 00:00 95 Room Air 01/26/22 00:00 Room Air 01/25/22 23:30 Room Air
--- NOTE | 2022-01-26 16:25 | Hospitalist Progress Note ---
Date of Service January 26, 2022 Assessment & Plan (1) Encephalopathy: Plan: Acute metabolic encephalopathy Likely multifactorial: Missed dialysis-uremia, secondary to infection, medications --CT head:No acute intracranial abnormality. Avoid sedative medications Continue antibiotics for infection Hemodialysis as per nephrology Consider neurology evaluation if needed EEG pending Mental status slowly improving HCAP:Likely Possible gram-negative pneumonia Complicated UTI Bilateral nephrostomy tube related complicated UTI Failed outpatient treatment (Cipro>>Ertapenem) H/O recurrent UTIs, B/L Nephrostomy tubes --CT suggestive of right basilar consolidation Normal lactate level -- Blood culture:Negative to date --Urine culture pending Continue Zosyn for now Anemia of chronic disease Pancytopenia GI bleeding Has minimal Bleeding per rectum today S/P 1 unit PRBC Monitor CBC Continue IV PPI No aggressive measures/Procedures as per family End-stage renal disease Continue dialysis as per nephrology Appreciate nephrology input Suspected Opioid toxicity On fentanyl patch, oxycodone as needed at home Currently held sedating medications Also held neuropsychotropic medications Plan to resume meds once mental status improves Chronic bowel obstruction H/O Metastatic colon cancer S/P surgery Ongoing chemotherapy Immunocompromised status G-tube placement --CT ABD:No significant change of the high-grade small bowel obstruction with transition point within the right midabdomen at the distal ileum secondary to metastatic implants. Similar findings were also present dating back to the September 2021 exam's. Mesenteric, omental and abdominal wall tumor implants also appear generally stable. Cirrhosis with splenomegaly. Numerous tumor implants involving the distal colon with probable additional tumor implants involving the urinary bladder. --Continue TPN Palliative care consulted to address goals of care Chronic bladder outlet obstruction H/O bilateral hydronephrosis S/P nephrostomy tube placement --CT ABD:The bilateral nephrostomy tubes appear to be in satisfactory positioning. Moderate to severe left-sided hydroureteronephrosis is generally unchanged. Follows with [facility] as outpatient DM II HbA1C:5.21 September 2021 Continue insulin per protocol Monitor BGs Chronic hypotension Continue midodrine Cirrhosis Pancytopenia secondary to chemotherapy/cirrhosis Past alcohol abuse Monitor DVT Px: SCDs Re: Thrombocytopenia, GI bleed Code Status DNR/DNI Admission and Anticipated Discharge Date Admission Date: January 23, 2022 Subjective Patient is seen and examined in at bedside Mental status is better today Oriented to person and place this morning States having some abd pain associated with nausea Discussed with patient's at bedside Review of Systems Review of Systems: All systems reviewed & are unremarkable except as noted in Subjective Physical Exam Physical Exam: Physical Exam: Vitals signs as noted above General Appearance: Chronic ill-appearing, no apparent distress Head: normocephalic, Atraumatic Eyes: normal inspection, EOMI Neck: supple, Trachea midline Respiratory/Chest: Normal breath sounds, CTA, No accessory muscle use, +Port Cardiovascular: S1, S2, No murmur Abdomen/GI:Soft, + tender, Bowel sounds present Extremities/Musculoskeletal:normal inspection, 2+ B/L LE edema Neurologic/Psych: Alert, awake, grossly no focal deficits Skin: normal color, warm Results & Data Results & Data ([facility]) Vital Signs (Past 12 Hours) Vital Signs Temp Pulse Pulse Resp BP BP Pulse Ox 01/26/22 16:16 37.0 C 78 18 104/64 98 01/26/22 15:52 71 01/26/22 11:57 36.4 C L 71 93/62 L 97 01/26/22 07:35 79 01/26/22 07:28 37.2 C 78 18 111/71 99 O2 Del Method 01/26/22 16:16 01/26/22 15:52 01/26/22 11:57 Room Air 01/26/22 07:35 01/26/22 07:28 Room Air Laboratory Results Short CBC 01/25/22 01/26/22 Range/Units 19:33 08:27 WBC 2.84 L (4.8-10.8) K/ul Hgb 8.6 L 9.0 L (14.0-18.0) g/dl Hct 25.9 L 28.2 L (40.1-51.0) % Plt Count 61 L (130-400) K/uL BMP 01/25/22 01/26/22 06:10 08:27 Sodium 141 141 Potassium 4.4 Chloride 109 H Carbon Dioxide 25 BUN 56 H Creatinine 3.41 H D Glucose 110 H Calcium 8.5
[2022-01-26] MEDS: ONDANSETRON INJ 2 MG/ML 2 ML VIAL IV PRN ×2 (16:50→23:59)
--- NOTE | 2022-01-26 18:12 | Electroencephalogram ---
EEG Procedure Note Date of Service January 26, 2022 Start / End Times Start Time: 12:38 End Time: 12:58 Referring Physician Brennen Schaefer MD History AMS Home Medication List Medication Instructions Recorded Confirmed Type TPN Electrolytes See Rx Instructions .Route .COMPLEX 09/28/21 01/23/22 History fentanyl 100 mcg/hr transdermal 1 patch transdermal Q72H 09/28/21 01/23/22 History patch fentanyl 25 mcg/hr transdermal 1 patch transdermal Q72H 09/28/21 01/23/22 History patch melatonin 3 mg tablet 3 mg PO HS PRN Sleep 09/28/21 01/23/22 History menthol 0.44 %-zinc oxide 20.6 % 1 applic topical TID PRN breakdown 09/28/21 01/23/22 History topical ointment (Calmoseptine) midodrine 10 mg tablet 10 mg PO TID 09/28/21 01/23/22 History nystatin 100,000 unit/gram topical 1 applic topical BID 09/28/21 01/23/22 History powder olanzapine 5 mg tablet (Zyprexa) 5 mg PO TID 09/28/21 01/23/22 History ondansetron HCl 8 mg tablet 8 mg PO TID PRN Nausea 09/28/21 01/23/22 History oxycodone 15 mg tablet 15 mg PO 6XD PRN Pain 09/28/21 01/23/22 History pantoprazole 40 mg tablet,delayed 40 mg PO DAILYBB 09/28/21 01/23/22 History release (Protonix) silodosin 8 mg capsule 8 mg PO HS 09/28/21 01/23/22 History buspirone 30 mg tablet 30 mg PO BID 11/21/21 01/23/22 History dronabinol 2.5 mg capsule 2.5 mg PO BID PRN Nausea 11/21/21 01/23/22 History Ertapenem Iv 1 dose IV DIRECTED 01/23/22 01/23/22 History Inpatient Medication List Piperacillin Sod/Tazobactam (Sod 3.375 gm/ Dextrose) 115 mls @ 28.75 mls/hr IV Q12H [facility]; Protocol Stop: 01/31/22 11:59 Last Infusion: 01/26/22 16:13 Dose: 0 mls/hr Documented By: Admin: 01/26/22 12:24 Dose: 28.8 mls/hr Documented By: Infusion: 01/26/22 04:16 Dose: 0 mls/hr Documented By: Admin: 01/26/22 00:15 Dose: 28.8 mls/hr Documented By: Infusion: 01/25/22 15:46 Dose: 0 mls/hr Documented By: Admin: 01/25/22 12:11 Dose: 28.8 mls/hr Documented By: Infusion: 01/25/22 03:22 Dose: 0 mls/hr Documented By: Admin: 01/24/22 23:26 Dose: 30 mls/hr Documented By: Infusion: 01/24/22 18:09 Dose: 0 mls/hr Documented By: Admin: 01/24/22 14:18 Dose: 28.8 mls/hr Documented By: SAMI Pantoprazole Sodium 40 mg/ (Syringe) 10 mls @ 5 mls/min IV BID [facility] Stop: 02/24/22 13:19 Last Admin: 01/26/22 07:45 Dose: 5 mls/min Documented By: Admin: 01/25/22 21:13 Dose: 5 mls/min Documented By: Admin: 01/25/22 14:38 Dose: 5 mls/min Documented By: SAMI Acetaminophen (Ofirmev) 65 mls @ 200 mls/hr IV Q8H PRN; Protocol PRN Reason: Pain or Fever Stop: 01/28/22 16:12 Last Infusion: 01/26/22 17:34 Dose: 0 mls/hr Documented By: Admin: 01/26/22 17:09 Dose: 200 mls/hr Documented By: Infusion: 01/26/22 08:53 Dose: 0 mls/hr Documented By: Admin: 01/26/22 08:16 Dose: 200 mls/hr Documented By: Infusion: 01/25/22 17:41 Dose: 0 mls/hr Documented By: Admin: 01/25/22 17:15 Dose: 200 mls/hr Documented By: SAMI Insulin Aspart (Insulin Aspart Per Unit) 0 units SC ACHS [facility] Stop: 02/23/22 00:16 Last Admin: 01/26/22 16:22 Dose: Not Given Documented By: SMSonido Admin: 01/26/22 12:15 Dose: Not Given Documented By: SAMI Co-signed By: LISA Admin: 01/26/22 07:38 Dose: Not Given Documented By: SMSonido Admin: 01/25/22 21:33 Dose: Not Given Documented By: Admin: 01/25/22 16:37 Dose: Not Given Documented By: SMSonido Admin: 01/25/22 11:38 Dose: Not Given Documented By: SAMI Co-signed By: LISA Admin: 01/25/22 08:31 Dose: Not Given Documented By: SAMI Co-signed By: LISA Admin: 01/24/22 20:27 Dose: Not Given Documented By: BISI Co-signed By: NATALIE Admin: 01/24/22 16:44 Dose: Not Given Documented By: SMSonido Admin: 01/24/22 12:33 Dose: Not Given Documented By: SMSonido Admin: 01/24/22 09:05 Dose: Not Given Documented By: SMSonido Admin: 01/24/22 01:10 Dose: Not Given Documented By: AUSTIN Co-signed By: NATALIE Melatonin (Melatonin 3 Mg Tab) 3 mg PO HS PRN PRN Reason: Sleep Stop: 02/23/22 00:16 Last Admin: 01/26/22 01:55 Dose: 3 mg Documented By: Admin: 01/24/22 23:28 Dose: 3 mg Documented By: BISI Midodrine (Midodrine Hcl 10 Mg Tab) 10 mg PO TIDM [facility] Stop: 02/23/22 00:16 Last Admin: 01/26/22 16:50 Dose: 10 mg Documented By: SMSonido Admin: 01/26/22 12:15 Dose: 10 mg Documented By: Admin: 01/26/22 07:45 Dose: 10 mg Documented By: SMSonido Admin: 01/25/22 17:17 Dose: 10 mg Documented By: SMSonido Admin: 01/25/22 12:13 Dose: 10 mg Documented By: Admin: 01/25/22 08:31 Dose: 10 mg Documented By: Admin: 01/24/22 16:45 Dose: 10 mg Documented By: SMSonido Admin: 01/24/22 14:21 Dose: 10 mg Documented By: Admin: 01/24/22 09:06 Dose: Not Given Documented By: Admin: 01/24/22 01:09 Dose: 10 mg Documented By: AUSTIN Tobias (Order Awaiting Action: Silodosin 8 Mg Capsule) 1 each N/A QS [facility] Stop: 02/23/22 07:59 Last Admin: 01/26/22 16:23 Dose: Not Given Documented By: SMSonido Admin: 01/26/22 07:49 Dose: Not Given Documented By: Sonido Admin: 01/25/22 23:51 Dose: Not Given Documented By: [facility] Admin: 01/25/22 16:09 Dose: 1 each Documented By: Admin: 01/25/22 08:31 Dose: Not Given Documented By: Admin: 01/24/22 23:28 Dose: Not Given Documented By: Admin: 01/24/22 16:44 Dose: Not Given Documented By: Admin: 01/24/22 09:07 Dose: Not Given Documented By: SAMI Tobias (Stop Clinolipid) 1 each N/A Q24H [facility] Stop: 02/24/22 01:59 Last Admin: 01/26/22 02:56 Dose: 1 each Documented By: [facility] Admin: 01/25/22 02:09 Dose: 1 each Documented By: BISI Tobias (Tpn Rate Change: Pending Order) 1 each N/A DAILY@2100 [facility] Stop: 02/23/22 20:59 Last Admin: 01/25/22 21:35 Dose: 1 each Documented By: [facility] Admin: 01/24/22 21:30 Dose: 1 each Documented By: BISI Tobias (Tpn Rate Change: Pending Order) 1 each N/A DAILY@0700 [facility] Stop: 02/24/22 06:59 Last Admin: 01/26/22 07:45 Dose: 1 each Documented By: Sonido Admin: 01/25/22 07:06 Dose: 1 each Documented By: BISI Tobias (Tpn Stop Order) 1 each N/A DAILY@0800 [facility] Stop: 02/24/22 07:59 Last Admin: 01/26/22 08:53 Dose: 1 each Documented By: Sonido Admin: 01/25/22 08:31 Dose: 1 each Documented By: SAMI Ondansetron HCl (Ondansetron Inj 2 Mg/Ml 2 Ml Vial) 4 mg IV Q6H PRN PRN Reason: Nausea And Vomiting Stop: 02/25/22 16:30 Last Admin: 01/26/22 16:50 Dose: 4 mg Documented By: SAMI Pantoprazole Sodium (Pantoprazole 40 Mg Tab) 40 mg PO DAILYBB [facility] Stop: 02/23/22 06:29 Last Admin: 01/25/22 05:19 Dose: 40 mg Documented By: Admin: 01/24/22 05:44 Dose: 40 mg Documented By: AUSTIN Discontinued Medications Bisacodyl (Bisacodyl 10 Mg Supp) 10 mg LA NOW STA Stop: 01/23/22 22:30 Last Admin: 01/23/22 23:22 Dose: Not Given Documented By: GEORGIA Fentanyl (Fentanyl 25 Mcg/Hr Tdsy) 25 mcg TD Q72H [facility] Stop: 02/07/22 15:29 Last Admin: 01/24/22 16:39 Dose: 25 mcg Documented By: SAMI Meropenem 500 mg/ Syringe 10 mls @ 2 mls/min IV NOW STA; Protocol Stop: 01/23/22 17:20 Last Admin: 01/23/22 18:21 Dose: 2 mls/min Documented By: GEORGIA Piperacillin Sod/Tazobactam (Sod 3.375 gm/ Dextrose) 115 mls @ 230 mls/hr IV TODAY@0400 ONE; Protocol Stop: 01/24/22 04:29 Last Infusion: 01/24/22 04:51 Dose: 0 mls/hr Documented By: Admin: 01/24/22 04:08 Dose: 230 mls/hr Documented By: AUSTIN Promethazine HCl 6.25 mg/ (Sodium Chloride) 50.25 mls @ 201 mls/hr IV Q6H PRN PRN Reason: Nausea And Vomiting Stop: 02/22/22 22:28 Last Infusion: 01/26/22 05:15 Dose: 0 mls/hr Documented By: Admin: 01/26/22 04:58 Dose: 201 mls/hr Documented By: AUSTIN Albumin Human (Albumin 25% 100 Ml) 25 gm in 100 mls @ 50 mls/hr IV TODAY@2235 [facility] Stop: 01/24/22 01:15 Last Infusion: 01/24/22 03:52 Dose: 0 mls/hr Documented By: Admin: 01/24/22 01:32 Dose: 50 mls/hr Documented By: MPC Fat Emulsion-[place] Oil/Soybean Oil (Clinolipid 20% Iv Fat Emulsion) 250 mls @ 41.667 mls/hr IV .Q6H [facility] Stop: 01/25/22 01:59 Last Infusion: 01/25/22 02:10 Dose: 0 mls/hr Documented By: Admin: 01/24/22 20:02 Dose: 41.7 mls/hr Documented By: LAT Amino Acids/Dextrose 1,655 ml/ (Nutrition (Parenteral)) 1,655 mls @ 137.917 mls/hr IV .Q12H [facility]; Protocol Stop: 01/25/22 07:59 Last Infusion: 01/25/22 08:46 Dose: 0 mls/hr Documented By: Admin: 01/24/22 20:03 Dose: 137.9 mls/hr Documented By: LAT Sodium Phosphate 30 mmol/ (Sodium Chloride) 510 mls @ 88 mls/hr IV 0900 ONE Stop: 01/25/22 14:47 Last Infusion: 01/25/22 15:46 Dose: 0 mls/hr Documented By: Admin: 01/25/22 09:33 Dose: 88 mls/hr Documented By: SML Amino Acids/Dextrose 1,672 ml/ (Nutrition (Parenteral)) 1,672 mls @ 137.917 mls/hr IV .Q12H8M [facility]; Protocol Stop: 01/26/22 08:07 Last Infusion: 01/26/22 08:53 Dose: 0 mls/hr Documented By: Admin: 01/25/22 20:51 Dose: 137.9 mls/hr Documented By: [facility] Fat Emulsion-[place] Oil/Soybean Oil (Clinolipid 20% Iv Fat Emulsion) 250 mls @ 41.667 mls/hr IV .Q6H [facility] Stop: 01/26/22 01:59 Last Infusion: 01/26/22 02:53 Dose: 0 mls/hr Documented By: [facility] Admin: 01/25/22 20:50 Dose: 41.7 mls/hr Documented By: [facility] Loratadine (Loratadine 10 Mg Tab) 10 mg PO NOW ONE Stop: 01/24/22 06:01 Last Admin: 01/24/22 05:44 Dose: 10 mg Documented By: AUSTIN Miscellaneous (Patient's Height &/Or Weight Needed) 1 each N/A Q2H [facility] Stop: 02/22/22 19:59 Last Admin: 01/24/22 04:17 Dose: Not Given Documented By: Admin: 01/24/22 01:03 Dose: Not Given Documented By: Admin: 01/24/22 01:03 Dose: 1 each Documented By: AUSTIN Miscellaneous (Fentanyl Patch Remove & Waste) 1 each N/A Q3D [facility] Stop: 02/23/22 15:28 Last Admin: 01/24/22 16:39 Dose: Not Given Documented By: SAMI Miscellaneous (Check Fentanyl Patch Placement) 1 each N/A QS [facility] Stop: 02/23/22 15:59 Last Admin: 01/24/22 23:26 Dose: 1 each Documented By: Admin: 01/24/22 16:44 Dose: 1 each Documented By: SAMI Description This is a 21 electrode EEG with a single channel dedicated to limited EKG. The electrodes were placed in accordance with the International 10-20 system. Interpretation During restful wakefulness, background activity shows diffuse, mild slowing, composed of 2 to 3 Hz, mostly frontal delta, intermixed with 4 to 7 Hz, generalized moderate amplitude theta waveforms. There is no distinctive posterior rhythm but up to 7 Hz posterior activity is noticed. Photic stimulations do not induce posterior driving responses. Hyperventilation is not attempted. There is no sleep-related pattern. There are no electrographic seizures, epileptogenic discharges, or asymmetries. Impression: This is an abnormal EEG, recorded in wakefulness only, due to diffuse mild slowing, consistent with bihemispheric dysfunction, as seen in encephalopathies. There is no electrographic seizures or epileptogenic discharge. Clinical Correlation Normal interictal routine EEG cannot rule out seizure disorder. Clinical correlation is suggested.
[2022-01-26] MEDS ORDERED: CLINOLIPID 20% IV FAT EMULSION 250 ML IV SCH (20:00)
[2022-01-26] MEDS ORDERED: AMINO ACID 8% IV SCH (20:00)
[2022-01-26] MEDS ORDERED: CENTRAL TPN IV SCH (20:00)
[2022-01-26] MEDS ORDERED: [UNRECOGNIZED DRUG - OTHER] IV SCH (20:00)
[2022-01-26] MEDS: busPIRone 15 MG TAB PO SCH (20:24)
[2022-01-27] MEDS: PIPERACILLIN/TAZOBACTAM 3.375 GM in DEXTROSE 5% 100 ML IV SCH ×3 (00:12→23:21)
[2022-01-27] MEDS: STOP CLINOLIPID SCH (02:25)
[2022-01-27] MEDS ORDERED: SODIUM CHLORIDE 0.9% 1000ML 1,000 ML IV PRN (07:00)
[2022-01-27] MEDS: PANTOprazole 40 MG in SYRINGE 0 ML IV SCH ×2 (07:41→20:10)
[2022-01-27] MEDS: busPIRone 15 MG TAB PO SCH ×2 (07:41→20:10)
[2022-01-27] MEDS: MIDODRINE HCL 10 MG TAB PO SCH ×3 (07:42→15:52)
[2022-01-27 08:12] LABS: Basophils # (auto) 0.01 K/uL (0-0.2); Basophils % (auto) 0.4 %; Eosinophils # (auto) 0.06 K/uL (0-0.50); Eosinophils % (auto) 2.5 %; Hematocrit (blood only) 27.4 % (40.1-51.0); Hemoglobin 8.8 g/dl (14.0-18.0); Immature Granulocytes # (auto) 0.01 K/uL (0.00-0.02); Immature Granulocytes % (auto) 0.4 %; Lymphocytes # (auto) 0.35 K/uL (1.2-3.4); Lymphocytes % (auto) 14.5 %; Mean Platelet Volume 10.6 fL (9.4-12.4); Monocytes # (auto) 0.22 K/uL (0.24-0.82); Monocytes % (auto) 9.1 %; Neutrophils # (auto) 1.77 K/uL (1.4-6.5); Neutrophils % (auto) 73.1 %; Platelet Count 59 K/uL (130-400); White Blood Count 2.42 K/ul (4.8-10.8)
[2022-01-27 08:39] LABS: Mean Corpuscular Hemoglobin 30.6 pg (25.0-34.0); Mean Corpuscular Hgb Conc 32.1 g/dL (32.0-36.0); Mean Corpuscular Volume 95.1 fL (80.0-100.0); RDW Coefficient of Variation 14.5 % (11.5-14.5); RDW Standard Deviation 50.7 fL (36.4-46.3); Red Blood Count 2.88 M/uL (4.63-6.08)
[2022-01-27] MEDS: INSULIN ASPART PER UNIT SC SCH ×4 (08:48→20:10)
[2022-01-27] MEDS: TPN STOP ORDER SCH (08:51)
[2022-01-27 08:52] LABS: BUN Creatinine Ratio 17.9 (10-20); Calcium 8.5 mg/dl (8.5-10.1); Creatinine Clr Calc Pharmacy 26.9 ml/min; Est GFR (African American) 20.5 ml/min; Est GFR (Non-African American) 17.7 ml/min; Magnesium 1.9 mg/dl (1.7-2.4); Phosphorus 3.9 mg/dl (2.5-4.9); Potassium 4.6 mmol/L (3.5-5.1)
--- NOTE | 2022-01-27 09:47 | Pharmacy Report ---
PHA: Parenteral Nutrition Con - Date of Service January 27, 2022 - Scope Pharmacy was consulted on 01/24 to manage parenteral nutrition orders for this patient. - Subjective The patient is currently on day 4 (of hospitalization) of central parenteral nutrition. Patient on chronic TPN at home. - Objective Height: 6 ft 3 in Weight: 99.8 kg Diet: Clear Liquid Intake & Output (24hrs):: Intake & Output 01/25/22 01/26/22 01/27/22 01/28/22 06:59 06:59 06:59 06:59 Intake Total 755 / 755 3370.25 / 3370.25 2552 / 2552 Output Total 1601 / 1601 2500 / 2500 3800 / 3800 Balance -846 / -846 870.25 / 870.25 -1248 / -1248 Weight 105.1 kg 103.5 kg 99.8 kg Laboratory Data (Last 24 Hr):: 01/27/22 07:22 Sodium 141 Potassium 4.6 Chloride 109 H Carbon Dioxide 26 BUN 64 H Creatinine 3.58 H Glucose 121 H Calcium 8.5 Phosphorus 3.9 Magnesium 1.9 Nutrition Assessment:: Please refer to the Notes section of the EMR for the most recent cardiology teacher note. - Plan Pt. receives home 3-in-1 TPN via [facility] 7 days/week as follows: 2400 ml cycled over 12 hrs (1 hr up & 1 hr down taper) of 105 g AA, 250 g dextrose, 275 ml (55 g lipids) providing 1820 kcal (per dietary notes from last admission) For day 4 of PN administration, the following will be ordered. Electrolytes relatively stable today. K is trending upward, had decreased by 50% in TPN yesterday. Will decrease K further from 40 meq to 10 meq total for today Macronutrients Amino acids 120 grams/day Dextrose 210 grams/day Lipids 50 grams/day Micronutrients Sodium phosphate 21 MMol Sodium chloride 50 mEq Sodium acetate 150 mEq Potassium chloride 10 mEq Magnesium sulfate 12.18 mEq Calcium gluconate 9.2 mEq Multivitamins 10 mL Trace Elements 1 mL Additional additives: folic acid 1 mg, thiamine 100 mg Total volume 1641 mL to be infused over 12 hrs will provide 1694 kcal/day Labs, as indicated, will be ordered per protocol Pharmacy will continue to follow and adjust parenteral nutrition orders on a daily basis. Thank you for allowing us to participate in the care of this patient.
[2022-01-27] MEDS: ONDANSETRON INJ 2 MG/ML 2 ML VIAL IV PRN ×2 (11:49→19:16)
[2022-01-27] MEDS ORDERED: ACETAMINOPHEN 325 MG TAB PO ONE (12:06)
[2022-01-27] MEDS ORDERED: fentaNYL 12 MCG/HR TDSY TD SCH (12:15)
[2022-01-27] MEDS ORDERED: ACETAMINOPHEN 325 MG TAB ONE (12:18)
--- NOTE | 2022-01-27 13:45 | Dialysis Progress Note ---
Date of Service January 27, 2022 Assessment & Plan Admission and Anticipated Discharge Date Admission Date: January 23, 2022 Subjective Assessment & Plan (1) ESRD (end stage renal disease) on dialysis: Plan: Patient with ESRD on dialysis twice a week Wednesday and Wednesday as outpt. Patient missed outpatient dialysis on Wednesday. Electrolytes are stable. Patient getting dialysis now for 3hrs on a 3K bath. Next dialysis will be Wednesday ( depends on nursing scheduling) No e/o fluid overload and /or lytes issues today. (2) Encephalopathy: Plan: Patient with altered mental status likely multifactorial including ertapenem which can cause confusion, advanced cancer and this likely uremia. Mental status is still quite confused. Subjective Seen During Dialysis. CVC fine. BP too low so will stop UF at 1 liters. has lot of urine through the b/l nephrostomy tube. He is still confused. Review of Systems Review of Systems: Unable to obtain due to altered mental status Physical Exam Physical Exam: General exam: Appears comfortable, no acute distress HEENT: Pupils are equal and reactive to light Neck: No JVD, neck is supple trachea is midline Respiratory system: Clear breath sounds bilaterally. Gastrointestinal: Abdomen is soft, non distended, non tender, bowel sounds are present CVS: Regular rate and rhythm. No murmurs, rubs or gallops Musculoskeletal: No joint or muscle tenderness Extremities: Non tender, no edema, peripheral pulses are present Neuro: Oriented to place, sleeping Skin: No rashes Results & Data ([facility]) Vital Signs (Past 12 Hours) Vital Signs Temp Pulse Pulse Pulse Resp BP BP 01/27/22 13:00 74 86/50 L 01/27/22 12:30 79 83/53 L 01/27/22 12:00 79 98/57 L 01/27/22 11:30 84 90/57 L 01/27/22 11:15 82 85/59 L 01/27/22 11:00 78 88/54 L 01/27/22 10:45 82 98/62 L 01/27/22 10:32 76 98/62 L 01/27/22 10:25 37.2 C 83 01/27/22 07:48 37.2 C 78 18 100/60 01/27/22 07:22 80 01/27/22 04:00 37.1 C 79 18 BP Pulse Ox O2 Del Method 01/27/22 13:00 01/27/22 12:30 01/27/22 12:00 01/27/22 11:30 01/27/22 11:15 01/27/22 11:00 01/27/22 10:45 01/27/22 10:32 01/27/22 10:25 01/27/22 07:48 97 01/27/22 07:22 01/27/22 04:00 105/65 98 Room Air
--- NOTE | 2022-01-27 14:54 | Palliative Care Progress Note ---
Date of Service January 27, 2022 Assessment & Plan (1) Palliative care encounter: Plan Attempted to see pt, he was off unit/unavailable/no family present. Pt not seen, will re attempt tomorrow. No charge submitted. Vivienne Hutson DNP Clinical Director, Palliative Medicine Admission and Anticipated Discharge Date Admission Date: January 23, 2022 Results & Data ([facility]) Vital Signs (Past 12 Hours) Vital Signs Temp Pulse Pulse Pulse Resp BP BP 01/27/22 11:45 80 90/55 L 01/27/22 13:34 36.7 C 76 88/54 L 01/27/22 13:15 80 85/56 L 01/27/22 13:00 74 86/50 L 01/27/22 12:30 79 83/53 L 01/27/22 12:00 79 98/57 L 01/27/22 11:30 84 90/57 L 01/27/22 11:15 82 85/59 L 01/27/22 11:00 78 88/54 L 01/27/22 10:45 82 98/62 L 01/27/22 10:32 76 98/62 L 01/27/22 10:25 37.2 C 83 01/27/22 07:48 37.2 C 78 18 100/60 01/27/22 07:22 80 01/27/22 04:00 37.1 C 79 18 BP Pulse Ox O2 Del Method 01/27/22 11:45 01/27/22 13:34 01/27/22 13:15 01/27/22 13:00 01/27/22 12:30 01/27/22 12:00 01/27/22 11:30 01/27/22 11:15 01/27/22 11:00 01/27/22 10:45 01/27/22 10:32 01/27/22 10:25 01/27/22 07:48 97 01/27/22 07:22 01/27/22 04:00 105/65 98 Room Air PG Care Time/CCT Total # of Minutes Spent Total Time Spent with Patient: Total time spent is greater than 50% in coordination of care (as documented) at patient's floor/unit and/or counseling patient: Coding Level of Care Code None Diagnoses Palliative care encounter Z51.5
[2022-01-27] MEDS: CHECK fentaNYL PATCH PLACEMENT SCH ×2 (15:36→23:21)
--- NOTE | 2022-01-27 18:16 | Hospitalist Progress Note ---
Date of Service January 27, 2022 Assessment & Plan (1) Encephalopathy: Plan: Acute metabolic encephalopathy Likely multifactorial: Missed dialysis-uremia, secondary to infection, medications --CT head:No acute intracranial abnormality. Avoid sedative medications Continue antibiotics for infection Hemodialysis as per nephrology Consider neurology evaluation if needed EEG:This is an abnormal EEG, recorded in wakefulness only, due to diffuse mild slowing, consistent with bihemispheric dysfunction, as seen in encephalopathies. There is no electrographic seizures or epileptogenic discharge. Mental status slowly improving Monitor HCAP:Likely Possible gram-negative pneumonia Complicated UTI Bilateral nephrostomy tube related complicated UTI Failed outpatient treatment (Cipro>>Ertapenem) H/O recurrent UTIs, B/L Nephrostomy tubes --CT suggestive of right basilar consolidation Normal lactate level -- Blood culture:Negative to date --Urine culture pending Continue Zosyn Anemia of chronic disease Pancytopenia GI bleeding Has minimal Bleeding per rectum today S/P 1 unit PRBC Monitor CBC Continue IV PPI No aggressive measures/Procedures as per family Hb 8.8 today End-stage renal disease Continue dialysis as per nephrology Appreciate nephrology input Suspected Opioid toxicity On fentanyl patch, oxycodone as needed at home Currently held sedating medications Also held neuropsychotropic medications Resumed fentanyl patch at lower-dose Chronic bowel obstruction H/O Metastatic colon cancer S/P surgery Ongoing chemotherapy Immunocompromised status G-tube placement --CT ABD:No significant change of the high-grade small bowel obstruction with transition point within the right midabdomen at the distal ileum secondary to metastatic implants. Similar findings were also present dating back to the September 2021 exam's. Mesenteric, omental and abdominal wall tumor implants also appear generally stable. Cirrhosis with splenomegaly. Numerous tumor implants involving the distal colon with probable additional tumor implants involving the urinary bladder. --Continue TPN Palliative care consulted to address goals of care Chronic bladder outlet obstruction H/O bilateral hydronephrosis S/P nephrostomy tube placement --CT ABD:The bilateral nephrostomy tubes appear to be in satisfactory positioning. Moderate to severe left-sided hydroureteronephrosis is generally unchanged. Follows with [facility] as outpatient DM II HbA1C:5.21 September 2021 Continue insulin per protocol Monitor BGs Chronic hypotension Continue midodrine Cirrhosis Pancytopenia secondary to chemotherapy/cirrhosis Past alcohol abuse Monitor DVT Px: SCDs Re: Thrombocytopenia, GI bleed Code Status DNR/DNI Admission and Anticipated Discharge Date Admission Date: January 23, 2022 Subjective Patient is seen and examined in at bedside Was having hemodialysis during my encounter Complains of abdominal pain Also states having nausea No other complaints Review of Systems Review of Systems: All systems reviewed & are unremarkable except as noted in Subjective Physical Exam Physical Exam: Physical Exam: Vitals signs as noted above General Appearance: Chronic ill-appearing, no apparent distress Head: normocephalic, Atraumatic Eyes: normal inspection, EOMI Neck: supple, Trachea midline Respiratory/Chest: Normal breath sounds, CTA, No accessory muscle use, +Port Cardiovascular: S1, S2, No murmur Abdomen/GI:Soft, + tender, Bowel sounds present Extremities/Musculoskeletal:normal inspection, 2+ B/L LE edema Neurologic/Psych: Alert, awake, grossly no focal deficits Skin: normal color, warm Results & Data Results & Data ([facility]) Vital Signs (Past 12 Hours) Vital Signs Temp Pulse Pulse Pulse Resp BP BP 01/27/22 15:54 36.7 C 74 18 89/51 L 01/27/22 11:45 80 90/55 L 01/27/22 13:34 36.7 C 76 88/54 L 01/27/22 13:15 80 85/56 L 01/27/22 13:00 74 86/50 L 01/27/22 12:30 79 83/53 L 01/27/22 12:00 79 98/57 L 01/27/22 11:30 84 90/57 L 01/27/22 11:15 82 85/59 L 01/27/22 11:00 78 88/54 L 01/27/22 10:45 82 98/62 L 01/27/22 10:32 76 98/62 L 01/27/22 10:25 37.2 C 83 01/27/22 07:48 37.2 C 78 18 100/60 01/27/22 07:22 80 Pulse Ox 01/27/22 15:54 96 01/27/22 11:45 01/27/22 13:34 01/27/22 13:15 01/27/22 13:00 01/27/22 12:30 01/27/22 12:00 01/27/22 11:30 01/27/22 11:15 01/27/22 11:00 01/27/22 10:45 01/27/22 10:32 01/27/22 10:25 01/27/22 07:48 97 01/27/22 07:22 Laboratory Results Short CBC 01/27/22 Range/Units 07:22 WBC 2.42 L (4.8-10.8) K/ul Hgb 8.8 L (14.0-18.0) g/dl Hct 27.4 L (40.1-51.0) % Plt Count 59 L (130-400) K/uL BMP 01/27/22 07:22 Sodium 141 Potassium 4.6 Chloride 109 H Carbon Dioxide 26 BUN 64 H Creatinine 3.58 H Glucose 121 H Calcium 8.5
[2022-01-27] MEDS ORDERED: AMINO ACID 8% IV SCH (20:00)
[2022-01-27] MEDS ORDERED: CENTRAL TPN IV SCH (20:00)
[2022-01-27] MEDS ORDERED: CLINOLIPID 20% IV FAT EMULSION 250 ML IV SCH (20:00)
[2022-01-27] MEDS ORDERED: [UNRECOGNIZED DRUG - OTHER] IV SCH (20:00)
[2022-01-28] MEDS: STOP CLINOLIPID SCH (02:08)
[2022-01-28] MEDS: ONDANSETRON INJ 2 MG/ML 2 ML VIAL IV PRN ×3 (03:30→20:29)
[2022-01-28] MEDS: INSULIN ASPART PER UNIT SC SCH ×4 (08:01→20:22)
[2022-01-28] MEDS: CHECK fentaNYL PATCH PLACEMENT SCH ×3 (08:02→23:25)
[2022-01-28] MEDS: MIDODRINE HCL 10 MG TAB PO SCH ×3 (08:03→16:31)
[2022-01-28] MEDS: busPIRone 15 MG TAB PO SCH ×2 (08:04→20:27)
[2022-01-28] MEDS: TPN STOP ORDER SCH (08:04)
[2022-01-28] MEDS: PANTOprazole 40 MG in SYRINGE 0 ML IV SCH ×2 (08:04→20:25)
[2022-01-28 10:04] LABS: Hemoglobin 9.4 g/dl (14.0-18.0); Mean Platelet Volume 10.2 fL (9.4-12.4); Platelet Count 82 K/uL (130-400); White Blood Count 3.65 K/ul (4.8-10.8)
--- NOTE | 2022-01-28 10:16 | Palliative Care Consultation ---
Date of Consultation January 28, 2022 Assessment & Plan (1) Palliative care encounter: (2) AMS (altered mental status): (3) Cancer related pain: (4) Abdominal pain: (5) Adenocarcinoma of colon metastatic to liver: Plan * Pt is drifting off and unable to stay focused/engaged in our discussion. Will await 's arrival for more in depth discussion. * On a superficial level pt indicates wanting to stay on current plan to "get better" though what he defines as "better" may be different from what we as a medical team may feel is "better." This can be further elucidated in the family meeting with . * From pain mgt perspective: pt was using 413 OMEs prior to admission and this was movd to TDF 12mcg only which is approx 30 OMEs. His continued mental status issues may be in part due to a withdrawal from chronic opioid therapy. He remains on HD, Abtx, IVF and his mentation remains cloudy. I do not believe the opiates alone were responsible for the AMS noted on admission vs AMS being the accumulated effect of his chronic infection, advancing cancer, multi organ failure/metabolic derangements and then possibly some opioid related changes as well. * TS 60min. Vivienne Hutson [facility] Clinical Director, Palliative Medicine History of Present Illness Reason for Consultation: [facility] Attending Physician: Brennen Schaefer MD History of Present Illness Mr Hull was admitted 01/23/22 with complicated Pseudomonas UTI, HCAP in the setting of known met adenoca colon. +AMS on arrival, missed HD prior to admission d/t feeling too sick.CT head did not find acute abnormality He is on daily TPN Home cancer pain regimen: TDF 125mcg/hr q3 days and Oxy IR 15mg q4h prn/average 5 per day. opioid review: TDF 125mcg/h + OxyIR 75mg/day = 413 oral morphine equivalents/day (OMEs) currently on TDF 12mcg/hr and no breakthrough opioid dose noted Adenoca Colon Hx: dx Mar 2018 for which he underwent FOLFOX/Avastin Apr 2018 thru September 2018 (6 cycles); umbilical tumor resected Dec 2018 which was + met disease and he was started on FOLFIRI/Avastin 06/19/19 thru 11/30/19, which was then held d/t thrombocytopenia +SBO, s/p right hemicolectomy. TPN was started. he has a nephrostomy cath for hydronephrosis. chemo changed to Irinotecan and leucovorin, last dose 09/10/21 PGM colon ca +ESRD on HD, cirrhosis, DM Allergies Allergy/AdvReac Type Severity Reaction Status Date / Time melon Allergy Intermediate throat and Verified 01/23/22 21:35 mouth is itchy Sulfa (Sulfonamide Allergy Intermediate Hives Verified 01/23/22 21:35 Antibiotics) ertapenem Allergy Mild Rash Verified 01/23/22 22:22 Home Medications Medication Instructions Recorded Confirmed Type TPN Electrolytes See Rx Instructions .Route .COMPLEX 09/28/21 01/23/22 History fentanyl 100 mcg/hr transdermal 1 patch transdermal Q72H 09/28/21 01/23/22 History patch fentanyl 25 mcg/hr transdermal 1 patch transdermal Q72H 09/28/21 01/23/22 History patch melatonin 3 mg tablet 3 mg PO HS PRN Sleep 09/28/21 01/23/22 History menthol 0.44 %-zinc oxide 20.6 % 1 applic topical TID PRN breakdown 09/28/21 01/23/22 History topical ointment (Calmoseptine) midodrine 10 mg tablet 10 mg PO TID 09/28/21 01/23/22 History nystatin 100,000 unit/gram topical 1 applic topical BID 09/28/21 01/23/22 History powder olanzapine 5 mg tablet (Zyprexa) 5 mg PO TID 09/28/21 01/23/22 History ondansetron HCl 8 mg tablet 8 mg PO TID PRN Nausea 09/28/21 01/23/22 History oxycodone 15 mg tablet 15 mg PO 6XD PRN Pain 09/28/21 01/23/22 History pantoprazole 40 mg tablet,delayed 40 mg PO DAILYBB 09/28/21 01/23/22 History release (Protonix) silodosin 8 mg capsule 8 mg PO HS 09/28/21 01/23/22 History buspirone 30 mg tablet 30 mg PO BID 11/21/21 01/23/22 History dronabinol 2.5 mg capsule 2.5 mg PO BID PRN Nausea 11/21/21 01/23/22 History Ertapenem Iv 1 dose IV DIRECTED 01/23/22 01/23/22 History Patient History Medical History Cirrhosis Colon cancer Diabetes mellitus type 2 in obese ESRD (end stage renal disease) on dialysis Recurrent urinary tract infection Small bowel obstruction Surgical History S/P hernia repair Status post right hemicolectomy Family History Brother Cancer Grandmother (Paternal) Cancer Social History Smoking Status: Former smoker Second Hand Exposure: No; Do You Dip or Chew Tobacco: No; Tobacco Cessation Education Requested by Patient: No Hx Alcohol Use: Yes Alcohol type: beer Hx Substance Use: No Preferred Language: Bhutanese Communication Ability: Impaired [employer] Supervisor Required: No Beliefs That Will Affect Care: None marital status: Current Living Situation: Family Current Living Situation Comment: Spouse and son Other Information That Helps Us Care for You: No Feels Safe at Home: Yes Safety Concerns: Feels Safe At This Time Assistive Devices: Walker and Other Assistive Devices Comment: transport chair Review of Systems Review of Systems: Pt is in and out of attentiveness. Conitnues to have trouble focusing. Unable to clearly answer all questons. NO family present but states will be here sometime today Physical Exam Physical Exam: Chronically ill appearing, abd grossly distended Constitutional: + ill appearing and + lethargic Eyes: reactive pupils ENMT: Mouth: + dry oral mucous membranes and + poor dentition Neck: trachea midline, no thyromegaly Respiratory: Auscultation: + diminished lung sounds and + rhonchi (faint rhonchi, bronchitic cough) Cardiovascular: Rate/Rhythm: regular rate and regular rhythm Heart Sounds: normal S1 and normal S2 Gastrointestinal (Abdomen): Inspection/Auscultation: + abdomen distended and + abdominal surgical drain present Percussion/Palpation: + guarding and + abdomen firm bilat drains/ostomy, grimacing with palpation Musculoskeletal: Generalized weakness, diminished strength Skin: + turgor decreased Psychiatric: Eye Contact: + fair eye contact Affect: + flat affect At t imes slow to respond. Drifts off occasionally. wakes to voice. Results & Data ([facility]) Vital Signs (Past 12 Hours) Vital Signs Temp Pulse Pulse Pulse Resp BP BP 01/28/22 08:24 36.4 C L 76 14 112/54 L 01/28/22 07:11 78 01/28/22 03:29 36.7 C 75 20 97/57 L 01/28/22 00:00 01/27/22 22:26 71 01/27/22 23:38 36.6 C 78 18 100/61 01/27/22 23:06 36.4 C L 71 20 100/63 01/27/22 22:33 Pulse Ox Pulse Ox O2 Del Method O2 Del Method 01/28/22 08:24 97 Room Air 01/28/22 07:11 01/28/22 03:29 98 Room Air 01/28/22 00:00 95 Room Air 01/27/22 22:26 01/27/22 23:38 95 Room Air 01/27/22 23:06 97 Room Air 01/27/22 22:33 Room Air PG Care Time/CCT Total # of Minutes Spent Total Time Spent with Patient: Total time spent is greater than 50% in coordination of care (as documented) at patient's floor/unit and/or counseling patient: Coding Level of Care Code 94329 Inpt Consult Level 4 Diagnoses Palliative care encounter Z51.5 AMS (altered mental status) R41.82 Cancer related pain G89.3 Abdominal pain R10.9 Adenocarcinoma of colon metastatic to liver C18.9; C78.7
[2022-01-28 10:26] LABS: Mean Corpuscular Hemoglobin 30.7 pg (25.0-34.0); Mean Corpuscular Hgb Conc 32.4 g/dL (32.0-36.0); Mean Corpuscular Volume 94.8 fL (80.0-100.0); RDW Coefficient of Variation 14.6 % (11.5-14.5); RDW Standard Deviation 49.9 fL (36.4-46.3); Red Blood Count 3.06 M/uL (4.63-6.08)
[2022-01-28 10:43] LABS: BUN Creatinine Ratio 19.5 (10-20); Calcium 8.5 mg/dl (8.5-10.1); Creatinine Clr Calc Pharmacy 36.2 ml/min; Est GFR (African American) 29.3 ml/min; Est GFR (Non-African American) 25.3 ml/min; Magnesium 1.9 mg/dl (1.7-2.4); Phosphorus 3.8 mg/dl (2.5-4.9); Potassium 3.9 mmol/L (3.5-5.1)
--- NOTE | 2022-01-28 11:41 | Nephrology Progress Note ---
Date of Service January 28, 2022 Assessment & Plan Admission and Anticipated Discharge Date Admission Date: January 23, 2022 Subjective Assessment & Plan (1) ESRD (end stage renal disease) on dialysis: Plan: Patient with ESRD on dialysis twice a week Wednesday and Wednesday as outpt. Electrolytes are stable. Patient getting dialysis now for 3hrs on a 3K bath. Next dialysis will be Wednesday ( depends on nursing scheduling) No e/o fluid overload and /or lytes issues today. (2) Encephalopathy: Plan: Patient with altered mental status likely multifactorial. Mental status is still quite confused. 3 Palliative med---reviewed the note. Subjective has lot of urine through the b/l nephrostomy tube. He is still confused. Not able to answer questions. Review of Systems Review of Systems: Unable to obtain due to altered mental status Physical Exam Physical Exam: General exam: Appears comfortable, no acute distress HEENT: Pupils are equal and reactive to light Neck: No JVD, neck is supple trachea is midline Respiratory system: Clear breath sounds bilaterally. Gastrointestinal: Abdomen is soft, non distended, non tender, bowel sounds are present CVS: Regular rate and rhythm. No murmurs, rubs or gallops Musculoskeletal: No joint or muscle tenderness Extremities: Non tender, no edema, peripheral pulses are present Neuro: Oriented to place, sleeping Skin: No rashes Results & Data ([facility]) Vital Signs (Past 12 Hours) Vital Signs Temp Pulse Pulse Pulse Resp BP BP 01/28/22 08:24 36.4 C L 76 14 112/54 L 01/28/22 07:11 78 01/28/22 03:29 36.7 C 75 20 97/57 L 01/28/22 00:00 Pulse Ox Pulse Ox O2 Del Method O2 Del Method 01/28/22 08:24 97 Room Air 01/28/22 07:11 01/28/22 03:29 98 Room Air 01/28/22 00:00 95 Room Air
[2022-01-28] MEDS: PIPERACILLIN/TAZOBACTAM 3.375 GM in DEXTROSE 5% 100 ML IV SCH ×2 (11:48→23:16)
--- NOTE | 2022-01-28 14:50 | Hospitalist Progress Note ---
Date of Service January 28, 2022 Assessment & Plan (1) Encephalopathy: Plan: Acute metabolic encephalopathy Likely multifactorial: Missed dialysis-uremia, secondary to infection, medications --CT head:No acute intracranial abnormality. Avoid sedative medications Continue antibiotics for infection Hemodialysis as per nephrology Consider neurology evaluation if needed EEG:This is an abnormal EEG, recorded in wakefulness only, due to diffuse mild slowing, consistent with bihemispheric dysfunction, as seen in encephalopathies. There is no electrographic seizures or epileptogenic discharge. Mental status better today HCAP:Likely Possible gram-negative pneumonia Complicated UTI Bilateral nephrostomy tube related complicated UTI Failed outpatient treatment (Cipro>>Ertapenem) H/O recurrent UTIs, B/L Nephrostomy tubes --CT suggestive of right basilar consolidation Normal lactate level -- Blood culture:Negative to date --Urine culture pending Continue Zosyn Continue current management Anemia of chronic disease Pancytopenia GI bleeding Has minimal Bleeding per rectum today S/P 1 unit PRBC Monitor CBC Continue IV PPI No aggressive measures/Procedures as per family Hb 9.4 today End-stage renal disease Continue dialysis as per nephrology Appreciate nephrology input Suspected Opioid toxicity On fentanyl patch, oxycodone as needed at home Currently held sedating medications Also held neuropsychotropic medications Resumed fentanyl patch at lower-dose Chronic bowel obstruction H/O Metastatic colon cancer S/P surgery Ongoing chemotherapy Immunocompromised status G-tube placement --CT ABD:No significant change of the high-grade small bowel obstruction with transition point within the right midabdomen at the distal ileum secondary to metastatic implants. Similar findings were also present dating back to the September 2021 exam's. Mesenteric, omental and abdominal wall tumor implants also appear generally stable. Cirrhosis with splenomegaly. Numerous tumor implants involving the distal colon with probable additional tumor implants involving the urinary bladder. --Continue TPN Palliative care consulted to address goals of care Chronic bladder outlet obstruction H/O bilateral hydronephrosis S/P nephrostomy tube placement --CT ABD:The bilateral nephrostomy tubes appear to be in satisfactory positioning. Moderate to severe left-sided hydroureteronephrosis is generally unchanged. Follows with [facility] as outpatient DM II HbA1C:5.21 September 2021 Continue insulin per protocol Monitor BGs Chronic hypotension Continue midodrine Cirrhosis Pancytopenia secondary to chemotherapy/cirrhosis Past alcohol abuse Monitor DVT Px: SCDs Re: Thrombocytopenia, GI bleed Code Status DNR/DNI Admission and Anticipated Discharge Date Admission Date: January 23, 2022 Subjective Patient is seen and examined in at bedside States having abdominal pain Poor historian Mental status better today Denies chest pain, dyspnea, dizziness No other complaints Review of Systems Review of Systems: All systems reviewed & are unremarkable except as noted in Subjective Physical Exam Physical Exam: Physical Exam: Vitals signs as noted above General Appearance: Chronic ill-appearing, no apparent distress Head: normocephalic, Atraumatic Eyes: normal inspection, EOMI Neck: supple, Trachea midline Respiratory/Chest: Normal breath sounds, CTA, No accessory muscle use, +Port Cardiovascular: S1, S2, No murmur Abdomen/GI:Soft, + tender, Bowel sounds present Extremities/Musculoskeletal:normal inspection, 2+ B/L LE edema Neurologic/Psych: Alert, awake, grossly no focal deficits Skin: normal color, warm Results & Data Results & Data ([facility]) Vital Signs (Past 12 Hours) Vital Signs Temp Pulse Pulse Pulse Resp BP BP 01/28/22 08:24 36.4 C L 76 14 112/54 L 01/28/22 07:11 78 01/28/22 03:29 36.7 C 75 20 97/57 L Pulse Ox O2 Del Method 01/28/22 08:24 97 Room Air 01/28/22 07:11 01/28/22 03:29 98 Room Air Laboratory Results Short CBC 01/28/22 Range/Units 09:55 WBC 3.65 L (4.8-10.8) K/ul Hgb 9.4 L (14.0-18.0) g/dl Hct 29.0 L (40.1-51.0) % Plt Count 82 L (130-400) K/uL BMP 01/28/22 09:55 Sodium 141 Potassium 3.9 Chloride 103 Carbon Dioxide 30 BUN 52 H Creatinine 2.66 H D Glucose 97 Calcium 8.5
[2022-01-28] MEDS ORDERED: ACETAMINOPHEN 500 MG TAB PO PRN (18:31)
[2022-01-28] MEDS ORDERED: [UNRECOGNIZED DRUG - OTHER] IV SCH (20:00)
[2022-01-28] MEDS ORDERED: AMINO ACID 8% IV SCH (20:00)
[2022-01-28] MEDS ORDERED: CENTRAL TPN IV SCH (20:00)
[2022-01-28] MEDS ORDERED: CLINOLIPID 20% IV FAT EMULSION 250 ML IV SCH (20:00)
[2022-01-28] MEDS ORDERED: HEPARIN 100 UNIT/ML 5ML FLUSH FLUSH PRN (23:57)
[2022-01-29] MEDS: STOP CLINOLIPID SCH (02:26)
[2022-01-29] MEDS: ONDANSETRON INJ 2 MG/ML 2 ML VIAL IV PRN ×4 (02:26→19:26)
[2022-01-29] MEDS: PANTOprazole 40 MG in SYRINGE 0 ML IV SCH ×2 (08:01→20:12)
[2022-01-29] MEDS: busPIRone 15 MG TAB PO SCH ×2 (08:01→20:12)
[2022-01-29] MEDS: MIDODRINE HCL 10 MG TAB PO SCH ×3 (08:02→18:28)
[2022-01-29] MEDS: TPN STOP ORDER SCH (08:04)
[2022-01-29] MEDS: INSULIN ASPART PER UNIT SC SCH ×4 (09:07→20:44)
[2022-01-29] MEDS: CHECK fentaNYL PATCH PLACEMENT SCH ×3 (09:09→23:17)
[2022-01-29] MEDS ORDERED: PROMETHAZINE HCL 6.25 MG in SODIUM CHLORIDE 0.9% 50 ML IV STA (09:24)
[2022-01-29 09:41] LABS: BUN Creatinine Ratio 22.2 (10-20); Calcium 8.9 mg/dl (8.5-10.1); Creatinine Clr Calc Pharmacy 32.4 ml/min; Est GFR (African American) 25.7 ml/min; Est GFR (Non-African American) 22.2 ml/min; Potassium 3.9 mmol/L (3.5-5.1)
--- NOTE | 2022-01-29 10:02 | Palliative Care Progress Note ---
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 She asked about withdrawal and rebound pain issues. We discussed my evaluation of him this morning - he did not report severe uncontrolled pain but did feel pain was not well controlled. He is very tired and drifts off easily. She notes this has been his baseline since cancer dx was made and it is only when he is confused or not making sense that she feels something is wrong. However, his being tired or drifting off a bit while in conversation is not a big change from his usual baseline. They follow with [email or web address] for over a year. They are very pleased with [employer] services and support. She feels they have been able to have more open conversations about "difficult topics" since engaging with [employer], and references her prior discussion with Dr Frazier/[facility] [email or web address] [place] during prior admission as an example. She knows he has progressive cancer and time may be limited but she also feels that for now he still derives benefit and acceptable qoL from TPN and HD. They are not interested in stopping either and they are aware that to enroll in hospice, those therapies would not necessarily be covered. It is worth noting that the medicare ESRD benefit states Medicare patients can receive care under both the ESRD benefit and the hospice benefit. The enriquez is whether or not the services are related to ESRD. If the patient's terminal condition is not related to ESRD, the patient may receive covered services under both the ESRD benefit and the hospice benefit. If his ESRD is felt to be unrelated to his cancer, then it can be continued and he can enroll in hospice. This will need further elucidation. Additionally,TPN is appropriate in hospice when caring for a patient with short-gut syndrome or bowel obstruction, good functional status and a functional goal. So, both may be option for pt while adding in hospice care at home provided that no further cancer directed therapy such as chemo is being actively done. Pt would like a follow up meeting together with pt tomorrow afternoon, after his HD session. we have scheduled a tentative 230pm meeting, she will notify nursing unit if anything needs to change. All questions were answered to her apparent satisfaction and she verbalized understanding of same. TS 20min, telephonic family mtg. Vivienne Hutson DNP Clinical Director, Palliative Medicine Results & Data ([facility]) Vital Signs (Past 12 Hours) Vital Signs Temp Pulse Pulse Pulse Resp BP BP 01/29/22 08:15 36.9 C 71 19 100/65 01/29/22 07:30 01/29/22 07:14 73 01/29/22 04:00 36.9 C 71 20 98/57 L 01/28/22 22:19 69 01/28/22 22:43 37 C 74 20 93/54 L Pulse Ox O2 Del Method 01/29/22 08:15 97 Room Air 01/29/22 07:30 Room Air 01/29/22 07:14 01/29/22 04:00 96 Room Air 01/28/22 22:19 01/28/22 22:43 96 Room Air PG Care Time/CCT Total # of Minutes Spent Total Time Spent with Patient: Total time spent is greater than 50% in coordination of care (as documented) at patient's floor/unit and/or counseling patient: Coding Level of Care Code None
[2022-01-29] MEDS ORDERED: POLYETHYLENE (MIRALAX) 17 GM PACK PO PRN (10:45)
--- NOTE | 2022-01-29 13:34 | Palliative Care Progress Note ---
Date of Service January 29, 2022 Assessment & Plan (1) Palliative care encounter: (2) Cancer related pain: (3) Adenocarcinoma of colon metastatic to liver: (4) AMS (altered mental status): Plan * Family meeting held at bedside with pt, his , Gianna from and myself. * We discussed their concerns about his pain and symptom mgt, reviewed the medication regimen currently in place and have agreed to modestly increase TDF to 25mcg/hr, will continue tylenol as needed for BTP but no other opioid for now. * we discussed PT recc and skilled rehab. Pt reluctant. Wants to be home. will come tomorrow to work with pt under PT observation to determine if he can safely go home, she is his only caregiver and there is no additional help. * we discussed home health vs hospice. I advised them of the medicare guidelines for ESRD on HD and also for TPN. While he meets criteria to continue TPN on hospice he does not for ESRD which is a cancer related complication. * I suggested home health vs transitional care: Transitional care is a pre- hospice program designed for advanced illness patients to have the care they want at home and keep them out of the hospital. Transitional care addresses the needs of patients in a declining state of health who are not yet ready to enter hospice care. Patients may continue to receive life-prolonging treatments in additional to palliative care that focuses on comfort measures and pain relief. Studies demonstrate these Palliative therapies can have a positive effect on a patients mobility, happiness and overall quality of life. In Transitional care programs, nurses and other members of the home care and hospice team will regularly visit patients at home to teach them how to better manage their diseases, advance care planning and when necessary, end of life care. Providers will review and modify medication regimen to assure patient is not getting any unnecessary medications. Unlike hospice care, patients in this program don't need to have a prognosis of six months or less to live, and they can continue getting treatment that is aimed at curing their illnesses, not just treating symptoms. Transitional care programs are useful for patients who may be at or nearing the point where they starting to realize there disease is becoming more end stage/advanced and medical modalities have been maximized but no longer provide the relief they once did when patients' disease was not so severe. The overall goal of transitional care is to help our patients through this process so it's not filled with chaos. * Follow up tomorrow. They are not ready for hospice. They want to continue HD and TPN for as long as he feels benefit from both. I spoke with them about signs that may indicate these therapies are no longer helpful. TS 65min Vivienne Hutson DNP Clinical Director, Palliative Medicine Admission and Anticipated Discharge Date Admission Date: January 23, 2022 Subjective Large emesis this afternoon, feels pain is creeping up and would like some adjustment to dose. at bedside. Pt was seen by PT and felt he may benefit from some skilled rehab. Review of Systems Review of Systems: All systems reviewed & are unremarkable except as noted in Subjective Physical Exam Physical Exam: Physical Exam: Vitals signs as noted above General Appearance: Chronic ill-appearing, no apparent distress Head: normocephalic, Atraumatic Eyes: normal inspection, EOMI Neck: supple, Trachea midline Respiratory/Chest: Normal breath sounds, CTA, No accessory muscle use, +Port Cardiovascular: S1, S2, No murmur Abdomen/GI:Soft, + tender, Bowel sounds present Extremities/Musculoskeletal:normal inspection, 2+ B/L LE edema Neurologic/Psych: Alert, awake, grossly no focal deficits Skin: normal color, warm Results & Data ([facility]) Vital Signs (Past 12 Hours) Vital Signs Temp Pulse Pulse Pulse Pulse Resp BP 01/29/22 13:00 86 97/51 L 01/29/22 12:30 93 H 97/69 L 01/29/22 12:00 86 106/68 01/29/22 11:30 82 99/61 L 01/29/22 11:00 76 112/54 L 01/29/22 10:30 76 96/61 L 01/29/22 10:15 78 104/56 L 01/29/22 09:55 36.9 C 78 01/29/22 08:15 36.9 C 71 19 01/29/22 07:30 01/29/22 07:14 73 01/29/22 04:00 36.9 C 71 20 BP BP Pulse Ox O2 Del Method 01/29/22 13:00 01/29/22 12:30 01/29/22 12:00 01/29/22 11:30 01/29/22 11:00 01/29/22 10:30 01/29/22 10:15 01/29/22 09:55 01/29/22 08:15 100/65 97 Room Air 01/29/22 07:30 Room Air 01/29/22 07:14 01/29/22 04:00 98/57 L 96 Room Air PG Care Time/CCT Total # of Minutes Spent Total Time Spent: 65 Total Time Spent with Patient: Total time spent is greater than 50% in coordination of care (as documented) at patient's floor/unit and/or counseling patient: 65 min spent in chart review, discussions with medical teams, coordination of care and approx 45min of this 65min spent in face to face discussion as outlined above. Coding Level of Care Code Established Pt ADVNCD CARE PLAN 30 MIN Patient Type Established History Expanded Problem Focused Exam Expanded Problem Focused Medical Decision Making Moderate Complexity Diagnoses Palliative care encounter Z51.5 Cancer related pain G89.3 Adenocarcinoma of colon metastatic to liver C18.9; C78.7 AMS (altered mental status) R41.82
[2022-01-29] MEDS: PIPERACILLIN/TAZOBACTAM 3.375 GM in DEXTROSE 5% 100 ML IV SCH ×2 (14:08→23:16)
--- NOTE | 2022-01-29 14:53 | Nephrology Progress Note ---
Date of Service January 29, 2022 Assessment & Plan Admission and Anticipated Discharge Date Admission Date: January 23, 2022 Subjective Assessment & Plan (1) ESRD (end stage renal disease) on dialysis: Plan: Patient with ESRD on dialysis twice a week Wednesday and Wednesday as outpt. He had dialysis earlier today--no issues. No UF done and 3k bath for 3 hrs. Electrolyte s are stable. Patient getting dialysis now for 3hrs on a 3K bath. Next dialysis will be Wednesday ( depends on nursing scheduling) No e/o fluid overload and /or lytes issues today. (2) Encephalopathy: Plan: Patient with altered mental status likely multifactorial. Mental status is still quite confused. Palliative med---reviewed the note. Subjective has lot of urine through the b/l nephrostomy tube. He is still confused. Not able to answer questions. Review of Systems Review of Systems: Unable to obtain due to altered mental status Physical Exam Physical Exam: General exam: Appears comfortable, no acute distress HEENT: Pupils are equal and reactive to light Neck: No JVD, neck is supple trachea is midline Respiratory system: Clear breath sounds bilaterally. Gastrointestinal: Abdomen is soft, non distended, non tender, bowel sounds are present CVS: Regular rate and rhythm. No murmurs, rubs or gallops Musculoskeletal: No joint or muscle tenderness Extremities: Non tender, no edema, peripheral pulses are present Neuro: Oriented to place, sleeping Skin: No rashes Results & Data ([facility]) Vital Signs (Past 12 Hours) Vital Signs Temp Pulse Pulse Pulse Pulse Resp BP 01/29/22 13:35 36.8 C 81 01/29/22 13:00 86 97/51 L 01/29/22 12:30 93 H 97/69 L 01/29/22 12:00 86 106/68 01/29/22 11:30 82 99/61 L 01/29/22 11:00 76 112/54 L 01/29/22 10:30 76 96/61 L 01/29/22 10:15 78 104/56 L 01/29/22 09:55 36.9 C 78 01/29/22 08:15 36.9 C 71 19 01/29/22 07:30 01/29/22 07:14 73 01/29/22 04:00 36.9 C 71 20 BP BP Pulse Ox O2 Del Method 01/29/22 13:35 99/55 L 10/13/22 13:00 01/29/22 12:30 01/29/22 12:00 01/29/22 11:30 01/29/22 11:00 01/29/22 10:30 01/29/22 10:15 01/29/22 09:55 01/29/22 08:15 100/65 97 Room Air 01/29/22 07:30 Room Air 01/29/22 07:14 01/29/22 04:00 98/57 L 96 Room Air
--- NOTE | 2022-01-29 15:53 | Hospitalist Progress Note ---
Date of Service January 29, 2022 Assessment & Plan (1) Encephalopathy: Plan: Acute metabolic encephalopathy Likely multifactorial: Missed dialysis-uremia, secondary to infection, medications --CT head:No acute intracranial abnormality. EEG:This is an abnormal EEG, recorded in wakefulness only, due to diffuse mild slowing, consistent with bihemispheric dysfunction, as seen in encephalopathies. There is no electrographic seizures or epileptogenic discharge. Avoid sedative medications as able Continue antibiotics for infection Hemodialysis as per nephrology Mental status much improved HCAP:Likely Possible gram-negative pneumonia Complicated UTI Bilateral nephrostomy tube related complicated UTI Failed outpatient treatment (Cipro>>Ertapenem) H/O recurrent UTIs, B/L Nephrostomy tubes --CT suggestive of right basilar consolidation Normal lactate level -- Blood culture:Negative --Urine culture pending Continue Zosyn Continue current management Anemia of chronic disease Pancytopenia GI bleeding Has minimal Bleeding per rectum today S/P 1 unit PRBC Monitor CBC Continue PPI No aggressive measures/Procedures as per family Hb 9.4 End-stage renal disease Continue dialysis as per nephrology Appreciate nephrology input Had HD today Suspected Opioid toxicity On fentanyl patch, oxycodone as needed at home Currently held sedating medications Also held neuropsychotropic medications Resumed fentanyl patch at lower-dose Monitor Mental status Chronic bowel obstruction H/O Metastatic colon cancer S/P surgery Ongoing chemotherapy Immunocompromised status G-tube placement --CT ABD:No significant change of the high-grade small bowel obstruction with transition point within the right midabdomen at the distal ileum secondary to metastatic implants. Similar findings were also present dating back to the September 2021 exam's. Mesenteric, omental and abdominal wall tumor implants also appear generally stable. Cirrhosis with splenomegaly. Numerous tumor implants involving the distal colon with probable additional tumor implants involving the urinary bladder. --Continue TPN Palliative care consulted to address goals of care Chronic bladder outlet obstruction H/O bilateral hydronephrosis S/P nephrostomy tube placement --CT ABD:The bilateral nephrostomy tubes appear to be in satisfactory positioning. Moderate to severe left-sided hydroureteronephrosis is generally unchanged. Follows with [facility] as outpatient DM II HbA1C:5.21 September 2021 Continue insulin per protocol Monitor BGs Chronic hypotension Continue midodrine Cirrhosis Pancytopenia secondary to chemotherapy/cirrhosis Past alcohol abuse Monitor DVT Px: SCDs Re: Thrombocytopenia, GI bleed Code Status DNR/DNI Admission and Anticipated Discharge Date Admission Date: January 23, 2022 Subjective Patient is seen and examined in at bedside Complains of abdominal pain, nausea Plan for hemodialysis today Palliative care to discuss with family to address goals of care today Denies chest pain, dyspnea, dizziness Mental Status much improved Review of Systems Review of Systems: All systems reviewed & are unremarkable except as noted in Subjective Physical Exam Physical Exam: Physical Exam: Vitals signs as noted above General Appearance: Chronic ill-appearing, no apparent distress Head: normocephalic, Atraumatic Eyes: normal inspection, EOMI Neck: supple, Trachea midline Respiratory/Chest: Normal breath sounds, CTA, No accessory muscle use, +Port Cardiovascular: S1, S2, No murmur Abdomen/GI:Soft, + tender, mildly distended, Bowel sounds present Extremities/Musculoskeletal:normal inspection, 2+ B/L LE edema Neurologic/Psych: Alert, awake, grossly no focal deficits Skin: normal color, warm Results & Data Results & Data ([facility]) Vital Signs (Past 12 Hours) Vital Signs Temp Pulse Pulse Pulse Pulse Resp BP 01/29/22 13:35 36.8 C 81 01/29/22 13:00 86 97/51 L 01/29/22 12:30 93 H 97/69 L 01/29/22 12:00 86 106/68 01/29/22 11:30 82 99/61 L 01/29/22 11:00 76 112/54 L 01/29/22 10:30 76 96/61 L 01/29/22 10:15 78 104/56 L 01/29/22 09:55 36.9 C 78 01/29/22 08:15 36.9 C 71 19 01/29/22 07:30 01/29/22 07:14 73 01/29/22 04:00 36.9 C 71 20 BP BP Pulse Ox O2 Del Method 01/29/22 13:35 99/55 L 01/29/22 13:00 01/29/22 12:30 01/29/22 12:00 01/29/22 11:30 01/29/22 11:00 01/29/22 10:30 01/29/22 10:15 01/29/22 09:55 01/29/22 08:15 100/65 97 Room Air 01/29/22 07:30 Room Air 01/29/22 07:14 01/29/22 04:00 98/57 L 96 Room Air Laboratory Results [facility] 01/29/22 08:50 Sodium 140 Potassium 3.9 Chloride 102 Carbon Dioxide 28 BUN 66 H Creatinine 2.97 H D Glucose 96 Calcium 8.9
[2022-01-29] MEDS ORDERED: fentaNYL 25 MCG/HR TDSY TD SCH (16:45)
[2022-01-29] MEDS ORDERED: CLINOLIPID 20% IV FAT EMULSION 250 ML IV SCH ×2 (20:00)
[2022-01-29] MEDS ORDERED: CENTRAL TPN IV SCH (20:00)
[2022-01-29] MEDS ORDERED: AMINO ACID 8% IV SCH (20:00)
[2022-01-29] MEDS ORDERED: [UNRECOGNIZED DRUG - OTHER] IV SCH (20:00)
[2022-01-30] MEDS: STOP CLINOLIPID SCH (02:13)
[2022-01-30] MEDS: TPN STOP ORDER SCH (08:00)
[2022-01-30] MEDS: busPIRone 15 MG TAB PO SCH ×2 (08:41→20:22)
[2022-01-30] MEDS: PANTOprazole 40 MG in SYRINGE 0 ML IV SCH ×2 (08:41→20:22)
[2022-01-30] MEDS: INSULIN ASPART PER UNIT SC SCH ×4 (08:42→20:23)
[2022-01-30] MEDS: CHECK fentaNYL PATCH PLACEMENT SCH ×2 (08:42→17:45)
[2022-01-30] MEDS: MIDODRINE HCL 10 MG TAB PO SCH ×3 (08:42→17:44)
[2022-01-30 09:07] LABS: Hematocrit (blood only) 28.3 % (40.1-51.0); Hemoglobin 9.4 g/dl (14.0-18.0); Mean Platelet Volume 10.2 fL (9.4-12.4); Platelet Count 86 K/uL (130-400)
[2022-01-30 09:47] LABS: Mean Corpuscular Hemoglobin 30.8 pg (25.0-34.0); Mean Corpuscular Hgb Conc 33.2 g/dL (32.0-36.0); Mean Corpuscular Volume 92.8 fL (80.0-100.0); RDW Coefficient of Variation 14.3 % (11.5-14.5); RDW Standard Deviation 48.2 fL (36.4-46.3); Red Blood Count 3.05 M/uL (4.63-6.08)
[2022-01-30 10:00] LABS: BUN Creatinine Ratio 23.9 (10-20); Calcium 8.6 mg/dl (8.5-10.1); Creatinine Clr Calc Pharmacy 43.3 ml/min; Est GFR (African American) 36.5 ml/min; Est GFR (Non-African American) 31.5 ml/min; Potassium 3.6 mmol/L (3.5-5.1)
--- NOTE | 2022-01-30 10:47 | Nephrology Progress Note ---
Date of Service January 30, 2022 Assessment & Plan Admission and Anticipated Discharge Date Admission Date: January 23, 2022 Subjective Subjective Assessment & Plan (1) ESRD (end stage renal disease) on dialysis: Plan: Patient with ESRD on dialysis twice a week Wednesday and Wednesday as outpt. getting and here. No UF and 3k bath for 3 hrs. Electrolytes are stable.No e/o fluid overload and /or lytes issues today. will do dialysis Wednesday and then Wednesday and while in hospital. (2) Encephalopathy: Plan: Patient with altered mental status likely multifactorial. Mental status is still quite confused. Palliative med---reviewed the note. patient and want to continue HD for now Subjective has lot of urine through the b/l nephrostomy tube. Dialysis yesterday. Less confused. Review of Systems Review of Systems: Unable to obtain due to altered mental status Physical Exam Physical Exam: General exam: Appears comfortable, no acute distress HEENT: Pupils are equal and reactive to light Neck: No JVD, neck is supple trachea is midline Respiratory system: Clear breath sounds bilaterally. Gastrointestinal: Abdomen is soft, non distended, non tender, bowel sounds are present CVS: Regular rate and rhythm. No murmurs, rubs or gallops Musculoskeletal: No joint or muscle tenderness Extremities: Non tender, no edema, peripheral pulses are present Neuro: Oriented to place, sleeping Skin: No rashes Results & Data ([facility]) Vital Signs (Past 12 Hours) Vital Signs Temp Pulse Pulse Resp BP BP Pulse Ox 01/30/22 09:39 01/30/22 07:45 36.8 C 72 18 113/70 92 01/30/22 07:27 69 01/30/22 04:03 36.5 C 72 20 91/57 L 94 01/29/22 23:14 36.3 C L 73 20 100/64 96 O2 Del Method 01/30/22 09:39 Room Air 01/30/22 07:45 Room Air 01/30/22 07:27 01/30/22 04:03 Room Air 01/29/22 23:14 Room Air
[2022-01-30] MEDS: ONDANSETRON INJ 2 MG/ML 2 ML VIAL IV PRN ×2 (12:05→20:22)
[2022-01-30] MEDS: PIPERACILLIN/TAZOBACTAM 3.375 GM in DEXTROSE 5% 100 ML IV SCH (12:06)
--- NOTE | 2022-01-30 14:19 | Hospitalist Progress Note ---
Date of Service January 30, 2022 Assessment & Plan (1) Encephalopathy: Plan: Acute metabolic encephalopathy Likely multifactorial: Missed dialysis-uremia, secondary to infection, medications --CT head:No acute intracranial abnormality. EEG:This is an abnormal EEG, recorded in wakefulness only, due to diffuse mild slowing, consistent with bihemispheric dysfunction, as seen in encephalopathies. There is no electrographic seizures or epileptogenic discharge. Avoid sedative medications as able Continue antibiotics for infection Hemodialysis as per nephrology Mental status much improved Remains very weak and lethargic Chronic bowel obstruction H/O Metastatic colon cancer S/P surgery and Ongoing chemotherapy (palliative chemotherapy every 2 weeks at [facility]. Not sure when the last chemotherapy was Immunocompromised status G-tube [id number] was placed in December in [place] --CT ABD:No significant change of the high-grade small bowel obstruction with transition point within the right midabdomen at the distal ileum secondary to metastatic implants. Similar findings were also present dating back to the September 2021 exam's. Mesenteric, omental and abdominal wall tumor implants also appear generally stable. Cirrhosis with splenomegaly. Numerous tumor implants involving the distal colon with probable additional tumor implants involving the urinary bladder. --Continue TPN Palliative care consulted to address goals of care-appreciate palliative care input and recommendation The patient is not yet ready for hospice care but wants to go home We will continue current supportive management HCAP:Likely Possible gram-negative pneumonia Complicated UTI Bilateral nephrostomy tube related complicated UTI Failed outpatient treatment (Cipro>>Ertapenem) H/O recurrent UTIs, B/L Nephrostomy tubes --CT suggestive of right basilar consolidation Normal lactate level -- Blood culture:Negative --Urine culture is growing Trichosporon spaces-awaiting sensitivity Continue Zosyn Continue current management Anemia of chronic disease Pancytopenia GI bleeding Has minimal Bleeding per rectum today S/P 1 unit PRBC Monitor CBC Continue PPI No aggressive measures/Procedures as per family Hb 9.4 End-stage renal disease Continue dialysis as per nephrology Appreciate nephrology input Had HD today Suspected Opioid toxicity On fentanyl patch, oxycodone as needed at home Currently held sedating medications Also held neuropsychotropic medications Resumed fentanyl patch at lower-dose Monitor Mental status Chronic bladder outlet obstruction H/O bilateral hydronephrosis S/P nephrostomy tube placement --CT ABD:The bilateral nephrostomy tubes appear to be in satisfactory positioning. Moderate to severe left-sided hydroureteronephrosis is generally unchanged. Follows with [facility] as outpatient DM II HbA1C:5.21 September 2021 Continue insulin per protocol Monitor BGs Chronic hypotension Continue midodrine Cirrhosis Pancytopenia secondary to chemotherapy/cirrhosis Past alcohol abuse Monitor DVT Px: SCDs Re: Thrombocytopenia, GI bleed Code Status DNR/DNI Admission and Anticipated Discharge Date Admission Date: January 23, 2022 Subjective 01/30/2022 The patient was seen and examined in medical telemetry unit He remains extremely weak and lethargic Still complains pain mostly generalized and in abdomen No acute distress at rest Review of Systems Review of Systems: Unobtainable due to cognitive status Physical Exam Physical Exam: Lying in bed without any acute distress Constitutional: well developed, well nourished, + ill appearing and + obese Eyes: PERRL, conjunctivae normal, anicteric sclerae ENMT: external ear and nose normal, oropharynx normal Neck: trachea midline, no thyromegaly Respiratory: no respiratory distress Auscultation: + diminished lung sounds and + crackles (Occasional crackles at the bases) Cardiovascular: Rate/Rhythm: regular rate and regular rhythm; not tachycardic Heart Sounds: normal S1 and normal S2; no murmur Extremities: + edema (Trace edema bilaterally) Chest (Breasts): Additional Comments: Has Mediport on either side of the chest Gastrointestinal (Abdomen): Inspection/Auscultation: + abdomen distended and normal bowel sounds (Decreased) Percussion/Palpation: + abdomen tender (Mild to moderate tenderness all over) and abdomen soft Has PEG tube in place and bilateral nephrostomy tubes Musculoskeletal: No acute arthritis involving any of the joints Neurologic: Alert and awake. Very weak and lethargic. Moving all limbs Results & Data Results & Data ([facility]) Vital Signs (Past 12 Hours) Vital Signs Temp Pulse Pulse Resp BP BP Pulse Ox 01/30/22 11:16 36.5 C 78 18 95/57 L 99 01/30/22 09:39 01/30/22 07:45 36.8 C 72 18 113/70 92 01/30/22 07:27 69 01/30/22 04:03 36.5 C 72 20 91/57 L 94 O2 Del Method 01/30/22 11:16 Room Air 01/30/22 09:39 Room Air 01/30/22 07:45 Room Air 01/30/22 07:27 01/30/22 04:03 Room Air Laboratory Results Short CBC 01/30/22 Range/Units 08:56 WBC 3.90 L (4.8-10.8) K/ul Hgb 9.4 L (14.0-18.0) g/dl Hct 28.3 L (40.1-51.0) % Plt Count 86 L (130-400) K/uL BMP 01/30/22 08:56 Sodium 139 Potassium 3.6 Chloride 100 Carbon Dioxide 32 BUN 53 H Creatinine 2.22 H D Glucose 99 Calcium 8.6 Medications Administered Current Inpatient Medications Acetaminophen (Acetaminophen 325 Mg Tab) 650 mg PO Q6H PRN PRN Reason: Pain Stop: 02/27/22 18:30 Buspirone HCl (Buspirone 15 Mg Tab) 30 mg PO BID [facility] Stop: 02/25/22 20:59 Last Admin: 01/30/22 08:41 Dose: 30 mg Dextrose (Dextrose 50% 50 Ml Syringe) 25 - 50 ml IV UD PRN; Protocol PRN Reason: Hypoglycemia Protocol Stop: 02/23/22 00:16 Fentanyl (Fentanyl 25 Mcg/Hr Tdsy) 25 mcg TD Q3D [facility] Stop: 02/12/22 16:44 Last Admin: 01/29/22 16:44 Dose: 25 mcg Glucagon (Glucagon For Inj 1 Mg Vial) 1 mg SQ UD PRN; Protocol PRN Reason: Hypoglycemia Protocol Stop: 02/23/22 00:16 Glucose (Glucose 40% Gel 15 Gm Tube) 15 - 30 gm PO UD PRN; Protocol PRN Reason: Hypoglycemia Protocol Stop: 02/23/22 00:16 Glucose (Glucose 10 Tab/Tube) 4 - 8 tab PO UD PRN; Protocol PRN Reason: Hypoglycemia Treatment Stop: 02/23/22 00:16 Heparin Sodium (Porcine) (Heparin 100 Unit/Ml 5ml Flush) 5 ml FLUSH PRN PRN PRN Reason: Flush Stop: 02/27/22 23:56 Piperacillin Sod/Tazobactam (Sod 3.375 gm/ Dextrose) 115 mls @ 28.75 mls/hr IV Q12H [facility]; Protocol Stop: 01/31/22 03:59 Last Admin: 01/30/22 12:06 Dose: 28.8 mls/hr Dextrose (D10w) 1,000 mls @ 0 mls/hr IV .Q0M PRN PRN Reason: protocol (see label comments) Stop: 02/23/22 15:59 Pantoprazole Sodium 40 mg/ (Syringe) 10 mls @ 5 mls/min IV BID [facility] Stop: 02/24/22 13:19 Last Admin: 01/30/22 08:41 Dose: 5 mls/min Amino Acids/Dextrose 1,654 ml/ (Nutrition (Parenteral)) 1,654 mls @ 75 mls/hr IV DAILY@2000 [facility]; Protocol Stop: 01/31/22 08:00 Fat Emulsion-[place] Oil/Soybean Oil (Clinolipid 20% Iv Fat Emulsion) 250 mls @ 41.667 mls/hr IV .Q6H [facility] Stop: 01/31/22 01:59 Insulin Aspart (Insulin Aspart Per Unit) 0 units SC ACHS [facility] Stop: 02/23/22 00:16 Last Admin: 01/30/22 12:28 Dose: Not Given Melatonin (Melatonin 3 Mg Tab) 3 mg PO HS PRN PRN Reason: Sleep Stop: 02/23/22 00:16 Last Admin: 01/26/22 23:59 Dose: 3 mg Midodrine (Midodrine Hcl 10 Mg Tab) 10 mg PO TIDM [facility] Stop: 02/23/22 00:16 Last Admin: 01/30/22 12:06 Dose: 10 mg Miscellaneous (Carbohydrates For Hypoglycemia ) 15 - 30 gm PO UD PRN PRN Reason: Hypoglycemia Protocol Stop: 02/23/22 00:16 Miscellaneous (Order Awaiting Action: Silodosin 8 Mg Capsule) 1 each N/A QS [facility] Stop: 02/23/22 07:59 Last Admin: 01/30/22 08:41 Dose: Not Given Miscellaneous (Stop Clinolipid) 1 each N/A Q24H [facility] Stop: 02/24/22 01:59 Last Admin: 01/30/22 02:13 Dose: 1 each Miscellaneous (Tpn Rate Change: Pending Order) 1 each N/A DAILY@2100 [facility] Stop: 02/23/22 20:59 Last Admin: 01/29/22 21:10 Dose: 1 each Miscellaneous (Tpn Rate Change: Pending Order) 1 each N/A DAILY@0700 [facility] Stop: 02/24/22 06:59 Last Admin: 01/30/22 07:11 Dose: 1 each Miscellaneous (Tpn Stop Order) 1 each N/A DAILY@0800 [facility] Stop: 02/24/22 07:59 Last Admin: 01/30/22 08:00 Dose: 1 each Miscellaneous (Check Fentanyl Patch Placement) 1 each N/A QS [facility] Stop: 02/26/22 15:59 Last Admin: 01/30/22 08:42 Dose: 1 each Miscellaneous (Fentanyl Patch Remove & Waste) 1 each N/A Q3D [facility] Stop: 02/28/22 16:44 Last Admin: 01/29/22 16:44 Dose: 1 each Miscellaneous Information (Tpn/Ppn Consult Pharmacy) 1 each N/A UD PRN PRN Reason: Consult Stop: 02/23/22 00:20 Ondansetron HCl (Ondansetron Inj 2 Mg/Ml 2 Ml Vial) 4 mg IV Q6H PRN PRN Reason: Nausea And Vomiting Stop: 02/25/22 16:30 Last Admin: 01/30/22 12:05 Dose: 4 mg Pantoprazole Sodium (Pantoprazole 40 Mg Tab) 40 mg PO DAILYBB [facility] Stop: 02/23/22 06:29 Last Admin: 01/25/22 05:19 Dose: 40 mg Polyethylene Glycol (Polyethylene (Miralax) 17 Gm Pack) 17 gm PO DAILY PRN PRN Reason: Constipation Stop: 02/28/22 10:44
[2022-01-30] MEDS ORDERED: CENTRAL TPN IV SCH (20:00)
[2022-01-30] MEDS ORDERED: CLINOLIPID 20% IV FAT EMULSION 250 ML IV SCH (20:00)
[2022-01-30] MEDS ORDERED: [UNRECOGNIZED DRUG - OTHER] IV SCH (20:00)
[2022-01-30] MEDS ORDERED: AMINO ACID 8% IV SCH (20:00)
[2022-01-30] MEDS: ACETAMINOPHEN 325 MG TAB PO PRN (22:20)
[2022-01-31] MEDS: CHECK fentaNYL PATCH PLACEMENT SCH ×3 (00:30→16:18)
[2022-01-31] MEDS: PIPERACILLIN/TAZOBACTAM 3.375 GM in DEXTROSE 5% 100 ML IV SCH (00:30)
[2022-01-31] MEDS: MELATONIN 3 MG TAB PO PRN ×2 (00:30→20:42)
[2022-01-31] MEDS: STOP CLINOLIPID SCH (02:06)
[2022-01-31] MEDS: ONDANSETRON INJ 2 MG/ML 2 ML VIAL IV PRN ×2 (02:11→09:57)
[2022-01-31] MEDS ORDERED: PROMETHAZINE HCL 12.5 MG in SODIUM CHLORIDE 0.9% 50 ML IV STA (04:24)
[2022-01-31] MEDS: ACETAMINOPHEN 325 MG TAB PO PRN ×2 (05:59→20:42)
[2022-01-31 07:41] LABS: Bilirubin,Total 0.9 mg/dl (0.2-1.0); Magnesium 1.8 mg/dl (1.7-2.4); Phosphorus 3.7 mg/dl (2.5-4.9)
[2022-01-31] MEDS: PANTOprazole 40 MG in SYRINGE 0 ML IV SCH ×2 (07:52→20:30)
[2022-01-31] MEDS: busPIRone 15 MG TAB PO SCH ×2 (07:52→20:29)
[2022-01-31] MEDS: MIDODRINE HCL 10 MG TAB PO SCH ×3 (07:52→20:03)
[2022-01-31] MEDS: TPN STOP ORDER SCH (07:54)
[2022-01-31] MEDS: INSULIN ASPART PER UNIT SC SCH ×4 (08:03→20:29)
[2022-01-31 10:52] LABS: BUN Creatinine Ratio 22.3 (10-20); Calcium 8.1 mg/dl (8.5-10.1); Est GFR (African American) 24.4 ml/min; Potassium 3.6 mmol/L (3.5-5.1)
[2022-01-31] MEDS: PROMETHAZINE HCL 12.5 MG in SODIUM CHLORIDE 0.9% 50 ML IV PRN ×2 (11:57→20:38)
--- NOTE | 2022-01-31 12:46 | Hospitalist Progress Note ---
Date of Service January 31, 2022 Assessment & Plan (1) Encephalopathy: Plan: Acute metabolic encephalopathy Likely multifactorial: Missed dialysis-uremia, secondary to infection, medications --CT head:No acute intracranial abnormality. EEG:This is an abnormal EEG, recorded in wakefulness only, due to diffuse mild slowing, consistent with bihemispheric dysfunction, as seen in encephalopathies. There is no electrographic seizures or epileptogenic discharge. Avoid sedative medications as able Continue antibiotics for infection Hemodialysis as per nephrology Mental status much improved today and has been communicating almost normally Remains weak and complains to have ongoing nausea Chronic bowel obstruction H/O Metastatic colon cancer S/P surgery and Ongoing chemotherapy (palliative chemotherapy every 2 weeks at [facility]. Not sure when the last chemotherapy was Immunocompromised status G-tube [id number] was placed in December in [place] --CT ABD:No significant change of the high-grade small bowel obstruction with transition point within the right midabdomen at the distal ileum secondary to metastatic implants. Similar findings were also present dating back to the September 2021 exam's. Mesenteric, omental and abdominal wall tumor implants also appear generally stable. Cirrhosis with splenomegaly. Numerous tumor implants involving the distal colon with probable additional tumor implants involving the urinary bladder. --Continue TPN Palliative care consulted to address goals of care-appreciate palliative care input and recommendation The patient is not yet ready for hospice care but wants to go home We will continue current supportive management Has been tolerating food orally HCAP:Likely Possible gram-negative pneumonia Complicated UTI Bilateral nephrostomy tube related complicated UTI Failed outpatient treatment (Cipro>>Ertapenem) H/O recurrent UTIs, B/L Nephrostomy tubes --CT suggestive of right basilar consolidation Normal lactate level -- Blood culture:Negative --Urine culture is growing Trichosporon spaces-awaiting sensitivity Continue Zosyn Continue current management Anemia of chronic disease Pancytopenia GI bleeding Has minimal Bleeding per rectum today S/P 1 unit PRBC Monitor CBC Continue PPI No aggressive measures/Procedures as per family Will monitor hemoglobin End-stage renal disease Continue dialysis as per nephrology Appreciate nephrology input Continue hemodialysis Suspected Opioid toxicity On fentanyl patch, oxycodone as needed at home Currently held sedating medications Also held neuropsychotropic medications Resumed fentanyl patch at lower-dose Monitor Mental status -improved Chronic bladder outlet obstruction H/O bilateral hydronephrosis S/P nephrostomy tube placement --CT ABD:The bilateral nephrostomy tubes appear to be in satisfactory positioning. Moderate to severe left-sided hydroureteronephrosis is generally unchanged. Follows with [facility] as outpatient No evidence of any more bleeding through the nephrostomy tubes DM II HbA1C:5.21 September 2021 Continue insulin per protocol Monitor BGs Chronic hypotension Continue midodrine Cirrhosis Pancytopenia secondary to chemotherapy/cirrhosis Past alcohol abuse Monitor DVT Px: SCDs Re: Thrombocytopenia, GI bleed Code Status DNR/DNI Admission and Anticipated Discharge Date Admission Date: January 23, 2022 Subjective 01/30/2022 The patient was seen and examined in medical telemetry unit He remains extremely weak and lethargic Still complains pain mostly generalized and in abdomen No acute distress at rest 01/31/2022 The patient was seen and examined in medical telemetry unit He has been feeling a little better but complains to have ongoing nausea Denies any significant pain but has profound weakness Has been trying to eat and drink Review of Systems Review of Systems: All systems reviewed and are unremarkable except as noted below Neurologic: Alert, awake and oriented x3. Extremely weak and lethargic Physical Exam Physical Exam: Lying in bed without any acute distress Constitutional: well developed, well nourished, + ill appearing and + obese Eyes: PERRL, conjunctivae normal, anicteric sclerae ENMT: external ear and nose normal, oropharynx normal Neck: trachea midline, no thyromegaly Respiratory: no respiratory distress Auscultation: + diminished lung sounds and + crackles (Occasional crackles at the bases) Cardiovascular: Rate/Rhythm: regular rate and regular rhythm; not tachycardic Heart Sounds: normal S1 and normal S2; no murmur Extremities: + edema (Trace edema bilaterally) Gastrointestinal (Abdomen): Inspection/Auscultation: + abdomen distended and normal bowel sounds (Decreased) Percussion/Palpation: + abdomen tender (Mild to moderate tenderness all over) and abdomen soft Musculoskeletal: No acute arthritis in any of the joint Neurologic: moves all extremities; no focal motor deficits Results & Data Results & Data ([facility]) Vital Signs (Past 12 Hours) Vital Signs Temp Pulse Resp BP Pulse Ox O2 Del Method 01/31/22 11:24 36.8 C 71 16 96/64 L 92 Room Air 01/31/22 08:06 36.8 C 74 16 98/64 L 93 Room Air 01/31/22 07:27 Room Air 01/31/22 03:47 36.9 C 87 16 93/60 L 92 Room Air Laboratory Results BMP 01/31/22 05:59 Sodium 135 L Potassium 3.6 Chloride 97 L Carbon Dioxide 30 BUN 69 H Creatinine 3.10 H D Glucose 128 H Calcium 8.1 L Liver Function 01/31/22 Range/Units 05:58 Total Bilirubin 0.9 (0.2-1.0) mg/dl AST 105 H (13-39) U/L ALT 56 H (7-52) U/L Alkaline Phosphatase 291 H (34-104) U/L Medications Administered Current Inpatient Medications Acetaminophen (Acetaminophen 325 Mg Tab) 650 mg PO Q6H PRN PRN Reason: Pain Stop: 02/27/22 18:30 Last Admin: 01/31/22 05:59 Dose: 650 mg Buspirone HCl (Buspirone 15 Mg Tab) 30 mg PO BID [facility] Stop: 02/25/22 20:59 Last Admin: 01/31/22 07:52 Dose: 30 mg Dextrose (Dextrose 50% 50 Ml Syringe) 25 - 50 ml IV UD PRN; Protocol PRN Reason: Hypoglycemia Protocol Stop: 02/23/22 00:16 Fentanyl (Fentanyl 25 Mcg/Hr Tdsy) 25 mcg TD Q3D [facility] Stop: 02/12/22 16:44 Last Admin: 01/29/22 16:44 Dose: 25 mcg Glucagon (Glucagon For Inj 1 Mg Vial) 1 mg SQ UD PRN; Protocol PRN Reason: Hypoglycemia Protocol Stop: 02/23/22 00:16 Glucose (Glucose 40% Gel 15 Gm Tube) 15 - 30 gm PO UD PRN; Protocol PRN Reason: Hypoglycemia Protocol Stop: 02/23/22 00:16 Glucose (Glucose 10 Tab/Tube) 4 - 8 tab PO UD PRN; Protocol PRN Reason: Hypoglycemia Treatment Stop: 02/23/22 00:16 Heparin Sodium (Porcine) (Heparin 100 Unit/Ml 5ml Flush) 5 ml FLUSH PRN PRN PRN Reason: Flush Stop: 02/27/22 23:56 Last Admin: 01/31/22 11:21 Dose: 5 ml Dextrose (D10w) 1,000 mls @ 0 mls/hr IV .Q0M PRN PRN Reason: protocol (see label comments) Stop: 02/23/22 15:59 Pantoprazole Sodium 40 mg/ (Syringe) 10 mls @ 5 mls/min IV BID [facility] Stop: 02/24/22 13:19 Last Admin: 01/31/22 07:52 Dose: 5 mls/min Promethazine HCl 12.5 mg/ (Sodium Chloride) 50.5 mls @ 202 mls/hr IV Q6H PRN PRN Reason: Nausea And Vomiting Stop: 03/02/22 09:47 Last Infusion: 01/31/22 12:12 Dose: Infused Amino Acids/Dextrose 1,669 ml/ (Nutrition (Parenteral)) 1,669 mls @ 80 mls/hr IV DAILY@1999 [facility]; Protocol Stop: 02/01/22 16:52 Insulin Aspart (Insulin Aspart Per Unit) 0 units SC ACHS [facility] Stop: 02/23/22 00:16 Last Admin: 01/31/22 11:58 Dose: Not Given Melatonin (Melatonin 3 Mg Tab) 3 mg PO HS PRN PRN Reason: Sleep Stop: 02/23/22 00:16 Last Admin: 01/31/22 00:30 Dose: 3 mg Midodrine (Midodrine Hcl 10 Mg Tab) 10 mg PO TIDM [facility] Stop: 02/23/22 00:16 Last Admin: 01/31/22 11:58 Dose: 10 mg Miscellaneous (Carbohydrates For Hypoglycemia ) 15 - 30 gm PO UD PRN PRN Reason: Hypoglycemia Protocol Stop: 02/23/22 00:16 Miscellaneous (Order Awaiting Action: Silodosin 8 Mg Capsule) 1 each N/A QS [facility] Stop: 02/23/22 07:59 Last Admin: 01/31/22 07:54 Dose: Not Given Miscellaneous (Stop Clinolipid) 1 each N/A Q24H [facility] Stop: 02/24/22 01:59 Last Admin: 01/31/22 02:06 Dose: 1 each Miscellaneous (Tpn Rate Change: Pending Order) 1 each N/A DAILY@2100 [facility] Stop: 02/23/22 20:59 Last Admin: 01/30/22 21:14 Dose: 1 each Miscellaneous (Tpn Rate Change: Pending Order) 1 each N/A DAILY@0700 [facility] Stop: 02/24/22 06:59 Last Admin: 01/31/22 07:00 Dose: 1 each Miscellaneous (Tpn Stop Order) 1 each N/A DAILY@0800 [facility] Stop: 02/24/22 07:59 Last Admin: 01/31/22 07:54 Dose: 1 each Miscellaneous (Check Fentanyl Patch Placement) 1 each N/A QS [facility] Stop: 02/26/22 15:59 Last Admin: 01/31/22 07:54 Dose: 1 each Miscellaneous (Fentanyl Patch Remove & Waste) 1 each N/A Q3D [facility] Stop: 02/28/22 16:44 Last Admin: 01/29/22 16:44 Dose: 1 each Miscellaneous Information (Tpn/Ppn Consult Pharmacy) 1 each N/A UD PRN PRN Reason: Consult Stop: 02/23/22 00:20 Ondansetron HCl (Ondansetron Inj 2 Mg/Ml 2 Ml Vial) 4 mg IV Q6H PRN PRN Reason: Nausea And Vomiting Stop: 02/25/22 16:30 Last Admin: 01/31/22 09:57 Dose: 4 mg Pantoprazole Sodium (Pantoprazole 40 Mg Tab) 40 mg PO DAILYBB [facility] Stop: 02/23/22 06:29 Last Admin: 01/25/22 05:19 Dose: 40 mg Polyethylene Glycol (Polyethylene (Miralax) 17 Gm Pack) 17 gm PO DAILY PRN PRN Reason: Constipation Stop: 02/28/22 10:44
[2022-01-31] MEDS ORDERED: AMINO ACID 8% IV SCH (20:00)
[2022-01-31] MEDS ORDERED: [UNRECOGNIZED DRUG - OTHER] IV SCH (20:00)
[2022-01-31] MEDS ORDERED: CENTRAL TPN IV SCH (20:00)
[2022-02-01] MEDS: CHECK fentaNYL PATCH PLACEMENT SCH ×3 (00:28→16:37)
[2022-02-01] MEDS: STOP CLINOLIPID SCH (02:43)
[2022-02-01] MEDS: PROMETHAZINE HCL 12.5 MG in SODIUM CHLORIDE 0.9% 50 ML IV PRN (02:52)
[2022-02-01] MEDS: ACETAMINOPHEN 325 MG TAB PO PRN ×2 (02:53→18:31)
[2022-02-01] MEDS: ONDANSETRON INJ 2 MG/ML 2 ML VIAL IV PRN ×2 (06:04→15:00)
[2022-02-01] MEDS ORDERED: PROCHLORPERAZINE 5 MG in SYRINGE 4 ML IV ONE (07:00)
[2022-02-01 07:24] LABS: Calcium 9.4 mg/dl (8.5-10.1); Creatinine Clr Calc Pharmacy 25.5 ml/min; Est GFR (African American) 19.2 ml/min; Est GFR (Non-African American) 16.5 ml/min; Magnesium 2.2 mg/dl (1.7-2.4); Phosphorus 4.6 mg/dl (2.5-4.9); Potassium 3.7 mmol/L (3.5-5.1)
[2022-02-01] MEDS: INSULIN ASPART PER UNIT SC SCH ×4 (08:03→19:56)
[2022-02-01] MEDS: busPIRone 15 MG TAB PO SCH ×2 (08:04→19:54)
[2022-02-01] MEDS: MIDODRINE HCL 10 MG TAB PO SCH ×3 (08:04→18:30)
[2022-02-01] MEDS: PANTOprazole 40 MG in SYRINGE 0 ML IV SCH ×2 (08:19→19:54)
[2022-02-01] MEDS: TPN STOP ORDER SCH (08:22)
--- NOTE | 2022-02-01 09:53 | XRay Report ---
KUB HISTORY: Acute nausea with vomiting nauea/vomiting COMPARISON: CT 01/23/2022, KUB 10/14/2019. FINDINGS: Cholecystectomy. Gastrostomy tube is in place. Bilateral percutaneous nephrostomy catheters . Surgical hailee and clips are again noted within the right midabdomen. Distended air-filled loops of bowel wall are again noted measuring up to approximately 8.7 cm No renal calculi. No ureteral sri culi. No pneumoperitoneum or pneumatosis. No fracture. IMPRESSION: 1. Air-filled dilated loops of bowel within the midabdomen are redemonstrated and appear similar to t he 01/23/2022 exam. Findings are suggestive of ongoing small bowel obstruction. 2. Gastrostomy tube with bilateral percutaneous nephrostomy catheters redemonstrated. ACT 112: Negative or not required by law. The above report was generated using voice recognition software. It may contain grammatical, syntax o r spelling errors. Electronically signed by: John Goodson M.D. 02/01/2022 9:51 AM
[2022-02-01] MEDS ORDERED: fentaNYL 50 MCG/HR TDSY TD SCH (10:15)
[2022-02-01] MEDS: PROMETHAZINE HCL 25 MG in SODIUM CHLORIDE 0.9% 50 ML IV PRN (11:08)
--- NOTE | 2022-02-01 11:50 | Hospitalist Progress Note ---
Date of Service February 01, 2022 Assessment & Plan (1) Encephalopathy: Plan: Acute metabolic encephalopathy Likely multifactorial: Missed dialysis-uremia, secondary to infection, medications --CT head:No acute intracranial abnormality. EEG:This is an abnormal EEG, recorded in wakefulness only, due to diffuse mild slowing, consistent with bihemispheric dysfunction, as seen in encephalopathies. There is no electrographic seizures or epileptogenic discharge. Avoid sedative medications as able Continue antibiotics for infection Hemodialysis as per nephrology Mental status much improved today and has been communicating almost normally Remains weak and complains to have ongoing nausea Mentally a little bit clear Chronic bowel obstruction H/O Metastatic colon cancer S/P surgery and Ongoing chemotherapy (palliative chemotherapy every 2 weeks at [facility]. Not sure when the last chemotherapy was Immunocompromised status G-tube [id number] was placed in December in [place] --CT ABD:No significant change of the high-grade small bowel obstruction with transition point within the right midabdomen at the distal ileum secondary to metastatic implants. Similar findings were also present dating back to the September 2021 exam's. Mesenteric, omental and abdominal wall tumor implants also appear generally stable. Cirrhosis with splenomegaly. Numerous tumor implants involving the distal colon with probable additional tumor implants involving the urinary bladder. --Continue TPN Palliative care consulted to address goals of care-appreciate palliative care input and recommendation The patient is not yet ready for hospice care but wants to go home We will continue current supportive management Has been tolerating food orally Repeat KUB did not show any significant change compared with that of 01/23/2022 HCAP:Likely Possible gram-negative pneumonia Complicated UTI Bilateral nephrostomy tube related complicated UTI Failed outpatient treatment (Cipro>>Ertapenem) H/O recurrent UTIs, B/L Nephrostomy tubes --CT suggestive of right basilar consolidation Normal lactate level -- Blood culture:Negative --Urine culture is growing Trichosporon spaces-awaiting sensitivity Continue Zosyn Continue current management Anemia of chronic disease Pancytopenia GI bleeding Has minimal Bleeding per rectum today S/P 1 unit PRBC Monitor CBC Continue PPI No aggressive measures/Procedures as per family Will monitor hemoglobin-9.4 as of 01/30/2022 End-stage renal disease Continue dialysis as per nephrology Appreciate nephrology input Continue hemodialysis Suspected Opioid toxicity On fentanyl patch, oxycodone as needed at home Currently held sedating medications Also held neuropsychotropic medications Resumed fentanyl patch at lower-dose Monitor Mental status -improved Chronic bladder outlet obstruction H/O bilateral hydronephrosis S/P nephrostomy tube placement --CT ABD:The bilateral nephrostomy tubes appear to be in satisfactory positioning. Moderate to severe left-sided hydroureteronephrosis is generally unchanged. Follows with [facility] as outpatient No evidence of any more bleeding through the nephrostomy tubes DM II HbA1C:5.21 September 2021 Continue insulin per protocol Monitor BGs Chronic hypotension Continue midodrine Cirrhosis Pancytopenia secondary to chemotherapy/cirrhosis Past alcohol abuse Monitor DVT Px: SCDs Re: Thrombocytopenia, GI bleed Code Status DNR/DNI Admission and Anticipated Discharge Date Admission Date: January 23, 2022 Subjective 01/30/2022 The patient was seen and examined in medical telemetry unit He remains extremely weak and lethargic Still complains pain mostly generalized and in abdomen No acute distress at rest 01/31/2022 The patient was seen and examined in medical telemetry unit He has been feeling a little better but complains to have ongoing nausea Denies any significant pain but has profound weakness Has been trying to eat and drink 02/01/2022 The patient was seen and examined in medical telemetry unit He has been complaining of more pain and more nausea KUB did not show any significant change compared with 01/23/2022 Does not have any chest pain or palpitation or shortness of breath Review of Systems Review of Systems: All systems reviewed and are unremarkable except as noted below Neurologic: Alert, awake and oriented x3. Extremely weak and lethargic Physical Exam Physical Exam: Lying in bed without any acute distress Constitutional: well developed, well nourished, + ill appearing and + obese Eyes: PERRL, conjunctivae normal, anicteric sclerae ENMT: external ear and nose normal, oropharynx normal Neck: trachea midline, no thyromegaly Respiratory: no respiratory distress Auscultation: + diminished lung sounds and + crackles (Occasional crackles at the bases) Cardiovascular: Rate/Rhythm: regular rate and regular rhythm; not tachycardic Heart Sounds: normal S1 and normal S2; no murmur Extremities: + edema (Trace edema bilaterally) Gastrointestinal (Abdomen): Inspection/Auscultation: + abdomen distended and normal bowel sounds (Decreased) Percussion/Palpation: + abdomen tender (Mild to moderate tenderness all over) and abdomen soft Musculoskeletal: No acute arthritis involving any joint Neurologic: moves all extremities; no focal motor deficits Results & Data Results & Data ([facility]) Vital Signs (Past 12 Hours) Vital Signs Temp Pulse Resp BP BP Pulse Ox Pulse Ox 02/01/22 11:11 36.8 C 81 18 106/67 93 02/01/22 07:25 02/01/22 07:16 36.4 C L 86 18 100/64 90 02/01/22 00:00 96 02/01/22 03:08 36.6 C 75 18 119/77 96 O2 Del Method O2 Del Method O2 Flow Rate 02/01/22 11:11 Room Air 02/01/22 07:25 Nasal Cannula 2 02/01/22 07:16 Nasal Cannula 2 02/01/22 00:00 Room Air 02/01/22 03:08 Room Air Laboratory Results BMP 02/01/22 05:15 Sodium 134 L Potassium 3.7 Chloride 97 L Carbon Dioxide 27 BUN 87 H Creatinine 3.78 H D Glucose 135 H Calcium 9.4 Liver Function 02/01/22 Range/Units 05:15 AST 46 H (13-39) U/L ALT 44 (7-52) U/L Alkaline Phosphatase 277 H (34-104) U/L Medications Administered Current Inpatient Medications Acetaminophen (Acetaminophen 325 Mg Tab) 650 mg PO Q6H PRN PRN Reason: Pain Stop: 02/27/22 18:30 Last Admin: 02/01/22 02:53 Dose: 650 mg Buspirone HCl (Buspirone 15 Mg Tab) 30 mg PO BID [facility] Stop: 02/25/22 20:59 Last Admin: 02/01/22 08:04 Dose: Not Given Dextrose (Dextrose 50% 50 Ml Syringe) 25 - 50 ml IV UD PRN; Protocol PRN Reason: Hypoglycemia Protocol Stop: 02/23/22 00:16 Fentanyl (Fentanyl 50 Mcg/Hr Tdsy) 50 mcg TD Q3D [facility] Stop: 02/15/22 10:14 Glucagon (Glucagon For Inj 1 Mg Vial) 1 mg SQ UD PRN; Protocol PRN Reason: Hypoglycemia Protocol Stop: 02/23/22 00:16 Glucose (Glucose 40% Gel 15 Gm Tube) 15 - 30 gm PO UD PRN; Protocol PRN Reason: Hypoglycemia Protocol Stop: 02/23/22 00:16 Glucose (Glucose 10 Tab/Tube) 4 - 8 tab PO UD PRN; Protocol PRN Reason: Hypoglycemia Treatment Stop: 02/23/22 00:16 Heparin Sodium (Porcine) (Heparin 100 Unit/Ml 5ml Flush) 5 ml FLUSH PRN PRN PRN Reason: Flush Stop: 02/27/22 23:56 Last Admin: 01/31/22 11:21 Dose: 5 ml Dextrose (D10w) 1,000 mls @ 0 mls/hr IV .Q0M PRN PRN Reason: protocol (see label comments) Stop: 02/23/22 15:59 Pantoprazole Sodium 40 mg/ (Syringe) 10 mls @ 5 mls/min IV BID [facility] Stop: 02/24/22 13:19 Last Admin: 02/01/22 08:19 Dose: 5 mls/min Fat Emulsion-Sanderson Oil/Soybean Oil (Clinolipid 20% Iv Fat Emulsion) 250 mls @ 41.667 mls/hr IV .Q6H [facility] Stop: 02/02/22 01:59 Amino Acids/Dextrose 1,669 ml/ (Nutrition (Parenteral)) 1,669 mls @ 80 mls/hr IV DAILY@2000 [facility]; Protocol Stop: 02/02/22 16:52 Promethazine HCl 25 mg/ Sodium (Chloride) 51 mls @ 202 mls/hr IV Q6H PRN PRN Reason: Nausea And Vomiting Stop: 03/02/22 09:47 Last Infusion: 02/01/22 11:24 Dose: Infused Insulin Aspart (Insulin Aspart Per Unit) 0 units SC ACHS [facility] Stop: 02/23/22 00:16 Last Admin: 02/01/22 08:03 Dose: Not Given Melatonin (Melatonin 3 Mg Tab) 3 mg PO HS PRN PRN Reason: Sleep Stop: 02/23/22 00:16 Last Admin: 01/31/22 20:42 Dose: 3 mg Midodrine (Midodrine Hcl 10 Mg Tab) 10 mg PO TIDM [facility] Stop: 02/23/22 00:16 Last Admin: 02/01/22 11:08 Dose: 10 mg Miscellaneous (Carbohydrates For Hypoglycemia ) 15 - 30 gm PO UD PRN PRN Reason: Hypoglycemia Protocol Stop: 02/23/22 00:16 Miscellaneous (Order Awaiting Action: Silodosin 8 Mg Capsule) 1 each N/A QS [facility] Stop: 02/23/22 07:59 Last Admin: 02/01/22 08:04 Dose: Not Given Miscellaneous (Stop Clinolipid) 1 each N/A Q24H [facility] Stop: 02/24/22 01:59 Last Admin: 02/01/22 02:43 Dose: Not Given Miscellaneous (Tpn Rate Change: Pending Order) 1 each N/A DAILY@2100 [facility] Stop: 02/23/22 20:59 Last Admin: 01/31/22 21:40 Dose: 1 each Miscellaneous (Tpn Rate Change: Pending Order) 1 each N/A DAILY@0700 [facility] Stop: 02/24/22 06:59 Last Admin: 02/01/22 06:43 Dose: 1 each Miscellaneous (Tpn Stop Order) 1 each N/A DAILY@0800 [facility] Stop: 02/24/22 07:59 Last Admin: 02/01/22 08:22 Dose: 1 each Miscellaneous (Fentanyl Patch Remove & Waste) 1 each N/A Q3D [facility] Stop: 03/03/22 10:13 Miscellaneous (Check Fentanyl Patch Placement) 1 each N/A QS [facility] Stop: 03/03/22 15:59 Miscellaneous Information (Tpn/Ppn Consult Pharmacy) 1 each N/A UD PRN PRN Reason: Consult Stop: 02/23/22 00:20 Ondansetron HCl (Ondansetron Inj 2 Mg/Ml 2 Ml Vial) 4 mg IV Q6H PRN PRN Reason: Nausea And Vomiting Stop: 02/25/22 16:30 Last Admin: 02/01/22 06:04 Dose: 4 mg Pantoprazole Sodium (Pantoprazole 40 Mg Tab) 40 mg PO DAILYBB [facility] Stop: 02/23/22 06:29 Last Admin: 01/25/22 05:19 Dose: 40 mg Polyethylene Glycol (Polyethylene (Miralax) 17 Gm Pack) 17 gm PO DAILY PRN PRN Reason: Constipation Stop: 02/28/22 10:44
[2022-02-01] MEDS ORDERED: [UNRECOGNIZED DRUG - OTHER] IV SCH (20:00)
[2022-02-01] MEDS ORDERED: CLINOLIPID 20% IV FAT EMULSION 250 ML IV SCH (20:00)
[2022-02-01] MEDS ORDERED: AMINO ACID 8% IV SCH (20:00)
[2022-02-01] MEDS ORDERED: CENTRAL TPN IV SCH (20:00)
[2022-02-01] MEDS ORDERED: MoRPHine SULFATE 4 MG/ML 1 ML CARP\\VIAL IV STA (21:30)
[2022-02-01] MEDS ORDERED: CALCIUM CARBONATE 500 MG CHEWABLE TAB PO STA (23:48)
[2022-02-02] MEDS ORDERED: SIMETHICONE 80 MG CHEW PO ONE (00:15)
[2022-02-02] MEDS: CHECK fentaNYL PATCH PLACEMENT SCH ×3 (00:29→16:00)
[2022-02-02] MEDS: STOP CLINOLIPID SCH (02:06)
[2022-02-02] MEDS: PROMETHAZINE HCL 25 MG in SODIUM CHLORIDE 0.9% 50 ML IV PRN ×2 (03:43→10:10)
[2022-02-02] MEDS: ACETAMINOPHEN 325 MG TAB PO PRN ×2 (03:47→11:46)
[2022-02-02 06:35] LABS: Hematocrit (blood only) 32.1 % (40.1-51.0); Hemoglobin 10.3 g/dl (14.0-18.0); Mean Corpuscular Hemoglobin 30.6 pg (25.0-34.0); Mean Corpuscular Hgb Conc 32.1 g/dL (32.0-36.0); Mean Corpuscular Volume 95.3 fL (80.0-100.0); Mean Platelet Volume 10.5 fL (9.4-12.4); Platelet Count 105 K/uL (130-400); RDW Coefficient of Variation 14.1 % (11.5-14.5); RDW Standard Deviation 49.7 fL (36.4-46.3); Red Blood Count 3.37 M/uL (4.63-6.08); White Blood Count 4.76 K/ul (4.8-10.8)
[2022-02-02] MEDS ORDERED: HYDROmorphone INJ 0.5 MG/0.5 ML SYR IV STA (06:36)
[2022-02-02 07:08] LABS: BUN Creatinine Ratio 20.2 (10-20); Calcium 9.1 mg/dl (8.5-10.1); Creatinine Clr Calc Pharmacy 31.9 ml/min; Est GFR (African American) 25.2 ml/min; Est GFR (Non-African American) 21.7 ml/min; Magnesium 2.1 mg/dl (1.7-2.4); Phosphorus 3.1 mg/dl (2.5-4.9); Potassium 3.7 mmol/L (3.5-5.1)
[2022-02-02 07:12] LABS: Basophils # (auto) 0.02 K/uL (0-0.2); Basophils % (auto) 0.4 %; Eosinophils # (auto) 0.06 K/uL (0-0.50); Eosinophils % (auto) 1.3 %; Immature Granulocytes # (auto) 0.01 K/uL (0.00-0.02); Immature Granulocytes % (auto) 0.2 %; Lymphocytes # (auto) 0.76 K/uL (1.2-3.4); Monocytes # (auto) 0.52 K/uL (0.24-0.82); Monocytes % (auto) 10.9 %; Neutrophils # (auto) 3.39 K/uL (1.4-6.5); Neutrophils % (auto) 71.2 %
[2022-02-02] MEDS: ONDANSETRON INJ 2 MG/ML 2 ML VIAL IV PRN ×3 (07:14→20:43)
[2022-02-02] MEDS: INSULIN ASPART PER UNIT SC SCH ×4 (07:55→20:43)
[2022-02-02] MEDS: MIDODRINE HCL 10 MG TAB PO SCH ×3 (07:56→17:11)
[2022-02-02] MEDS: busPIRone 15 MG TAB PO SCH ×2 (07:56→20:12)
[2022-02-02] MEDS: PANTOprazole 40 MG in SYRINGE 0 ML IV SCH ×2 (07:57→20:12)
[2022-02-02] MEDS: TPN STOP ORDER SCH (08:12)
[2022-02-02] MEDS: OLANZapine 5 MG TABLET PO SCH ×2 (14:02→20:12)
--- NOTE | 2022-02-02 14:59 | Palliative Care Progress Note ---
Date of Service February 02, 2022 Assessment & Plan (1) Palliative care encounter: (2) Adenocarcinoma of colon metastatic to liver: (3) Cancer related pain: Plan: D/w /addressed her concerns. Will add low dose oxy 5mg PO q4h/Hold for somonolence or RR less than 14, please document RR when administering. (4) Nausea & vomiting: Plan: Zyprexa TID resumed, will see if this helps wade nausea (5) Abdominal pain: (6) Weakness generalized: Plan Meds changes as noted above. Updated . Will plan to meet with them both tomorrow early afternoon for more follow up. Updated primary team. Vivienne Hutson DNP Clinical Director, Palliative Medicine Admission and Anticipated Discharge Date Admission Date: January 23, 2022 Subjective Pain is still an issue. feels this needs to be managed a bit more, asking if TDF can be increased vs adding a BTP med. Nausea persists, has been ongoing since last week. Resuming Zyprexa today, will need to see if it helps. Mental status is ok - alert to self/can answer most questions reasonably well but does have trouble with discussions that need more processing of information. Review of Systems Review of Systems: All systems reviewed & are unremarkable except as noted in Subjective Physical Exam Physical Exam: Lying in bed without any acute distress Constitutional: well developed, well nourished, + ill appearing and + obese Eyes: PERRL, conjunctivae normal, anicteric sclerae ENMT: external ear and nose normal, oropharynx normal Neck: trachea midline, no thyromegaly Respiratory: no respiratory distress Auscultation: + diminished lung sounds and + crackles (Occasional crackles at the bases) Cardiovascular: Rate/Rhythm: regular rate and regular rhythm; not tachycardic Heart Sounds: normal S1 and normal S2; no murmur Extremities: + edema (Trace edema bilaterally) Gastrointestinal (Abdomen): Inspection/Auscultation: + abdomen distended and n ormal bowel sounds (Decreased) Percussion/Palpation: + abdomen tender (Mild to moderate tenderness all over) and abdomen soft Musculoskeletal: No acute arthritis involving any joint Neurologic: moves all extremities; no focal motor deficits Results & Data ([facility]) Vital Signs (Past 12 Hours) Vital Signs Temp Pulse Pulse Resp BP Pulse Ox O2 Del Method 02/02/22 11:56 36.6 C 79 20 96/63 L 94 Room Air 02/02/22 06:22 36.8 C 84 16 97/59 L 95 Room Air 02/02/22 03:21 36.9 C 82 16 92/54 L 93 Room Air PG Care Time/CCT Total # of Minutes Spent Total Time Spent: 38 Total Time Spent with Patient: Total time spent is greater than 50% in coordination of care (as documented) at patient's floor/unit and/or counseling patient: Coding Level of Care Code 52401 Subseq Hosp Care Lvl 2 Diagnoses Palliative care encounter Z51.5 Adenocarcinoma of colon metastatic to liver C18.9; C78.7 Cancer related pain G89.3 Nausea & vomiting R11.2 Abdominal pain R10.9 Weakness generalized R53.1
--- NOTE | 2022-02-02 16:34 | Hospitalist Progress Note ---
Date of Service February 02, 2022 Assessment & Plan (1) Encephalopathy: Plan: Acute metabolic encephalopathy Likely multifactorial: Missed dialysis-uremia, secondary to infection, medications --CT head:No acute intracranial abnormality. EEG:This is an abnormal EEG, recorded in wakefulness only, due to diffuse mild slowing, consistent with bihemispheric dysfunction, as seen in encephalopathies. There is no electrographic seizures or epileptogenic discharge. Avoid sedative medications as able Continue antibiotics for infection Hemodialysis as per nephrology Mental status much improved today and has been communicating almost normally Remains weak and complains to have ongoing nausea Mentally clear and back to his baseline Chronic bowel obstruction H/O Metastatic colon cancer S/P surgery and Ongoing chemotherapy (palliative chemotherapy every 2 weeks at [facility]. Not sure when the last chemotherapy was Immunocompromised status G-tube [id number] was placed in December in [place] --CT ABD:No significant change of the high-grade small bowel obstruction with transition point within the right midabdomen at the distal ileum secondary to metastatic implants. Similar findings were also present dating back to the September 2021 exam's. Mesenteric, omental and abdominal wall tumor implants also appear generally stable. Cirrhosis with splenomegaly. Numerous tumor implants involving the distal colon with probable additional tumor implants involving the urinary bladder. --Continue TPN Palliative care consulted to address goals of care-appreciate palliative care input and recommendation The patient is not yet ready for hospice care but wants to go home We will continue current supportive management Has been tolerating food orally Repeat KUB did not show any significant change compared with that of 01/23/2022 Complains to ongoing nausea and vomiting at times-previously controlled with oral Zyprexa as per the Will restart Zyprexa 5 mg 3 times a day HCAP:Likely Possible gram-negative pneumonia Complicated UTI Bilateral nephrostomy tube related complicated UTI Failed outpatient treatment (Cipro>>Ertapenem) H/O recurrent UTIs, B/L Nephrostomy tubes --CT suggestive of right basilar consolidation Normal lactate level -- Blood culture:Negative --Urine culture is growing Trichosporon spaces-awaiting sensitivity Continue Zosyn Continue current management Infection seems to be under control Anemia of chronic disease Pancytopenia GI bleeding Has minimal Bleeding per rectum today S/P 1 unit PRBC Monitor CBC Continue PPI No aggressive measures/Procedures as per family Will monitor hemoglobin-9.4 as of 01/30/2022 End-stage renal disease Continue dialysis as per nephrology Appreciate nephrology input Continue hemodialysis-patient wants to continue hemodialysis as an outpatient Suspected Opioid toxicity On fentanyl patch, oxycodone as needed at home Currently held sedating medications Also held neuropsychotropic medications Resumed fentanyl patch at lower-dose Monitor Mental status -improved Chronic bladder outlet obstruction H/O bilateral hydronephrosis S/P nephrostomy tube placement --CT ABD:The bilateral nephrostomy tubes appear to be in satisfactory positioning. Moderate to severe left-sided hydroureteronephrosis is generally unchanged. Follows with [facility] as outpatient No evidence of any more bleeding through the nephrostomy tubes DM II HbA1C:5.21 September 2021 Continue insulin per protocol Monitor BGs Chronic hypotension Continue midodrine Cirrhosis Pancytopenia secondary to chemotherapy/cirrhosis Past alcohol abuse Monitor DVT Px: SCDs Re: Thrombocytopenia, GI bleed Code Status DNR/DNI Admission and Anticipated Discharge Date Admission Date: January 23, 2022 Subjective 01/30/2022 The patient was seen and examined in medical telemetry unit He remains extremely weak and lethargic Still complains pain mostly generalized and in abdomen No acute distress at rest 01/31/2022 The patient was seen and examined in medical telemetry unit He has been feeling a little better but complains to have ongoing nausea Denies any significant pain but has profound weakness Has been trying to eat and drink 02/01/2022 The patient was seen and examined in medical telemetry unit He has been complaining of more pain and more nausea KUB did not show any significant change compared with 01/23/2022 Does not have any chest pain or palpitation or shortness of breath 02/02/2022 The patient was seen and examined in medical telemetry unit in presence of the He has been complaining of ongoing nausea and remains very weak and lethargic His Zyprexa has been restarted as requested by the Pain seems to be reasonably controlled The patient wants to go home and to continue current management including hemodialysis Review of Systems Review of Systems: All systems reviewed and are unremarkable except as noted below Neurologic: Very weak and lethargic Physical Exam 2 Physical Exam: Lying in bed without any acute distress Constitutional: well developed, well nourished, + ill appearing and + obese Eyes: PERRL, conjunctivae normal, anicteric sclerae ENMT: external ear and nose normal, oropharynx normal Neck: trachea midline, no thyromegaly Respiratory: no respiratory distress Auscultation: + diminished lung sounds and + crackles (Occasional crackles at the bases) Cardiovascular: Rate/Rhythm: regular rate and regular rhythm; not tachycardic Heart Sounds: normal S1 and normal S2; no murmur Extremities: + edema (Trace edema bilaterally) Gastrointestinal (Abdomen): Inspection/Auscultation: + abdomen distended and normal bowel sounds (Decreased) Percussion/Palpation: + abdomen tender (Mild to moderate tenderness all over) and abdomen soft Musculoskeletal: No acute arthritis involving any joint Neurologic: moves all extremities; no focal motor deficits Results & Data Results & Data ([facility]) Vital Signs (Past 12 Hours) Vital Signs Temp Pulse Resp BP Pulse Ox O2 Del Method 02/02/22 15:49 36.7 C 85 20 92/61 L 97 Room Air 02/02/22 11:56 36.6 C 79 20 96/63 L 94 Room Air 02/02/22 06:22 36.8 C 84 16 97/59 L 95 Room Air Laboratory Results Short CBC 02/02/22 Range/Units 05:27 WBC 4.76 L (4.8-10.8) K/ul Hgb 10.3 L (14.0-18.0) g/dl Hct 32.1 L (40.1-51.0) % Plt Count 105 L (130-400) K/uL BMP 02/02/22 05:27 Sodium 139 Potassium 3.7 Chloride 97 L Carbon Dioxide 33 H BUN 61 H D Creatinine 3.02 H D Glucose 133 H Calcium 9.1 Medications Administered Current Inpatient Medications Acetaminophen (Acetaminophen 325 Mg Tab) 650 mg PO Q6H PRN PRN Reason: Pain Stop: 02/27/22 18:30 Last Admin: 02/02/22 11:46 Dose: 650 mg Buspirone HCl (Buspirone 15 Mg Tab) 30 mg PO BID GATITO Stop: 02/25/22 20:59 Last Admin: 02/02/22 07:56 Dose: 30 mg Dextrose (Dextrose 50% 50 Ml Syringe) 25 - 50 ml IV UD PRN; Protocol PRN Reason: Hypoglycemia Protocol Stop: 02/23/22 00:16 Fentanyl (Fentanyl 50 Mcg/Hr Tdsy) 50 mcg TD Q3D GATITO Stop: 02/15/22 10:14 Last Admin: 02/01/22 14:51 Dose: 50 mcg Glucagon (Glucagon For Inj 1 Mg Vial) 1 mg SQ UD PRN; Protocol PRN Reason: Hypoglycemia Protocol Stop: 02/23/22 00:16 Glucose (Glucose 40% Gel 15 Gm Tube) 15 - 30 gm PO UD PRN; Protocol PRN Reason: Hypoglycemia Protocol Stop: 02/23/22 00:16 Glucose (Glucose 10 Tab/Tube) 4 - 8 tab PO UD PRN; Protocol PRN Reason: Hypoglycemia Treatment Stop: 02/23/22 00:16 Heparin Sodium (Porcine) (Heparin 100 Unit/Ml 5ml Flush) 5 ml FLUSH PRN PRN PRN Reason: Flush Stop: 02/27/22 23:56 Last Admin: 01/31/22 11:21 Dose: 5 ml Dextrose (D10w) 1,000 mls @ 0 mls/hr IV .Q0M PRN PRN Reason: protocol (see label comments) Stop: 02/23/22 15:59 Pantoprazole Sodium 40 mg/ (Syringe) 10 mls @ 5 mls/min IV BID GATITO Stop: 02/24/22 13:19 Last Admin: 02/02/22 07:57 Dose: 5 mls/min Promethazine HCl 25 mg/ Sodium (Chloride) 51 mls @ 202 mls/hr IV Q6H PRN PRN Reason: Nausea And Vomiting Stop: 03/02/22 09:47 Last Infusion: 02/02/22 11:41 Dose: Infused Fat Emulsion-[place] Oil/Soybean Oil (Clinolipid 20% Iv Fat Emulsion) 250 mls @ 41.667 mls/hr IV .Q6H GATITO Stop: 02/03/22 01:59 Amino Acids/Dextrose 1,660 ml/ (Nutrition (Parenteral)) 1,660 mls @ 75 mls/hr IV DAILY@1999 GATITO; Protocol Stop: 02/03/22 08:00 Insulin Aspart (Insulin Aspart Per Unit) 0 units SC ACHS GATITO Stop: 02/23/22 00:16 Last Admin: 02/02/22 12:07 Dose: Not Given Melatonin (Melatonin 3 Mg Tab) 3 mg PO HS PRN PRN Reason: Sleep Stop: 02/23/22 00:16 Last Admin: 01/31/22 20:42 Dose: 3 mg Midodrine (Midodrine Hcl 10 Mg Tab) 10 mg PO TIDM [facility] Stop: 02/23/22 00:16 Last Admin: 02/02/22 13:28 Dose: 10 mg Miscellaneous (Carbohydrates For Hypoglycemia ) 15 - 30 gm PO UD PRN PRN Reason: Hypoglycemia Protocol Stop: 02/23/22 00:16 Miscellaneous (Stop Clinolipid) 1 each N/A Q24H [facility] Stop: 02/24/22 01:59 Last Admin: 02/02/22 02:06 Dose: 1 each Miscellaneous (Tpn Rate Change: Pending Order) 1 each N/A DAILY@2100 [facility] Stop: 02/23/22 20:59 Last Admin: 02/01/22 21:09 Dose: 1 each Miscellaneous (Tpn Rate Change: Pending Order) 1 each N/A DAILY@0700 [facility] Stop: 02/24/22 06:59 Last Admin: 02/02/22 06:11 Dose: 1 each Miscellaneous (Tpn Stop Order) 1 each N/A DAILY@0800 [facility] Stop: 02/24/22 07:59 Last Admin: 02/02/22 08:12 Dose: 1 each Miscellaneous (Fentanyl Patch Remove & Waste) 1 each N/A Q3D [facility] Stop: 03/03/22 10:13 Last Admin: 02/01/22 14:50 Dose: 1 each Miscellaneous (Check Fentanyl Patch Placement) 1 each N/A QS [facility] Stop: 03/03/22 15:59 Last Admin: 02/02/22 08:11 Dose: 1 each Miscellaneous Information (Tpn/Ppn Consult Pharmacy) 1 each N/A UD PRN PRN Reason: Consult Stop: 02/23/22 00:20 Olanzapine (Olanzapine 5 Mg Tablet) 5 mg PO TID [facility] Stop: 03/04/22 13:59 Last Admin: 02/02/22 14:02 Dose: 5 mg Ondansetron HCl (Ondansetron Inj 2 Mg/Ml 2 Ml Vial) 4 mg IV Q6H PRN PRN Reason: Nausea And Vomiting Stop: 02/25/22 16:30 Last Admin: 02/02/22 13:25 Dose: 4 mg Oxycodone HCl (Oxycodone Hcl Ir 5 Mg Tab (Immediate Release)) 5 mg PO Q4HWA PRN PRN Reason: Pain Stop: 02/16/22 14:42 Pantoprazole Sodium (Pantoprazole 40 Mg Tab) 40 mg PO DAILYBB GATITO Stop: 02/23/22 06:29 Last Admin: 01/25/22 05:19 Dose: 40 mg Polyethylene Glycol (Polyethylene (Miralax) 17 Gm Pack) 17 gm PO DAILY PRN PRN Reason: Constipation Stop: 02/28/22 10:44
[2022-02-02] MEDS: oxyCODONE HCL IR 5 MG TAB (IMMEDIATE RELEASE) PO PRN (16:38)
[2022-02-02] MEDS ORDERED: CENTRAL TPN IV SCH (20:00)
[2022-02-02] MEDS ORDERED: CLINOLIPID 20% IV FAT EMULSION 250 ML IV SCH (20:00)
[2022-02-02] MEDS ORDERED: AMINO ACID 8% IV SCH (20:00)
[2022-02-02] MEDS ORDERED: [UNRECOGNIZED DRUG - OTHER] IV SCH (20:00)
[2022-02-02] MEDS: MELATONIN 3 MG TAB PO PRN (20:43)
[2022-02-02] MEDS: SIMETHICONE 80 MG CHEW PO PRN (22:44)
[2022-02-03] MEDS: oxyCODONE HCL IR 5 MG TAB (IMMEDIATE RELEASE) PO PRN ×4 (00:19→20:23)
[2022-02-03] MEDS ORDERED: oxyCODONE HCL IR 5 MG TAB (IMMEDIATE RELEASE) PO STA (00:30)
[2022-02-03] MEDS: CHECK fentaNYL PATCH PLACEMENT SCH ×3 (00:48→15:02)
[2022-02-03] MEDS: STOP CLINOLIPID SCH (02:10)
[2022-02-03] MEDS: ONDANSETRON INJ 2 MG/ML 2 ML VIAL IV PRN ×2 (04:11→09:18)
[2022-02-03] MEDS: MIDODRINE HCL 10 MG TAB PO SCH ×3 (07:32→17:15)
[2022-02-03] MEDS: SIMETHICONE 80 MG CHEW PO PRN (07:32)
[2022-02-03] MEDS: OLANZapine 5 MG TABLET PO SCH ×3 (07:32→19:58)
[2022-02-03] MEDS: PANTOprazole 40 MG in SYRINGE 0 ML IV SCH ×2 (07:32→19:58)
[2022-02-03] MEDS: busPIRone 15 MG TAB PO SCH ×2 (07:33→19:59)
[2022-02-03] MEDS: INSULIN ASPART PER UNIT SC SCH ×4 (07:49→19:55)
[2022-02-03] MEDS: TPN STOP ORDER SCH (07:50)
--- NOTE | 2022-02-03 09:32 | Nephrology Progress Note ---
Date of Service February 03, 2022 Assessment & Plan Admission and Anticipated Discharge Date Admission Date: January 23, 2022 Subjective [facility], [id number] Nephrology Progress Note Signed Patient:DARINEL SARAVIA Admit Date:01/23/22 MR#:[id number] Att Phy:Mike White MD Acct ID:[id number] Paula Phy:eBl Patterson D.O. Date:1965 Fam Phy: Age:56 Location:2W Sex:M Room/Bed:W250-2 cc: ~ *NOTICE TO RECEIVING REPUBLICAN/AGENCY This information is strictly Confidential and protected under [place] law. [place] law prohibits you from making any further disclosure of this information unless further disclosure is expressly permitted by the written consent of the person to whom it pertains or is authorized by law. A general authorization for the release of medical or other information is not sufficient for this purpose. Hospital accepts no responsibility if the information is made available to any other person, INCLU DING THE PATIENT. Date of Service January 30, 2022 Assessment & Plan (1) ESRD (end stage renal disease) on dialysis: Plan: Patient with ESRD on dialysis twice a week Wednesday and Wednesday as outpt. last dialysis Wednesday. Will do him again on . No UF and 3k bath for 3 hrs. Electrolytes are stable.No e/o fluid overload and /or lytes issues today. Palliative med---reviewed the note. patient and want to continue HD for now Subjective has lot of urine through the b/l nephrostomy tube. Lot of pain and nausea. Palliative meds on board. Less confused. Review of Systems Review of Systems: Unable to obtain due to altered mental status Physical Exam Physical Exam: General exam: Appears comfortable, no acute distress HEENT: Pupils are equal and reactive to light Neck: No JVD, neck is supple trachea is midline Respiratory system: Clear breath sounds bilaterally. Gastrointestinal: Abdomen is soft, non distended, non tender, bowel sounds are present CVS: Regular rate and rhythm. No murmurs, rubs or gallops Musculoskeletal: No joint or muscle tenderness Extremities: Non tender, no edema, peripheral pulses are present Neuro: Oriented to place, sleeping Skin: No rashes Results & Data ([facility]) Vital Signs (Past 12 Hours) Vital Signs Temp Pulse Resp BP BP Pulse Ox O2 Del Method 02/03/22 07:28 36.4 C L 98 H 19 107/66 97 Room Air 02/03/22 00:20 16 02/02/22 23:13 36.4 C L 76 18 96/63 L 95 Room Air
[2022-02-03] MEDS: PROMETHAZINE HCL 25 MG in SODIUM CHLORIDE 0.9% 50 ML IV PRN (09:40)
[2022-02-03 10:07] LABS: BUN Creatinine Ratio 23.6 (10-20); Creatinine Clr Calc Pharmacy 22.9 ml/min; Est GFR (African American) 16.9 ml/min; Est GFR (Non-African American) 14.6 ml/min; Magnesium 2.3 mg/dl (1.7-2.4); Phosphorus 4.4 mg/dl (2.5-4.9); Potassium 4.1 mmol/L (3.5-5.1)
--- NOTE | 2022-02-03 11:51 | Palliative Care Progress Note ---
Date of Service February 03, 2022 Assessment & Plan (1) Palliative care encounter: Plan: Psychosocial support provided. Logotherapy provided, pt remains with depressed affect but notes this is fairly close to his usual baseline. He remarks "Anyone would feel pretty depressed too if they had all these things coming out of their body." He remains firm in desire to return home. He is agreeable to home PT but does not want SNF rehab. (2) Cancer related pain: Plan: Patient reports persisting pain. He states he is unhappy with his pain mgt, pointing out that he was using TDF 125mcg prior to admission and now "you people are only giving me 50, that's nothing." I advised him of the prn oxycodone that is available as well. He feels the TDF should be increased because he has a lot of issues with PO intake and nausea, and he does not take PO for nutrition, only pleasure which most of the time is just water. I have increased TDF to 75mcg/hr and no change to OxyIR as ordered. I reviewed the changes with pt, he is in agreement. I advised we would need minimum 18 hr to maybe a whole day to see if the new dose is helping. He is now being dialyzed BIW, next planned for 02/05/22. 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 Plan As noted above. TS 65min all of which was in direct face to face evaluation and discussion with pt. Dr. Vivienne Hutson DNP Clinical Director, Palliative Medicine Admission and Anticipated Discharge Date Admission Date: January 23, 2022 Subjective Pain Mgt: Nausea: present: Review of Systems Review of Systems: All systems reviewed & are unremarkable except as noted in HPI & below Constitutional: + fatigue and + weakness Respiratory: + dyspnea on exertion Cardiovascular: + dyspnea on exertion, + orthopnea and + edema Gastrointestinal: + abdominal pain, + belching, + bloating, + nausea and + vomiting pt with persistent/chronic bowel obstruction due to malignancy, he is on chronic TPN Musculoskeletal: + back pain, + stiffness and + muscle weakness Integumentary: + wounds and + yellowing of the skin Physical Exam Physical Exam: Lying in bed, with feet dangling off to side, lying on an angle which he states is comfortable to him. Appears mildly uncomfortable. Constitutional: well developed, well nourished, + ill appearing and + obese Eyes: PERRL, conjunctivae normal, anicteric sclerae ENMT: external ear and nose normal, oropharynx normal Neck: trachea midline, no thyromegaly Respiratory: no respiratory distress Auscultation: + diminished lung sounds and + crackles (Occasional crackles at the bases) Cardiovascular: Rate/Rhythm: regular rate and regular rhythm; not tachycardic Heart Sounds: normal S1 and normal S2; no murmur Extremities: + edema (Trace edema bilaterally) Gastrointestinal (Abdomen): Inspection/Auscultation: + abdomen distended and normal bowel sounds (Decreased) Percussion/Palpation: + abdomen tender (Mild to moderate tenderness all over) and abdomen soft +drains Musculoskeletal: No acute arthritis involving any joint Neurologic: moves all extremities; no focal motor deficits Results & Data ([facility]) Vital Signs (Past 12 Hours) Vital Signs Temp Pulse Resp BP Pulse Ox O2 Del Method 02/03/22 07:28 36.4 C L 98 H 19 107/66 97 Room Air 02/03/22 00:20 16 Laboratory Results Labs and Imaging reviewed
[2022-02-03] MEDS ORDERED: fentaNYL 75 MCG/HR TDSY TD SCH (14:00)
--- NOTE | 2022-02-03 14:56 | Hospitalist Progress Note ---
Date of Service February 03, 2022 Assessment & Plan (1) Encephalopathy: Plan: Acute metabolic encephalopathy Likely multifactorial: Missed dialysis-uremia, secondary to infection, medications --CT head:No acute intracranial abnormality. EEG:This is an abnormal EEG, recorded in wakefulness only, due to diffuse mild slowing, consistent with bihemispheric dysfunction, as seen in encephalopathies. There is no electrographic seizures or epileptogenic discharge. Avoid sedative medications as able Continue antibiotics for infection Hemodialysis as per nephrology Mental status much improved today and has been communicating almost normally Remains weak and complains to have ongoing nausea Mentally clear and back to his baseline Chronic bowel obstruction H/O Metastatic colon cancer S/P surgery and Ongoing chemotherapy (palliative chemotherapy every 2 weeks at [facility]. Not sure when the last chemotherapy was Immunocompromised status G-tube [id number] was placed in December in [place] --CT ABD:No significant change of the high-grade small bowel obstruction with transition point within the right midabdomen at the distal ileum secondary to metastatic implants. Similar findings were also present dating back to the September 2021 exam's. Mesenteric, omental and abdominal wall tumor implants also appear generally stable. Cirrhosis with splenomegaly. Numerous tumor implants involving the distal colon with probable additional tumor implants involving the urinary bladder. --Continue TPN Palliative care consulted to address goals of care-appreciate palliative care input and recommendation The patient is not yet ready for hospice care but wants to go home We will continue current supportive management Has been tolerating food orally Repeat KUB did not show any significant change compared with that of 01/23/2022 Complains to ongoing nausea and vomiting at times-previously controlled with oral Zyprexa as per the Will restart Zyprexa 5 mg 3 times a day Chronic nausea without any other signs of obstruction HCAP:Likely Possible gram-negative pneumonia Complicated UTI Bilateral nephrostomy tube related complicated UTI Failed outpatient treatment (Cipro>>Ertapenem) H/O recurrent UTIs, B/L Nephrostomy tubes --CT suggestive of right basilar consolidation Normal lactate level -- Blood culture:Negative --Urine culture is growing Trichosporon spaces-awaiting sensitivity Continue Zosyn Continue current management Infection seems to be under control Antibiotics are done Anemia of chronic disease Pancytopenia GI bleeding Has minimal Bleeding per rectum today S/P 1 unit PRBC Monitor CBC Continue PPI No aggressive measures/Procedures as per family Will monitor hemoglobin-9.4 as of 01/30/2022 End-stage renal disease Continue dialysis as per nephrology Appreciate nephrology input Continue hemodialysis-patient wants to continue hemodialysis as an outpatient Likely discharge tomorrow with continuation of outpatient dialysis Suspected Opioid toxicity On fentanyl patch, oxycodone as needed at home Currently held sedating medications Also held neuropsychotropic medications Resumed fentanyl patch at lower-dose Monitor Mental status -improved Chronic bladder outlet obstruction H/O bilateral hydronephrosis S/P nephrostomy tube placement --CT ABD:The bilateral nephrostomy tubes appear to be in satisfactory positioning. Moderate to severe left-sided hydroureteronephrosis is generally unchanged. Follows with [facility] as outpatient No evidence of any more bleeding through the nephrostomy tubes DM II HbA1C:5.21 September 2021 Continue insulin per protocol Monitor BGs Chronic hypotension Continue midodrine Cirrhosis Pancytopenia secondary to chemotherapy/cirrhosis Past alcohol abuse Monitor DVT Px: SCDs Re: Thrombocytopenia, GI bleed Code Status DNR/DNI Prognosis is extremely poor Admission and Anticipated Discharge Date Admission Date: January 23, 2022 Subjective 01/30/2022 The patient was seen and examined in medical telemetry unit He remains extremely weak and lethargic Still complains pain mostly generalized and in abdomen No acute distress at rest 01/31/2022 The patient was seen and examined in medical telemetry unit He has been feeling a little better but complains to have ongoing nausea Denies any significant pain but has profound weakness Has been trying to eat and drink 02/01/2022 The patient was seen and examined in medical telemetry unit He has been complaining of more pain and more nausea KUB did not show any significant change compared with 01/23/2022 Does not have any chest pain or palpitation or shortness of breath 02/02/2022 The patient was seen and examined in medical telemetry unit in presence of the He has been complaining of ongoing nausea and remains very weak and lethargic His Zyprexa has been restarted as requested by the Pain seems to be reasonably controlled The patient wants to go home and to continue current management including hemodialysis 02/03/2022 The patient was seen and examined in medical telemetry unit in presence of the He remained stable and the pain seems to be under control Remains very lethargic and he still has nausea Did not participate in physical therapy due to weakness Still wants to go home and continue with dialysis and TPN Review of Systems Review of Systems: Remains generally very weak and lethargic Physical Exam Physical Exam: Lying in bed without any acute distress Constitutional: + ill appearing and + obese; + not well nourished Eyes: PERRL, conjunctivae normal, anicteric sclerae ENMT: external ear and nose normal, oropharynx normal Neck: trachea midline, no thyromegaly Respiratory: no respiratory distress Auscultation: + diminished lung sounds and + crackles (Occasional crackles at the bases) Cardiovascular: Rate/Rhythm: regular rate and regular rhythm; not tachycardic Heart Sounds: normal S1 and normal S2; no murmur Extremities: + edema (Trace edema bilaterally) Gastrointestinal (Abdomen): Inspection/Auscultation: + abdomen distended and normal bowel sounds (Decreased) Percussion/Palpation: + abdomen tender (Mild to moderate tenderness all over) and abdomen soft Musculoskeletal: No acute arthritis involving any joint Neurologic: moves all extremities; no focal motor deficits Lymphatic: no cervical or axillary lymphadenopathy Results & Data Results & Data ([facility]) Vital Signs (Past 12 Hours) Vital Signs Temp Pulse Resp BP Pulse Ox O2 Del Method 02/03/22 07:28 36.4 C L 98 H 19 107/66 97 Room Air Laboratory Results [facility] 02/03/22 09:01 Sodium 136 Potassium 4.1 Chloride 94 L Carbon Dioxide 29 BUN 99 H D Creatinine 4.20 H D Glucose 113 H Calcium 9.0 Medications Administered Current Inpatient Medications Acetaminophen (Acetaminophen 325 Mg Tab) 650 mg PO Q6H PRN PRN Reason: Pain Stop: 02/27/22 18:30 Last Admin: 02/02/22 11:46 Dose: 650 mg Buspirone HCl (Buspirone 15 Mg Tab) 30 mg PO BID GATITO Stop: 02/25/22 20:59 Last Admin: 02/03/22 07:33 Dose: 30 mg Dextrose (Dextrose 50% 50 Ml Syringe) 25 - 50 ml IV UD PRN; Protocol PRN Reason: Hypoglycemia Protocol Stop: 02/23/22 00:16 Fentanyl (Fentanyl 75 Mcg/Hr Tdsy) 75 mcg TD Q72H GATITO Stop: 02/17/22 13:59 Glucagon (Glucagon For Inj 1 Mg Vial) 1 mg SQ UD PRN; Protocol PRN Reason: Hypoglycemia Protocol Stop: 02/23/22 00:16 Glucose (Glucose 40% Gel 15 Gm Tube) 15 - 30 gm PO UD PRN; Protocol PRN Reason: Hypoglycemia Protocol Stop: 02/23/22 00:16 Glucose (Glucose 10 Tab/Tube) 4 - 8 tab PO UD PRN; Protocol PRN Reason: Hypoglycemia Treatment Stop: 02/23/22 00:16 Heparin Sodium (Porcine) (Heparin 100 Unit/Ml 5ml Flush) 5 ml FLUSH PRN PRN PRN Reason: Flush Stop: 02/27/22 23:56 Last Admin: 01/31/22 11:21 Dose: 5 ml Dextrose (D10w) 1,000 mls @ 0 mls/hr IV .Q0M PRN PRN Reason: protocol (see label comments) Stop: 02/23/22 15:59 Pantoprazole Sodium 40 mg/ (Syringe) 10 mls @ 5 mls/min IV BID GATITO Stop: 02/24/22 13:19 Last Admin: 02/03/22 07:32 Dose: 5 mls/min Promethazine HCl 25 mg/ Sodium (Chloride) 51 mls @ 202 mls/hr IV Q6H PRN PRN Reason: Nausea And Vomiting Stop: 03/02/22 09:47 Last Infusion: 02/03/22 10:07 Dose: Infused Amino Acids/Dextrose 1,661 ml/ (Nutrition (Parenteral)) 1,661 mls @ 75.5 mls/hr IV DAILY@2000 GATITO; Protocol Stop: 03/05/22 19:59 Fat Emulsion-[place] Oil/Soybean Oil (Clinolipid 20% Iv Fat Emulsion) 250 mls @ 41.667 mls/hr IV .Q6H GATITO Stop: 02/04/22 01:59 Insulin Aspart (Insulin Aspart Per Unit) 0 units SC ACHS GATITO Stop: 02/23/22 00:16 Last Admin: 02/03/22 12:15 Dose: Not Given Melatonin (Melatonin 3 Mg Tab) 3 mg PO HS PRN PRN Reason: Sleep Stop: 02/23/22 00:16 Last Admin: 02/02/22 20:43 Dose: 3 mg Midodrine (Midodrine Hcl 10 Mg Tab) 10 mg PO TIDM GATITO Stop: 02/23/22 00:16 Last Admin: 02/03/22 12:14 Dose: 10 mg Miscellaneous (Carbohydrates For Hypoglycemia ) 15 - 30 gm PO UD PRN PRN Reason: Hypoglycemia Protocol Stop: 02/23/22 00:16 Miscellaneous (Stop Clinolipid) 1 each N/A Q24H REPLACED BY [facility] Stop: 02/24/22 01:59 Last Admin: 02/03/22 02:10 Dose: 1 each Miscellaneous (Tpn Rate Change: Pending Order) 1 each N/A DAILY@2100 REPLACED BY [facility] Stop: 02/23/22 20:59 Last Admin: 02/02/22 21:15 Dose: 1 each Miscellaneous (Tpn Rate Change: Pending Order) 1 each N/A DAILY@0700 REPLACED BY [facility] Stop: 02/24/22 06:59 Last Admin: 02/03/22 06:58 Dose: 1 each Miscellaneous (Tpn Stop Order) 1 each N/A DAILY@0800 REPLACED BY [facility] Stop: 02/24/22 07:59 Last Admin: 02/03/22 07:50 Dose: 1 each Miscellaneous (Check Fentanyl Patch Placement) 1 each N/A QS REPLACED BY [facility] Stop: 03/03/22 15:59 Last Admin: 02/03/22 07:33 Dose: 1 each Miscellaneous (Fentanyl Patch Remove & Waste) 1 each N/A Q72H REPLACED BY [facility] Stop: 03/05/22 13:58 Miscellaneous Information (Tpn/Ppn Consult Pharmacy) 1 each N/A UD PRN PRN Reason: Consult Stop: 02/23/22 00:20 Olanzapine (Olanzapine 5 Mg Tablet) 5 mg PO TID REPLACED BY [facility] Stop: 03/04/22 13:59 Last Admin: 02/03/22 14:28 Dose: 5 mg Ondansetron HCl (Ondansetron Inj 2 Mg/Ml 2 Ml Vial) 4 mg IV Q6H PRN PRN Reason: Nausea And Vomiting Stop: 02/25/22 16:30 Last Admin: 02/03/22 09:18 Dose: 4 mg Oxycodone HCl (Oxycodone Hcl Ir 5 Mg Tab (Immediate Release)) 5 mg PO Q4HWA PRN PRN Reason: Pain Stop: 02/16/22 14:42 Last Admin: 02/03/22 14:28 Dose: 5 mg Pantoprazole Sodium (Pantoprazole 40 Mg Tab) 40 mg PO DAILYBB REPLACED BY [facility] Stop: 02/23/22 06:29 Last Admin: 01/25/22 05:19 Dose: 40 mg Polyethylene Glycol (Polyethylene (Miralax) 17 Gm Pack) 17 gm PO DAILY PRN PRN Reason: Constipation Stop: 02/28/22 10:44 Simethicone (Simethicone 80 Mg Chew) 80 mg PO Q6H PRN PRN Reason: Gas or Constipation Stop: 03/04/22 21:36 Last Admin: 02/03/22 07:32 Dose: 80 mg
[2022-02-03] MEDS ORDERED: CLINOLIPID 20% IV FAT EMULSION 250 ML IV SCH (20:00)
[2022-02-03] MEDS ORDERED: [UNRECOGNIZED DRUG - OTHER] IV SCH (20:00)
[2022-02-03] MEDS ORDERED: AMINO ACID 8% IV SCH (20:00)
[2022-02-03] MEDS ORDERED: CENTRAL TPN IV SCH (20:00)
[2022-02-04] MEDS: STOP CLINOLIPID SCH (02:37)
[2022-02-04] MEDS: ONDANSETRON INJ 2 MG/ML 2 ML VIAL IV PRN ×2 (05:06→12:18)
[2022-02-04] MEDS: oxyCODONE HCL IR 5 MG TAB (IMMEDIATE RELEASE) PO PRN ×2 (05:06→10:13)
[2022-02-04] MEDS: PROMETHAZINE HCL 25 MG in SODIUM CHLORIDE 0.9% 50 ML IV PRN (08:32)
[2022-02-04] MEDS: PANTOprazole 40 MG in SYRINGE 0 ML IV SCH (08:32)
[2022-02-04] MEDS: OLANZapine 5 MG TABLET PO SCH ×2 (08:33→13:57)
[2022-02-04] MEDS: MIDODRINE HCL 10 MG TAB PO SCH ×2 (08:33→12:22)
[2022-02-04] MEDS: busPIRone 15 MG TAB PO SCH (08:33)
[2022-02-04] MEDS: TPN STOP ORDER SCH (08:34)
[2022-02-04] MEDS: CHECK fentaNYL PATCH PLACEMENT SCH ×2 (08:34)
[2022-02-04] MEDS: INSULIN ASPART PER UNIT SC SCH ×2 (08:35→12:04)
[2022-02-04 10:24] LABS: BUN Creatinine Ratio 26.5 (10-20); Calcium 9.2 mg/dl (8.5-10.1); Creatinine Clr Calc Pharmacy 21.8 ml/min; Est GFR (African American) 15.9 ml/min; Est GFR (Non-African American) 13.7 ml/min; Magnesium 2.4 mg/dl (1.7-2.4); Phosphorus 5.1 mg/dl (2.5-4.9); Potassium 4.9 mmol/L (3.5-5.1)
--- NOTE | 2022-02-04 12:08 | Hospitalist Progress Note ---
Date of Service February 04, 2022 Assessment & Plan (1) Encephalopathy: Plan: Per Dr. White's notes with addendum: Acute metabolic encephalopathy Likely multifactorial: Missed dialysis-uremia, secondary to infection, medications --CT head:No acute intracranial abnormality. EEG:This is an abnormal EEG, recorded in wakefulness only, due to diffuse mild slowing, consistent with bihemispheric dysfunction, as seen in encephalopathies. There is no electrographic seizures or epileptogenic discharge. Avoid sedative medications as able Continue antibiotics for infection Hemodialysis as per nephrology Mental status much improved today and has been communicating almost normally Remains weak and complains to have ongoing nausea Mentally clear and back to his baseline 02/04 Mental status back to baseline, alert, oriented x3 Chronic bowel obstruction H/O Metastatic colon cancer S/P surgery and Ongoing chemotherapy (palliative chemotherapy every 2 weeks at [facility]. Not sure when the last chemotherapy was Immunocompromised status G-tube [id number] was placed in December in [place] --CT ABD:No significant change of the high-grade small bowel obstruction with transition point within the right midabdomen at the distal ileum secondary to metastatic implants. Similar findings were also present dating back to the September 2021 exam's. Mesenteric, omental and abdominal wall tumor implants also appear generally stable. Cirrhosis with splenomegaly. Numerous tumor implants involving the distal colon with probable additional tumor implants involving the urinary bladder. --Continue TPN Palliative care consulted to address goals of care-appreciate palliative care input and recommendation The patient is not yet ready for hospice care but wants to go home We will continue current supportive management Has been tolerating food orally Repeat KUB did not show any significant change compared with that of 01/23/2022 Complains to ongoing nausea and vomiting at times-previously controlled with oral Zyprexa as per the Will restart Zyprexa 5 mg 3 times a day Chronic nausea without any other signs of obstruction 02/04 No nausea or vomiting HCAP:Likely Possible gram-negative pneumonia Complicated UTI Bilateral nephrostomy tube related complicated UTI Failed outpatient treatment (Cipro>>Ertapenem) H/O recurrent UTIs, B/L Nephrostomy tubes --CT suggestive of right basilar consolidation Normal lactate level -- Blood culture:Negative --Urine culture is growing Trichosporon spaces-awaiting sensitivity Continue Zosyn Continue current management Infection seems to be under control Antibiotics are done 02/04 Afebrile, no cough, problems with urination Anemia of chronic disease Pancytopenia GI bleeding Has minimal Bleeding per rectum today S/P 1 unit PRBC Monitor CBC Continue PPI No aggressive measures/Procedures as per family Will monitor hemoglobin-9.4 as of 01/30/202202/04 Hemoglobin stable around 9-4 End-stage renal disease Continue dialysis as per nephrology Appreciate nephrology input Continue hemodialysis-patient wants to continue hemodialysis as an outpatient Likely discharge tomorrow with continuation of outpatient dialysis 02/04 Continue HD as an outpatient Suspected Opioid toxicity On fentanyl patch, oxycodone as needed at home Currently held sedating medications Also held neuropsychotropic medications Resumed fentanyl patch at lower-dose Monitor Mental status -improved 02/04 Fentanyl patch reduced to 75 mcg daily Oxycodone also reduced to 5 mg p.o. every 4 hours Further management as an outpatient Chronic bladder outlet obstruction H/O bilateral hydronephrosis S/P nephrostomy tube placement --CT ABD:The bilateral nephrostomy tubes appear to be in satisfactory positioning. Moderate to severe left-sided hydroureteronephrosis is generally unchanged. Follows with [facility] as outpatient No evidence of any more bleeding through the nephrostomy tubes DM II HbA1C:5.21 September 2021 Continue insulin per protocol Monitor BGs Chronic hypotension Continue midodrine Cirrhosis Pancytopenia secondary to chemotherapy/cirrhosis Past alcohol abuse Monitor DVT Px: SCDs Re: Thrombocytopenia, GI bleed Code Status DNR/DNI Prognosis is extremely poor Admission and Anticipated Discharge Date Admission Date: January 23, 2022 Subjective Follow-up for encephalopathy, metastatic colon cancer, etc. Seen resting in bed, comfortable, not in distress Sleeping but easily awakened States he feels okay overall Feels tired Pain adequately controlled overall No nausea or vomiting, fevers or chills, shortness of breath No other symptoms States he is ready for discharge today and would like to go home Review of Systems Review of Systems: all noted and negative except for above Physical Exam Physical Exam: General- oriented x 3, not in distress, speaks in sentences with no effort or accessory muscle use Appears somewhat weak Eyes- anicteric Neck- no JVD Lungs- clear breath sounds bilaterally, no rales/wheezes Heart- normal rate, regular rhythm; no murmurs Abdomen- normal bowel sounds, nondistended, soft, nontender Extremities- no pretibial edema, no calf tenderness Neuro- alert, oriented x 3; no gross focal neurologic deficits Skin- warm & dry Results & Data Results & Data ([facility]) Vital Signs (Past 12 Hours) Vital Signs Temp Pulse Resp BP Pulse Ox O2 Del Method 02/04/22 10:29 Room Air 02/04/22 06:46 36.6 C 82 20 103/67 95 Room Air all noted and reviewed including below
--- NOTE | 2022-02-04 16:00 | Palliative Care Progress Note ---
Date of Service February 04, 2022 Assessment & Plan (1) Palliative care encounter: Plan: Met with pt and at bedside, joined by mingler operator approx 15min into our discussion. has some worries about bringing pt home but he is looking forward to being there. asking about "when do we know it's time to stop things?" and states pt has, more than one time this admission, began saying he was ready to stop everything and come home for EOL. She then would ask him if he felt some improvement with tx would he want to continue and he agreed to stay on current plan. is unsure he is gaining any signif benefit but will support his choices to continue whatever therapies he chooses for as long as he desires, she is clear that she does not feel this is her place to choose for him when he is able to do so himself. (2) Cancer related pain: Plan: Ok to increase to oxy ir 10mg po q4h/hold for somnolence or resp rate less than 14/min continue TDF 75mcg. he has appt with [facility] tomorrow-planning to keep appt, will let them further adjust TDF if needed (3) Nausea & vomiting: Plan: Improved with zyprexa, no changes (4) Weakness generalized: (5) Adenocarcinoma of colon metastatic to liver: Plan as noted above. I offered pall med follow up with me if needed/if [facility] unavailable., as a backup. pt and appreciative. TS 60min, greater than half in ACP discussion Vivienne Hutson DNP Clinical Director, Palliative Medicine Admission and Anticipated Discharge Date Admission Date: January 23, 2022 Subjective feeling ok. mmood better-is going home today. at bedside. She is nervous about his coming home/asking if it is too soon/will he boune back to hospital. Patient states belief he will get better/feel better at home, healing is better at home. nausea improved with zyprexa resumption pt states oxy ir 5mg not helping, wants it increased. doing ok with patch icrasem this is day 1 Review of Systems Review of Systems: All systems reviewed & are unremarkable except as noted in Subjective Physical Exam Physical Exam: Lying in bed without any acute distress Constitutional: + ill appearing and + obese; + not well nourished Eyes: PERRL, conjunctivae normal, anicteric sclerae ENMT: external ear and nose normal, oropharynx normal Neck: trachea midline, no thyromegaly Respiratory: no respiratory distress Auscultation: + diminished lung sounds and + crackles (Occasional crackles at the bases) Cardiovascular: Rate/Rhythm: regular rate and regular rhythm; not tachycardic Heart Sounds: normal S1 and normal S2; no murmur Extremities: + edema (Trace edema bilaterally) Gastrointestinal (Abdomen): Inspection/Auscultation: + abdomen distended and normal bowel sounds (Decreased) Percussion/Palpation: + abdomen tender (Mild to moderate tenderness all over) and abdomen soft Musculoskeletal: No acute arthritis involving any joint Neurologic: moves all extremities; no focal motor deficits Lymphatic: no cervical or axillary lymphadenopathy Results & Data ([facility]) Vital Signs (Past 12 Hours) Vital Signs Temp Pulse Pulse Pulse Pulse Resp BP 02/04/22 12:44 36.6 C 85 75 81 82 20 103/67 02/04/22 10:29 02/04/22 06:46 36.6 C 82 20 103/67 BP Pulse Ox O2 Del Method 02/04/22 12:44 101/68 95 02/04/22 10:29 Room Air 02/04/22 06:46 95 Room Air Laboratory Results labs reviewed PG Care Time/CCT Total # of Minutes Spent Total Time Spent with Patient: Total time spent is greater than 50% in coordination of care (as documented) at patient's floor/unit and/or counseling patient: Coding Level of Care Code ADVNCD CARE PLAN 30 MIN Diagnoses Palliative care encounter Z51.5 Cancer related pain G89.3 Nausea & vomiting R11.2 Weakness generalized R53.1 Adenocarcinoma of colon metastatic to liver C18.9; C78.7
--- NOTE | 2022-02-04 18:20 | Discharge Summary ---
Discharge Summary Date of Service February 04, 2022 Notes For Next Care Provider Fentanyl patch decreased from 100 to 75 mcg Oxycodone decreased from 15 to 5 mg every 4 hours -- Above changes made in light of encephalopathy Please adjust accordingly Medication Changes From Visit Per above Admission HPI Per Admitting Provider History obtained from patient, family, and records. Unable to obtain history from patient secondary to lethargy/confusion. Medical history significant for metastatic colon cancer status post surgery ongoing chemotherapy, recurrent UTIs, bilateral hydronephrosis status post nephrostomy tube placement, ESRD on HD, chronic cancer pain on fentanyl patch, DM2 diet-controlled, chronic bowel obstruction with G-tube placement on TPN, chronic hypotension on midodrine, cirrhosis, pancytopenia (baseline hemoglobin of 8), past alcohol abuse. Last confinement October 2921 for abdominal pain, Pseudomonas UTI. Patient completed cefepime treatment Palliative care consulted during confinement. Patient/family hesitant to proceed with hospice as dialysis and TPN will have to be stopped as per . 2 weeks ago, patient nephrostomy bag noted to have cloudy drainage. UA requested by patient's [facility] oncologist. Patient started on Ciprofloxacin. Urine CS later grew Pseudomonas as per . Patient ciprofloxacin switched to Ertapenem as per outpatient provider recommendations 3 days ago. Progressive weakness the last few days. Patient unable to bring patient to dialysis today because of weakness. (Patient currently on twice weekly schedule, Wednesday and Wednesday as per .) Rash noted on patient's abdomen. Patient denies chest pain, SOB, unusual belly pain, headache symptoms. No overt cough symptoms as per Denies narcotic overuse. Involuntary jerks noted at home. Patient brought to the ER for evaluation. Meropenem administered at the ER. 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 Admission Exam Per Admitting Provider GENERAL: Disoriented, chronically ill , episodic myoclonic jerks no respiratory distress SKIN: Sallow , warm HEENT: Alopecia, pale palpebral conjunctivae, no ptosis, dry buccal mucosa NECK : Supple, no tenderness CHEST : CTA, no tenderness HEART : RRR, no obvious murmurs ABDOMEN: Some distention, no abdominal tenderness EXTREMITIES : Minimal LE swelling, no LE tenderness, no other conspicuous deformities noted NEUROLOGIC : Lethargic, no facial asymmetry, episodic myoclonic jerks, gait and stance not assessed Principal Dx & Hospital Course #1 = Principal Diagnosis (1) Encephalopathy: Per Dr. White's notes with addendum: Acute metabolic encephalopathy Likely multifactorial: Missed dialysis-uremia, secondary to infection, medications --CT head:No acute intracranial abnormality. EEG:This is an abnormal EEG, recorded in wakefulness only, due to diffuse mild slowing, consistent with bihemispheric dysfunction, as seen in encephalopathies. There is no electrographic seizures or epileptogenic discharge. Given antibiotics for pneumonia and UTI, management per above Hemodialysis as per nephrology Mental status gradually improved 02/04 Mental status back to baseline, alert, oriented x3 Chronic bowel obstruction H/O Metastatic colon cancer S/P surgery and Ongoing chemotherapy (palliative chemotherapy every 2 weeks at [facility]. Not sure when the last chemotherapy was Immunocompromised status G-tube [id number] was placed in December in [place] --CT ABD:No significant change of the high-grade small bowel obstruction with transition point within the right midabdomen at the distal ileum secondary to metastatic implants. Similar findings were also present dating back to the September 2021 exam's. Mesenteric, omental and abdominal wall tumor implants also appear generally stable. Cirrhosis with splenomegaly. Numerous tumor implants involving the distal colon with probable additional tumor implants involving the urinary bladder. --Continue TPN Palliative care consulted to address goals of care-appreciate palliative care input and recommendation The patient is not yet ready for hospice care but wants to go home Has been tolerating food orally Repeat KUB did not show any significant change compared with that of 01/23/2022 Complains to ongoing nausea and vomiting at times-previously controlled with oral Zyprexa as per the Will restart Zyprexa 5 mg 3 times a day Chronic nausea without any other signs of obstruction 02/04 No nausea or vomiting HCAP:Likely Possible gram-negative pneumonia Complicated UTI Bilateral nephrostomy tube related complicated UTI Failed outpatient treatment (Cipro>>Ertapenem) H/O recurrent UTIs, B/L Nephrostomy tubes --CT suggestive of right basilar consolidation Normal lactate level -- Blood culture:Negative --Urine culture is growing Trichosporon spaces-awaiting sensitivity Completed course of completed course of Zosyn 02/04 Afebrile, no cough, problems with urination Anemia of chronic disease Pancytopenia GI bleeding Had minimal Bleeding per rectum during admission S/P 1 unit PRBC No aggressive measures/Procedures as per family 02/04 Hemoglobin stable around 9-4 End-stage renal disease Continue dialysis as per nephrology 02/04 Continue HD as an outpatient Suspected Opioid toxicity On fentanyl patch, oxycodone as needed at home Resumed fentanyl patch at lower-dose Monitor Mental status -improved 02/04 Fentanyl patch reduced to 75 mcg daily Oxycodone also reduced to 5 mg p.o. every 4 hours Further management as an outpatient Chronic bladder outlet obstruction H/O bilateral hydronephrosis S/P nephrostomy tube placement --CT ABD:The bilateral nephrostomy tubes appear to be in satisfactory positioning. Moderate to severe left-sided hydroureteronephrosis is generally unchanged. Follows with [facility] as outpatient No evidence of any more bleeding through the nephrostomy tubes DM II HbA1C:5.21 September 2021 Continue insulin per protocol Monitor BGs Chronic hypotension Continue midodrine Cirrhosis Pancytopenia secondary to chemotherapy/cirrhosis Past alcohol abuse Monitor DVT Px: SCDs Re: Thrombocytopenia, GI bleed Code Status DNR/DNI Disposition Discharge to home with home health services Follow-up with PCP in 1 week Discharge Exam General- oriented x 3, not in distress, speaks in sentences with no effort or accessory muscle use Appears somewhat weak Eyes- anicteric Neck- no JVD Lungs- clear breath sounds bilaterally, no rales/wheezes Heart- normal rate, regular rhythm; no murmurs Abdomen- normal bowel sounds, nondistended, soft, nontender Extremities- no pretibial edema, no calf tenderness Neuro- alert, oriented x 3; no gross focal neurologic deficits Skin- warm & dry Updated Medication List Medication Instructions Recorded Confirmed Type TPN Electrolytes See Rx Instructions .Route .COMPLEX 09/28/21 01/23/22 History melatonin 3 mg tablet 3 mg PO HS PRN Sleep 09/28/21 01/23/22 History menthol 0.44 %-zinc oxide 20.6 % 1 applic topical TID PRN breakdown 09/28/21 01/23/22 History topical ointment (Calmoseptine) midodrine 10 mg tablet 10 mg PO TID 09/28/21 01/23/22 History nystatin 100,000 unit/gram topical 1 applic topical BID 09/28/21 01/23/22 History powder olanzapine 5 mg tablet (Zyprexa) 5 mg PO TID 09/28/21 01/23/22 History ondansetron HCl 8 mg tablet 8 mg PO TID PRN Nausea 09/28/21 01/23/22 History pantoprazole 40 mg tablet,delayed 40 mg PO DAILYBB 09/28/21 01/23/22 History release (Protonix) silodosin 8 mg capsule 8 mg PO HS 09/28/21 01/23/22 History buspirone 30 mg tablet 30 mg PO BID 11/21/21 01/23/22 History dronabinol 2.5 mg capsule 2.5 mg PO BID PRN Nausea 11/21/21 01/23/22 History fentanyl 75 mcg/hr transdermal 75 mcg transdermal Q72H 10 days 02/04/22 Rx patch #10 ea oxycodone 5 mg tablet 5 mg PO Q4HWA PRN pain #14 tabs 02/04/22 Rx Hospital Stay Data Consultations 01/23/22 20:16 ED Decision to Admit Stat 01/23/22 22:28 Consult Nephrology Routine 01/25/22 13:16 Consult Palliative Care Routine Diagnostic Imagining Performed Chest X-Ray 01/23/22 17:09 XR chest 1V portable HISTORY: 56 years-old Male ams . Acutely altered mental status COMPARISON: Chest radiograph 10/10/2021 TECHNIQUE: AP view of the chest FINDINGS: Cardiac silhouette is enlarged. Left subclavian Zymhym-g-Nved catheter. Right IJ dual-lumen hemodialysis catheter. Subsegmental right basilar atelectasis. No pneumothorax, pleural effusion, airspace consolidation or overt pulmonary edema. 10 mm nodule projects over the lateral right midlung which appears stable. Degenerative changes of the shoulders and spine. Mild right hemidiaphragmatic elevation. IMPRESSION: No acute process. ACT 112: Negative or not required by law. The above report was generated using voice recognition software. It may contain grammatical, syntax or spelling errors. Electronically signed by: John Goodson M.D. 01/23/2022 7:[address] 01/23/22 17:09 CT head/brain wo con CLINICAL HISTORY: 56 years-old Male with ams. Acutely altered mental status TECHNIQUE: Multiple axial CT images of the head were obtained without contrast. A dose lowering technique was utilized adhering to the principles of ALARA. COMPARISON: Head CT 10/10/2021 FINDINGS: No acute intracranial hemorrhage, midline shift, intracranial mass, hydrocephalus, territorial ischemia or abnormal extra-axial collection. Mild involutional changes. Senescent calcifications of the lentiform nuclei. The calvarium is intact. Prior bilateral lens repair. The paranasal sinuses, mastoid air cells, and middle ear cavities are clear. IMPRESSION: No acute intracranial abnormality. ACT 112: Negative or not required by law. The above report was generated using voice recognition software. It may contain grammatical, syntax or spelling errors. Electronically signed by: John Goodson M.D. 01/23/2022 6:36 PM Abdomen/Pelvis CT 01/23/22 17:[address] WITHOUT CONTRAST CT DOSE: 2323.75 mGy.cm HISTORY: Acute bilateral flank pain in patient with bilateral percutaneous nephrostomy. recent change of perc nephrostomy tubes TECHNIQUE: Multiaxial CT images of the abdomen and pelvis were performed without contrast. A dose lowering technique was utilized adhering to the principles of ALARA. COMPARISON STUDY: 11/20/2021, 10/10/2021. FINDINGS: Right IJ Seibha-v-Jump catheter distal tip terminates within the right atrium. The heart is enlarged. Trace right pleural effusion. Mild left basilar atelectasis. Right basilar consolidation. There are a few nodules of the right lung base measuring up to 11 mm on image 10 series 5. No pneumatosis or pneumoperitoneum identified. The spleen measures up to approximately 20 cm in length. Evaluation of the solid abdominal organs without the use of IV contrast. Atrophic pancreas. Unremarkable adrenal glands. Surgical clips are again noted within the carlos a hepatis. Cirrhotic morphology of the liver. No hepatic mass identified. The right-sided nephrostomy tube appears to be in satisfactory positioning. No right-sided hydronephrosis. Moderate to severe left-sided hydroureteronephrosis with transverse dimension the renal pelvis measuring 3.0 cm. Findings are similar to the comparison study with mildly decreased amount of perinephric stranding. The left nephrostomy tube has been advanced, now terminating within the left renal pelvis. No renal or ureteral calculi identified. Hyperdense foci within the bladder redemonstrated suggestive of calcifications or blood products. Atherosclerosis of the aorta without aneurysm. Scattered peritoneal and anterior abdominal wall metastatic disease is redemonstrated. 4.5 cm anterior abdominal wall lesion on image 66 is stable. 2.5 cm lesion on image 73 is unchanged. High-grade small bowel obstruction with transition point within the right midabdomen at the distal ileum secondary to tumor implants. Findings appear similar from the prior study. A gastrostomy tube appears to be unchanged positioning. Nonspecific wall thickening of the distal stomach similar to prior. There are numerous soft tissue attenuating nodular foci noted within the sigmoid colon which are also likely neoplastic. Degenerative changes of the spine, pelvis and hips. Grade 1 anterolisthesis L5 on S1 with chronic bilateral L5 pars defects. IMPRESSION: 1. Right basilar consolidation suspicious for pneumonia. 2. No significant change of the high-grade small bowel obstruction with transition point within the right midabdomen at the distal ileum secondary to metastatic implants. Similar findings were also present dating back to the September 2021 exam's. 3. Mesenteric, omental and abdominal wall tumor implants also appear generally stable. 4. Solid nodules within the right lower lobe measure up to 11 mm. 5. The bilateral nephrostomy tubes appear to be in satisfactory positioning. Moderate to severe left-sided hydroureteronephrosis is generally unchanged. 6. Cirrhosis with splenomegaly. 7. Numerous tumor implants involving the distal colon with probable additional tumor implants involving the urinary bladder. 8. Additional findings as above. ACT 112: Negative or not required by law. The above report was generated using voice recognition software. It may contain grammatical, syntax or spelling errors. Electronically signed by: John Goodson M.D. 01/23/2022 7:51 PM KUB X-Ray 02/01/22 06:44 KUB HISTORY: Acute nausea with vomiting nauea/vomiting COMPARISON: CT 01/23/2022, KUB 10/14/2019. FINDINGS: Cholecystectomy. Gastrostomy tube is in place. Bilateral percutaneous nephrostomy catheters. Surgical hailee and clips are again noted within the right midabdomen. Distended air-filled loops of bowel wall are again noted measuring up to approximately 8.7 cm No renal calculi. No ureteral calculi. No pneumoperitoneum or pneumatosis. No fracture. IMPRESSION: 1. Air-filled dilated loops of bowel within the midabdomen are redemonstrated and appear similar to the 01/23/2022 exam. Findings are suggestive of ongoing small bowel obstruction. 2. Gastrostomy tube with bilateral percutaneous nephrostomy catheters redemonstrated. ACT 112: Negative or not required by law. The above report was generated using voice recognition software. It may contain grammatical, syntax or spelling errors. Electronically signed by: John Goodson M.D. 02/01/2022 9:51 AM 01/23/22 17:09 CT head/brain wo con Stat 01/23/22 17:20 CT abd pelvis wo con Stat Pending Results Patient Have Any Pending Studies at Discharge: No Discharge Instructions Given to Patient (Per Discharging Provider) PLEASE REFER TO YOUR NEW MEDICATION LIST AND FOLLOW INSTRUCTIONS CAREFULLY. YOUR NEW MEDICATIONS INCLUDE: Fentanyl decreased to 75 mcg per patch Oxycodone decreased to 5 mg every 4 hours as needed PLEASE CALL YOUR PRIMARY CARE PHYSICIAN OR RETURN TO THE ER IF WITH WORSENING OF SYMPTOMS, INCLUDING Worsening of pain, nausea/vomiting, weakness, fevers or chills, Confusion, Shortness of breath, cough, Bleeding, etc. FOLLOW UP WITH PRIMARY CARE PHYSICIAN in 1 week. Total Time Total Time Spent Total Time Spent (In Minutes): >30 minutes
== END 2022-02-04 15:24 | disposition home health service (06) | DRG 698 ==
LOC: ED 14:58 → 2W 22:26 → SUATTDRO 22:26 → 2W 23:30
DX: E11.22 Type 2 diabetes mellitus with diabetic chronic kidney disease; N13.30 Unspecified hydronephrosis; C78.7 Secondary malignant neoplasm of liver and intrahepatic bile duct; Z93.6 Other artificial openings of urinary tract status; K92.2 Gastrointestinal hemorrhage, unspecified; G89.3 Neoplasm related pain (acute) (chronic); Z99.2 Dependence on renal dialysis; J18.9 Pneumonia, unspecified organism; C18.9 Malignant neoplasm of colon, unspecified; R44.3 Hallucinations, unspecified; K56.609 Unspecified intestinal obstruction, unspecified as to partial versus complete obstruction; T40.2X1A Poisoning by other opioids, accidental (unintentional), initial encounter; Z88.2 Allergy status to sulfonamides; J15.6 Pneumonia due to other Gram-negative bacteria; Y92.009 Unspecified place in unspecified non-institutional (private) residence as the place of occurrence of the external cause; B96.5 Pseudomonas (aeruginosa) (mallei) (pseudomallei) as the cause of diseases classified elsewhere; T83.598A Infection and inflammatory reaction due to other prosthetic device, implant and graft in urinary system, initial encounter; N18.6 End stage renal disease; Z66 Do not resuscitate; D61.810 Antineoplastic chemotherapy induced pancytopenia; Z93.1 Gastrostomy status; N32.0 Bladder-neck obstruction; Y81.2 Prosthetic and other implants, materials and accessory general- and plastic-surgery devices associated with adverse incidents; N39.0 Urinary tract infection, site not specified; Z87.891 Personal history of nicotine dependence; D84.9 Immunodeficiency, unspecified; I95.89 Other hypotension; K74.60 Unspecified cirrhosis of liver; G93.41 Metabolic encephalopathy; D63.8 Anemia in other chronic diseases classified elsewhere